=== PATIENT | female | born 1970 | race Caucasian/White ===

== ENCOUNTER 2016-09-04 16:31 | Inpatient (IN) | payer MEDICARE, OTHER ==
[2016-09-04] VITALS (9 sets, daily range): BP systolic 186–206; BP diastolic 102–137; PULSE 79–91; RESP 15–18; TEMP 97.8; O2SAT 98–100
[~2016-09-04] VITALS: Ht 160 cm; Wt 57.0 kg
[~2016-09-04 16:31] MED LIST: AMPY10TA PO; BACL10TA PO; GABA300C5 PO; HYDR-3583 PO; INTE44IN SQ; OXYB5TAB10 PO
--- NOTE | 2016-09-04 17:11 | PD ---
HPI Chief Complaint: Altered Mental Status Time Seen by Provider: 16:50 Travel History International Travel<30 days: No Contact w/Intl Traveler<30days: No Traveled to known affect area: No History of Present Illness HPI This 46-year-old female is sent by Dr. CARR. She had gone to see Dr. Carr for routine visit and seemed a bit confused. The patient says she's been feeling very weak for at least a week. She says she's been nauseated and has no appetite. She says she's had an 18 pound weight loss over the past month or so. She had seen Dr. Carr about a month ago and at that time apparently had some abnormal liver function tests. She was told to stop drinking and says that she did. She did have an ultrasound of the liver on June 28 of this year. At that time was noted that her common bile duct was prominent at 7 mm by 3 men rep rest of the ultrasound was negative. She is not aware of any history of liver disease. She does have a history of multiple sclerosis. She sees Dr. Boo. This is manifested as trouble walking and pain. She says that she noted she was having problems writing a check the other day and seemed like she was confused PFSH Past Medical History Diminished Hearing: No Hypertension: Yes Musculoskeletal: Yes (MUTILPLE SCLEROSIS) Neurologic: Yes ?: Not Social History Alcohol Use: Yes (MONTHLY, 3 BEERS) Tobacco Use: Yes (CIGARETTES, 1/2 PPD, STARTED 07/2008) Substance Use: No Allergies-Medications (Allergen,Severity, Reaction): Coded Allergies: Penicillin (Verified Allergy, Intermediate, HIVES, 09/04/16) Reported Meds & Prescriptions Reported Meds & Active Scripts Active Reported Ditropan (Oxybutynin Chloride) 5 Mg Tab 5 Mg PO DAILY Gabapentin 300 Mg Cap 300 Mg PO BID Hydrocodone-Acetaminophen 10-325 mg Tab 1 Tab PO DAILY PRN Ampyra 12 HR (Dalfampridine ER 12 HR) 10 Mg Tab 10 Mg PO BID Rebif Rebidose Pen Inj (Interferon Beta 1a) 44 Mcg/0.5 Ml Pen 44 Mcg SQ 3XWEEK Review of Systems General / Constitutional: Positive: Weight Loss, No: Fever Eyes: No: Diploplia, Blurred Vision HENT: No: Headaches Cardiovascular: No: Chest Pain or Discomfort, Palpitations Respiratory: No: Cough Gastrointestinal: Positive: Nausea, Vomiting, Abdominal Pain, Loss of Appetite Genitourinary: No: Frequency Musculoskeletal: No: Myalgias, Arthralgias Skin: No Rash Neurologic: Positive: Weakness, Change in Mentation Psychiatric: No: Anxiety Hematologic/Lymphatic: Positive: Easy Bruising Physical Exam Narrative GENERAL: Thin female no acute distress SKIN: Focused skin assessment warm/dry. HEAD: Atraumatic. Normocephalic. EYES: Pupils equal and round. There is scleral icterus. No injection or drainage. ENT: No nasal bleeding or discharge. Mucous membranes pink and moist. NECK: Trachea midline. No JVD. CARDIOVASCULAR: Regular rate and rhythm. No murmur appreciated. RESPIRATORY: No accessory muscle use. Clear to auscultation. Breath sounds equal bilaterally. GASTROINTESTINAL: Abdomen soft, non-tender, nondistended. Hepatic and splenic margins not palpable. MUSCULOSKELETAL: No obvious deformities. No clubbing. No cyanosis. No edema. NEUROLOGICAL: Awake and alert. No obvious cranial nerve deficits. Motor grossly within normal limits. Normal speech. PSYCHIATRIC: Appropriate mood and affect; insight and judgment normal. Data Data Last Documented VS Vital Signs Date Time Temp Pulse Resp B/P Pulse Ox O2 Delivery O2 Flow Rate FiO2 09/04/16 18:23 81 18 188/125 09/04/16 17:20 98 Room Air 09/04/16 16:36 97.8 Orders Complete Blood Count With Diff (09/04/16 17:02) Comprehensive Metabolic Panel (09/04/16 17:02) Prothrombin Time / Inr (Pt) (09/04/16 17:02) Act Partial Throm Time (Ptt) (09/04/16 17:02) Lipase (09/04/16 17:02) Urinalysis - C+S If Indicated (09/04/16 17:02) Magnesium (Mg) (09/04/16 17:02) Ammonia (09/04/16 17:02) Ct Brain W/O Iv Contrast(Rout) (09/04/16 17:02) Drug Screen, Random Urine (09/04/16 17:02) Alcohol (Ethanol) (09/04/16 17:02) Clonidine (Catapres) (09/04/16 17:15) Urine Culture (09/04/16 17:00) Sodium Chlor 0.9% 1000 Ml Inj (Ns 1000 M (09/04/16 18:30) Ct Abd/Pel W/O Iv Contrast (09/04/16 ) Labs Laboratory Tests Test 09/04/16 09/04/16 17:00 17:13 Urine Color YELLOW Urine Turbidity CLEAR Urine pH 5.5 Urine Specific [place] 1.019 Urine Protein 100 mg/dL Urine Glucose (UA) NEG mg/dL Urine Ketones NEG mg/dL Urine Occult Blood LARGE Urine Nitrite NEG Urine Bilirubin NEG Urine Leukocyte Esterase NEG Urine WBC 0-2 /hpf Urine Squamous Epithelial 0-5 /hpf Cells Urine Bacteria MANY /hpf Microscopic Urinalysis Comment CULTURE INDICATED Urine Opiates Screen POS Urine Barbiturates Screen NEG Urine Amphetamines Screen NEG Urine Benzodiazepines Screen NEG Urine Cocaine Screen NEG Urine Cannabinoids Screen NEG White Blood Count 12.8 TH/MM3 Red Blood Count 3.05 MIL/MM3 Hemoglobin 10.3 GM/DL Hematocrit 31.6 % Mean Corpuscular Volume 103.7 FL Mean Corpuscular Hemoglobin 33.9 PG Mean Corpuscular Hemoglobin 32.7 % Concent Red Cell Distribution Width 19.2 % Platelet Count 146 TH/MM3 Mean Platelet Volume 10.2 FL Neutrophils (%) (Auto) 73.7 % Lymphocytes (%) (Auto) 14.7 % Monocytes (%) (Auto) 4.6 % Eosinophils (%) (Auto) 0.1 % Basophils (%) (Auto) 6.9 % Neutrophils # (Auto) 9.4 TH/MM3 Lymphocytes # (Auto) 1.9 TH/MM3 Monocytes # (Auto) 0.6 TH/MM3 Eosinophils # (Auto) 0.0 TH/MM3 Basophils # (Auto) 0.9 TH/MM3 CBC Comment AUTO DIFF Differential Total Cells 100 Counted Neutrophils % (Manual) 93 % Lymphocytes % 3 % Monocytes % 4 % Neutrophils # (Manual) 11.9 TH/MM3 Nucleated Red Blood Cells 3 /100 WBC Differential Comment FINAL DIFF MANUAL Platelet Estimate LOW Platelet Morphology Comment NORMAL Tear Drop Cells 1+ Ovalocytes 1+ Keratocytes 1+ Prothrombin Time 13.6 SEC Prothromb Time International 1.2 RATIO Ratio Activated Partial 24.7 SEC Thromboplast Time Sodium Level 131 MEQ/L Potassium Level 3.5 MEQ/L Chloride Level 89 MEQ/L Carbon Dioxide Level 28.8 MEQ/L Anion Gap 13 MEQ/L Blood Urea Nitrogen 80 MG/DL Creatinine 2.20 MG/DL Estimat Glomerular Filtration 24 ML/MIN Rate Random Glucose 100 MG/DL Calcium Level 8.5 MG/DL Magnesium Level 2.8 MG/DL Total Bilirubin 4.2 MG/DL Aspartate Amino Transf 373 U/L (AST/SGOT) Alanine Aminotransferase 400 U/L (ALT/SGPT) Alkaline Phosphatase 110 U/L Ammonia 11 MCMOL/L Total Protein 6.8 GM/DL Albumin 3.2 GM/DL Lipase 178 U/L Ethyl Alcohol Level LESS THAN 3 MG/DL MDM Medical Decision Making Medical Screen Exam Complete: Yes Emergency Medical Condition: Yes Medical Record Reviewed: Yes Differential Diagnosis Differential includes alcoholic hepatitis, hepatitis, dehydration Narrative Course Her bilirubin is 4.2. Hemoglobin is 10 with a white count of 12,000. BUNs is 80 with a creatinine of 2.2. She has been started on IV fluids. A CT scan was done without contrast because of the elevation in her creatinine. There is no evidence of biliary obstruction. No gallstones are seen. Diagnosis Primary Impression: Elevated liver enzymes Additional Impressions: Acute kidney injury (nontraumatic) Dehydration Admitting Information Admitting Physician Requests: Admit Maksim Martinez MD September 04, 2016 17:11
[2016-09-04] MEDS ORDERED: cloNIDine HCL 0.1 MG TAB PO ONE (17:15)
[2016-09-04 17:24] LABS: AUTOMATED NEUTROPHIL # 9.4 TH/MM3 (1.8-7.7); BASOPHIL # 0.9 TH/MM3 (0-0.2); BASOPHIL % 6.9 % (0.0-2.0); EOSINOPHIL % 0.1 % (0.0-4.0); HEMATOCRIT 31.6 % (35.0-46.0); LYMPH % 14.7 % (9.0-44.0); LYMPHOCYTE # 1.9 TH/MM3 (1.0-4.8); MEAN CELL VOLUME 103.7 FL (80.0-100.0); MEAN CORPUSCULAR HEMOGLOBIN 33.9 PG (27.0-34.0); MEAN CORPUSCULAR HGB CONC 32.7 % (32.0-36.0); MONO % 4.6 % (0.0-8.0); NEUT % 73.7 % (16.0-70.0); PLATELET COUNT 146 TH/MM3 (150-450); RED BLOOD COUNT 3.05 MIL/MM3 (4.00-5.30); RED CELL DISTRIBUTION WIDTH 19.2 % (11.6-17.2); WHITE BLOOD COUNT 12.8 TH/MM3 (4.0-11.0)
[2016-09-04 17:26] LABS: BLOOD, URINE LARGE (NEG); GLUCOSE,URINE NEG (NEG); KETONE, URINE NEG (NEG); NITRITE,URINE NEG (NEG); PH, URINE 5.5 (5.0-8.5)
[2016-09-04 17:29] LABS: HEMO FLAGS AUTO DIFF
[2016-09-04 17:35] LABS: BARBITURATES, URINE NEG (NEG)
[2016-09-04 17:43] LABS: BACTERIA, URINE MANY /hpf; COMMENT (UR) CULTURE INDICATED; CULTURE IF INDICATED CULTURE INDICATED; SQUAMOUS EPITHELIAL CELL URINE 0-5 /hpf (0-5); URINE COLOR YELLOW (YELLW/STRAW); WBC, URINE 0-2 /hpf (0-5)
[2016-09-04 17:44] LABS: AMPHETAMINE, URINE NEG (NEG)
[2016-09-04 17:47] LABS: APTT (PATIENT) 24.7 SEC (24.3-30.1); INTERNATIONAL NORMALIZED RATIO 1.2 RATIO; PROTHROMBIN TIME - PATIENT 13.6 SEC (9.8-11.6)
[2016-09-04 17:48] LABS: COCAINE, URINE NEG (NEG)
[2016-09-04 18:08] LABS: CHLORIDE 89 MEQ/L (98-107); POTASSIUM 3.5 MEQ/L (3.5-5.1); SODIUM (NA) 131 MEQ/L (136-145)
[2016-09-04 18:12] LABS: ANION GAP 13 MEQ/L (5-15); BICARBONATE 28.8 MEQ/L (21.0-32.0); BLOOD UREA NITROGEN 80 MG/DL (7-18); MAGNESIUM 2.8 MG/DL (1.5-2.5)
[2016-09-04 18:14] LABS: ALT (GPT) 400 U/L (10-53)
[2016-09-04 18:15] LABS: AST (GOT) 373 U/L (15-37); GLOMERULAR FILTRATION RATE 24 ML/MIN (>89)
[2016-09-04 18:16] LABS: TOTAL BILIRUBIN ADULT 4.2 MG/DL (0.2-1.0)
[2016-09-04 18:17] LABS: ALKALINE PHOSPHATASE 110 U/L (45-117)
[2016-09-04 18:21] LABS: CORRECTED NUCLEATED RBC 3 /100 WBC (0-0); NEUTROPHIL # MANUAL DIFF 11.9 TH/MM3 (1.8-7.7); OVALOCYTES 1+ (NORMAL); POLYS (SEG NEUTROPHILS) 93 % (16-70); WBC DIFF SAMPLE 100
[2016-09-04 18:22] LABS: KERATOCYTES 1+ (NORMAL); PLATELET ESTIMATE SMEAR LOW (NORMAL); PLATELET MORPHOLOGY NORMAL (NORMAL); SCAN/DIFF FINAL DIFF MANUAL; TEARDROP RBCS 1+ (NORMAL)
[2016-09-04] MEDS ORDERED: SODIUM CHLOR 0.9% 1000 ML INJ 1,000 ML IV ONE (18:30)
--- NOTE | 2016-09-04 19:05 | RADHPO ---
EXAM DATE/TIME: 09/04/2016 18:47 [facility] COMPARISON: No previous studies available for comparison. INDICATIONS : Altered mental status. RADIATION DOSE: 66.19 CTDIvol (mGy) MEDICAL HISTORY : Hypertension. Multiple sclerosis. SURGICAL HISTORY : None. ENCOUNTER: Initial ACUITY: 1 day PAIN SCALE: Non-responsive LOCATION: cranial TECHNIQUE: Multiple contiguous axial images were obtained of the head. Using automated exposure control and adj ustment of the mA and/or kV according to patient size, radiation dose was kept as low as reasonably a chievable to obtain optimal diagnostic quality images. FINDINGS: CEREBRUM: The ventricles are normal for age. No evidence of midline shift, mass lesion, hemorrhage or acute in farction. No extra-axial fluid collections are seen. POSTERIOR FOSSA: The cerebellum and brainstem are intact. The 4th ventricle is midline. The cerebellopontine angle i s unremarkable. EXTRACRANIAL: The visualized portion of the orbits is intact. SKULL: The calvaria is intact. No evidence of skull fracture. CONCLUSION: Unremarkable noncontrast CT. Redd Camacho MD on September 04, 2016 at 19:03 Board Certified Radiologist. This report was verified electronically.
--- NOTE | 2016-09-04 19:19 | RADHPO ---
EXAM DATE/TIME: 09/04/2016 18:50 [facility] COMPARISON: No previous studies available for comparison. INDICATIONS : Jaundice and weight loss. ORAL CONTRAST: No oral contrast ingested. RADIATION DOSE: 5.50 CTDIvol (mGy) MEDICAL HISTORY : Multiple sclerosis. Hypertension. SURGICAL HISTORY : None. ENCOUNTER: Initial ACUITY: 1 day PAIN SCALE: 0/10 LOCATION: abdomen TECHNIQUE: Volumetric scanning of the abdomen and pelvis was performed. Using automated exposure control and ad justment of the mA and/or kV according to patient size, radiation dose was kept as low as reasonably achievable to obtain optimal diagnostic quality images. FINDINGS: LOWER LUNGS: There is a small right pleural effusion. The heart size appears mildly prominent and there is a small to moderate amount of pericardial fluid. LIVER: Homogeneous density without lesion. There is no dilation of the biliary tree. No calcified gallston es. There is wall thickening or fluid surrounding the gallbladder measuring up to approximately 7-8 m m. SPLEEN: Normal size without lesion. PANCREAS: Within normal limits. KIDNEYS: Normal in size and shape. There is no mass, stone, or hydronephrosis. ADRENAL GLANDS: Within normal limits. VASCULAR: There is no aortic aneurysm. BOWEL/MESENTERY: There is a nonspecific bowel gas pattern with multiple loops of nondilated air-containing small bowel with multiple small air-fluid levels. There is no free air. There is a small mild fluid in the cul-d e-sac. ABDOMINAL WALL: Within normal limits. RETROPERITONEUM: There is no lymphadenopathy. BLADDER: No wall thickening or mass. There is a large air-fluid level in the bladder. REPRODUCTIVE: There is a 4.1 x 3 cm low-attenuation cystic structure in left adnexa measuring 6.5 Hounsfield units in density. INGUINAL: There is no lymphadenopathy or hernia. MUSCULOSKELETAL: Within normal limits for patient age. CONCLUSION: 1. The study was performed without intravenous or oral contrast limiting the sensitivity. 2. No evidence of biliary obstruction. 3. The gallbladder is abnormal in appearance with wall thickening or surrounding fluid. There are no calcified gallstones identified. 4. Cystic mass in the left adnexa measuring 4.1 x 3 cm most consistent with an ovarian cyst. 5. Small right pleural effusion. 6. Nonspecific, nonobstructive bowel gas pattern which may represent an ileus or gastroenteritis. 7. Air-fluid level in the bladder likely secondary to recent instrumentation. Redd Camacho MD on September 04, 2016 at 19:12 Board Certified Radiologist. This report was verified electronically.
[2016-09-04] MEDS ORDERED: NALOXONE HCL 0.4 MG/ML AMP IV PRN (19:45)
[2016-09-04] MEDS ORDERED: SODIUM CHLORIDE 0.9% FLUSH 10 ML FLUSH IV FLUSH PRN (19:45)
[2016-09-04] MEDS: SODIUM CHLORIDE 0.9% FLUSH 10 ML FLUSH IV FLUSH SCH (21:00)
[2016-09-04] MEDS: hydrALAZINE HCL 20 MG/ML VIAL IV PUSH PRN ×4 (21:37→23:36)
[2016-09-04] MEDS: SODIUM CHLOR 0.9% 1000 ML INJ 1,000 ML IV SCH (21:37)
[2016-09-04] MEDS ORDERED: BACLOFEN 10 MG TAB PO ONE (23:15)
[2016-09-04] MEDS: MORPHINE SULFATE 4 MG/ML INJ IV PUSH PRN (23:37)
[2016-09-05] VITALS (9 sets, daily range): BP systolic 160–220; BP diastolic 84–127; PULSE 81–95; RESP 16–20; TEMP 96.2–97.7; O2SAT 96–99
[2016-09-05] MEDS: hydrALAZINE HCL 20 MG/ML VIAL IV PUSH PRN (05:20)
[2016-09-05 06:42] LABS: AUTOMATED NEUTROPHIL # 10.1 TH/MM3 (1.8-7.7); LYMPH % 11.4 % (9.0-44.0); LYMPHOCYTE # 1.4 TH/MM3 (1.0-4.8); MEAN CELL VOLUME 103.4 FL (80.0-100.0); MEAN CORPUSCULAR HEMOGLOBIN 33.4 PG (27.0-34.0); MEAN CORPUSCULAR HGB CONC 32.3 % (32.0-36.0); MONO % 6.2 % (0.0-8.0); NEUT % 82.4 % (16.0-70.0); PLATELET COUNT 120 TH/MM3 (150-450); RED BLOOD COUNT 2.91 MIL/MM3 (4.00-5.30); RED CELL DISTRIBUTION WIDTH 19.3 % (11.6-17.2); WHITE BLOOD COUNT 12.3 TH/MM3 (4.0-11.0)
[2016-09-05 06:54] LABS: HEMO FLAGS AUTO DIFF
[2016-09-05 07:07] LABS: ALKALINE PHOSPHATASE 97 U/L (45-117); ALT (GPT) 430 U/L (10-53); ANION GAP 17 MEQ/L (5-15); AST (GOT) 384 U/L (15-37); BICARBONATE 27.4 MEQ/L (21.0-32.0); BLOOD UREA NITROGEN 68 MG/DL (7-18); CHLORIDE 94 MEQ/L (98-107); GLOMERULAR FILTRATION RATE 30 ML/MIN (>89); SODIUM (NA) 138 MEQ/L (136-145); TOTAL BILIRUBIN ADULT 3.8 MG/DL (0.2-1.0)
[2016-09-05 07:23] LABS: SCAN/DIFF AUTO DIFF CONFIRMED
[2016-09-05] MEDS ORDERED: ONDANSETRON HCL 4 MG/2 ML VIAL IV PRN (07:45)
[2016-09-05] MEDS ORDERED: CALCIUM CARBONATE 500 MG CHEWABLE TAB CHEW PRN (07:45)
[2016-09-05] MEDS ORDERED: ACETAMINOPHEN 325 MG TAB PO PRN (07:45)
[2016-09-05] MEDS ORDERED: DOCUSATE SODIUM 100 MG CAP PO PRN (07:45)
[2016-09-05 07:49] LABS: POTASSIUM 2.9 MEQ/L (3.5-5.1)
--- NOTE | 2016-09-05 08:09 | RADHPO ---
EXAM DATE/TIME: 09/05/2016 07:52 [facility] COMPARISON: No previous studies available for comparison. INDICATIONS : Hypertension. Some shortness of breath. Weakness. Weight loss. MEDICAL HISTORY : Hypertension. Multiple sclerosis. UTI. SURGICAL HISTORY : None. ENCOUNTER: Initial ACUITY: 2 days PAIN SCORE: 0/10 LOCATION: chest FINDINGS: A single view of the chest demonstrates the lungs to be symmetrically aerated without evidence of mas s, infiltrate or effusion. The heart size is mild to moderately enlarged. The bony structures are in tact. There is no pulmonary vascular redistribution. Overlying electrocardiogram leads are present. CONCLUSION: Mild to moderate cardiomegaly with no evidence of pulmonary edema. Redd Camacho MD on September 05, 2016 at 8:07 Board Certified Radiologist. This report was verified electronically.
[2016-09-05 08:14] LABS: CREATINE KINASE 1591 U/L (26-192)
--- NOTE | 2016-09-05 08:22 | HHI.HP ---
HPI Service [facility] Hospitalists Primary Care Physician Lolita Singh MD Admission Diagnosis HEPATITIS, DEHYDRATION Diagnoses: Chief Complaint: "Weakness." Travel History International Travel<30 Days: No Contact w/Intl Traveler <30 Da: No Traveled to Known Affected Are: No History of Present Illness Ms. Ayon is 46 yo, with history inclusive of multiple sclerosis, smoking 1/2 ppd (though pt reported having stopped smoking within past 2 weeks) , and alcohol use in which she reported near daily use of beer "but I stopped a couple of weeks ago." Ms. Ayon presented to [facility] ED on 09/04/16 as a result of being sent in by her PCP Dr. Singh for confusion. Per the medical record, pt has experienced weakness, confusion, and approximately 18 pound weight loss ( unintentional). Pt reported during the past "two weeks I have been falling a lot." She denied striking her head. Pt noted she has an appetite but continues to lose weight despite eating. Ms. Ayon denied fever, chills, and vomiting, yet endorsed nausea. She denied recent change in medication regimen. She did endorse having been treated for hypertension by her previous PCP, "but I don't take blood pressure medication now." She denied recent worsening of her MS. She stated she has left leg weakness that is unchanged. No other issues noted or reported by pt. Review of Systems Except as stated in HPI: all other systems reviewed are Neg Past Family Social History Past Medical History Multiple sclerosis Hypertension Overactive bladder Past Surgical History Pt denied previous surgical history Reported Medications Reported Meds & Active Scripts Active Reported Ditropan (Oxybutynin Chloride) 5 Mg Tab 5 Mg PO DAILY Gabapentin 300 Mg Cap 300 Mg PO BID Hydrocodone-Acetaminophen 10-325 mg Tab 1 Tab PO DAILY PRN Ampyra 12 HR (Dalfampridine ER 12 HR) 10 Mg Tab 10 Mg PO BID Rebif Rebidose Pen Inj (Interferon Beta 1a) 44 Mcg/0.5 Ml Pen 44 Mcg SQ 3XWEEK Allergies: Coded Allergies: Penicillin (Verified Allergy, Intermediate, HIVES, 09/04/16) Active Ordered Medications Current Medications Medications (Trade) Dose Ordered Sig/Gonzalez Route Start Time Stop Time Status Last Admin (NS 1000 ml Inj) 1,000 ml @ 50 mls/hr Q20H IV 09/04/16 19:44 09/04/16 21:37 (NS Flush) 2 ml UNSCH PRN IV FLUSH 09/04/16 19:45 (NS Flush) 2 ml BID IV FLUSH 09/04/16 21:00 09/04/16 21:00 (Narcan Inj) 0.4 mg UNSCH PRN IV 09/04/16 19:45 (Apresoline) 25 mg Q12HR PO 09/05/16 09:00 (Morphine Inj) 2 mg Q3H PRN IV PUSH 09/04/16 23:15 09/04/16 23:37 (Apresoline Inj) 20 mg Q4HR PRN IV PUSH 09/05/16 08:00 (Catapres) 0.1 mg Q6H PRN PO 09/05/16 07:45 (Tylenol) 650 mg Q4H PRN PO 09/05/16 07:45 (Zofran Inj) 4 mg Q6H PRN IV 09/05/16 07:45 (Colace) 100 mg BID PRN PO 09/05/16 07:45 (Tums Chew) 1,000 mg TID PRN CHEW 09/05/16 07:45 (KCl) 60 meq ONCE ONCE PO 09/05/16 09:00 09/05/16 09:01 (Neurontin) 300 mg BID PO 09/05/16 09:00 (Ditropan) 5 mg DAILY PO 09/05/16 09:00 Patient Own Medication PT OWN MED: AMP... BID PO 09/05/16 09:00 Hold Family History Father reported to have liver and lung cancer. Social History Alcohol use-daily beer use, stopped two weeks ago. Pt stated she had been drinking more than 6 beers a day for the past year. Nicotine use-pt reported smoking 1/2 ppd for about a year "this time.' Life time usage was not disclosed. Illicit/recreational drug use was denied. Physical Exam Vital Signs Vital Signs Date Time Temp Pulse Resp B/P Pulse Ox O2 Delivery O2 Flow Rate FiO2 09/05/16 06:35 213/127 Manual Cuff/Auscultation 09/05/16 04:00 97.2 90 20 206/120 99 09/05/16 00:44 86 09/05/16 00:30 96.6 85 20 178/110 99 Automatic Cuff 09/05/16 00:13 89 18 187/104 99 Room Air 09/04/16 23:54 18 09/04/16 23:22 85 18 186/104 100 Room Air 09/04/16 23:22 85 18 100 Room Air 09/04/16 22:53 85 18 187/102 100 Room Air 09/04/16 22:05 79 18 204/128 100 Room Air 09/04/16 21:40 81 18 203/128 100 Room Air 09/04/16 21:21 88 18 195/124 100 Room Air 09/04/16 21:21 88 18 100 Room Air 09/04/16 19:22 82 18 100 Room Air 09/04/16 19:22 82 18 194/126 100 Room Air 09/04/16 18:23 81 18 188/125 09/04/16 17:20 89 18 201/132 98 Room Air 09/04/16 16:36 97.8 91 15 206/137 99 Physical Exam GENERAL: This is a well-nourished, well-developed patient, in no apparent distress. SKIN: No rashes, ecchymoses or lesions. Cool and dry. HEAD: Atraumatic. Normocephalic. No temporal or scalp tenderness. EYES: Pupils equal round and reactive. Extraocular motions intact. Scleral icterus noted. No injection or drainage. ENT: Nose without bleeding, purulent drainage or septal hematoma. Throat without erythema, tonsillar hypertrophy or exudate. Uvula midline. Airway patent. NECK: Trachea midline. No JVD or lymphadenopathy. Supple, nontender, no meningeal signs. CARDIOVASCULAR: Regular rate and rhythm without murmurs, gallops, or rubs. RESPIRATORY: Clear to auscultation. Breath sounds equal bilaterally. No wheezes , rales, or rhonchi. GASTROINTESTINAL: Abdomen soft, tenderness upon palpitation, nondistended. No guarding. MUSCULOSKELETAL: Extremities without clubbing, cyanosis, or edema. No joint tenderness, effusion, or edema noted. No calf tenderness. Negative Homans sign bilaterally. NEUROLOGICAL: Awake and alert. Cranial nerves II through XII intact. Motor and sensory grossly within normal limits. Five out of 5 muscle strength in upper extremity muscle groups. Weakness noted in both lower extremities, left worse than right. Normal speech. Laboratory Laboratory Tests Test 09/04/16 09/04/16 09/05/16 17:00 17:13 05:35 Urine Color YELLOW Urine Turbidity CLEAR Urine pH 5.5 Urine Specific [place] 1.019 Urine Protein 100 Urine Glucose (UA) NEG Urine Ketones NEG Urine Occult Blood LARGE Urine Nitrite NEG Urine Bilirubin NEG Urine Leukocyte Esterase NEG Urine WBC 0-2 Urine Squamous Epithelial 0-5 Cells Urine Bacteria MANY Microscopic Urinalysis Comment CULTURE INDICATED Urine Opiates Screen POS Urine Barbiturates Screen NEG Urine Amphetamines Screen NEG Urine Benzodiazepines Screen NEG Urine Cocaine Screen NEG Urine Cannabinoids Screen NEG White Blood Count 12.8 12.3 Red Blood Count 3.05 2.91 Hemoglobin 10.3 9.7 Hematocrit 31.6 30.0 Mean Corpuscular Volume 103.7 103.4 Mean Corpuscular Hemoglobin 33.9 33.4 Mean Corpuscular Hemoglobin 32.7 32.3 Concent Red Cell Distribution Width 19.2 19.3 Platelet Count 146 120 Mean Platelet Volume 10.2 9.5 Neutrophils (%) (Auto) 73.7 82.4 Lymphocytes (%) (Auto) 14.7 11.4 Monocytes (%) (Auto) 4.6 6.2 Eosinophils (%) (Auto) 0.1 0.0 Basophils (%) (Auto) 6.9 0.0 Neutrophils # (Auto) 9.4 10.1 Lymphocytes # (Auto) 1.9 1.4 Monocytes # (Auto) 0.6 0.8 Eosinophils # (Auto) 0.0 0.0 Basophils # (Auto) 0.9 0.0 CBC Comment AUTO DIFF AUTO DIFF Differential Total Cells 100 Counted Neutrophils % (Manual) 93 Lymphocytes % 3 Monocytes % 4 Neutrophils # (Manual) 11.9 Nucleated Red Blood Cells 3 Differential Comment FINAL DIFF AUTO DIFF MANUAL CONFIRMED Platelet Estimate LOW Platelet Morphology Comment NORMAL Tear Drop Cells 1+ Ovalocytes 1+ Keratocytes 1+ Prothrombin Time 13.6 Prothromb Time International 1.2 Ratio Activated Partial 24.7 Thromboplast Time Sodium Level 131 138 Potassium Level 3.5 2.9 Chloride Level 89 94 Carbon Dioxide Level 28.8 27.4 Anion Gap 13 17 Blood Urea Nitrogen 80 68 Creatinine 2.20 1.80 Estimat Glomerular Filtration 24 30 Rate Random Glucose 100 92 Calcium Level 8.5 8.0 Magnesium Level 2.8 Total Bilirubin 4.2 3.8 Aspartate Amino Transf 373 384 (AST/SGOT) Alanine Aminotransferase 400 430 (ALT/SGPT) Alkaline Phosphatase 110 97 Ammonia 11 Total Protein 6.8 6.2 Albumin 3.2 3.0 Lipase 178 Ethyl Alcohol Level LESS THAN 3 Total Creatine Kinase 1591 Date/Time Procedure Status Source Growth 09/04/16 17:00 Urine Culture Received Urine Clean Catch Pending Result Diagram: 09/05/16 0535 09/05/16 0535 Imaging Last 24 hours Impressions Chest X-Ray 09/05/16 0000 Signed Impressions: Service Date/Time: September 07:52 - CONCLUSION: Mild to moderate cardiomegaly with no evidence of pulmonary edema. Redd Camacho MD Head CT 09/04/16 1702 Signed Impressions: Service Date/Time: Sunday, September 04, 2016 18:47 - CONCLUSION: Unremarkable noncontrast CT. Redd Camacho MD Assessment and Plan Problem List: (1) Hypertension ICD Code: I10 Status: Acute (2) Acute kidney injury (nontraumatic) ICD Code: N17.9 Status: Acute (3) Elevated liver enzymes ICD Code: R74.8 Status: Acute (4) Dehydration ICD Code: E86.0 Status: Acute (5) MS (multiple sclerosis) ICD Code: G35 Status: Chronic (6) Hypokalemia ICD Code: E87.6 Status: Acute Assessment and Plan Hypertension-uncontrolled hydralazine scheduled and IV PRN Clonidine PO prn Restart ditropan monitor blood pressure EKG reviewed by Dr. Vernon indicated the presence of Left Ventricular Hypertrophy likely due to uncontrolled hypertension. Hypokalemia replace per protocol monitor labs. NAZIA 2/2 dehydration IVF recheck labs in am. Check Ck avoid nephrotoxic agents. Elevated liver enzymes with tender RUQ and epig areas Check HIDA scan as recent abdominal CT indicated gall bladder abnormality of thickened wall or fluid present. Hep profile GI consulted. Dehydration IVF check labs. Multiple sclerosis Neurology to be consulted Written by Adam Easton, acting as scribe for Dr. Vernon on 09/05/16 at 09:32. This note was transcribed by scribe Adam Easton. I, Dr. Magnus Vernon personally performed the history, physical exam, and medical decision making; and confirmed the accuracy of the information in the transcribed note. Authenticated by Dr. Magnus Vernon on 09/05/16 at 12:32. Code Status Full code Discussed Condition With Case discussed with Pt, RN, and Dr. Vernon. Physician Certification 2 Midnight Certification Type: Admission for Inpatient Services Order for Inpatient Services The services are ordered in accordance with Medicare regulations or non- Medicare payer requirements, as applicable. In the case of services not specified as inpatient-only, they are appropriately provided as inpatient services in accordance with the 2-midnight benchmark. Estimated LOS (days): 3 3 days is the estimated time the patient will need to remain in the hospital, assuming treatment plan goals are met and no additional complications. Post-Hospital Plan: Home Problem Qualifiers (1) Hypertension: Qualified Code: I10 - Essential hypertension Adam Easton Jr. September 05, 2016 08:22 Magnus Vernon MD September 05, 2016 12:37
[2016-09-05] MEDS: GABAPENTIN 300 MG CAP PO SCH ×2 (08:49→20:12)
[2016-09-05] MEDS: cloNIDine HCL 0.1 MG TAB PO PRN ×2 (08:49→16:58)
[2016-09-05] MEDS: SODIUM CHLORIDE 0.9% FLUSH 10 ML FLUSH IV FLUSH SCH ×2 (09:00→20:12)
[2016-09-05] MEDS ORDERED: AMPYRA 10 MG PO SCH ×2 (09:00→21:00)
[2016-09-05] MEDS: OXYBUTYNIN CHLORIDE 5 MG TAB PO SCH (09:00)
[2016-09-05] MEDS ORDERED: hydrALAZINE HCL 25 MG TAB PO SCH (09:00)
[2016-09-05] MEDS ORDERED: POTASSIUM CHLORIDE 10 MEQ CONTROLLED RELEASE TAB PO ONE (09:00)
[2016-09-05 09:02] LABS: MAGNESIUM 2.6 MG/DL (1.5-2.5)
[2016-09-05 09:04] LABS: CKMB 28.2 NG/ML (0.5-3.6)
[2016-09-05 09:09] LABS: BETA HCG QUANT LESS THAN 1 MIU/ML (0-5)
[2016-09-05 09:39] LABS: ACETAMINOPHEN LESS THAN 2.0 MCG/ML (10.0-30.0)
[2016-09-05] MEDS: SODIUM CHLOR 0.9% 1000 ML INJ 1,000 ML IV SCH ×2 (10:00→23:02)
--- NOTE | 2016-09-05 13:00 | MB ---
cc: REBECCA PARDO M.D. DATE OF CONSULTATION 09/05/2016 REASON FOR CONSULTATION She is seen in neurological consultation. She is [id number] with a history of multiple sclerosis. It appears that lately she has been followed by neurologist Dr. Boo. She was previously followed by Dr. Duncan. She came to the hospital because of a recent medical and neurological decline. According to a friend who provides some additional history, he used to be her roommate. Three to four weeks ago, the patient has had a progression of problems. There has been a generalized weakness, weight loss, she is not feeling well, and for this reason, she quit drinking and smoking on August 14 and her symptoms only became more pronounced. She has lost almost 20 pounds. Her ability to walk has diminished. She has a history of multiple sclerosis and she takes Ampyra 10 mg twice a day, Rebif three times a week. She also takes Hydrocodone, Gabapentin 300 twice a day and B12. She has a history of spastic overactive bladder presumably from the multiple sclerosis. NEUROLOGIC EXAM On exam, the patient was asleep, but awakened. She provides A limited history. She expressed herself in a very low pitched manner and when questioned she answer the questions somewhat slowly, but appropriately. She seemed to be oriented in a reasonable manner. She has normal ocular movements. Visual silvestre were full. There is no facial weakness. No aphasia. She raised the arms and actually she had a fairly strong good philosophy and religion instructor bilaterally. [id number] testing was normal. In the lower extremities, she starts raising them and she is moderately weak, opposes mild resistance. She wiggles toes and feet and opposes some moderate resistance distally. Reflexes were diminished, but present at the elbows, trace at the knees and absent at the ankles. Plantar responses flexor bilaterally. Position sense preserved. No overt sensory loss. She has been hypertensive in the hospital. The ancillary data includes white count yesterday 12.8, hemoglobin 10.3, platelets 146. Sodium 131, potassium 3.5, BUN 280, creatinine 2.2, calcium normal. Magnesium high at 2.8, total bilirubin 4.2, AST 373, ALT 400, CPK 1591. Urine toxicology negative except for opiates. ASSESSMENT 1. Generalized weakness 2. High abnormal liver function testing. 3. Elevated CPK and some renal failure. 4. Multiple sclerosis It is difficult to be determined whether or not the multiple sclerosis is a substantial factor here, but probably her general decline is related to her electrolyte and liver dysfunction. From a neurological standpoint, I have discussed with the RN and we will hold off Ampyra as well as Rebif as these medications might be a factor. We will schedule an MRI of the thoracic and lumbar spine at least and later on might do additional MRI studies. The CT brain was negative for an acute process. I will follow the neurological course. Thank you for asking us to assist in her care. MD CANDIDO Alexander/GENARO /12:25 PM /12:38 PM
--- NOTE | 2016-09-05 13:01 | HHI.DCPOC ---
Discharge Care Plan Diagnosis: (1) MS (multiple sclerosis) (2) Elevated liver enzymes Your Health Problems Are: Difficulty with ADL Exercise Tolerance Goals to Promote Your Health * To prevent worsening of your condition and complications * To maintain your health at the optimal level Directions to Meet Your Goals Take your medications as prescribed Follow your dietary instruction Follow activity as directed Keep your appointments as scheduled Take your immunizations and boosters as scheduled If your symptoms worsen call your PCP, if no PCP go to Urgent Care Center or Emergency Room Smoking is Dangerous to Your Health. Avoid second hand smoke Call the 24-hour hour crisis hotline for domestic abuse at Magnus Vernon MD September 05, 2016 13:01
--- NOTE | 2016-09-05 13:02 | HHI.FF ---
Face to Face Verification Diagnosis: (1) MS (multiple sclerosis) (2) Elevated liver enzymes Physical Therapy Order: Evaluate and Treat, Improve ambulation, Strength and gait training I have seen patient Kenisha Ayon on 09/05/16. My clinical findings support the need for the requested home health care services because: Ltd mobility - disease progression I certify that my clinical findings support that this patient is homebound because: Unsafe to leave home unassisted Magnus Vernon MD September 05, 2016 13:02
[2016-09-05] MEDS ORDERED: HYDR25TA35 PO (13:05)
[2016-09-05] MEDS ORDERED: CIPR250T52 PO (13:05)
[2016-09-05] MEDS: hydrALAZINE HCL 50 MG TAB PO SCH ×2 (14:04→22:14)
[2016-09-05] MEDS: CIPROFLOXACIN 250 MG TAB PO SCH ×2 (14:04→20:12)
--- NOTE | 2016-09-05 15:41 | RADHPO ---
EXAM DATE/TIME: 09/05/2016 14:50 [facility] COMPARISON: No previous studies available for comparison. INDICATIONS : Mulitple sclerosis. Generalized weakness. MEDICAL HISTORY : Hypertension. SURGICAL HISTORY : None. ENCOUNTER: Initial ACUITY: 3 day PAIN SCORE: 0/10 LOCATION: Back. TECHNIQUE: Multiplanar multisequence MRI of the lumbar spine was performed without contrast. FINDINGS: There is a slight levoconvex curvature of the lumbar spine. No subluxations. Vertebral bodies have no rmal height and marrow signal. Normal conus terminates at the level of L1. Conus morphology within no rmal limits. T12-L1: Normal. L1-L2: Normal. L2-L3: Normal disc. Mild bilateral facet osteoarthritis. No foraminal or spinal stenosis. L3-L4: The disc is slightly desiccated and has mild loss of height. There is bulging of the disc annulus and mild bilateral facet osteoarthritis. No foraminal or spinal stenosis. L4-L5: The disc is desiccated and has mild loss of height. There is a small, broad/diffuse disc protrusion a nd mild to moderate bilateral facet osteoarthritis. There are concentric annular fissures in both for aminal regions, left larger than right. There is mild bilateral foraminal encroachment. L5-S1: The disc is mildly desiccated. No significant loss of height. A small, focal right paracentral disc p rotrusion is present superimposed on a diffuse annular bulge. Protrusion contacts the transiting righ t S1 nerve root within the lateral recess but does not clearly impinge upon it. Mild bilateral facet osteoarthritis seen. There is mild facet fluid on the left. No significant foraminal stenosis demonst rated on either side. CONCLUSION: 1. Mild degenerative changes at L3/L4, L4/L5 and L5/S1. Please see above. 2. Small, age indeterminate right paracentral disc protrusion at L5/S1. This contacts the transiting right S1 nerve root within the lateral recess but without evidence of impingement. 3. Mild bilateral foraminal encroachment at L4/L5 without definite exiting nerve root impingement. 4. There are left larger than right biforaminal annular fissures at the L4/L5 disc. 5. Apparent mild facet synovitis on the left at L5/S1. Lamine Zuñiga MD on September 05, 2016 at 15:31 Board Certified Radiologist. This report was verified electronically.
--- NOTE | 2016-09-05 15:57 | RADHPO ---
EXAM DATE/TIME: 09/05/2016 14:50 [facility] COMPARISON: No previous studies available for comparison. INDICATIONS : Mulitple sclerosis. Generalized weakness. MEDICAL HISTORY : Hypertension. SURGICAL HISTORY : None. ENCOUNTER: Initial ACUITY: 3 day PAIN SCORE: 0/10 LOCATION: Back. TECHNIQUE: Multiplanar multisequence MRI of the thoracic spine was performed. FINDINGS: 2 mm diameter syrinx is seen of the thoracic cord, extending from approximately T2-T11. The cord appe ars very mildly atrophic, especially in the mid thoracic region. No focal cord signal abnormalities a re demonstrated. Small posterior disc protrusions are noted at each level T3/T4 through T9/T10. Very mild facet and co stovertebral degenerative changes are also demonstrated throughout. No significant foraminal or spina l stenosis.Small right and tiny left pleural effusions are present. CONCLUSION: 1. Long segment but very small, age-indeterminate syrinx of the thoracic spine. The thoracic cord als o appears slightly atrophic. 2. Mild degenerative changes as above. 3. No foraminal or spinal stenosis. 4. Small right and tiny left pleural effusions are incidentally noted. Lamine Zuñiga MD on September 05, 2016 at 15:12 Board Certified Radiologist. This report was verified electronically.
--- NOTE | 2016-09-05 17:21 | EKG ---
Date Performed: 09/05/2016 Time Performed: 08:35:56 PTAGE: 46 years EKG: Sinus rhythm . Possible left atrial abnormality Rightward axis Possible anterior infarct - age undetermined Left v entricular hypertrophy Inferior/lateral ST-T changes are probably due to ventricular hypertrophy Righ t atrial abnormality Abnormal ECG NO PREVIOUS TRACING DOCTOR: Lance Tucker Interpretating Date/Time 09/05/2016 17:21:06
--- NOTE | 2016-09-05 18:53 | MB ---
cc: ENRIQUETA KOCH MD DATE OF CONSULTATION 09/05/16 DATE OF [address] Vernon REASON FOR CONSULTATION Increased liver function tests, nausea and vomiting. HISTORY OF PRESENT ILLNESS Mrs. Ayon is a 46-year-old lady with multiple medical problems who came to the emergency room sent by her primary care doctor for altered mental status and increased weakness. She was found to have anemia and increased liver enzymes. The patient is able to give me some history. She apparently had some nausea and vomiting for the last couple of days. There is decreased appetite and weight loss of 18 pounds for the last couple of weeks. The patient does have a history of alcohol use, mostly beer on a daily basis. There is a history of exposure to hepatitis C many years ago. She is not aware of any diagnosis of hepatitis in the past for her. She denies any diarrhea or constipation, never had an endoscopy or colonoscopy. She had is treated for MS by Dr. Valera. PAST MEDICAL HISTORY 1. Hypertension, 2. Overactive bladder 3. Multiple sclerosis PAST SURGICAL HISTORY None. MEDICATIONS At home, 1. Ditropan 2. Gabapentin 3. Hydrocodone 4. ALLERGIES PENICILLIN FAMILY HISTORY Her father had liver cancer but looks like there is a metastatic cancer to the liver from lungs. SOCIAL HISTORY Drinks daily. She reports smoking half a pack of cigarettes per day. REVIEW OF SYSTEMS She denies any fever or chills. She does have weight loss. ENT: No alteration in baseline hearing or visual acuity PULMONARY: Denies any chest pain, shortness of breath. GASTROINTESTINAL: As above. GENITOURINARY:: Denies dysuria, hematuria. HEMATOLOGIC: Denies any history of anemia or bleeding disorder. SKIN: No alteration in baseline skin lesion but she does have jaundice. NEUROLOGIC: No history of TIA or CVA kind of symptoms. No changes in her baseline neurological status. PHYSICAL EXAMINATION GENERAL: On clinical exam, the patient is sitting comfortably in bed in no acute distress. VITAL SIGNS: Blood pressure 190/120, temperature is 97.2, pulse 80, respirations 16. HEENT: Pupils equal, round, reactive to light and accommodation. She is jaundiced. NECK: No JVD. No lymphadenopathy. CHEST: Clear to auscultation and palpation. CARDIOVASCULAR: S1, S2. No murmur. ABDOMEN: Soft, tender in the right upper quadrant. FOOD OR BAGGAGE HANDLING RAMPMAN: She is awake, alert, oriented times three. She does have weakness of her upper arms and larynx EXTREMITIES: No pedal edema. LABORATORY DATA White count 12.8, hemoglobin 10.3, MCV 103, platelets 146. Total bilirubin 3.8, AST 384, ALT 430, ammonia 11, albumin is three, BUN 80, creatinine is 2.2, improving. IMAGING STUDIES She had abdominal CT which showed abnormal gallbladder with wall thickening. No calcified gallstones, cystic mass in the left adnexa, small right pleural effusion, nonspecific nonobstructive bowel gas pattern, air-fluid level in the bladder. Of note, the study was done without IV contrast. The patient had an ultrasound as an outpatient which showed mild dilatation of the common bile duct. IMPRESSION Elevation of liver enzymes, tenderness in the right upper quadrant, abnormal gallbladder on CT, rule out cholecystitis, Elevation of the liver enzymes, history of alcohol use, possible alcoholic liver disease, Mild dilatation of the common bile duct on the patient's us not reproduced on CT done patient may need further evaluation. Mild anemia, no indication of active bleed. most likely secondary to chronic disease. RECOMMENDATIONS HIDA scan, MRCP. We are going to send hepatitis profile and additional blood work to rule out inherited diseases and autoimmune hepatitis-MICHAEL, anti-smooth muscle antibody, antimitochondrial antibody, ceruloplasmin and celiac panel, ferritin, iron, alpha one antitrypsin. Monitor Liver function tests closely. If any indication of cholecystitis or common bile duct stone, the patient would benefit from surgical consultation and possible ERCP. May need endoscopy and colonoscopy and that can be done as an outpatient for further evaluation of her anemia. I would like to thank Dr. Vernon for referring her to our office for consultation. Further recommendation will depend on the patient's clinical status and the above results. Enriqueta Koch MD BSB/SA /5:52 PM /6:32 PM SUSAN
[2016-09-05 23:13] LABS: FERRITIN 1116 NG/ML (8-252)
[2016-09-05 23:17] LABS: TRANSFERRIN IRON PROFILE 206 MG/DL (200-360)
[2016-09-06] VITALS (22 sets, daily range): BP systolic 112–210; BP diastolic 60–134; PULSE 60–84; RESP 12–34; TEMP 96.1–97.9; O2SAT 95–100
[2016-09-06] MEDS: hydrALAZINE HCL 20 MG/ML VIAL IV PUSH PRN ×3 (00:01→08:05)
[2016-09-06] MEDS: cloNIDine HCL 0.1 MG TAB PO PRN (02:07)
[2016-09-06] MEDS: hydrALAZINE HCL 50 MG TAB PO SCH ×3 (06:18→22:19)
[2016-09-06] MEDS: SODIUM CHLOR 0.9% 1000 ML INJ 1,000 ML IV SCH (06:18)
[2016-09-06 06:27] LABS: AUTOMATED NEUTROPHIL # 8.6 TH/MM3 (1.8-7.7); BASOPHIL % 0.2 % (0.0-2.0); EOSINOPHIL % 0.2 % (0.0-4.0); HEMATOCRIT 27.8 % (35.0-46.0); LYMPHOCYTE # 1.1 TH/MM3 (1.0-4.8); MEAN CELL VOLUME 104.5 FL (80.0-100.0); MEAN CORPUSCULAR HEMOGLOBIN 34.3 PG (27.0-34.0); MEAN CORPUSCULAR HGB CONC 32.8 % (32.0-36.0); MONO % 6.5 % (0.0-8.0); NEUT % 82.1 % (16.0-70.0); PLATELET COUNT 89 TH/MM3 (150-450); RED BLOOD COUNT 2.66 MIL/MM3 (4.00-5.30); RED CELL DISTRIBUTION WIDTH 19.9 % (11.6-17.2); WHITE BLOOD COUNT 10.4 TH/MM3 (4.0-11.0)
[2016-09-06 06:29] LABS: HEMO FLAGS AUTO DIFF
[2016-09-06 06:37] LABS: CHLORIDE 100 MEQ/L (98-107); POTASSIUM 3.6 MEQ/L (3.5-5.1); SODIUM (NA) 136 MEQ/L (136-145)
[2016-09-06 06:41] LABS: ANION GAP 11 MEQ/L (5-15); BICARBONATE 25.5 MEQ/L (21.0-32.0); MAGNESIUM 2.4 MG/DL (1.5-2.5)
[2016-09-06 06:50] LABS: BANDS 1 % (0-6); CORRECTED NUCLEATED RBC 3 /100 WBC (0-0); NEUTROPHIL # MANUAL DIFF 8.5 TH/MM3 (1.8-7.7); POLYS (SEG NEUTROPHILS) 81 % (16-70); WBC DIFF SAMPLE 100
[2016-09-06 06:51] LABS: SCAN/DIFF FINAL DIFF MANUAL
[2016-09-06 07:20] LABS: ALKALINE PHOSPHATASE 90 U/L (45-117); ALT (GPT) 473 U/L (10-53); AST (GOT) 331 U/L (15-37); BLOOD UREA NITROGEN 57 MG/DL (7-18); CREATINE KINASE 991 U/L (26-192); GLOMERULAR FILTRATION RATE 33 ML/MIN (>89); TOTAL BILIRUBIN ADULT 3.1 MG/DL (0.2-1.0)
--- NOTE | 2016-09-06 07:30 | PQ ---
Physician Query Response Document PATIENT: ILYAAugust : 1970 ADMIT DATE: 09/04/2016 7:46 PM DISCH DATE: RESPONDING PROVIDER #: Lakisha QUERY TEXT: Acuity Specificity UNCONTROLLED HYPERTENSION is documented in the Medical Record. Please specify the acuity of this condition with terms such as: Based on your medical judgment, can you further clarify which, if any, of the following this conditio n is intended to indicate: ?EMERGENCY ?URGENCY ?CRISIS ? HYPERTENSION UNSPECIFIED ?Other Specify ? Unable to determine The patient's Clinical Indicators include: Documentation in the medical record indicates that this patient is being treated for Hypertension doc umented as: UNCONTROLLED HYPERTENSION The following criteria/clinical indicators are documented in the medical record: X Systolic BP consistently >180 Treatments: HYDRAZALINE IV Query created by: Diane Newman on 09/05/2016 3:21 PM RESPONSE TEXT: Hypertensive urgency QUERY TEXT: Altered Mental Status - Underlying Cause A mental status change is documented in the Medical Record. Please specify the underlying cause Based on your medical judgment, can you further clarify any underlying neurological cause, condition or process, if any, represented by this symptom including: ?Metabolic Encephalopathy ?Toxic Encephalopathy ?Stroke ?Coma ?Delirium ?Other Specify ?Unknown The patient's Clinical Indicators include: Documentation in the medical records indicates that this patient has been diagnosed as having the sym ptom of ALTERED MENTAL STATUS. Additional findings also documented in the medical record include: confusion. Per the medical record, pt has experienced weakness, confusion, 18 pound weight loss (unintentional). bmi < 19 infection clean cath urine w gm negative rods Query created by: Diane Newman on 09/05/2016 3:29 PM RESPONSE TEXT: Metabolic and hypertensive encephalopathy Electronically signed by: Magnus Vernon MD 09/06/2016 7:26 AM
[2016-09-06 07:43] LABS: CKMB 12.3 NG/ML (0.5-3.6)
[2016-09-06] MEDS: amLODIPine BESYLATE 5 MG TAB PO SCH (08:05)
[2016-09-06] MEDS: SODIUM CHLORIDE 0.9% FLUSH 10 ML FLUSH IV FLUSH SCH ×2 (08:05→20:45)
[2016-09-06] MEDS: CIPROFLOXACIN 250 MG TAB PO SCH ×2 (08:05→21:07)
[2016-09-06] MEDS: OXYBUTYNIN CHLORIDE 5 MG TAB PO SCH (08:05)
[2016-09-06] MEDS: GABAPENTIN 300 MG CAP PO SCH ×2 (08:05→20:45)
[2016-09-06] MEDS: cloNIDine HCL 0.2 MG TAB PO PRN ×2 (09:55→17:00)
[2016-09-06] MEDS ORDERED: niCARdipine INJ 25 MG in SODIUM CHLOR 0.9% 250 ML INJ 250 ML IV PRN (10:15)
--- NOTE | 2016-09-06 10:17 | HHI.PR ---
Subjective Remarks F/u HTN urgency. BP still out of control complaining of intermittent frontal headache and dizziness. Improving weakness. Discussed with RN Objective Vitals Vital Signs Date Time Temp Pulse Resp B/P Pulse Ox O2 Delivery O2 Flow Rate FiO2 09/06/16 08:00 97.9 82 19 210/98 97 09/06/16 04:00 189/121 194/123 Manual Cuff/Auscultation 09/06/16 04:00 96.3 81 18 97 09/06/16 01:56 184/107 09/06/16 00:00 96.1 81 16 193/125 97 182/120 09/05/16 20:00 96.2 82 18 160/84 99 09/05/16 20:00 82 09/05/16 16:00 97.2 90 16 190/120 96 09/05/16 12:00 96.9 81 16 180/120 98 I/O 09/05/16 09/05/16 09/05/16 09/06/16 09/06/16 09/06/16 07:00 15:00 23:00 07:00 15:00 23:00 Intake Total 818 ml 650 ml 754 ml 849 ml Balance 818 ml 650 ml 754 ml 849 ml Intake Oral 120 ml 650 ml 420 ml IV Total 698 ml 754 ml 429 ml # Voids 4 3 2 # Bowel Movements 0 0 0 Result Diagram: 09/06/1617 09/06/16 0617 Imaging Last Impressions Thoracic Spine MRI 09/05/16 0000 Signed Impressions: Service Date/Time: September 14:50 - CONCLUSION: 1. Long segment but very small, age-indeterminate syrinx of the thoracic spine. The thoracic cord also appears slightly atrophic. 2. Mild degenerative changes as above. 3. No foraminal or spinal stenosis. 4. Small right and tiny left pleural effusions are incidentally noted. Lamine Zuñiga MD Lumbar Spine MRI 09/05/16 0000 Signed Impressions: Service Date/Time: September 14:50 - CONCLUSION: 1. Mild degenerative changes at L3/L4, L4/L5 and L5/S1. Please see above. 2. Small, age indeterminate right paracentral disc protrusion at L5/S1. This contacts the transiting right S1 nerve root within the lateral recess but without evidence of impingement. 3. Mild bilateral foraminal encroachment at L4/L5 without definite exiting nerve root impingement. 4. There are left larger than right biforaminal annular fissures at the L4/L5 disc. 5. Apparent mild facet synovitis on the left at L5/S1. Lamine Zuñiga MD Chest X-Ray 09/05/16 0000 Signed Impressions: Service Date/Time: September 07:52 - CONCLUSION: Mild to moderate cardiomegaly with no evidence of pulmonary edema. Redd Camacho MD Head CT 09/04/16 1702 Signed Impressions: Service Date/Time: Sunday, September 04, 2016 18:47 - CONCLUSION: Unremarkable noncontrast CT. Redd Camacho MD Abdomen/Pelvis CT 09/04/16 0000 Signed Impressions: Service Date/Time: Sunday, September 04, 2016 18:50 - CONCLUSION: 1. The study was performed without intravenous or oral contrast limiting the sensitivity. 2. No evidence of biliary obstruction. 3. The gallbladder is abnormal in appearance with wall thickening or surrounding fluid. There are no calcified gallstones identified. 4. Cystic mass in the left adnexa measuring 4.1 x 3 cm most consistent with an ovarian cyst. 5. Small right pleural effusion. 6. Nonspecific, nonobstructive bowel gas pattern which may represent an ileus or gastroenteritis. 7. Air-fluid level in the bladder likely secondary to recent instrumentation. Redd Camacho MD Objective Remarks GENERAL: This is a well-nourished, well-developed patient SKIN: No rashes, ecchymoses or lesions. Cool and dry. HEAD: Atraumatic. Normocephalic. No temporal or scalp tenderness. EYES: Pupils equal round and reactive. Extraocular motions intact. Scleral icterus noted. No injection or drainage. ENT: Nose without bleeding, purulent drainage or septal hematoma. Throat without erythema, tonsillar hypertrophy or exudate. Uvula midline. Airway patent. NECK: Trachea midline. No JVD or lymphadenopathy. Supple, nontender, no meningeal signs. CARDIOVASCULAR: Regular rate and rhythm without murmurs, gallops, or rubs. RESPIRATORY: Clear to auscultation. Breath sounds equal bilaterally. No wheezes , rales, or rhonchi. GASTROINTESTINAL: Abdomen soft, epigastric and right upper quadrant tenderness upon palpitation, nondistended. No guarding. MUSCULOSKELETAL: Extremities without clubbing, cyanosis but with bilateral trace leg edema. No joint tenderness, effusion, or edema noted. No calf tenderness. Negative Homans sign bilaterally. NEUROLOGICAL: Awake and alert. Cranial nerves II through XII intact. Motor and sensory grossly within normal limits. Five out of 5 muscle strength in upper extremity muscle groups. Weakness noted in both lower extremities, left worse than right. Normal speech. Procedures None A/P Problem List: (1) Hypertension ICD Code: I10 Status: Acute (2) Acute kidney injury (nontraumatic) ICD Code: N17.9 Status: Acute (3) Elevated liver enzymes ICD Code: R74.8 Status: Acute (4) Dehydration ICD Code: E86.0 Status: Acute (5) MS (multiple sclerosis) ICD Code: G35 Status: Chronic (6) Hypokalemia ICD Code: E87.6 Status: Resolved Assessment and Plan Hypertensive urgency Still out of control. Add Norvasc and start Cardene drip, continue hydralazine scheduled and IV PRN Clonidine PO prn Restarted ditropan monitor blood pressure EKG reviewed by Dr. Vernon indicated the presence of Left Ventricular Hypertrophy likely due to uncontrolled hypertension. Hypokalemia replace per protocol monitor labs. NAZIA 2/2 dehydration and rhabdomyolysis with history of falls. Improving IVF recheck labs in am. avoid nephrotoxic agents. Elevated liver enzymes with tender RUQ and epig areas Follow-up HIDA scan and MRCP as recent abdominal CT indicated gall bladder abnormality of thickened wall or fluid present. Hep profile and workup for autoimmune hepatitis GI consulted. Dehydration IVF check labs. Multiple sclerosis Neurology recommended to hold off with rebif and ampyra Macrocytic anemia. B-12 and folate not deficient. For endoscopy outpatient per GI Hypertensive and metabolic encephalopathy. Head CT without acute findings. Improving. Weight loss. TSH within normal limits. Workup as above. DVT prophy with SCD. Hold pharmacological prophylaxis secondary to uncontrolled hypertension Discharge Planning She is critically ill. Transfer to ICU for close monitoring. High likelihood of decompensation with ICH, CHF etc. Patient will be started on intravenous antihypertensive Cardizem drip. Critical care time spent 35 mins Problem Qualifiers (1) Hypertension: Qualified Code: I10 - Essential hypertension Magnus Vernon MD September 06, 2016 10:17
--- NOTE | 2016-09-06 10:38 | RADHPO ---
EXAM DATE/TIME: 09/06/2016 08:50 This report includes an Addendum and supersedes previous reports for this exam. [facility] COMPARISON: CT ABDOMEN & PELVIS W/O CONTRAST, September 04, 2016, 18:50. INDICATIONS : Jaundice. MEDICAL HISTORY : Multiple sclerosis. Hypertension. SURGICAL HISTORY : None. ENCOUNTER: Subsequent ACUITY: 2 day PAIN SCORE: 0/10 LOCATION: abdomen TECHNIQUE: Multiplanar, multisequence magnetic resonance imaging of the abdomen was performed. High-resolution 3D dataset was utilized to reconstruct maximum-intensity projection (MIP) images. FINDINGS: The common bile duct is normal in caliber and appearance with a diameter of about 6 mm. The proximal common hepatic duct and the intrahepatic duct confluence region is nonvisualized with appearance worr isome for stricture. The gallbladder is dilated with diffuse wall thickening and mild surrounding ind urated changes. There is right pleural effusion and small volume peritoneal fluid. There is no evidence of focal liver mass. The spleen, pancreas, adrenals and kidneys are grossly unre markable. CONCLUSION: Nonvisualization of the duct confluence and proximal common hepatic duct. Lamine Blackmon MD on September 06, 2016 at 10:07 Board Certified Radiologist. This report was verified electronically. ADDENDUM: COMPARISON: BILIARY SCAN (HIDA), September 06, 2016, 13:50. In light of normal appearance and drainage of the biliary tree on the HIDA scan, MRCP appearance is f elt probably artifactual. Lamine Blackmon MD on September 06, 2016 at 16:26 Board Certified Radiologist. This report was verified electronically.
--- NOTE | 2016-09-06 11:16 | PQ ---
Physician Query Response Document PATIENT: ILYAAugust : 1970 ADMIT DATE: 09/04/2016 7:46 PM DISCH DATE: RESPONDING PROVIDER #: Lakisha QUERY TEXT: Clarification of Clinical Diagnostic Findings Our review of the medical record indicates that in order for us to accurately code this account, we a sk if you agree or disagree with the following diagnosis / procedure: IN YOUR CLINICAL OPINION, ARE YOU TREATING: ?_UTI__ ? OTHER ? UNABLE TO DETERMINE The patient's Clinical Indicators include: TREATMENT AND/OR EVALUATION INCLUDES: CLINICAL INDICATORS: 1 _CIPRO BY MOUTH Q 12 HR___ 2 E COLI URINE CULTURE__ 3 _I /O__ Query created by: Diane Newman on 09/06/2016 11:01 AM RESPONSE TEXT: E coli UTI Electronically signed by: Magnus Vernon MD 09/06/2016 11:12 AM
--- NOTE | 2016-09-06 15:14 | HHI.GIFU ---
GI Follow-up Note Consult Follow-up Subjective: Patient seen in hida scan, nonvisualization on gb at this point, test in progress, mrcp reviewed concern for possible biliary stricture , hepatitis profile negative .She was transferred overnight due to uncontrolled bp Objective: PHYSICAL EXAMINATION: Vitals signs stable No fever Vital Signs Date Time Temp Pulse Resp B/P Pulse Ox O2 Delivery O2 Flow Rate FiO2 09/06/16 14:20 168/94 09/06/16 13:45 159/94 09/06/16 13:15 116/68 09/06/16 13:00 112/60 09/06/16 12:15 124/68 09/06/16 12:00 97.7 74 17 151/86 95 09/06/16 11:06 199/122 09/06/16 10:27 84 210/133 09/06/16 10:00 84 207/134 09/06/16 08:00 84 09/06/16 08:00 97.9 82 19 210/98 97 HEENT: Pupils round and reactive to light; normocephalic; atraumatic; jaundice. Throat is clear. NECK: Neck is supple, no JVD, no lymphadenopathy. CHEST: Chest is clear to auscultation and percussion. CARDIAC: Regular rate and rhythm with no murmur gallop or rubs. ABDOMEN: Soft, nondistended, ruq tenderness; no hepatosplenomegaly; bowel sounds are present in all four quadrants. EXTREMITIES: No clubbing, cyanosis, or edema. SKIN: Normal; no rash; jaundice. DEV OPS ENGINEER: No focal deficits; alert and oriented times three. Available Data (labs, X- Rays, Procedues) : Laboratory Tests Test 09/04/16 09/04/16 09/05/16 09/05/16 17:00 17:13 05:35 12:40 Urine Opiates Screen POS Urine Barbiturates Screen NEG Urine Amphetamines Screen NEG Urine Benzodiazepines Screen NEG Urine Cocaine Screen NEG Urine Cannabinoids Screen NEG Urine Color YELLOW Urine Turbidity CLEAR Urine pH 5.5 Urine Specific [place] 1.019 Urine Protein 100 mg/dL Urine Glucose (UA) NEG mg/dL Urine Ketones NEG mg/dL Urine Occult Blood LARGE Urine Nitrite NEG Urine Bilirubin NEG Urine Leukocyte Esterase NEG Urine WBC 0-2 /hpf Urine Squamous Epithelial 0-5 /hpf Cells Urine Bacteria MANY /hpf Microscopic Urinalysis Comment CULTURE INDICATED Prothrombin Time 13.6 SEC Prothromb Time International 1.2 RATIO Ratio Activated Partial 24.7 SEC Thromboplast Time Sodium Level 131 MEQ/L 138 MEQ/L Potassium Level 3.5 MEQ/L 2.9 MEQ/L Chloride Level 89 MEQ/L 94 MEQ/L Carbon Dioxide Level 28.8 MEQ/L 27.4 MEQ/L Anion Gap 13 MEQ/L 17 MEQ/L Blood Urea Nitrogen 80 MG/DL 68 MG/DL Creatinine 2.20 MG/DL 1.80 MG/DL Estimat Glomerular Filtration 24 ML/MIN 30 ML/MIN Rate Random Glucose 100 MG/DL 92 MG/DL Calcium Level 8.5 MG/DL 8.0 MG/DL Magnesium Level 2.8 MG/DL 2.6 MG/DL Total Bilirubin 4.2 MG/DL 3.8 MG/DL Aspartate Amino Transf 373 U/L 384 U/L (AST/SGOT) Alanine Aminotransferase 400 U/L 430 U/L (ALT/SGPT) Alkaline Phosphatase 110 U/L 97 U/L Ammonia 11 MCMOL/L Total Protein 6.8 GM/DL 6.2 GM/DL Albumin 3.2 GM/DL 3.0 GM/DL Lipase 178 U/L Ethyl Alcohol Level LESS THAN 3 MG/DL White Blood Count 12.8 TH/MM3 12.3 TH/MM3 Red Blood Count 3.05 MIL/MM3 2.91 MIL/MM3 Hemoglobin 10.3 GM/DL 9.7 GM/DL Hematocrit 31.6 % 30.0 % Mean Corpuscular Volume 103.7 FL 103.4 FL Mean Corpuscular Hemoglobin 33.9 PG 33.4 PG Mean Corpuscular Hemoglobin 32.7 % 32.3 % Concent Red Cell Distribution Width 19.2 % 19.3 % Platelet Count 146 TH/MM3 120 TH/MM3 Mean Platelet Volume 10.2 FL 9.5 FL Neutrophils (%) (Auto) 73.7 % 82.4 % Lymphocytes (%) (Auto) 14.7 % 11.4 % Monocytes (%) (Auto) 4.6 % 6.2 % Eosinophils (%) (Auto) 0.1 % 0.0 % Basophils (%) (Auto) 6.9 % 0.0 % Neutrophils # (Auto) 9.4 TH/MM3 10.1 TH/MM3 Lymphocytes # (Auto) 1.9 TH/MM3 1.4 TH/MM3 Monocytes # (Auto) 0.6 TH/MM3 0.8 TH/MM3 Eosinophils # (Auto) 0.0 TH/MM3 0.0 TH/MM3 Basophils # (Auto) 0.9 TH/MM3 0.0 TH/MM3 CBC Comment AUTO DIFF AUTO DIFF Differential Total Cells 100 Counted Neutrophils % (Manual) 93 % Lymphocytes % 3 % Monocytes % 4 % Neutrophils # (Manual) 11.9 TH/MM3 Nucleated Red Blood Cells 3 /100 WBC Differential Comment FINAL DIFF AUTO DIFF MANUAL CONFIRMED Platelet Estimate LOW Platelet Morphology Comment NORMAL Tear Drop Cells 1+ Ovalocytes 1+ Keratocytes 1+ Total Creatine Kinase 1591 U/L Creatine Kinase MB 28.2 NG/ML Creatine Kinase MB % 1.8 % Vitamin B12 Level 1696 PG/ML Folate 16.4 NG/ML Thyroid Stimulating Hormone 2.280 uIU/ML 3rd Gen Human Chorionic Gonadotropin, LESS THAN 1 Quant MIU/ML Acetaminophen Level LESS THAN 2.0 MCG/ML Hepatitis A IgM Antibody NEGATIVE Hepatitis B Surface Antigen NEGATIVE Hepatitis B Core IgM Antibody NEGATIVE Hepatitis C Antibody NEGATIVE Test 09/05/16 09/06/16 19:10 06:17 Iron Level 137 MCG/DL Total Iron Binding Capacity 288 MCG/DL Percent Iron Saturation 47.5 % Ferritin 1116 NG/ML Anti-Nuclear Antibody Screen NEG White Blood Count 10.4 TH/MM3 Red Blood Count 2.66 MIL/MM3 Hemoglobin 9.1 GM/DL Hematocrit 27.8 % Mean Corpuscular Volume 104.5 FL Mean Corpuscular Hemoglobin 34.3 PG Mean Corpuscular Hemoglobin 32.8 % Concent Red Cell Distribution Width 19.9 % Platelet Count 89 TH/MM3 Mean Platelet Volume 8.5 FL Neutrophils (%) (Auto) 82.1 % Lymphocytes (%) (Auto) 11.0 % Monocytes (%) (Auto) 6.5 % Eosinophils (%) (Auto) 0.2 % Basophils (%) (Auto) 0.2 % Neutrophils # (Auto) 8.6 TH/MM3 Lymphocytes # (Auto) 1.1 TH/MM3 Monocytes # (Auto) 0.7 TH/MM3 Eosinophils # (Auto) 0.0 TH/MM3 Basophils # (Auto) 0.0 TH/MM3 CBC Comment AUTO DIFF Differential Total Cells 100 Counted Neutrophils % (Manual) 81 % Band Neutrophils % 1 % Lymphocytes % 15 % Monocytes % 3 % Neutrophils # (Manual) 8.5 TH/MM3 Nucleated Red Blood Cells 3 /100 WBC Differential Comment FINAL DIFF MANUAL Sodium Level 136 MEQ/L Potassium Level 3.6 MEQ/L Chloride Level 100 MEQ/L Carbon Dioxide Level 25.5 MEQ/L Anion Gap 11 MEQ/L Blood Urea Nitrogen 57 MG/DL Creatinine 1.70 MG/DL Estimat Glomerular Filtration 33 ML/MIN Rate Random Glucose 106 MG/DL Calcium Level 7.9 MG/DL Magnesium Level 2.4 MG/DL Total Bilirubin 3.1 MG/DL Aspartate Amino Transf 331 U/L (AST/SGOT) Alanine Aminotransferase 473 U/L (ALT/SGPT) Alkaline Phosphatase 90 U/L Total Creatine Kinase 991 U/L Creatine Kinase MB 12.3 NG/ML Creatine Kinase MB % 1.2 % Total Protein 5.7 GM/DL Albumin 2.7 GM/DL ASSESSMENT/PLAN: abnormal gallbladder on ct , nonvisualization of gb on hida, study still in progress abnormal mrcp-concern for biliary stricture elevated lfts most likely secondary the above, hepatitis profile negative anemia -most likely multifactorial history of etoh abuse, possible contributing to elevation of lfts Recommendations transfer to [facility] for possible ercp fu labs fu official result of hida scan general surgery consult for abnormal gb may need egd/colonoscopy, can be done as and op for anemia It was a pleasure seeing Kenisha Ayon. Thank you for this consult. Entered by: Enriqueta Jeronimo MD September 06, 2016 15:14
--- NOTE | 2016-09-06 16:28 | RADHPO ---
EXAM DATE/TIME: 09/06/2016 13:50 [facility] COMPARISON: CT ABDOMEN & PELVIS W/O CONTRAST, September 04, 2016, 18:50. MRCP W/O CONTRAST, September 06, 2016, 8:50. INDICATIONS : Abdominal pain with nausea and vomiting for three days. DOSE: 4.1 mCi Tc99m Mebrofenin IV MEDICAL HISTORY : Multple sclerosis. Hypertension. Hepatitis C. SURGICAL HISTORY : None. ENCOUNTER: Initial ACUITY: 3 days PAIN SCALE: 3/10 LOCATION: Right upper quadrant TECHNIQUE: Following the intravenous administration of radiotracer, dynamic sequential images were performed wit h continuous acquisition. FINDINGS: HEPATIC KINETICS: There is prompt uptake of radiotracer in the liver. No focal defects are seen. There is normal rate of washout from the hepatic parenchyma. BILIARY CLEARANCE: Activity is first seen in the extrahepatic biliary system at 15 minutes. There is normal excretion i nto the small bowel. GALLBLADDER: The gallbladder is never identified. BILIARY ENTRIC REFLUX: None observed. CONCLUSION: 1. There is no evidence of common bile duct obstruction. There is normal clearance of tracer from the liver. 2. The gallbladder is never identified. In the appropriate clinical setting this can suggest cholecys titis. Delayed imaging may be of benefit to increase specificity. Hernan Grant MD on September 06, 2016 at 16:20 Board Certified Radiologist. This report was verified electronically.
--- NOTE | 2016-09-06 17:11 | RADHPO ---
EXAM DATE/TIME: 09/06/2016 21:24 [facility] COMPARISON: No previous studies available for comparison. INDICATIONS : Obstruction. MEDICAL HISTORY : Multiple sclerosis. Hypertension. UTI. Acute kidney injury. SURGICAL HISTORY : ENCOUNTER: Initial ACUITY: 1 day PAIN SCORE: 5/10 LOCATION: Bilateral flank MEASUREMENTS: RIGHT KIDNEY: 10.5 x 5.4 x 3.9 cm LEFT KIDNEY: 9.9 x 4.8 x 4.6 cm FINDINGS: Gallbladder filled with sludge. Moderate diffuse wall thickening. RIGHT KIDNEY: Mildly increased cortical echogenicity. No evidence of mass, stone or hydronephrosis. LEFT KIDNEY: Mildly increased cortical echogenicity. No evidence of mass, stone or hydronephrosis. BLADDER: Within normal limits given the degree of distension. CONCLUSION: No hydronephrosis Lamine Blackmon MD on September 06, 2016 at 17:07 Board Certified Radiologist. This report was verified electronically.
[2016-09-06] MEDS ORDERED: CHLORHEXIDINE GLUCONATE 2 % 1 PACK (2 CLOTHS)(extra cloths) TOPICAL PRN (20:00)
--- NOTE | 2016-09-06 20:01 | MB ---
cc: JAM TORRES MD DATE OF CONSULTATION 09/06/16 REASON FOR CONSULTATION Cholecystitis with choledocholithiasis. HISTORY OF PRESENT ILLNESS The patient is a 46-year-old female with multiple medical problems who was seen and admitted on 09/04 with altered mental status. The patient also reports about an 18 pound weight loss over the last month and had elevated liver function tests. The patient had an ultrasound of the liver on June 28, 2016 which demonstrated a prominent common bile duct at 7 mm. The patient has been followed by Dr. Boo of neurology for multiple sclerosis. SOCIAL HISTORY Significant for one half-pack per day smoking history. The patient drinks three beers per month. ALLERGIES PENICILLIN CAUSES HIVES. MEDICATIONS Currently include 1. Nicardipine titrated, just recently stopped 2. Clonidine 0.2 mg p.o. q.6 h, 3. Amlodipine 5 mg p.o. daily, 4. Hydralazine 50 mg p.o. q.8 h, 5. Ciprofloxacin q.12 h 6. Gabapentin 300 mg p.o. b.i.d., 7. Ditropan 5 mg p.o. daily, 8. Zofran as needed, 9. Colace b.i.d. for constipation. The patient apparently also has had an exposure to hepatitis C many years ago. PAST MEDICAL HISTORY 1. Hypertension 2. Multiple sclerosis. REVIEW OF SYSTEMS Positive for weight loss, previous history of confusion with negative head CT. No history of CVA and TIA. GI: No history of abdominal pain that she can recall. PHYSICAL EXAMINATION General: A female lying quietly in bed eating dinner. VITAL SIGNS: BP 142/84, pulse 70, respirations 24, temperature 97.5, 97% saturation on room air. HEENT: Sclerae are mildly icteric. CHEST: Clear to auscultation. CARDIAC: Regular rate and rhythm. ABDOMEN: Soft with some mild tenderness in the upper abdomen and the right upper quadrant and the epigastrium. There is no guarding or rebound. There are no masses appreciated. EXTREMITIES: Pulses are present. The patient is able to move all four extremities. Strength was not tested. The patient does report she has some has had some swallowing problems over the last couple of weeks. LABORATORY DATA WBCs of 10.4, hemoglobin/hematocrit 9.1/27.8, platelets are decreased at 89,000. MCV is 104.5. Chemistries demonstrate total bilirubin of 3.1, AST 331, ALT 473, alkaline phosphatase 90. When the patient arrived, bilirubin was 4.2. BUN, creatinine were initially elevated at 80 and 2.2. They are currently 57 and 1.7, still elevated. IMAGING STUDIES Imaging demonstrates nonvisualization of the gallbladder by HIDA scan and MRCP demonstrates nonvisualization of the duct confluence between the proximal common hepatic duct and the cystic duct. In comparing the HIDA scan, the MRCP appearance was felt to be artifactual as HIDA scan demonstrated normal drainage of the biliary tree. CT of the abdomen and pelvis demonstrated thickened gallbladder wall. ASSESSMENT Likely common duct stone versus stricture. PLAN The patient is to be transferred to the main campus for ERCP by the solderer barrel ribs; we will stand by until this has been completed. I have discussed with the patient and her significant other that cholecystectomy would be performed after ERCP. I have briefly gone over procedure with laparoscopic procedure and some of the risks. I have indicated to the patient that her main risk will be her underlying medical problems with her hypertension and multiple sclerosis, but that we would go over other procedure specific risks when the time is closer to the actual surgery. Thank you, Dr. Koch, for asking us to see this individual. MD BIBI Garcia/ /6:47 PM /7:45 PM
[2016-09-06] MEDS: DALFAMPRIDINE 10 MG PO SCH (22:23)
[2016-09-07] VITALS (25 sets, daily range): BP systolic 146–181; BP diastolic 84–103; PULSE 65–82; RESP 14–35; TEMP 96.2–98.4; O2SAT 97–100
[2016-09-07] MEDS: CHLORHEXIDINE GLUCONATE 2 % 1 PACK (2 CLOTHS)(taper/protocol) TOPICAL SCH (04:00)
[2016-09-07] MEDS: hydrALAZINE HCL 50 MG TAB PO SCH ×3 (05:02→21:50)
[2016-09-07 06:01] LABS: AUTOMATED NEUTROPHIL # 5.7 TH/MM3 (1.8-7.7); BASOPHIL % 0.2 % (0.0-2.0); EOSINOPHIL % 0.5 % (0.0-4.0); HEMATOCRIT 27.5 % (35.0-46.0); LYMPH % 13.1 % (9.0-44.0); MEAN CELL VOLUME 106.6 FL (80.0-100.0); MEAN CORPUSCULAR HEMOGLOBIN 35.8 PG (27.0-34.0); MEAN CORPUSCULAR HGB CONC 33.5 % (32.0-36.0); MONO % 7.6 % (0.0-8.0); NEUT % 78.6 % (16.0-70.0); PLATELET COUNT 68 TH/MM3 (150-450); RED BLOOD COUNT 2.58 MIL/MM3 (4.00-5.30); RED CELL DISTRIBUTION WIDTH 21.1 % (11.6-17.2); WHITE BLOOD COUNT 7.3 TH/MM3 (4.0-11.0)
[2016-09-07 06:18] LABS: ALT (GPT) 402 U/L (10-53); ANION GAP 11 MEQ/L (5-15); AST (GOT) 213 U/L (15-37); BICARBONATE 27.1 MEQ/L (21.0-32.0); BLOOD UREA NITROGEN 52 MG/DL (7-18); CHLORIDE 99 MEQ/L (98-107); GLOMERULAR FILTRATION RATE 31 ML/MIN (>89); MAGNESIUM 2.4 MG/DL (1.5-2.5); POTASSIUM 3.5 MEQ/L (3.5-5.1); SODIUM (NA) 137 MEQ/L (136-145)
[2016-09-07 06:20] LABS: ALKALINE PHOSPHATASE 95 U/L (45-117); TOTAL BILIRUBIN ADULT 2.6 MG/DL (0.2-1.0)
[2016-09-07 06:22] LABS: HEMO FLAGS AUTO DIFF
[2016-09-07] MEDS: amLODIPine BESYLATE 5 MG TAB PO SCH (07:11)
[2016-09-07] MEDS: CIPROFLOXACIN 250 MG TAB PO SCH ×2 (07:11→21:50)
[2016-09-07] MEDS: GABAPENTIN 300 MG CAP PO SCH ×2 (07:11→21:50)
[2016-09-07] MEDS: SODIUM CHLORIDE 0.9% FLUSH 10 ML FLUSH IV FLUSH SCH ×2 (07:11→16:31)
[2016-09-07] MEDS: hydrALAZINE HCL 20 MG/ML VIAL IV PUSH PRN (07:12)
[2016-09-07] MEDS: DALFAMPRIDINE 10 MG PO SCH ×2 (07:12→21:51)
[2016-09-07] MEDS: OXYBUTYNIN CHLORIDE 5 MG TAB PO SCH (08:06)
[2016-09-07] MEDS: cloNIDine HCL 0.2 MG TAB PO PRN (08:06)
--- NOTE | 2016-09-07 08:29 | HHI.PR ---
Subjective Remarks This is a pleasant 46 y/o Female with Multiple sclerosis, tobacco dependence Alcohol abuse, sent to ER by PCP due to Altered mental status, unintentional weight loss, recurrent falls, has Hypertension, Overactive bladder, admitted on 09/05/16, ECG showed Left Ventricular Hypertrophy, Acute Kidney Injury, elevated Liver Enzymes, dehydrated, Neurology consulted for MS. as per Neurology specialist recommended to hold Ampyra and Rebif this medicines may be a factor for her Generalized weakness, also probable related to MS. elevated Liver Enzymes as per GI specialist probable secondary to Alcohol abuse, recommended HIDA scan, MRCP, was transferred by General Surgery to this facility for ERCP. 09/07: Seen in the room in the presence of nurse Miss Denise, no nausea, vomit or diarrhea, stable as per General Surgery she will need Cholecystectomy next week. Objective Vital Signs Date Time Temp Pulse Resp B/P Pulse Ox O2 Delivery O2 Flow Rate FiO2 09/07/16 06:00 66 09/07/16 04:00 98.2 82 24 157/94 97 09/07/16 04:00 82 09/07/16 02:00 69 09/07/16 00:00 74 09/07/16 00:00 98.2 74 25 154/85 99 09/06/16 22:00 71 09/06/16 20:00 60 09/06/16 20:00 97.9 60 12 148/92 99 09/06/16 19:00 97.9 70 18 154/94 100 09/06/16 18:00 70 34 142/84 09/06/16 17:46 70 18 156/88 09/06/16 17:30 74 22 137/76 09/06/16 17:00 74 23 146/82 09/06/16 16:17 161/96 09/06/16 16:00 97.5 78 27 179/104 97 09/06/16 14:20 168/94 09/06/16 13:45 159/94 09/06/16 13:15 116/68 09/06/16 13:00 112/60 09/06/16 12:15 124/68 09/06/16 12:00 97.7 74 17 151/86 95 09/06/16 11:06 199/122 09/06/16 10:27 84 210/133 09/06/16 10:00 84 207/134 I/O 09/06/16 09/06/16 09/06/16 09/07/16 09/07/16 09/07/16 07:00 15:00 23:00 07:00 15:00 23:00 Intake Total 849 ml 295 ml 50 ml 100 ml Output Total 50 ml 250 ml 150 ml Balance 849 ml 245 ml -200 ml -50 ml Intake Oral 420 ml 0 ml 50 ml 100 ml IV Total 429 ml 295 ml 0 ml Output Urine Total 50 ml 250 ml 150 ml # Voids 2 2 # Bowel Movements 0 0 0 0 Result Diagram: 09/07/1652509/07/16525 Imaging Last Impressions Renal Ultrasound 09/06/16 Signed Impressions: Service Date/Time: Tuesday, September 06, 2016 21:24 - CONCLUSION: No hydronephrosis Lamine Blackmon MD Hepatobiliary Scan Nuclear Medicine 09/06/16 Signed Impressions: Service Date/Time: Tuesday, September 06, 2016 13:50 - CONCLUSION: 1. There is no evidence of common bile duct obstruction. There is normal clearance of tracer from the liver. 2. The gallbladder is never identified. In the appropriate clinical setting this can suggest cholecystitis. Delayed imaging may be of benefit to increase specificity. Hernan Grant MD Cholangiopancreatography MRI 09/06/16 Signed Impressions: Service Date/Time: Tuesday, September 06, 2016 08:50 - CONCLUSION: Nonvisualization of the duct confluence and proximal common hepatic duct. Lamine Blackmon MD ADDENDUM: COMPARISON: BILIARY SCAN (HIDA), September 06, 2016, 13:50. In light of normal appearance and drainage of the biliary tree on the HIDA scan, MRCP appearance is felt probably artifactual. Lamine Blackmon MD Thoracic Spine MRI 09/05/16 Signed Impressions: Service Date/Time: September 14:50 - CONCLUSION: 1. Long segment but very small, age-indeterminate syrinx of the thoracic spine. The thoracic cord also appears slightly atrophic. 2. Mild degenerative changes as above. 3. No foraminal or spinal stenosis. 4. Small right and tiny left pleural effusions are incidentally noted. Lamine Zuñiga MD Lumbar Spine MRI 09/05/16 Signed Impressions: Service Date/Time: September 14:50 - CONCLUSION: 1. Mild degenerative changes at L3/L4, L4/L5 and L5/S1. Please see above. 2. Small, age indeterminate right paracentral disc protrusion at L5/S1. This contacts the transiting right S1 nerve root within the lateral recess but without evidence of impingement. 3. Mild bilateral foraminal encroachment at L4/L5 without definite exiting nerve root impingement. 4. There are left larger than right biforaminal annular fissures at the L4/L5 disc. 5. Apparent mild facet synovitis on the left at L5/S1. Lamine Zuñiga MD Chest X-Ray 09/05/16 0000 Signed Impressions: Service Date/Time: September 07:52 - CONCLUSION: Mild to moderate cardiomegaly with no evidence of pulmonary edema. Redd Camacho MD Head CT 09/04/16 1702 Signed Impressions: Service Date/Time: Sunday, September 04, 2016 18:47 - CONCLUSION: Unremarkable noncontrast CT. Redd Camacho MD Abdomen/Pelvis CT 09/04/16 0000 Signed Impressions: Service Date/Time: Sunday, September 04, 2016 18:50 - CONCLUSION: 1. The study was performed without intravenous or oral contrast limiting the sensitivity. 2. No evidence of biliary obstruction. 3. The gallbladder is abnormal in appearance with wall thickening or surrounding fluid. There are no calcified gallstones identified. 4. Cystic mass in the left adnexa measuring 4.1 x 3 cm most consistent with an ovarian cyst. 5. Small right pleural effusion. 6. Nonspecific, nonobstructive bowel gas pattern which may represent an ileus or gastroenteritis. 7. Air-fluid level in the bladder likely secondary to recent instrumentation. Redd Camacho MD Procedures No procedures performed. Other Results Laboratory Tests Test 09/04/16 09/04/16 09/05/16 09/05/16 17:00 17:13 05:35 12:40 Urine Opiates Screen POS Urine Barbiturates Screen NEG Urine Amphetamines Screen NEG Urine Benzodiazepines Screen NEG Urine Cocaine Screen NEG Urine Cannabinoids Screen NEG Urine Color YELLOW Urine Turbidity CLEAR Urine pH 5.5 Urine Specific Hurst 1.019 Urine Protein 100 mg/dL Urine Glucose (UA) NEG mg/dL Urine Ketones NEG mg/dL Urine Occult Blood LARGE Urine Nitrite NEG Urine Bilirubin NEG Urine Leukocyte Esterase NEG Urine WBC 0-2 /hpf Urine Squamous Epithelial 0-5 /hpf Cells Urine Bacteria MANY /hpf Microscopic Urinalysis Comment CULTURE INDICATED Prothrombin Time 13.6 SEC Prothromb Time International 1.2 RATIO Ratio Activated Partial 24.7 SEC Thromboplast Time Ammonia 11 MCMOL/L Lipase 178 U/L Ethyl Alcohol Level LESS THAN 3 MG/DL Platelet Estimate LOW Platelet Morphology Comment NORMAL Tear Drop Cells 1+ Ovalocytes 1+ Keratocytes 1+ Vitamin B12 Level 1696 PG/ML Folate 16.4 NG/ML Thyroid Stimulating Hormone 2.280 uIU/ML 3rd Gen Human Chorionic Gonadotropin, LESS THAN 1 Quant MIU/ML Acetaminophen Level LESS THAN 2.0 MCG/ML Hepatitis A IgM Antibody NEGATIVE Hepatitis B Surface Antigen NEGATIVE Hepatitis B Core IgM Antibody NEGATIVE Hepatitis C Antibody NEGATIVE Test 09/05/16 09/06/16 09/06/16 09/07/16 19:10 06:17 19:15 05:26 Iron Level 137 MCG/DL Total Iron Binding Capacity 288 MCG/DL Percent Iron Saturation 47.5 % Ferritin 1116 NG/ML Anti-Nuclear Antibody Screen NEG Differential Total Cells 100 Counted Neutrophils % (Manual) 81 % Band Neutrophils % 1 % Lymphocytes % 15 % Monocytes % 3 % Neutrophils # (Manual) 8.5 TH/MM3 Nucleated Red Blood Cells 3 /100 WBC Differential Comment FINAL DIFF MANUAL Total Creatine Kinase 991 U/L Creatine Kinase MB 12.3 NG/ML Creatine Kinase MB % 1.2 % Nasal Screen MRSA (PCR) MRSA NOT DETECTED White Blood Count 7.3 TH/MM3 Red Blood Count 2.58 MIL/MM3 Hemoglobin 9.2 GM/DL Hematocrit 27.5 % Mean Corpuscular Volume 106.6 FL Mean Corpuscular Hemoglobin 35.8 PG Mean Corpuscular Hemoglobin 33.5 % Concent Red Cell Distribution Width 21.1 % Platelet Count 68 TH/MM3 Mean Platelet Volume 9.9 FL Neutrophils (%) (Auto) 78.6 % Lymphocytes (%) (Auto) 13.1 % Monocytes (%) (Auto) 7.6 % Eosinophils (%) (Auto) 0.5 % Basophils (%) (Auto) 0.2 % Neutrophils # (Auto) 5.7 TH/MM3 Lymphocytes # (Auto) 1.0 TH/MM3 Monocytes # (Auto) 0.5 TH/MM3 Eosinophils # (Auto) 0.0 TH/MM3 Basophils # (Auto) 0.0 TH/MM3 CBC Comment AUTO DIFF Sodium Level 137 MEQ/L Potassium Level 3.5 MEQ/L Chloride Level 99 MEQ/L Carbon Dioxide Level 27.1 MEQ/L Anion Gap 11 MEQ/L Blood Urea Nitrogen 52 MG/DL Creatinine 1.79 MG/DL Estimat Glomerular Filtration 31 ML/MIN Rate Random Glucose 92 MG/DL Calcium Level 8.2 MG/DL Magnesium Level 2.4 MG/DL Total Bilirubin 2.6 MG/DL Aspartate Amino Transf 213 U/L (AST/SGOT) Alanine Aminotransferase 402 U/L (ALT/SGPT) Alkaline Phosphatase 95 U/L Total Protein 5.6 GM/DL Albumin 2.8 GM/DL Objective Remarks GENERAL: This is a well-nourished, well-developed patient SKIN: No rashes, ecchymoses or lesions. Cool and dry. HEAD: Atraumatic. Normocephalic. No temporal or scalp tenderness. EYES: Pupils equal round and reactive. Extraocular motions intact. Scleral icterus noted. No injection or drainage. ENT: Nose without bleeding, purulent drainage or septal hematoma. Throat without erythema, tonsillar hypertrophy or exudate. Uvula midline. Airway patent. NECK: Trachea midline. No JVD or lymphadenopathy. Supple, nontender, no meningeal signs. CARDIOVASCULAR: Regular rate and rhythm without murmurs, gallops, or rubs. RESPIRATORY: Clear to auscultation. Breath sounds equal bilaterally. No wheezes , rales, or rhonchi. GASTROINTESTINAL: Abdomen soft, epigastric and right upper quadrant tenderness upon palpitation, nondistended. No guarding. MUSCULOSKELETAL: Extremities without clubbing, cyanosis but with bilateral trace leg edema. No joint tenderness, effusion, or edema noted. No calf tenderness. Negative Homans sign bilaterally. NEUROLOGICAL: Awake and alert. Cranial nerves II through XII intact. Motor and sensory grossly within normal limits. Five out of 5 muscle strength in upper extremity muscle groups. Weakness noted in both lower extremities, left worse than right. Normal speech. Medications and IVs Current Medications Medications (Trade) Dose Ordered Sig/Gonzalez Route Start Time Stop Time Status Last Admin (NS 1000 ml Inj) 1,000 ml @ 50 mls/hr Q20H IV 09/04/16 19:44 09/06/16 06:18 (NS Flush) 2 ml UNSCH PRN IV FLUSH 09/04/16 19:45 (NS Flush) 2 ml BID IV FLUSH 09/04/16 21:00 09/07/16 07:11 (Narcan Inj) 0.4 mg UNSCH PRN IV 09/04/16 19:45 (Morphine Inj) 2 mg Q3H PRN IV PUSH 09/04/16 23:15 09/04/16 23:37 (Apresoline Inj) 20 mg Q4HR PRN IV PUSH 09/05/16 08:00 09/07/16 07:12 (Tylenol) 650 mg Q4H PRN PO 09/05/16 07:45 (Zofran Inj) 4 mg Q6H PRN IV 09/05/16 07:45 (Colace) 100 mg BID PRN PO 09/05/16 07:45 (Tums Chew) 1,000 mg TID PRN CHEW 09/05/16 07:45 (Neurontin) 300 mg BID PO 09/05/16 09:00 09/07/16 07:11 (Ditropan) 5 mg DAILY PO 09/05/16 09:00 09/07/16 08:06 (Cipro) 250 mg Q12HR PO 09/05/16 13:00 09/12/16 12:59 09/07/16 07:11 (Apresoline) 50 mg Q8HR PO 09/05/16 14:00 09/07/16 05:02 Clonidine 0.2 mg 0.2 mg Q6H PRN PO 09/06/16 08:00 09/07/16 08:06 (Cardene Inj/NS 250 ml Inj) 260 ml @ 0 mls/hr TITRATE PRN IV 09/06/16 10:15 09/06/16 11:06 Miscellaneous Information Patient in critical care unit? Ass... [id number] .XX 09/06/16 20:00 09/06/16 20:00 (Chlorhexidine 2% Cloth) 3 pack DAILY@04 TOPICAL 09/07/16 04:00 09/11/16 04:01 09/07/16 04:00 (Chlorhexidine 2% Cloth) 3 pack UNSCH PRN TOPICAL 09/06/16 20:00 09/11/16 19:58 Patient Own Medication PT OWN MED: AMP... BID PO 09/06/16 22:30 09/07/16 07:12 (Norvasc) 10 mg DAILY@08 PO 09/08/16 08:00 UNV A/P Assessment and Plan (1) Hypertension ICD Code: I10 Status: Acute (2) Acute kidney injury (nontraumatic) ICD Code: N17.9 Status: Acute (3) Elevated liver enzymes ICD Code: R74.8 Status: Acute (4) Dehydration ICD Code: E86.0 Status: Acute (5) MS (multiple sclerosis) ICD Code: G35 Status: Chronic (6) Hypokalemia ICD Code: E87.6 1. Accelerated Hypertension, on Amlodipine, Cardene drip, Hydralazine IV PRN, Clonidine by mouth, re started on Ditropan. better control today removed Cardene and Amlodipine increased to 10 mg daily. 2. Hypokalemia continue replacement 3. Acute Kidney Injury secondary to dehydration and Rhabdomyolysis, continue IV fluids. 4. Elevated Liver enzymes with tender RUQ, CT indicated gallbladder abnormality of thickened wall or fluid present, hepatitis profile and workup for autoimmune hepatitis. after evaluation by GI specialist today reviewed MRCP/CT and HIDA scan and discussed with General customer training specialist recommended for Cholecystectomy. 5. Multiple Sclerosis on hold Rebif and Ampyra. 6. Macrocytic anemia with normal values of B12 and Folate 7. Acute metabolic and Hypertensive Encephalopathy CT brain no acute findings. Improved. DVT prophy with Heparin. Discharge Planning Not yet cleared for discharge. Silas Cummings MD September 07, 2016 08:29
[2016-09-07] MEDS ORDERED: amLODIPine BESYLATE 5 MG TAB PO ONE (08:30)
[2016-09-07 09:19] LABS: BANDS 1 % (0-6); CORRECTED NUCLEATED RBC 4 /100 WBC (0-0); NEUTROPHIL # MANUAL DIFF 6.1 TH/MM3 (1.8-7.7); PLATELET ESTIMATE SMEAR LOW (NORMAL); PLATELET MORPHOLOGY NORMAL (NORMAL); POLYS (SEG NEUTROPHILS) 82 % (16-70); SCAN/DIFF FINAL DIFF MANUAL; WBC DIFF SAMPLE 100
[2016-09-07 09:21] LABS: KERATOCYTES OCC (NORMAL); POLYCHROMASIA 3.4 % (0.0-1.9)
--- NOTE | 2016-09-07 10:50 | HHI.GIFU ---
GI Follow-up Note Consult Follow-up Subjective: Patient laying in bed comfortably, no new complaints except abdominal pain Objective: PHYSICAL EXAMINATION: Vitals signs stable No fever HEENT: Pupils round and reactive to light; normocephalic; atraumatic; no jaundice. Throat is clear. NECK: Neck is supple, no JVD, no lymphadenopathy. CHEST: Chest is clear to auscultation and percussion. CARDIAC: Regular rate and rhythm with no murmur gallop or rubs. ABDOMEN: Soft, nondistended, nontender; no hepatosplenomegaly; bowel sounds are present in all four quadrants. EXTREMITIES: No clubbing, cyanosis, or edema. SKIN: Normal; no rash; no jaundice. CLINICAL RADIOLOGIST: No focal deficits; alert and oriented times three. Available Data (labs, X- Rays, Procedues) : Last Impressions Renal Ultrasound 09/06/16 Signed Impressions: Service Date/Time: Tuesday, September 06, 2016 21:24 - CONCLUSION: No hydronephrosis Lamine Blackmon MD Hepatobiliary Scan Nuclear Medicine 09/06/16 Signed Impressions: Service Date/Time: Tuesday, September 06, 2016 13:50 - CONCLUSION: 1. There is no evidence of common bile duct obstruction. There is normal clearance of tracer from the liver. 2. The gallbladder is never identified. In the appropriate clinical setting this can suggest cholecystitis. Delayed imaging may be of benefit to increase specificity. Hernan Grant MD Cholangiopancreatography MRI 09/06/16 Signed Impressions: Service Date/Time: Tuesday, September 06, 2016 08:50 - CONCLUSION: Nonvisualization of the duct confluence and proximal common hepatic duct. Lamine Blackmon MD ADDENDUM: COMPARISON: BILIARY SCAN (HIDA), September 06, 2016, 13:50. In light of normal appearance and drainage of the biliary tree on the HIDA scan, MRCP appearance is felt probably artifactual. Lamine Blackmon MD Thoracic Spine MRI 09/05/16 Signed Impressions: Service Date/Time: September 14:50 - CONCLUSION: 1. Long segment but very small, age-indeterminate syrinx of the thoracic spine. The thoracic cord also appears slightly atrophic. 2. Mild degenerative changes as above. 3. No foraminal or spinal stenosis. 4. Small right and tiny left pleural effusions are incidentally noted. Lamine Zuñiga MD Lumbar Spine MRI 09/05/16 0000 Signed Impressions: Service Date/Time: September 14:50 - CONCLUSION: 1. Mild degenerative changes at L3/L4, L4/L5 and L5/S1. Please see above. 2. Small, age indeterminate right paracentral disc protrusion at L5/S1. This contacts the transiting right S1 nerve root within the lateral recess but without evidence of impingement. 3. Mild bilateral foraminal encroachment at L4/L5 without definite exiting nerve root impingement. 4. There are left larger than right biforaminal annular fissures at the L4/L5 disc. 5. Apparent mild facet synovitis on the left at L5/S1. Lamine Zuñiga MD Chest X-Ray 09/05/16 Signed Impressions: Service Date/Time: September 07:52 - CONCLUSION: Mild to moderate cardiomegaly with no evidence of pulmonary edema. Redd Camacho MD Head CT 09/04/16 1702 Signed Impressions: Service Date/Time: Sunday, September 04, 2016 18:47 - CONCLUSION: Unremarkable noncontrast CT. Redd Camacho MD Abdomen/Pelvis CT 09/04/16 Signed Impressions: Service Date/Time: Sunday, September 04, 2016 18:50 - CONCLUSION: 1. The study was performed without intravenous or oral contrast limiting the sensitivity. 2. No evidence of biliary obstruction. 3. The gallbladder is abnormal in appearance with wall thickening or surrounding fluid. There are no calcified gallstones identified. 4. Cystic mass in the left adnexa measuring 4.1 x 3 cm most consistent with an ovarian cyst. 5. Small right pleural effusion. 6. Nonspecific, nonobstructive bowel gas pattern which may represent an ileus or gastroenteritis. 7. Air-fluid level in the bladder likely secondary to recent instrumentation. Redd Camacho MD Laboratory Tests Test 09/05/16 09/05/16 09/06/16 09/06/16 12:40 19:10 06:17 19:15 Hepatitis A IgM Antibody NEGATIVE Hepatitis B Surface Antigen NEGATIVE Hepatitis B Core IgM Antibody NEGATIVE Hepatitis C Antibody NEGATIVE Iron Level 137 MCG/DL Total Iron Binding Capacity 288 MCG/DL Percent Iron Saturation 47.5 % Ferritin 1116 NG/ML Anti-Nuclear Antibody Screen NEG White Blood Count 10.4 TH/MM3 Red Blood Count 2.66 MIL/MM3 Hemoglobin 9.1 GM/DL Hematocrit 27.8 % Mean Corpuscular Volume 104.5 FL Mean Corpuscular Hemoglobin 34.3 PG Mean Corpuscular Hemoglobin 32.8 % Concent Red Cell Distribution Width 19.9 % Platelet Count 89 TH/MM3 Mean Platelet Volume 8.5 FL Neutrophils (%) (Auto) 82.1 % Lymphocytes (%) (Auto) 11.0 % Monocytes (%) (Auto) 6.5 % Eosinophils (%) (Auto) 0.2 % Basophils (%) (Auto) 0.2 % Neutrophils # (Auto) 8.6 TH/MM3 Lymphocytes # (Auto) 1.1 TH/MM3 Monocytes # (Auto) 0.7 TH/MM3 Eosinophils # (Auto) 0.0 TH/MM3 Basophils # (Auto) 0.0 TH/MM3 CBC Comment AUTO DIFF Differential Total Cells 100 Counted Neutrophils % (Manual) 81 % Band Neutrophils % 1 % Lymphocytes % 15 % Monocytes % 3 % Neutrophils # (Manual) 8.5 TH/MM3 Nucleated Red Blood Cells 3 /100 WBC Differential Comment FINAL DIFF MANUAL Sodium Level 136 MEQ/L Potassium Level 3.6 MEQ/L Chloride Level 100 MEQ/L Carbon Dioxide Level 25.5 MEQ/L Anion Gap 11 MEQ/L Blood Urea Nitrogen 57 MG/DL Creatinine 1.70 MG/DL Estimat Glomerular Filtration 33 ML/MIN Rate Random Glucose 106 MG/DL Calcium Level 7.9 MG/DL Magnesium Level 2.4 MG/DL Total Bilirubin 3.1 MG/DL Aspartate Amino Transf 331 U/L (AST/SGOT) Alanine Aminotransferase 473 U/L (ALT/SGPT) Alkaline Phosphatase 90 U/L Total Creatine Kinase 991 U/L Creatine Kinase MB 12.3 NG/ML Creatine Kinase MB % 1.2 % Total Protein 5.7 GM/DL Albumin 2.7 GM/DL Nasal Screen MRSA (PCR) MRSA NOT DETECTED Test 09/07/16 05:26 White Blood Count 7.3 TH/MM3 Red Blood Count 2.58 MIL/MM3 Hemoglobin 9.2 GM/DL Hematocrit 27.5 % Mean Corpuscular Volume 106.6 FL Mean Corpuscular Hemoglobin 35.8 PG Mean Corpuscular Hemoglobin 33.5 % Concent Red Cell Distribution Width 21.1 % Platelet Count 68 TH/MM3 Mean Platelet Volume 9.9 FL Neutrophils (%) (Auto) 78.6 % Lymphocytes (%) (Auto) 13.1 % Monocytes (%) (Auto) 7.6 % Eosinophils (%) (Auto) 0.5 % Basophils (%) (Auto) 0.2 % Neutrophils # (Auto) 5.7 TH/MM3 Lymphocytes # (Auto) 1.0 TH/MM3 Monocytes # (Auto) 0.5 TH/MM3 Eosinophils # (Auto) 0.0 TH/MM3 Basophils # (Auto) 0.0 TH/MM3 CBC Comment AUTO DIFF Differential Total Cells 100 Counted Neutrophils % (Manual) 82 % Band Neutrophils % 1 % Lymphocytes % 14 % Monocytes % 3 % Neutrophils # (Manual) 6.1 TH/MM3 Nucleated Red Blood Cells 4 /100 WBC Differential Comment FINAL DIFF MANUAL Platelet Estimate LOW Platelet Morphology Comment NORMAL Polychromasia 3.4 % Basophilic Stippling MOD Keratocytes OCC Sodium Level 137 MEQ/L Potassium Level 3.5 MEQ/L Chloride Level 99 MEQ/L Carbon Dioxide Level 27.1 MEQ/L Anion Gap 11 MEQ/L Blood Urea Nitrogen 52 MG/DL Creatinine 1.79 MG/DL Estimat Glomerular Filtration 31 ML/MIN Rate Random Glucose 92 MG/DL Calcium Level 8.2 MG/DL Magnesium Level 2.4 MG/DL Total Bilirubin 2.6 MG/DL Aspartate Amino Transf 213 U/L (AST/SGOT) Alanine Aminotransferase 402 U/L (ALT/SGPT) Alkaline Phosphatase 95 U/L Total Protein 5.6 GM/DL Albumin 2.8 GM/DL Allergies Coded Allergies Type Severity Reaction Last Updated Verified Penicillin Allergy Intermediate HIVES 09/04/16 Yes Active Scripts Medications Dose Route/Sig Days Date Category Ditropan (Oxybutynin Chloride) 5 Mg Tab 5 Mg PO DAILY 06/04/16 Reported Gabapentin 300 Mg Cap 300 Mg PO BID 06/04/16 Reported Hydrocodone-Acetaminophen 10-325 mg Tab 1 Tab PO DAILY PRN 06/04/16 Reported Ampyra 12 HR (Dalfampridine ER 12 HR) 10 Mg Tab 10 Mg PO BID 06/04/16 Reported Rebif Rebidose Pen Inj (Interferon Beta 1a) 44 Mcg/0.5 Ml Pen 44 Mcg SQ 3XWEEK 06/04/16 Reported ASSESSMENT/PLAN: Seen and examined , doing better today. LFTs improving. MRCP/CT /HIDA reviewed. I dont believe she needs an ERCP. Discussed with Dr. Jurado will plan for cholecystectomy /IOC next week. clear liquid diet It was a pleasure seeing Kenisha Ayon. Thank you for this consult. Entered by: Jennifer Quintanilla MD September 07, 2016 10:50
[2016-09-07] MEDS: SODIUM CHLOR 0.9% 1000 ML INJ 1,000 ML IV SCH (14:50)
[2016-09-07] MEDS ORDERED: POTASSIUM CHLORIDE 20 MEQ CONTROLLED RELEASE TAB PO ONE (15:15)
--- NOTE | 2016-09-07 15:44 | HHI.PR ---
Subjective Subjective Notes No complaints Objective Vitals/I&O Vital Signs Date Time Temp Pulse Resp B/P Pulse Ox O2 Delivery O2 Flow Rate FiO2 09/07/16 11:30 66 19 155/98 98 09/07/16 04:00 98.2 09/05/16 00:13 Room Air Labs Laboratory Tests Test 09/06/16 09/07/16 19:15 05:26 Nasal Screen MRSA (PCR) MRSA NOT DETECTED White Blood Count 7.3 Red Blood Count 2.58 Hemoglobin 9.2 Hematocrit 27.5 Mean Corpuscular Volume 106.6 Mean Corpuscular Hemoglobin 35.8 Mean Corpuscular Hemoglobin 33.5 Concent Red Cell Distribution Width 21.1 Platelet Count 68 Mean Platelet Volume 9.9 Neutrophils (%) (Auto) 78.6 Lymphocytes (%) (Auto) 13.1 Monocytes (%) (Auto) 7.6 Eosinophils (%) (Auto) 0.5 Basophils (%) (Auto) 0.2 Neutrophils # (Auto) 5.7 Lymphocytes # (Auto) 1.0 Monocytes # (Auto) 0.5 Eosinophils # (Auto) 0.0 Basophils # (Auto) 0.0 CBC Comment AUTO DIFF Differential Total Cells 100 Counted Neutrophils % (Manual) 82 Band Neutrophils % 1 Lymphocytes % 14 Monocytes % 3 Neutrophils # (Manual) 6.1 Nucleated Red Blood Cells 4 Differential Comment FINAL DIFF MANUAL Platelet Estimate LOW Platelet Morphology Comment NORMAL Polychromasia 3.4 Basophilic Stippling MOD Keratocytes OCC Sodium Level 137 Potassium Level 3.5 Chloride Level 99 Carbon Dioxide Level 27.1 Anion Gap 11 Blood Urea Nitrogen 52 Creatinine 1.79 Estimat Glomerular Filtration 31 Rate Random Glucose 92 Calcium Level 8.2 Magnesium Level 2.4 Total Bilirubin 2.6 Aspartate Amino Transf 213 (AST/SGOT) Alanine Aminotransferase 402 (ALT/SGPT) Alkaline Phosphatase 95 Total Protein 5.6 Albumin 2.8 Date/Time Procedure Status Source Growth 09/04/16 17:00 Urine Culture - Final Complete Urine Clean Catch Escherichia Coli Abdomen: Non-distended, Non-tender A/P Assessment and Plan Choledocholithiasis, resolving. Dr. Torres recommends proceeding with lap leydi with IOC Discussed with patient and significant other; For surgery in AM. Redd Jurado MD September 07, 2016 15:44
[2016-09-07] MEDS: cloNIDine HCL 0.1 MG TAB PO PRN (19:07)
[2016-09-08] VITALS: BP 150/79; PULSE 71; RESP 17; TEMP 96; O2SAT 100
[2016-09-08] MEDS: SODIUM CHLOR 0.9% 1000 ML INJ 1,000 ML IV SCH ×2 (00:20→11:03)
[2016-09-08 04:00] VITALS: BP 170/88; PULSE 74; RESP 17; TEMP 96.7; O2SAT 100
[2016-09-08] MEDS: CHLORHEXIDINE GLUCONATE 2 % 1 PACK (2 CLOTHS)(taper/protocol) TOPICAL SCH (04:00)
[2016-09-08 04:24] LABS: BICARBONATE 25.1 MEQ/L (21.0-32.0); MAGNESIUM 2.1 MG/DL (1.5-2.5); POTASSIUM 3.6 MEQ/L (3.5-5.1)
[2016-09-08] MEDS: hydrALAZINE HCL 50 MG TAB PO SCH ×3 (06:09→21:32)
[2016-09-08] MEDS: MORPHINE SULFATE 4 MG/ML INJ IV PUSH PRN ×2 (06:10→21:32)
[2016-09-08] MEDS ORDERED: ACETAMINOPHEN 1000 MG/100 ML VIAL IV ONE (07:07)
[2016-09-08] MEDS ORDERED: BUPIVACAINE/EPINEPHRINE 0.25% 50 ML VIAL ONE (07:07)
[2016-09-08] MEDS: OXYBUTYNIN CHLORIDE 5 MG TAB PO SCH (07:43)
[2016-09-08] MEDS: GABAPENTIN 300 MG CAP PO SCH ×2 (07:44→21:32)
[2016-09-08] MEDS: DALFAMPRIDINE 10 MG PO SCH ×2 (07:45→21:00)
[2016-09-08] MEDS: CIPROFLOXACIN 250 MG TAB PO SCH (07:45)
[2016-09-08] MEDS: SODIUM CHLORIDE 0.9% FLUSH 10 ML FLUSH IV FLUSH SCH ×2 (07:46→21:00)
[2016-09-08 08:00] VITALS: BP 182/105; PULSE 83; RESP 17; TEMP 97.9; O2SAT 100
[2016-09-08] MEDS ORDERED: CIPROFLOXACIN 400 MG PREMIX 200 ML ONE (08:26)
[2016-09-08] MEDS ORDERED: IOHEXOL 350 MG/ML 50 ML BTL (for RAD DIAG) OTHER ONE (09:26)
--- NOTE | 2016-09-08 09:47 | RADRPT ---
EXAM DATE/TIME: 09/08/2016 09:23 [facility] COMPARISON: CT ABDOMEN & PELVIS W/O CONTRAST, September 04, 2016, 18:50. BILIARY SCAN (HIDA), September 06, 2016, 13:50. MR CP W/O CONTRAST, September 06, 2016, 8:50. INDICATIONS : Jaundice and Obstruction FLUORO TIME: 1.3 minutes IMAGE COUNT: 2 MEDICAL HISTORY : Hypertension. Multiple sclerosis. UTI. Acute kidney injury. SURGICAL HISTORY : None. ENCOUNTER: Initial ACUITY: 2 days PAIN SCORE: Non-responsive. LOCATION: Abdomen PROCEDURE: CHOLANGIOGRAM, OPERATIVE 1. Intraoperative cholangiogram. In the operating room, the cystic duct stump was injected and radiographs obtained. The examination demonstrates no definite filling defects in the common bile duct. The patient is stat us post cholecystectomy with surgical clips in the right upper quadrant. CONCLUSION: No evidence of common duct stone. Redd Camacho MD on September 08, 2016 at 9:43 Board Certified Radiologist. This report was verified electronically.
--- NOTE | 2016-09-08 10:04 | HHI.PR ---
cc: Redd Jurado MD Immediate Post Op Note Procedure Date: September 08, 2016 Pre Op Diagnosis: Cholecystitis with previous choledocholithiasis Post Op Diagnosis: Same, with fatty changes to liver Surgeon: Redd Jurado Cork Grinder(s): Antione Stephens CFA Procedure: Laparoscopic cholecystectomy with intraoperative cholangiogram with intraoperative use of fluoroscopy Joseph-cut liver biopsy x 2 Findings: Fatty liver Complications: None Specimen(s) removed: Gallbladder to pathology Joseph-cut liver cores to pathology Estimated blood loss: <10 ml Anesthesia: General Drains: None IVF (600 ml) Patient to: PACU Patient Condition: Good Date/Time of Procedure: SEE SURGICAL CARE RECORD Redd Jurado MD September 08, 2016 10:04
[2016-09-08] MEDS ORDERED: DO NOT ADM ANY ANTICOAGULANT DRUGS PRN (10:18)
[2016-09-08] MEDS ORDERED: fentaNYL CITRATE 250 MCG/5 ML AMP ONE (10:21)
[2016-09-08] MEDS ORDERED: MIDAZOLAM HCL 2 MG/2 ML VIAL ONE (10:22)
[2016-09-08 12:00] VITALS: BP 152/94; PULSE 80; RESP 16; TEMP 95; O2SAT 98
[2016-09-08] MEDS ORDERED: ONDANSETRON HCL 4 MG/2 ML VIAL IV PUSH ONE (12:00)
[2016-09-08] MEDS ORDERED: NEOSTIGMINE 3 MG/3 ML SYR IV ONE (12:00)
[2016-09-08] MEDS ORDERED: PROPOFOL 200 MG/20 ML AMP IV ONE (12:00)
--- NOTE | 2016-09-08 15:05 | MP ---
cc: REDD JURADO M.D. DATE OF SURGERY: 09/08/2016. PREOPERATIVE DIAGNOSIS 1. Cholecystitis with choledocholithiasis with previous choledocholithiasis. 2. Fatty liver with possible history of hepatitis C. POSTOPERATIVE DIAGNOSIS 1. Cholecystitis with choledocholithiasis with previous choledocholithiasis. 2. Fatty liver with possible history of hepatitis C. OPERATIVE PROCEDURE PERFORMED: 1. Laparoscopic cholecystectomy with intraoperative cholangiogram with intraoperative use of fluoroscopy. 2. TruCut liver biopsy, right lobe of liver x2. SURGEON: Redd Jurado MD. ANESTHESIA: General endotracheal anesthesia. ESTIMATED BLOOD LOSS: Less than 10 mL. FLUIDS: 600 mL crystalloid. COMPLICATIONS: None. DRAINS: None. SPECIMEN: Gallbladder and TruCut liver biopsy of the liver to pathology. DESCRIPTION OF THE PROCEDURE IN DETAIL: The patient was taken to the operating room and placed on the operating table in the supine position. After an adequate level of general endotracheal anesthesia was achieved, the abdomen was prepped and draped in the usual fashion. Time-out was taken confirming the correct patient, site and procedure be performed. Skin and subcutaneous tissue was infiltrated with local anesthetic and incision made in the umbilicus and carried through the fascia sharply. The peritoneal cavity was directly visualized. A 12 mm balloon trocar was inserted and the balloon inflated. The abdomen was insufflated. The patient was placed in reverse Trendelenburg position. Three 5-mm trocars were then placed with the first in the upper midline and the second and third in the right subcostal region. All entered the abdominal cavity under direct vision uneventfully. The gallbladder was then grasped and retracted upward. Omental adhesions were taken down off the gallbladder with minimal use of electrocautery. It should be noted that one of the 5-mm trocar sites in the midline was moved down and an additional puncture site was made in order to be able to perform dissection in an ergonomic fashion. The liver and gallbladder were positioned further down under the costal margin than normal. The cystic duct / infundibular junction and cystic artery were then circumferentially dissected. The cystic artery was doubly clipped proximally, singly clipped on the gallbladder side and divided. The cystic duct was singly clipped proximally, and due to the patient's previous elevated and persistent elevation in bilirubin, a cholangiogram was obtained. A small ductotomy was made and an Mcgee cholangiocatheter was brought in via separate stab incision. The catheter was placed into the cystic duct and secured with a clip. Full strength contrast was utilized and under real-time fluoroscopy, two runs were made with the biliary system and visualized. There were no filling defects in the cystic duct common duct, common hepatic duct and contrast flowed easily into the duodenum. Backfilling into the left and right hepatic ducts was also noted with no filling defects. At this point, the cholangiocatheter was removed. The cystic duct was doubly clipped distally and the cystic duct divided. The gallbladder was dissected off the liver bed with electrodissection. The gallbladder was placed into an EndoCatch device as it was still intact and removed via the umbilical port while observing via the upper 5 mm trocar site. The specimen was passed off the table. The upper abdomen was re-visualized and the liver bed cystic artery stump and cystic duct stump were all seen to be clean and dry. The liver was noted to have fatty changes with some steatosis and per request of the senior center director, a TruCut biopsy was then obtained. Two cores of liver were removed and both sites were made hemostatic with the electrocautery. At this point, all irrigation was aspirated from the abdominal cavity and insufflation was discontinued. When this had occurred, all of the upper abdominal trocars were removed under direct vision. No bleeding was noted from the trocar sites during desufflation. The laparoscope and umbilical port were then removed. The fascia was closed in the umbilicus with #0 Vicryl suture in a simple interrupted and [id number] fashion. The remaining local anesthetic was injected into all of the trocar sites. The skin was closed at each of the trocar sites with 4-0 Vicryl suture except for the cholangiocatheter site. All sites were dressed with Steri-Strips. The patient was extubated and taken back to the recovery room in stable condition. She tolerated the procedure well. MD BIBI Garcia/AYUSH /10:13 AM /2:59 PM SUSAN
--- NOTE | 2016-09-08 15:45 | HHI.GIFU ---
Subjective Remarks Pt in bed eating. Denies n/v. Some soreness from surgery. (Chio Osuna) Objective Vitals I&O Vital Signs Date Time Temp Pulse Resp B/P Pulse Ox O2 Delivery O2 Flow Rate FiO2 09/08/16 12:00 95.0 80 16 152/94 98 09/08/16 10:45 97.6 85 16 138/83 97 Room Air 09/08/16 10:30 87 16 134/85 96 Room Air 09/08/16 10:15 97.5 89 18 130/83 100 Nasal Cannula 3 09/08/16 08:00 97.9 83 17 182/105 100 09/08/16 04:00 96.7 74 17 170/88 100 09/08/16 00:00 96.0 71 17 150/79 100 09/07/16 20:33 76 09/07/16 20:00 96.2 77 19 181/103 100 170/100 09/07/16 16:30 68 21 159/102 99 09/07/16 16:30 68 09/07/16 16:00 72 09/07/16 16:00 72 14 153/96 99 09/07/16 16:00 98.4 I/O 09/07/16 09/07/16 09/07/16 09/08/16 09/08/16 09/08/16 07:00 15:00 23:00 07:00 15:00 23:00 Intake Total 100 ml 600 ml 594 ml 709 ml 760 ml Output Total 150 ml 600 ml 200 ml 10 ml Balance -50 ml 0 ml 394 ml 709 ml 750 ml Intake Oral 100 ml 600 ml 240 ml 0 ml 60 ml IV Total 354 ml 709 ml 100 ml Other 600 ml Output Urine Total 150 ml 600 ml 200 ml Estimated Blood Loss 10 ml # Voids 3 3 # Bowel Movements 0 0 Laboratory Laboratory Tests Test 09/08/16 03:23 Sodium Level 139 Potassium Level 3.6 Chloride Level 105 Carbon Dioxide Level 25.1 Anion Gap 9 Blood Urea Nitrogen 44 Creatinine 1.72 Estimat Glomerular Filtration 32 Rate Random Glucose 90 Calcium Level 8.1 Magnesium Level 2.1 Date/Time Procedure Status Source Growth 09/04/16 17:00 Urine Culture - Final Complete Urine Clean Catch Escherichia Coli Imaging Last Impressions Cholangiogram 09/08/16 0000 Signed Impressions: Service Date/Time: Thursday, September 08, 2016 09:23 - CONCLUSION: No evidence of common duct stone. Redd Camacho MD Renal Ultrasound 09/06/16 Signed Impressions: Service Date/Time: Tuesday, September 06, 2016 21:24 - CONCLUSION: No hydronephrosis Lamine Blackmon MD Hepatobiliary Scan Nuclear Medicine 09/06/16 Signed Impressions: Service Date/Time: Tuesday, September 06, 2016 13:50 - CONCLUSION: 1. There is no evidence of common bile duct obstruction. There is normal clearance of tracer from the liver. 2. The gallbladder is never identified. In the appropriate clinical setting this can suggest cholecystitis. Delayed imaging may be of benefit to increase specificity. Hernan Grant MD Cholangiopancreatography MRI 09/06/16 Signed Impressions: Service Date/Time: Tuesday, September 06, 2016 08:50 - CONCLUSION: Nonvisualization of the duct confluence and proximal common hepatic duct. Lamine Blackmon MD ADDENDUM: COMPARISON: BILIARY SCAN (HIDA), September 06, 2016, 13:50. In light of normal appearance and drainage of the biliary tree on the HIDA scan, MRCP appearance is felt probably artifactual. Lamine Blackmon MD Thoracic Spine MRI 09/05/16 Signed Impressions: Service Date/Time: September 14:50 - CONCLUSION: 1. Long segment but very small, age-indeterminate syrinx of the thoracic spine. The thoracic cord also appears slightly atrophic. 2. Mild degenerative changes as above. 3. No foraminal or spinal stenosis. 4. Small right and tiny left pleural effusions are incidentally noted. Lamine Zuñiga MD Lumbar Spine MRI 09/05/16 Signed Impressions: Service Date/Time: September 14:50 - CONCLUSION: 1. Mild degenerative changes at L3/L4, L4/L5 and L5/S1. Please see above. 2. Small, age indeterminate right paracentral disc protrusion at L5/S1. This contacts the transiting right S1 nerve root within the lateral recess but without evidence of impingement. 3. Mild bilateral foraminal encroachment at L4/L5 without definite exiting nerve root impingement. 4. There are left larger than right biforaminal annular fissures at the L4/L5 disc. 5. Apparent mild facet synovitis on the left at L5/S1. Lamine Zuñiga MD Chest X-Ray 09/05/16 0000 Signed Impressions: Service Date/Time: September 07:52 - CONCLUSION: Mild to moderate cardiomegaly with no evidence of pulmonary edema. Redd Camacho MD Head CT 09/04/16 1702 Signed Impressions: Service Date/Time: Sunday, September 04, 2016 18:47 - CONCLUSION: Unremarkable noncontrast CT. Redd Camacho MD Abdomen/Pelvis CT 09/04/16 0000 Signed Impressions: Service Date/Time: Sunday, September 04, 2016 18:50 - CONCLUSION: 1. The study was performed without intravenous or oral contrast limiting the sensitivity. 2. No evidence of biliary obstruction. 3. The gallbladder is abnormal in appearance with wall thickening or surrounding fluid. There are no calcified gallstones identified. 4. Cystic mass in the left adnexa measuring 4.1 x 3 cm most consistent with an ovarian cyst. 5. Small right pleural effusion. 6. Nonspecific, nonobstructive bowel gas pattern which may represent an ileus or gastroenteritis. 7. Air-fluid level in the bladder likely secondary to recent instrumentation. Redd Camacho MD Physical Exam HEENT: EOMI; normocephalic; atraumatic; no jaundice. CHEST: Chest is clear to auscultation and percussion. CARDIAC: Regular rate and rhythm with no murmur gallop or rubs. ABDOMEN: Soft, nondistended, mildly tender; no hepatosplenomegaly; bowel sounds are present in all four quadrants. EXTREMITIES: No clubbing, cyanosis, or edema. SKIN: Normal; no rash; no jaundice. 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 (Chio Osuna WELT SEWER) Assessment and Plan Plan ASSESSMENT - elevated LFTs . improving. Tbil 2.6, AST 213, ALT 402, ALP 95. MICHAEL neg, ASMA neg, Hep panel neg. s/p lap leydi, liver bx. 09/08/16 cholangiogram ---> No evidence of common duct stone. HIDA 09-06-16 ---> no evidence CBD obstruction, normal clearance tracer from liver, GB never identified. MRCP 09-06-16---> nonvisualization duct confluence and proximal common hepatic duct. comparison: in lgiht of normal apperance and drainage of biliary tree on HIDA, MRCP appearance if felt probably artifactual. PLAN - RUSTY - await pathology Gallbladder - await liver bx - await rest of liver w/u - continue to monitor This pt seen by myself and DR Torres and this note is written on his behalf ( Chio Osuna) Physician Comments S/P cholecystectomy with IOC and liver biopsy. Pathology pending. MOnitor labs. (Jennifer Torres MD) Chio Osuna September 08, 2016 15:45 Jennifer Torres MD September 08, 2016 16:46
[2016-09-08 16:00] VITALS: BP 152/88; PULSE 80; RESP 17; TEMP 96.1; O2SAT 99
--- NOTE | 2016-09-08 17:21 | HHI.PR ---
Subjective Remarks This is a pleasant 46 y/o Female with Multiple sclerosis, tobacco dependence Alcohol abuse, sent to ER by PCP due to Altered mental status, unintentional weight loss, recurrent falls, has Hypertension, Overactive bladder, admitted on 09/05/16, ECG showed Left Ventricular Hypertrophy, Acute Kidney Injury, elevated Liver Enzymes, dehydrated, Neurology consulted for MS. as per Neurology specialist recommended to hold Ampyra and Rebif this medicines may be a factor for her Generalized weakness, also probable related to MS. elevated Liver Enzymes as per GI specialist probable secondary to Alcohol abuse, recommended HIDA scan, MRCP, was transferred by General Surgery to this facility for ERCP. 09/08: Seen in her bedroom in the presence of her , no nausea, vomit or diarrhea, status post Laparoscopic Cholecystectomy with intraoperative cholangiogram with intraoperative use of fluoroscopy Joseph-cut Liver biopsy x 2 with Post operative diagnosis of Cholecystitis with previous choledocholithiasis with fatty changes by Doctor Redd Jurado Objective Vital Signs Date Time Temp Pulse Resp B/P Pulse Ox O2 Delivery O2 Flow Rate FiO2 09/08/16 16:00 96.1 80 17 152/88 99 09/08/16 12:00 95.0 80 16 152/94 98 09/08/16 10:45 97.6 85 16 138/83 97 Room Air 09/08/16 10:30 87 16 134/85 96 Room Air 09/08/16 10:15 97.5 89 18 130/83 100 Nasal Cannula 3 09/08/16 08:00 97.9 83 17 182/105 100 09/08/16 04:00 96.7 74 17 170/88 100 09/08/16 00:00 96.0 71 17 150/79 100 09/07/16 20:33 76 09/07/16 20:00 96.2 77 19 181/103 100 170/100 I/O 09/07/16 09/07/16 09/07/16 09/08/16 09/08/16 09/08/16 07:00 15:00 23:00 07:00 15:00 23:00 Intake Total 100 ml 600 ml 594 ml 709 ml 760 ml Output Total 150 ml 600 ml 200 ml 10 ml Balance -50 ml 0 ml 394 ml 709 ml 750 ml Intake Oral 100 ml 600 ml 240 ml 0 ml 60 ml IV Total 354 ml 709 ml 100 ml Other 600 ml Output Urine Total 150 ml 600 ml 200 ml Estimated Blood Loss 10 ml # Voids 3 3 # Bowel Movements 0 0 Result Diagram: 09/07/16 0526 09/08/16 0323 Imaging Last Impressions Cholangiogram 09/08/16 0000 Signed Impressions: Service Date/Time: Thursday, September 08, 2016 09:23 - CONCLUSION: No evidence of common duct stone. Redd Camacho MD Renal Ultrasound 09/06/16 Signed Impressions: Service Date/Time: Tuesday, September 06, 2016 21:24 - CONCLUSION: No hydronephrosis Lamine Blackmon MD Hepatobiliary Scan Nuclear Medicine 09/06/16 Signed Impressions: Service Date/Time: Tuesday, September 06, 2016 13:50 - CONCLUSION: 1. There is no evidence of common bile duct obstruction. There is normal clearance of tracer from the liver. 2. The gallbladder is never identified. In the appropriate clinical setting this can suggest cholecystitis. Delayed imaging may be of benefit to increase specificity. Hernan Grant MD Cholangiopancreatography MRI 09/06/16 Signed Impressions: Service Date/Time: Tuesday, September 06, 2016 08:50 - CONCLUSION: Nonvisualization of the duct confluence and proximal common hepatic duct. Lamine Blackmon MD ADDENDUM: COMPARISON: BILIARY SCAN (HIDA), September 06, 2016, 13:50. In light of normal appearance and drainage of the biliary tree on the HIDA scan, MRCP appearance is felt probably artifactual. Lamine Blackmon MD Thoracic Spine MRI 09/05/16 Signed Impressions: Service Date/Time: September 14:50 - CONCLUSION: 1. Long segment but very small, age-indeterminate syrinx of the thoracic spine. The thoracic cord also appears slightly atrophic. 2. Mild degenerative changes as above. 3. No foraminal or spinal stenosis. 4. Small right and tiny left pleural effusions are incidentally noted. Lamine Zuñiga MD Lumbar Spine MRI 09/05/16 Signed Impressions: Service Date/Time: September 14:50 - CONCLUSION: 1. Mild degenerative changes at L3/L4, L4/L5 and L5/S1. Please see above. 2. Small, age indeterminate right paracentral disc protrusion at L5/S1. This contacts the transiting right S1 nerve root within the lateral recess but without evidence of impingement. 3. Mild bilateral foraminal encroachment at L4/L5 without definite exiting nerve root impingement. 4. There are left larger than right biforaminal annular fissures at the L4/L5 disc. 5. Apparent mild facet synovitis on the left at L5/S1. Lamine Zuñiga MD Chest X-Ray 09/05/16 0000 Signed Impressions: Service Date/Time: September 07:52 - CONCLUSION: Mild to moderate cardiomegaly with no evidence of pulmonary edema. Redd Camacho MD Head CT 09/04/16 1702 Signed Impressions: Service Date/Time: Sunday, September 04, 2016 18:47 - CONCLUSION: Unremarkable noncontrast CT. eRdd Camacho MD Abdomen/Pelvis CT 09/04/16 0000 Signed Impressions: Service Date/Time: Sunday, September 04, 2016 18:50 - CONCLUSION: 1. The study was performed without intravenous or oral contrast limiting the sensitivity. 2. No evidence of biliary obstruction. 3. The gallbladder is abnormal in appearance with wall thickening or surrounding fluid. There are no calcified gallstones identified. 4. Cystic mass in the left adnexa measuring 4.1 x 3 cm most consistent with an ovarian cyst. 5. Small right pleural effusion. 6. Nonspecific, nonobstructive bowel gas pattern which may represent an ileus or gastroenteritis. 7. Air-fluid level in the bladder likely secondary to recent instrumentation. Redd Camacho MD Procedures status post Laparoscopic Cholecystectomy with intraoperative cholangiogram with intraoperative use of fluoroscopy Joseph-cut Liver biopsy x 2 with Post operative diagnosis of Cholecystitis with previous choledocholithiasis with fatty changes by Doctor Redd Jurado Other Results Laboratory Tests Test 09/04/16 09/04/16 09/05/16 09/05/16 17:00 17:13 05:35 12:40 Urine Opiates Screen POS Urine Barbiturates Screen NEG Urine Amphetamines Screen NEG Urine Benzodiazepines Screen NEG Urine Cocaine Screen NEG Urine Cannabinoids Screen NEG Urine Color YELLOW Urine Turbidity CLEAR Urine pH 5.5 Urine Specific [place] 1.019 Urine Protein 100 mg/dL Urine Glucose (UA) NEG mg/dL Urine Ketones NEG mg/dL Urine Occult Blood LARGE Urine Nitrite NEG Urine Bilirubin NEG Urine Leukocyte Esterase NEG Urine WBC 0-2 /hpf Urine Squamous Epithelial 0-5 /hpf Cells Urine Bacteria MANY /hpf Microscopic Urinalysis Comment CULTURE INDICATED Prothrombin Time 13.6 SEC Prothromb Time International 1.2 RATIO Ratio Activated Partial 24.7 SEC Thromboplast Time Ammonia 11 MCMOL/L Lipase 178 U/L Ethyl Alcohol Level LESS THAN 3 MG/DL Tear Drop Cells 1+ Ovalocytes 1+ Vitamin B12 Level 1696 PG/ML Folate 16.4 NG/ML Thyroid Stimulating Hormone 2.280 uIU/ML 3rd Gen Human Chorionic Gonadotropin, LESS THAN 1 Quant MIU/ML Acetaminophen Level LESS THAN 2.0 MCG/ML Hepatitis A IgM Antibody NEGATIVE Hepatitis B Surface Antigen NEGATIVE Hepatitis B Core IgM Antibody NEGATIVE Hepatitis C Antibody NEGATIVE Test 09/05/16 09/06/16 09/06/16 09/07/16 19:10 06:17 19:15 05:26 Iron Level 137 MCG/DL Total Iron Binding Capacity 288 MCG/DL Percent Iron Saturation 47.5 % Ferritin 1116 NG/ML Anti-Nuclear Antibody Screen NEG [id number] 118 mg/dL Anti-Smooth Muscle Antibody Negative Total Creatine Kinase 991 U/L Creatine Kinase MB 12.3 NG/ML Creatine Kinase MB % 1.2 % Nasal Screen MRSA (PCR) MRSA NOT DETECTED White Blood Count 7.3 TH/MM3 Red Blood Count 2.58 MIL/MM3 Hemoglobin 9.2 GM/DL Hematocrit 27.5 % Mean Corpuscular Volume 106.6 FL Mean Corpuscular Hemoglobin 35.8 PG Mean Corpuscular Hemoglobin 33.5 % Concent Red Cell Distribution Width 21.1 % Platelet Count 68 TH/MM3 Mean Platelet Volume 9.9 FL Neutrophils (%) (Auto) 78.6 % Lymphocytes (%) (Auto) 13.1 % Monocytes (%) (Auto) 7.6 % Eosinophils (%) (Auto) 0.5 % Basophils (%) (Auto) 0.2 % Neutrophils # (Auto) 5.7 TH/MM3 Lymphocytes # (Auto) 1.0 TH/MM3 Monocytes # (Auto) 0.5 TH/MM3 Eosinophils # (Auto) 0.0 TH/MM3 Basophils # (Auto) 0.0 TH/MM3 CBC Comment AUTO DIFF Differential Total Cells 100 Counted Neutrophils % (Manual) 82 % Band Neutrophils % 1 % Lymphocytes % 14 % Monocytes % 3 % Neutrophils # (Manual) 6.1 TH/MM3 Nucleated Red Blood Cells 4 /100 WBC Differential Comment FINAL DIFF MANUAL Platelet Estimate LOW Platelet Morphology Comment NORMAL Polychromasia 3.4 % Basophilic Stippling MOD Keratocytes OCC Total Bilirubin 2.6 MG/DL Aspartate Amino Transf 213 U/L (AST/SGOT) Alanine Aminotransferase 402 U/L (ALT/SGPT) Alkaline Phosphatase 95 U/L Total Protein 5.6 GM/DL Albumin 2.8 GM/DL Test 09/08/16 03:23 Sodium Level 139 MEQ/L Potassium Level 3.6 MEQ/L Chloride Level 105 MEQ/L Carbon Dioxide Level 25.1 MEQ/L Anion Gap 9 MEQ/L Blood Urea Nitrogen 44 MG/DL Creatinine 1.72 MG/DL Estimat Glomerular Filtration 32 ML/MIN Rate Random Glucose 90 MG/DL Calcium Level 8.1 MG/DL Magnesium Level 2.1 MG/DL Objective Remarks GENERAL: Well-developed patient SKIN: No rashes, ecchymoses or lesions. Cool and dry. HEAD: Atraumatic. Normocephalic. No temporal or scalp tenderness. EYES: Pupils equal round and reactive. ENT: Nose without bleeding. NECK: Trachea midline. No JVD or lymphadenopathy. Supple. CARDIOVASCULAR: Regular rate and rhythm without murmurs, gallops, or rubs. RESPIRATORY: Clear to auscultation. Breath sounds equal bilaterally. No wheezes , rales, or rhonchi. GASTROINTESTINAL: Abdomen soft, mild tenderness, clean surgical wounds. MUSCULOSKELETAL: Extremities without clubbing, cyanosis but with bilateral trace leg edema. NEUROLOGICAL: Awake and alert. No focal deficits. Medications and IVs Current Medications Medications (Trade) Dose Ordered Sig/Gonzalez Route Start Time Stop Time Status Last Admin (NS 1000 ml Inj) 1,000 ml @ 100 mls/hr Q10H IV 09/04/16 19:44 09/08/16 11:03 (NS Flush) 2 ml UNSCH PRN IV FLUSH 09/04/16 19:45 (NS Flush) 2 ml BID IV FLUSH 09/04/16 21:00 09/07/16 16:31 (Narcan Inj) 0.4 mg UNSCH PRN IV 09/04/16 19:45 (Morphine Inj) 2 mg Q3H PRN IV PUSH 09/04/16 23:15 09/08/16 06:10 (Tylenol) 650 mg Q4H PRN PO 09/05/16 07:45 (Zofran Inj) 4 mg Q6H PRN IV 09/05/16 07:45 (Colace) 100 mg BID PRN PO 09/05/16 07:45 (Tums Chew) 1,000 mg TID PRN CHEW 09/05/16 07:45 (Neurontin) 300 mg BID PO 09/05/16 09:00 09/08/16 07:44 (Ditropan) 5 mg DAILY PO 09/05/16 09:00 09/08/16 07:43 (Apresoline) 50 mg Q8HR PO 09/05/16 14:00 09/08/16 14:00 Miscellaneous Information Patient in critical care unit? Ass... [id number] .XX 09/06/16 20:00 09/06/16 20:00 (Chlorhexidine 2% Cloth) 3 pack DAILY@04 TOPICAL 09/07/16 04:00 09/11/16 04:01 09/07/16 04:00 (Chlorhexidine 2% Cloth) 3 pack UNSCH PRN TOPICAL 09/06/16 20:00 09/11/16 19:58 Patient Own Medication PT OWN MED: AMP... BID PO 09/06/16 22:30 09/08/16 07:45 (Norvasc) 10 mg DAILY@08 PO 09/08/16 08:00 09/08/16 07:44 (Catapres) 0.1 mg Q6H PRN PO 09/07/16 15:00 09/07/16 19:07 (Vitamin B12) 1,000 mcg DAILY PO 09/09/16 09:00 Miscellaneous Information ALL NURSING DEPARTME... UNSCH PRN .XX 09/08/16 10:18 09/09/16 10:17 A/P Assessment and Plan (1) Hypertension ICD Code: I10 Status: Acute (2) Acute kidney injury (nontraumatic) ICD Code: N17.9 Status: Acute (3) Elevated liver enzymes ICD Code: R74.8 Status: Acute (4) Dehydration ICD Code: E86.0 Status: Acute (5) MS (multiple sclerosis) ICD Code: G35 Status: Chronic (6) Hypokalemia ICD Code: E87.6 1. Accelerated Hypertension, Improved will continue Clonidine PRN and Amlodipine /Hydralazine by mouth 2. Hypokalemia today 3.5 replacement asked for 40 meq of potassium chloride by mouth. 3. Acute Kidney Injury secondary to dehydration and Rhabdomyolysis, continue IV fluids. switch to 125 ml of half normal sodium, and follow BMP and Mag and PO4 level tomorrow. 4. Elevated Liver enzymes with tender RUQ, CT indicated gallbladder abnormality of thickened wall or fluid present, hepatitis profile and workup for autoimmune hepatitis. after evaluation by GI specialist today reviewed MRCP/CT and HIDA scan. Status post Laparoscopic Cholecystectomy with intraoperative cholangiogram with intraoperative use of fluoroscopy Joseph-cut Liver biopsy x 2 with Post operative diagnosis of Cholecystitis with previous choledocholithiasis with fatty changes by Doctor Redd Jurado 5. Multiple Sclerosis on hold Rebif and Ampyra. 6. Macrocytic anemia with normal values of B12 and Folate 7. Acute metabolic and Hypertensive Encephalopathy CT brain no acute findings. Improved. DVT prophylaxis with SCDs. on hold Heparin due to surgery, encourage ambulation Discharge Planning Expected in one to two days Silas Cummings MD September 08, 2016 17:21
[2016-09-08] MEDS: SODIUM CHLOR 0.45% 1000 ML INJ 1,000 ML IV SCH (18:00)
[2016-09-08] MEDS ORDERED: POTASSIUM CHLORIDE 20 MEQ PWD PACKET PO ONE (18:30)
[2016-09-08 20:00] VITALS: BP 167/96; PULSE 84; RESP 17; TEMP 98.5; O2SAT 97
[2016-09-09] VITALS (7 sets, daily range): BP systolic 142–180; BP diastolic 72–97; PULSE 72–89; RESP 16–18; TEMP 96–97.2; O2SAT 95–99
[2016-09-09] MEDS: cloNIDine HCL 0.1 MG TAB PO PRN ×2 (00:52→17:26)
[2016-09-09] MEDS: SODIUM CHLOR 0.45% 1000 ML INJ 1,000 ML IV SCH ×2 (00:53→09:32)
[2016-09-09] MEDS: CHLORHEXIDINE GLUCONATE 2 % 1 PACK (2 CLOTHS)(taper/protocol) TOPICAL SCH (03:56)
[2016-09-09 05:06] LABS: AUTOMATED NEUTROPHIL # 6.4 TH/MM3 (1.8-7.7); BASOPHIL % 0.3 % (0.0-2.0); EOSINOPHIL # 0.1 TH/MM3 (0-0.4); EOSINOPHIL % 1.5 % (0.0-4.0); HEMATOCRIT 27.9 % (35.0-46.0); LYMPH % 9.7 % (9.0-44.0); LYMPHOCYTE # 0.8 TH/MM3 (1.0-4.8); MEAN CELL VOLUME 107.9 FL (80.0-100.0); MEAN CORPUSCULAR HGB CONC 33.4 % (32.0-36.0); MONO % 7.4 % (0.0-8.0); NEUT % 81.1 % (16.0-70.0); PLATELET COUNT 56 TH/MM3 (150-450); RED BLOOD COUNT 2.58 MIL/MM3 (4.00-5.30); RED CELL DISTRIBUTION WIDTH 22.1 % (11.6-17.2); WHITE BLOOD COUNT 7.9 TH/MM3 (4.0-11.0)
[2016-09-09] MEDS: hydrALAZINE HCL 50 MG TAB PO SCH ×3 (05:25→20:17)
[2016-09-09 05:28] LABS: HEMO FLAGS AUTO DIFF
[2016-09-09 05:32] LABS: BICARBONATE 22.9 MEQ/L (21.0-32.0); MAGNESIUM 1.8 MG/DL (1.5-2.5); POTASSIUM 4.5 MEQ/L (3.5-5.1)
[2016-09-09 05:33] LABS: INDIRECT BILIRUBIN 1.4 MG/DL (0.0-0.8); TOTAL BILIRUBIN ADULT 2.1 MG/DL (0.2-1.0)
[2016-09-09] MEDS: MORPHINE SULFATE 4 MG/ML INJ IV PUSH PRN ×2 (07:02→20:18)
[2016-09-09 08:14] LABS: BANDS 1 % (0-6); CORRECTED NUCLEATED RBC 1 /100 WBC (0-0); METAMYELOCYTES 1 % (0-1); MYELOCYTES 1 % (0-0); NEUTROPHIL # MANUAL DIFF 6.7 TH/MM3 (1.8-7.7); POLYS (SEG NEUTROPHILS) 82 % (16-70); WBC DIFF SAMPLE 100
[2016-09-09 08:15] LABS: ACANTHOCYTES OCC (NORMAL)
[2016-09-09 08:16] LABS: HELMET CELLS OCC (NORMAL); KERATOCYTES OCC (NORMAL); PLATELET ESTIMATE SMEAR LOW (NORMAL); POLYCHROMASIA 2.9 % (0.0-1.9)
[2016-09-09 08:17] LABS: PLATELET MORPHOLOGY NORMAL (NORMAL); SCAN/DIFF FINAL DIFF MANUAL
[2016-09-09] MEDS: SODIUM CHLORIDE 0.9% FLUSH 10 ML FLUSH IV FLUSH SCH ×2 (09:00→20:17)
[2016-09-09] MEDS: DALFAMPRIDINE 10 MG PO SCH ×2 (09:00→21:00)
[2016-09-09] MEDS: OXYBUTYNIN CHLORIDE 5 MG TAB PO SCH (09:32)
[2016-09-09] MEDS: GABAPENTIN 300 MG CAP PO SCH ×2 (09:32→20:16)
[2016-09-09] MEDS: CYANOCOBALAMIN 1,000 MCG TAB PO SCH (09:32)
[2016-09-09] MEDS ORDERED: SODIUM CHLOR 0.9% 1000 ML INJ 1,000 ML IV SCH (13:00)
--- NOTE | 2016-09-09 13:16 | HHI.PR ---
Subjective Subjective Notes Resting in bed C/o sore throat Pain controlled Objective Vitals/I&O Vital Signs Date Time Temp Pulse Resp B/P Pulse Ox O2 Delivery O2 Flow Rate FiO2 09/09/16 12:00 96.0 85 17 175/92 98 09/08/16 10:45 Room Air 09/08/16 10:15 3 Labs Laboratory Tests Test 09/09/16 04:41 White Blood Count 7.9 Red Blood Count 2.58 Hemoglobin 9.3 Hematocrit 27.9 Mean Corpuscular Volume 107.9 Mean Corpuscular Hemoglobin 36.0 Mean Corpuscular Hemoglobin 33.4 Concent Red Cell Distribution Width 22.1 Platelet Count 56 Mean Platelet Volume 9.8 Neutrophils (%) (Auto) 81.1 Lymphocytes (%) (Auto) 9.7 Monocytes (%) (Auto) 7.4 Eosinophils (%) (Auto) 1.5 Basophils (%) (Auto) 0.3 Neutrophils # (Auto) 6.4 Lymphocytes # (Auto) 0.8 Monocytes # (Auto) 0.6 Eosinophils # (Auto) 0.1 Basophils # (Auto) 0.0 CBC Comment AUTO DIFF Differential Total Cells 100 Counted Neutrophils % (Manual) 82 Band Neutrophils % 1 Lymphocytes % 11 Monocytes % 4 Neutrophils # (Manual) 6.7 Metamyelocytes 1 Myelocytes 1 Nucleated Red Blood Cells 1 Differential Comment FINAL DIFF MANUAL Platelet Estimate LOW Platelet Morphology Comment NORMAL Polychromasia 2.9 Basophilic Stippling FAINT Helmet Cells OCC Acanthocytes OCC Keratocytes OCC Sodium Level 136 Potassium Level 4.5 Chloride Level 104 Carbon Dioxide Level 22.9 Anion Gap 9 Blood Urea Nitrogen 41 Creatinine 1.90 Estimat Glomerular Filtration 29 Rate Random Glucose 90 Calcium Level 8.3 Magnesium Level 1.8 Total Bilirubin 2.1 Direct Bilirubin 0.7 Indirect Bilirubin 1.4 Aspartate Amino Transf 125 (AST/SGOT) Alanine Aminotransferase 276 (ALT/SGPT) Alkaline Phosphatase 104 Total Protein 5.8 Albumin 2.7 Date/Time Procedure Status Source Growth 09/04/16 17:00 Urine Culture - Final Complete Urine Clean Catch Escherichia Coli Cardiovascular: Regular Lungs: Clear Abdomen: Other (lap sites c/d/i with steri strips in place; soft; non distended ), Post-op tenderness Extremities: No edema A/P Assessment and Plan 46 year old female POD1 lap leydi and liver biopsy x 2 -Regular diet -Pain controlled -Plt 56 today--- Hematology consult pending -OOB and mobilize -T-bilirubin 2.1 today; liver enzyme trending down -Await pathology Attending Note - Dr. Jurado Minimal abdominal pain Reports both legs swollen but not painful Both UE's not edematous Will give small dose of lasix and stop IVF The exam, history, and the medical decision-making described in the above note were completed with the assistance of the mid-level provider. I reviewed and agree with the findings presented. I attest that I had a [id number] encounter with the patient on the same day, and personally performed and documented my assessment and findings in the medical record. Theresa Wooten September 09, 2016 13:16 Redd Jurado MD September 09, 2016 17:41
--- NOTE | 2016-09-09 14:53 | HHI.GIFU ---
Subjective Remarks Pt seated in bed. Some abdominal surgery site soreness. No n/v, diarrhea, bleeding. (Chio Osuna) Objective Vitals I&O Vital Signs Date Time Temp Pulse Resp B/P Pulse Ox O2 Delivery O2 Flow Rate FiO2 09/09/16 12:00 96.0 85 17 175/92 98 09/09/16 08:00 96.6 89 18 180/93 95 09/09/16 04:00 96.8 72 17 142/86 98 09/09/16 00:00 97.2 81 17 169/97 97 09/08/16 20:00 98.5 84 17 167/96 97 09/08/16 16:00 96.1 80 17 152/88 99 I/O 09/08/16 09/08/16 09/08/16 09/09/16 09/09/16 09/09/16 06:59 14:59 22:59 06:59 14:59 22:59 Intake Total 709 ml 760 ml 1149 ml 1118 ml 826 ml Output Total 10 ml Balance 709 ml 750 ml 1149 ml 1118 ml 826 ml Intake Oral 0 ml 60 ml 480 ml 240 ml IV Total 709 ml 100 ml 669 ml 878 ml 826 ml Other 600 ml Estimated Blood Loss 10 ml # Voids 3 3 4 2 # Bowel Movements 0 Laboratory Laboratory Tests Test 09/09/16 04:41 White Blood Count 7.9 Red Blood Count 2.58 Hemoglobin 9.3 Hematocrit 27.9 Mean Corpuscular Volume 107.9 Mean Corpuscular Hemoglobin 36.0 Mean Corpuscular Hemoglobin 33.4 Concent Red Cell Distribution Width 22.1 Platelet Count 56 Mean Platelet Volume 9.8 Neutrophils (%) (Auto) 81.1 Lymphocytes (%) (Auto) 9.7 Monocytes (%) (Auto) 7.4 Eosinophils (%) (Auto) 1.5 Basophils (%) (Auto) 0.3 Neutrophils # (Auto) 6.4 Lymphocytes # (Auto) 0.8 Monocytes # (Auto) 0.6 Eosinophils # (Auto) 0.1 Basophils # (Auto) 0.0 CBC Comment AUTO DIFF Differential Total Cells 100 Counted Neutrophils % (Manual) 82 Band Neutrophils % 1 Lymphocytes % 11 Monocytes % 4 Neutrophils # (Manual) 6.7 Metamyelocytes 1 Myelocytes 1 Nucleated Red Blood Cells 1 Differential Comment FINAL DIFF MANUAL Platelet Estimate LOW Platelet Morphology Comment NORMAL Polychromasia 2.9 Basophilic Stippling FAINT Helmet Cells OCC Acanthocytes OCC Keratocytes OCC Sodium Level 136 Potassium Level 4.5 Chloride Level 104 Carbon Dioxide Level 22.9 Anion Gap 9 Blood Urea Nitrogen 41 Creatinine 1.90 Estimat Glomerular Filtration 29 Rate Random Glucose 90 Calcium Level 8.3 Magnesium Level 1.8 Total Bilirubin 2.1 Direct Bilirubin 0.7 Indirect Bilirubin 1.4 Aspartate Amino Transf 125 (AST/SGOT) Alanine Aminotransferase 276 (ALT/SGPT) Alkaline Phosphatase 104 Total Protein 5.8 Albumin 2.7 Date/Time Procedure Status Source Growth 09/04/16 17:00 Urine Culture - Final Complete Urine Clean Catch Escherichia Coli Imaging Last Impressions Cholangiogram 09/08/16 0000 Signed Impressions: Service Date/Time: Thursday, September 08, 2016 09:23 - CONCLUSION: No evidence of common duct stone. Redd Camacho MD Renal Ultrasound 09/06/16 Signed Impressions: Service Date/Time: Tuesday, September 06, 2016 21:24 - CONCLUSION: No hydronephrosis Lamine Blackmon MD Hepatobiliary Scan Nuclear Medicine 09/06/16 Signed Impressions: Service Date/Time: Tuesday, September 06, 2016 13:50 - CONCLUSION: 1. There is no evidence of common bile duct obstruction. There is normal clearance of tracer from the liver. 2. The gallbladder is never identified. In the appropriate clinical setting this can suggest cholecystitis. Delayed imaging may be of benefit to increase specificity. Hernan Grant MD Cholangiopancreatography MRI 09/06/16 Signed Impressions: Service Date/Time: Tuesday, September 06, 2016 08:50 - CONCLUSION: Nonvisualization of the duct confluence and proximal common hepatic duct. Lamine Blackmon MD ADDENDUM: COMPARISON: BILIARY SCAN (HIDA), September 06, 2016, 13:50. In light of normal appearance and drainage of the biliary tree on the HIDA scan, MRCP appearance is felt probably artifactual. Lamine Blackmon MD Thoracic Spine MRI 09/05/16 0000 Signed Impressions: Service Date/Time: September 14:50 - CONCLUSION: 1. Long segment but very small, age-indeterminate syrinx of the thoracic spine. The thoracic cord also appears slightly atrophic. 2. Mild degenerative changes as above. 3. No foraminal or spinal stenosis. 4. Small right and tiny left pleural effusions are incidentally noted. Lamine Zuñiga MD Lumbar Spine MRI 09/05/16 0000 Signed Impressions: Service Date/Time: September 14:50 - CONCLUSION: 1. Mild degenerative changes at L3/L4, L4/L5 and L5/S1. Please see above. 2. Small, age indeterminate right paracentral disc protrusion at L5/S1. This contacts the transiting right S1 nerve root within the lateral recess but without evidence of impingement. 3. Mild bilateral foraminal encroachment at L4/L5 without definite exiting nerve root impingement. 4. There are left larger than right biforaminal annular fissures at the L4/L5 disc. 5. Apparent mild facet synovitis on the left at L5/S1. Lamine Zuñiga MD Chest X-Ray 09/05/16 0000 Signed Impressions: Service Date/Time: September 07:52 - CONCLUSION: Mild to moderate cardiomegaly with no evidence of pulmonary edema. Redd Camacho MD Head CT 09/04/16 1702 Signed Impressions: Service Date/Time: Sunday, September 04, 2016 18:47 - CONCLUSION: Unremarkable noncontrast CT. Redd Camacho MD Abdomen/Pelvis CT 09/04/16 0000 Signed Impressions: Service Date/Time: Sunday, September 04, 2016 18:50 - CONCLUSION: 1. The study was performed without intravenous or oral contrast limiting the sensitivity. 2. No evidence of biliary obstruction. 3. The gallbladder is abnormal in appearance with wall thickening or surrounding fluid. There are no calcified gallstones identified. 4. Cystic mass in the left adnexa measuring 4.1 x 3 cm most consistent with an ovarian cyst. 5. Small right pleural effusion. 6. Nonspecific, nonobstructive bowel gas pattern which may represent an ileus or gastroenteritis. 7. Air-fluid level in the bladder likely secondary to recent instrumentation. Redd Camacho MD Physical Exam HEENT: EOMI; normocephalic; atraumatic; no jaundice. CHEST: Chest is clear to auscultation and percussion. CARDIAC: Regular rate and rhythm with no murmur gallop or rubs. ABDOMEN: Soft, nondistended, mildly tender; no hepatosplenomegaly; bowel sounds are present in all four quadrants. EXTREMITIES: No clubbing, cyanosis, or edema. SKIN: Normal; no rash; no jaundice. 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 (Chio Os[place]) Assessment and Plan Plan ASSESSMENT - elevated LFTs . improving. Tbil 2.1, AST 125, ALT 276, ALP 104. MICHAEL neg, ASMA neg, Hep panel neg. s/p lap leydi, liver bx pending. 09/08/16 cholangiogram ---> No evidence of common duct stone. HIDA 09-06-16 ---> no evidence CBD obstruction, normal clearance tracer from liver, GB never identified. MRCP 09-06-16---> nonvisualization duct confluence and proximal common hepatic duct. comparison: in lgiht of normal apperance and drainage of biliary tree on HIDA, MRCP appearance if felt probably artifactual. PLAN - RUSTY - await pathology Gallbladder - await liver bx - await rest of liver w/u - continue to monitor This pt seen by myself and DR Koch and this note is written on her behalf ( Chio Osuna) Chio Osuna September 09, 2016 14:52 Enriqueta Koch MD September 09, 2016 21:29
--- NOTE | 2016-09-09 15:17 | HHI.PR ---
Subjective Remarks Follow up generalized weakness, altered mental status and s/p cholecystectomy. Patient seen and examined in room with friend at bedside. Patient is awake and alert, oriented. Patient denies any acute complaints. Has been tolerating PO intake, denies any nausea or vomiting. Denies any fever, chills, shortness of breath or chest pain. Objective Vitals Vital Signs Date Time Temp Pulse Resp B/P Pulse Ox O2 Delivery O2 Flow Rate FiO2 09/09/16 12:00 96.0 85 17 175/92 98 09/09/16 08:00 96.6 89 18 180/93 95 09/09/16 04:00 96.8 72 17 142/86 98 09/09/16 00:00 97.2 81 17 169/97 97 09/08/16 20:00 98.5 84 17 167/96 97 09/08/16 16:00 96.1 80 17 152/88 99 I/O 09/08/16 09/08/16 09/08/16 09/09/16 09/09/16 09/09/16 07:00 15:00 23:00 07:00 15:00 23:00 Intake Total 709 ml 760 ml 1149 ml 1118 ml 826 ml Output Total 10 ml Balance 709 ml 750 ml 1149 ml 1118 ml 826 ml Intake Oral 0 ml 60 ml 480 ml 240 ml IV Total 709 ml 100 ml 669 ml 878 ml 826 ml Other 600 ml Estimated Blood Loss 10 ml # Voids 3 3 4 2 # Bowel Movements 0 Result Diagram: 09/09/16 0441 09/09/16 0441 Imaging Last Impressions Cholangiogram 09/08/16 0000 Signed Impressions: Service Date/Time: Thursday, September 08, 2016 09:23 - CONCLUSION: No evidence of common duct stone. Redd Camacho MD Renal Ultrasound 09/06/16 0000 Signed Impressions: Service Date/Time: Tuesday, September 06, 2016 21:24 - CONCLUSION: No hydronephrosis Lamine Blackmon MD Hepatobiliary Scan Nuclear Medicine 09/06/16 0000 Signed Impressions: Service Date/Time: Tuesday, September 06, 2016 13:50 - CONCLUSION: 1. There is no evidence of common bile duct obstruction. There is normal clearance of tracer from the liver. 2. The gallbladder is never identified. In the appropriate clinical setting this can suggest cholecystitis. Delayed imaging may be of benefit to increase specificity. Hernan Grant MD Cholangiopancreatography MRI 09/06/16 0000 Signed Impressions: Service Date/Time: Tuesday, September 06, 2016 08:50 - CONCLUSION: Nonvisualization of the duct confluence and proximal common hepatic duct. Lamine Blackmon MD ADDENDUM: COMPARISON: BILIARY SCAN (H[facility]), September 06, 2016, 13:50. In light of normal appearance and drainage of the biliary tree on the HIDA scan, MRCP appearance is felt probably artifactual. Lamine Blackmon MD Thoracic Spine MRI 09/05/16 Signed Impressions: Service Date/Time: September 14:50 - CONCLUSION: 1. Long segment but very small, age-indeterminate syrinx of the thoracic spine. The thoracic cord also appears slightly atrophic. 2. Mild degenerative changes as above. 3. No foraminal or spinal stenosis. 4. Small right and tiny left pleural effusions are incidentally noted. Lamine Zuñiga MD Lumbar Spine MRI 09/05/16 Signed Impressions: Service Date/Time: September 14:50 - CONCLUSION: 1. Mild degenerative changes at L3/L4, L4/L5 and L5/S1. Please see above. 2. Small, age indeterminate right paracentral disc protrusion at L5/S1. This contacts the transiting right S1 nerve root within the lateral recess but without evidence of impingement. 3. Mild bilateral foraminal encroachment at L4/L5 without definite exiting nerve root impingement. 4. There are left larger than right biforaminal annular fissures at the L4/L5 disc. 5. Apparent mild facet synovitis on the left at L5/S1. Lamine Zuñiga MD Chest X-Ray 09/05/16 0000 Signed Impressions: Service Date/Time: September 07:52 - CONCLUSION: Mild to moderate cardiomegaly with no evidence of pulmonary edema. Redd Camacho MD Head CT 09/04/16 1702 Signed Impressions: Service Date/Time: Sunday, September 04, 2016 18:47 - CONCLUSION: Unremarkable noncontrast CT. Redd Camacho MD Abdomen/Pelvis CT 09/04/16 0000 Signed Impressions: Service Date/Time: Sunday, September 04, 2016 18:50 - CONCLUSION: 1. The study was performed without intravenous or oral contrast limiting the sensitivity. 2. No evidence of biliary obstruction. 3. The gallbladder is abnormal in appearance with wall thickening or surrounding fluid. There are no calcified gallstones identified. 4. Cystic mass in the left adnexa measuring 4.1 x 3 cm most consistent with an ovarian cyst. 5. Small right pleural effusion. 6. Nonspecific, nonobstructive bowel gas pattern which may represent an ileus or gastroenteritis. 7. Air-fluid level in the bladder likely secondary to recent instrumentation. Redd Camacho MD Objective Remarks GENERAL: Well-nourished, well-developed patient in NAD. SKIN: Warm and dry. No rash. Bilateral lower extremity 2+ edema. HEENT: Normocephalic. Atraumatic. Pupils equal and round. No scleral icterus. No injection or drainage. No nasal bleeding or discharge. Mucous membranes pink and moist. Supple. Trachea midline. CARDIOVASCULAR: RRR. S1, S2 noted. No murmur appreciated. RESPIRATORY: No accessory muscle use. Clear to auscultation. Breath sounds equal bilaterally. GASTROINTESTINAL: Abdomen soft, non-tender, nondistended. Normoactive bowel sounds x4. MUSCULOSKELETAL: No obvious deformities. Extremities without clubbing, cyanosis , or edema. NEUROLOGICAL: Awake and alert. No obvious cranial nerve deficits. Motor grossly within normal limits. Normal speech. PSYCHIATRIC: Appropriate mood and affect. Procedures None Urinary Catheter: No Vascular Central Line Catheter: No A/P Assessment and Plan Mrs. Ayon is a 46-year-old female with a known history of multiple sclerosis, tobacco dependence, alcohol abuse who presented to the emergency department with altered mental status, 18 pound weight loss in the past few months, recurrent falls and hypertension. Patient is status post cholecystectomy with intraoperative cholangiogram with intraoperative use of fluoroscopy and liver biopsy. Status post cholecystectomy with intraoperative cholangiogram with liver biopsy - Liver biopsy pending - Elevated liver enzymes likely post operative related. Monitor, trending down. - General surgery following, appreciate input. Thrombocytopenia - Hematology consulted, appreciate input. - CBC in am. Hypertension, uncontrolled - Increase hydralazine from 50 to 75 mg PO Q8h - Continue Ditropan 5 mg daily. - Clonidine 0.1 mg PO Q6h PRN. - Monitor closely. Acute kidney injury - Initial creatinine 2.2, today 09/09 creatinine 1.9. - Change IVF to NS at 100 ml/hr. - BMP in am. Macrocytic hyperchromic anemia: Likely due to status post cholecystectomy. Hemoglobin 9.3/hematocrit 27.9. CBC in a.m. Monitor. Hypokalemia: Status post replacement. Today 09/09, 4.5. BMP in a.m. DVT prophylaxis: SCDs. Attestation Patient seen and examined with DANIEL Smith. The exam, history, and the medical decision-making described in the above note were completed with the assistance of the dictating practitioner. I attest that I had a [id number] encounter with the patient on the same day, and personally performed all of the history, exam, or medical decision making. Discussed case with her thoroughly after seeing the patient, reviewed and agreed with the plan. Please see addendum in History, Physical examination. See below for any errata/additional input: No bleeding, no significant abdominal pain Irregular rate and rhythm, no murmurs Abdomen soft, nontender Bilateral edema Agree with starting fluids, may be mildly dehydrated. Consult hematology for thrombocytopenia Heavenly Patino September 09, 2016 15:17 Colton Wills MD September 10, 2016 17:02
[2016-09-09] MEDS ORDERED: FUROSEMIDE 20 MG/2 ML VIAL IV PUSH ONE (18:00)
--- NOTE | 2016-09-09 20:36 | RADRPT ---
EXAM DATE/TIME: 09/09/2016 19:27 [facility] COMPARISON: No previous studies available for comparison. INDICATIONS : Bilateral leg swelling. MEDICAL HISTORY : Multiple sclerosis. Hypertension. UTI. SURGICAL HISTORY : None. ENCOUNTER: Initial ACUITY: 4 - 6 days PAIN SCORE: 10/10 LOCATION: Bilateral leg. TECHNIQUE: Venous ultrasound of the left and right leg was performed from the inguinal ligament to the proximal calf. Real-time, color Doppler and spectral tracing, compression and augmentation techniques were us ed. FINDINGS: RIGHT LEG: There is normal compressibility of the deep venous system from the inguinal region to the proximal ca lf. No echogenic clot is seen in the lumen of the common femoral, femoral, popliteal, and posterior tibial veins. There is a normal response of the venous system to proximal and distal augmentation an d respiration. LEFT LEG: There is normal compressibility of the deep venous system from the inguinal region to the proximal ca lf. No echogenic clot is seen in the lumen of the common femoral, femoral, popliteal, and posterior tibial veins. There is a normal response of the venous system to proximal and distal augmentation an d respiration. Elongated anechoic process in the left popliteal space may be a Pollard's cyst. CONCLUSION: Possible left knee Pollard's cyst. This could be confirmed with MRI if clinically indicated. No evidenc e of lower extremity DVT. Lamine Blackmon MD on September 09, 2016 at 20:33 Board Certified Radiologist. This report was verified electronically.
[2016-09-09 21:24] LABS: RETIC % 17.1 % (0.4-3.0)
[2016-09-09 21:27] LABS: REVIEW FLAG FINAL
[2016-09-09 21:32] LABS: APTT (PATIENT) 26.8 SEC (24.3-30.1); PROTHROMBIN TIME - PATIENT 11.6 SEC (9.8-11.6)
[2016-09-09 23:52] LABS: IGA SERUM 252 mg/dL (81-463); TISSUE TRANSGLUTAMINASE AB IGG ND U/mL (())
[2016-09-10 03:58] VITALS: BP 166/88; PULSE 82; RESP 18; TEMP 98.9; O2SAT 97
[2016-09-10] MEDS: CHLORHEXIDINE GLUCONATE 2 % 1 PACK (2 CLOTHS)(taper/protocol) TOPICAL SCH ×2 (04:00→19:54)
[2016-09-10] MEDS: hydrALAZINE HCL 50 MG TAB PO SCH ×3 (04:17→21:20)
[2016-09-10] MEDS: cloNIDine HCL 0.1 MG TAB PO PRN ×2 (05:08→12:43)
[2016-09-10 06:00] LABS: AUTOMATED NEUTROPHIL # 6.1 TH/MM3 (1.8-7.7); BASOPHIL % 0.3 % (0.0-2.0); EOSINOPHIL # 0.1 TH/MM3 (0-0.4); EOSINOPHIL % 1.5 % (0.0-4.0); HEMATOCRIT 29.2 % (35.0-46.0); LYMPH % 9.6 % (9.0-44.0); LYMPHOCYTE # 0.7 TH/MM3 (1.0-4.8); MEAN CORPUSCULAR HGB CONC 34.2 % (32.0-36.0); MONO % 6.6 % (0.0-8.0); PLATELET COUNT 61 TH/MM3 (150-450); RED BLOOD COUNT 2.78 MIL/MM3 (4.00-5.30); RED CELL DISTRIBUTION WIDTH 20.7 % (11.6-17.2); WHITE BLOOD COUNT 7.5 TH/MM3 (4.0-11.0)
[2016-09-10 06:10] LABS: HEMO FLAGS AUTO DIFF
[2016-09-10 06:17] LABS: BICARBONATE 23.4 MEQ/L (21.0-32.0); POTASSIUM 3.6 MEQ/L (3.5-5.1)
--- NOTE | 2016-09-10 06:46 | MB ---
cc: NATIVIDAD JEONG M.D. DATE OF CONSULTATION 09/09/2016 REASON FOR CONSULTATION Consult requested by hospitalist for evaluation of thrombocytopenia. HISTORY OF PRESENT ILLNESS Kenisha is a 46-year-old female. She has a history of multiple sclerosis. She was taken to the emergency room after she was found to have change in mental status. On admission the patient was complaining of abdominal pain. She was found to have acute cholecystitis. She underwent cholecystectomy and liver biopsy yesterday. Her admission CBC revealed a platelet count of 146. Her platelet count slowly is trending down and today her platelet count was 56. Because of the worsening thrombocytopenia I have been asked to see the patient for further evaluation. REVIEW OF SYSTEMS The patient denies any previous history of thrombocytopenia. She is a heavy alcohol drinker. She claims that she had stopped 2-3 weeks ago. She denies any bleeding episodes. Her admission CBC show macrocytic anemia. The B12 and folate are normal and there is no iron deficiency. The patient states that she is feeling better since she had the surgery. She is complaining of swelling of both lower legs. The rest of the review of systems is negative. PAST MEDICAL HISTORY 1. Hypertension. 2. Multiple sclerosis. 3. Overreactive bladder. PAST SURGICAL HISTORY None other than recent cholecystectomy and liver biopsy. ALLERGIES PENICILLIN. MEDICATIONS Please see EMR. FAMILY HISTORY Father from metastatic lung cancer. SOCIAL HISTORY The patient used to drink alcohol heavily, quit 2 or 3 weeks ago. Also smokes cigarettes 1/2-pack per day. PHYSICAL EXAMINATION GENERAL: This is a well-developed, well-nourished white female in no apparent distress. VITAL SIGNS: Temperature 96.2, heart rate is 85, blood pressure 180/72. HEENT: PERRLA, EOMI, anicteric. No oral lesions are noted. NECK: No lymphadenopathy noted. LUNGS: Clear. No wheezing, rhonchi or rales. HEART: Regular rate and rhythm. ABDOMEN: Soft. Diffuse tenderness noted. EXTREMITIES: Swelling of both lower legs noted. NEUROLOGY: Awake, alert, oriented x 3. SKIN: No significant lesions are noted. ASSESSMENT Thrombocytopenia. This is most likely due to infection such as cholecystitis versus DIC versus HIT. I doubt that we are dealing with TTP or HUS. PLAN I have reviewed her available records and I had an extensive discussion with the patient and her regarding the progressive thrombocytopenia. Her platelet count keeps coming down since admission. She underwent cholecystectomy yesterday. She had a liver biopsy yesterday. Her hepatitis panel is negative. I believe her liver enzymes are elevated due to the alcoholism. She has macrocytic anemia with no deficiency of B12 or folate. The macrocytic anemia is due to the alcoholism. I do not think that she has myelodysplastic syndrome. Her platelet count was almost normal at 146 on admission. She has an acute drop of the platelet count. I will check the heparin antibodies. The patient does not require any platelet transfusion. The patient has consumptive thrombocytopenia and I will get the Doppler ultrasound of both lower legs to evaluate for any DVTs. I do not think the patient has TTP or HUS. I will ask pathologist to review the peripheral smear for any schistocytes. I will get the LDH, haptoglobin and reticulocyte count. I will get the DIC panel with INR, APTT and fibrinogen. Recommend to monitor her CBC. Further recommendations based on the hospital stay. Thank you for asking my opinion. MD MECHE Vizcaino/LACY /6:49 PM /6:38 AM SUSAN
[2016-09-10 08:00] VITALS: BP 180/95; PULSE 86; RESP 17; TEMP 96.5; O2SAT 97
[2016-09-10 08:03] LABS: ACANTHOCYTES OCC (NORMAL); KERATOCYTES 1+ (NORMAL); PLATELET ESTIMATE SMEAR LOW (NORMAL); PLATELET MORPHOLOGY NORMAL (NORMAL); POLYCHROMASIA 3.1 % (0.0-1.9); SPHEROCYTES OCC (NORMAL)
[2016-09-10 08:04] LABS: SCAN/DIFF AUTO DIFF CONFIRMED
[2016-09-10] MEDS: DALFAMPRIDINE 10 MG PO SCH ×2 (09:00→21:00)
[2016-09-10] MEDS: OXYBUTYNIN CHLORIDE 5 MG TAB PO SCH (09:31)
[2016-09-10] MEDS: GABAPENTIN 300 MG CAP PO SCH ×2 (09:32→20:40)
[2016-09-10] MEDS: CYANOCOBALAMIN 1,000 MCG TAB PO SCH (09:32)
[2016-09-10] MEDS: SODIUM CHLORIDE 0.9% FLUSH 10 ML FLUSH IV FLUSH SCH ×2 (09:33→20:39)
[2016-09-10] MEDS ORDERED: FUROSEMIDE 20 MG/2 ML VIAL IV PUSH ONE (11:45)
[2016-09-10 11:51] LABS: MITOCHONDRIAL ABS LESS THAN 20.0 U (())
--- NOTE | 2016-09-10 11:54 | PD.ONC.PN ---
Subjective Subjective Remarks Afebrile overnight. Pt walking around room with visitor present. She denies any bleeding or other acute complaints. Objective Data Date Time Temp Pulse Resp B/P Pulse Ox O2 Delivery O2 Flow Rate FiO2 09/10/16 08:00 96.5 86 17 180/95 97 09/10/16 08:00 96.5 86 17 180/95 97 09/10/16 03:58 98.9 82 18 166/88 97 09/09/16 23:49 96.1 80 16 168/89 97 09/09/16 20:00 96.7 80 16 170/80 96 09/09/16 16:00 96.2 85 17 180/72 99 09/09/16 12:00 96.0 85 17 175/92 98 09/10/16 09/10/16 09/10/16 07:00 15:00 23:00 Intake Total 480 ml Output Total 800 ml Balance -320 ml Result Diagram: 09/10/16 0534 09/10/16 0534 Laboratory Results Laboratory Tests Test 09/09/16 09/10/16 21:00 05:34 Blood Smear Pathologist Review Reticulocyte Count 17.1 % Absolute Reticulocyte Count 490.7 MIL/L Haptoglobin LESS THAN 10 MG/DL Prothrombin Time 11.6 SEC Prothromb Time International 1.0 RATIO Ratio Activated Partial 26.8 SEC Thromboplast Time Fibrinogen 265 mg/dL Lactate Dehydrogenase 1047 U/L White Blood Count 7.5 TH/MM3 Red Blood Count 2.78 MIL/MM3 Hemoglobin 10.0 GM/DL Hematocrit 29.2 % Mean Corpuscular Volume 105.0 FL Mean Corpuscular Hemoglobin 36.0 PG Mean Corpuscular Hemoglobin 34.2 % Concent Red Cell Distribution Width 20.7 % Platelet Count 61 TH/MM3 Mean Platelet Volume 9.9 FL Neutrophils (%) (Auto) 82.0 % Lymphocytes (%) (Auto) 9.6 % Monocytes (%) (Auto) 6.6 % Eosinophils (%) (Auto) 1.5 % Basophils (%) (Auto) 0.3 % Neutrophils # (Auto) 6.1 TH/MM3 Lymphocytes # (Auto) 0.7 TH/MM3 Monocytes # (Auto) 0.5 TH/MM3 Eosinophils # (Auto) 0.1 TH/MM3 Basophils # (Auto) 0.0 TH/MM3 CBC Comment AUTO DIFF Differential Comment AUTO DIFF CONFIRMED Platelet Estimate LOW Platelet Morphology Comment NORMAL Polychromasia 3.1 % Spherocytes OCC Acanthocytes OCC Keratocytes 1+ Sodium Level 134 MEQ/L Potassium Level 3.6 MEQ/L Chloride Level 100 MEQ/L Carbon Dioxide Level 23.4 MEQ/L Anion Gap 11 MEQ/L Blood Urea Nitrogen 40 MG/DL Creatinine 2.01 MG/DL Estimat Glomerular Filtration 27 ML/MIN Rate Random Glucose 93 MG/DL Calcium Level 8.4 MG/DL Total Creatine Kinase 414 U/L Creatine Kinase MB 12.0 NG/ML Creatine Kinase MB % 2.9 % Administered Medications Medications (Trade) Dose Ordered Sig/Gonzalez Route PRN Reason Start Time Stop Time Status Last Admin Dose Admin Sodium Chloride (NS Flush) 2 ml BID IV FLUSH 09/04/16 21:00 09/10/16 09:33 Morphine Sulfate (Morphine Inj) 2 mg Q3H PRN IV PUSH pain >5 09/04/16 23:15 09/09/16 20:18 Gabapentin (Neurontin) 300 mg BID PO 09/05/16 09:00 09/10/16 09:32 Oxybutynin Chloride (Ditropan) 5 mg DAILY PO 09/05/16 09:00 09/10/16 09:31 Miscellaneous Information Patient in critical care unit? Ass... [id number] .XX 09/06/16 20:00 09/06/16 20:00 Chlorhexidine Gluconate (Chlorhexidine 2% Cloth) 3 pack DAILY@04 TOPICAL 09/07/16 04:00 09/11/16 04:01 09/07/16 04:00 Patient Own Medication PT OWN MED: AMP... BID PO 09/06/16 22:30 09/08/16 07:45 Amlodipine Besylate (Norvasc) 10 mg DAILY@08 PO 09/08/16 08:00 09/10/16 09:32 Clonidine (Catapres) 0.1 mg Q6H PRN PO SBP>160, DBP>90 09/07/16 15:00 09/10/16 05:08 Cyanocobalamin (Vitamin B12) 1,000 mcg DAILY PO 09/09/16 09:00 09/10/16 09:32 Hydralazine HCl (Apresoline) 75 mg Q8HR PO 09/09/16 14:00 09/10/16 04:17 Objective Remarks GENERAL: Middle aged female, walking around in room in no distress. SKIN: Warm and dry. HEAD: Normocephalic. EYES: No injection or drainage. NECK: Supple, trachea midline. CARDIOVASCULAR: +S1/S2. RESPIRATORY: Clear posteriorly. Breathing unlabored. GASTROINTESTINAL: Abdomen soft. Tender to RUQ. EXTREMITIES: Generalized edema BLE. NEUROLOGICAL: No obvious focal deficit. Awake, alert, and oriented x3. Assessment/Plan Problem List: (1) Thrombocytopenia Status: Acute Plan: 09/10/16: Platelets slightly improved today to 61K. Evidence of hemolysis in labs. No evidence of DIC, coags OK. Peripheral smear pending, HIT pending. Assessment 46 y/o female with history of multiple sclerosis; hematology consulted to evaluate thrombocytopenia. Attending Statement no new c/o plat are low but stable. Await the w/u result will follow. The exam, history, and the medical decision-making described in the above note were completed with the assistance of the mid-level provider. I reviewed and agree with the findings presented. I attest that I had a [id number] encounter with the patient on the same day, and personally performed and documented my assessment and findings in the medical record. Nisa Harrington September 10, 2016 11:54 Augusto Mensah MD September 10, 2016 22:18
[2016-09-10 12:00] VITALS: BP 166/83; PULSE 94; RESP 16; TEMP 96.6; O2SAT 99
--- NOTE | 2016-09-10 13:28 | HHI.PR ---
Subjective Subjective Notes Sitting up in bed DANIEL Burdick at bedside Patient reports mild nose bleed earlier today and slight vaginal bleeding Objective Vitals/I&O Vital Signs Date Time Temp Pulse Resp B/P Pulse Ox O2 Delivery O2 Flow Rate FiO2 09/10/16 12:00 96.6 94 16 166/83 99 09/08/16 10:45 Room Air 09/08/16 10:15 3 Labs Laboratory Tests Test 09/09/16 09/10/16 21:00 05:34 Blood Smear Pathologist Review Reticulocyte Count 17.1 Absolute Reticulocyte Count 490.7 Haptoglobin LESS THAN 10 Prothrombin Time 11.6 Prothromb Time International 1.0 Ratio Activated Partial 26.8 Thromboplast Time Fibrinogen 265 Lactate Dehydrogenase 1047 White Blood Count 7.5 Red Blood Count 2.78 Hemoglobin 10.0 Hematocrit 29.2 Mean Corpuscular Volume 105.0 Mean Corpuscular Hemoglobin 36.0 Mean Corpuscular Hemoglobin 34.2 Concent Red Cell Distribution Width 20.7 Platelet Count 61 Mean Platelet Volume 9.9 Neutrophils (%) (Auto) 82.0 Lymphocytes (%) (Auto) 9.6 Monocytes (%) (Auto) 6.6 Eosinophils (%) (Auto) 1.5 Basophils (%) (Auto) 0.3 Neutrophils # (Auto) 6.1 Lymphocytes # (Auto) 0.7 Monocytes # (Auto) 0.5 Eosinophils # (Auto) 0.1 Basophils # (Auto) 0.0 CBC Comment AUTO DIFF Differential Comment AUTO DIFF CONFIRMED Platelet Estimate LOW Platelet Morphology Comment NORMAL Polychromasia 3.1 Spherocytes OCC Acanthocytes OCC Keratocytes 1+ Sodium Level 134 Potassium Level 3.6 Chloride Level 100 Carbon Dioxide Level 23.4 Anion Gap 11 Blood Urea Nitrogen 40 Creatinine 2.01 Estimat Glomerular Filtration 27 Rate Random Glucose 93 Calcium Level 8.4 Total Creatine Kinase 414 Creatine Kinase MB 12.0 Creatine Kinase MB % 2.9 Cardiovascular: Regular Lungs: Clear Abdomen: Other (soft; lap sites c/d/i), Post-op tenderness Narrative Exam BLE edema; right > left A/P Assessment and Plan 46 year old female POD2 lap leydi and liver biopsy x 2 -Regular diet -Pain controlled -Plt 61---Hematology following -OOB and mobilize -Lasix 10 mg IV once -Labs in AM -Await pathology -No acute GS issues at this time Attending Note - Dr. Jurado Abdomen benign; steristrips dry and intact Bilateral LE edema The exam, history, and the medical decision-making described in the above note were completed with the assistance of the mid-level provider. I reviewed and agree with the findings presented. I attest that I had a [id number] encounter with the patient on the same day, and personally performed and documented my assessment and findings in the medical record. Theresa Wooten September 10, 2016 13:27 Redd Jurado MD Oct 12, 2016 13:50
--- NOTE | 2016-09-10 14:57 | HHI.PR ---
Subjective Remarks Follow up generalized weakness, altered mental status and s/p cholecystectomy. Patient awake and alert today, oriented. Following all commands. Does complain of nose bleed this am and small amount of vaginal bleeding. Denies any recent fever, chills, cough, shortness of breath or chest pain. Patient has been eating and drinking fine, denies any nausea or vomiting. Objective Vitals Vital Signs Date Time Temp Pulse Resp B/P Pulse Ox O2 Delivery O2 Flow Rate FiO2 09/10/16 12:00 96.6 94 16 166/83 99 09/10/16 08:00 96.5 86 17 180/95 97 09/10/16 08:00 96.5 86 17 180/95 97 09/10/16 03:58 98.9 82 18 166/88 97 09/09/16 23:49 96.1 80 16 168/89 97 09/09/16 20:00 96.7 80 16 170/80 96 09/09/16 16:00 96.2 85 17 180/72 99 I/O 09/09/16 09/09/16 09/09/16 09/10/16 09/10/16 09/10/16 06:59 14:59 22:59 06:59 14:59 22:59 Intake Total 1118 ml 1786 ml 480 ml 480 ml 720 ml Output Total 800 ml 800 ml Balance 1118 ml 1786 ml -320 ml -320 ml 720 ml Intake Oral 240 ml 960 ml 480 ml 480 ml 720 ml IV Total 878 ml 826 ml 0 ml 0 ml Output Urine Total 800 ml 800 ml # Voids 2 7 6 # Bowel Movements 0 0 Result Diagram: 09/10/16 0534 09/10/16 0534 Imaging Last Impressions Lower Extremity Ultrasound 09/09/16 0000 Signed Impressions: Service Date/Time: Friday, September 09, 2016 19:27 - CONCLUSION: Possible left knee Pollard's cyst. This could be confirmed with MRI if clinically indicated. No evidence of lower extremity DVT. Lamine Blackmon MD Cholangiogram 09/08/16 0000 Signed Impressions: Service Date/Time: Thursday, September 08, 2016 09:23 - CONCLUSION: No evidence of common duct stone. Redd Camacho MD Renal Ultrasound 09/06/16 0000 Signed Impressions: Service Date/Time: Tuesday, September 06, 2016 21:24 - CONCLUSION: No hydronephrosis Lamine Blackmon MD Hepatobiliary Scan Nuclear Medicine 09/06/16 Signed Impressions: Service Date/Time: Tuesday, September 06, 2016 13:50 - CONCLUSION: 1. There is no evidence of common bile duct obstruction. There is normal clearance of tracer from the liver. 2. The gallbladder is never identified. In the appropriate clinical setting this can suggest cholecystitis. Delayed imaging may be of benefit to increase specificity. Hernan Grant MD Cholangiopancreatography MRI 09/06/16 Signed Impressions: Service Date/Time: Tuesday, September 06, 2016 08:50 - CONCLUSION: Nonvisualization of the duct confluence and proximal common hepatic duct. Lamine Blackmon MD ADDENDUM: COMPARISON: BILIARY SCAN (HIDA), September 06, 2016, 13:50. In light of normal appearance and drainage of the biliary tree on the HIDA scan, MRCP appearance is felt probably artifactual. Lamine Blackmon MD Thoracic Spine MRI 09/05/16 Signed Impressions: Service Date/Time: September 14:50 - CONCLUSION: 1. Long segment but very small, age-indeterminate syrinx of the thoracic spine. The thoracic cord also appears slightly atrophic. 2. Mild degenerative changes as above. 3. No foraminal or spinal stenosis. 4. Small right and tiny left pleural effusions are incidentally noted. Lamine Zuñiga MD Lumbar Spine MRI 09/05/16 Signed Impressions: Service Date/Time: September 14:50 - CONCLUSION: 1. Mild degenerative changes at L3/L4, L4/L5 and L5/S1. Please see above. 2. Small, age indeterminate right paracentral disc protrusion at L5/S1. This contacts the transiting right S1 nerve root within the lateral recess but without evidence of impingement. 3. Mild bilateral foraminal encroachment at L4/L5 without definite exiting nerve root impingement. 4. There are left larger than right biforaminal annular fissures at the L4/L5 disc. 5. Apparent mild facet synovitis on the left at L5/S1. Lamine Zuñiga MD Chest X-Ray 09/05/16 Signed Impressions: Service Date/Time: September 07:52 - CONCLUSION: Mild to moderate cardiomegaly with no evidence of pulmonary edema. Redd Camacho MD Head CT 09/04/16 1702 Signed Impressions: Service Date/Time: Sunday, September 04, 2016 18:47 - CONCLUSION: Unremarkable noncontrast CT. Redd Camacho MD Abdomen/Pelvis CT 09/04/16 0000 Signed Impressions: Service Date/Time: Sunday, September 04, 2016 18:50 - CONCLUSION: 1. The study was performed without intravenous or oral contrast limiting the sensitivity. 2. No evidence of biliary obstruction. 3. The gallbladder is abnormal in appearance with wall thickening or surrounding fluid. There are no calcified gallstones identified. 4. Cystic mass in the left adnexa measuring 4.1 x 3 cm most consistent with an ovarian cyst. 5. Small right pleural effusion. 6. Nonspecific, nonobstructive bowel gas pattern which may represent an ileus or gastroenteritis. 7. Air-fluid level in the bladder likely secondary to recent instrumentation. Redd Camacho MD Objective Remarks GENERAL: Well-nourished, well-developed patient in NAD. SKIN: Warm and dry. No rash. Bilateral lower extremity 2+ edema. HEENT: Normocephalic. Atraumatic. Pupils equal and round. No scleral icterus. No injection or drainage. No nasal bleeding or discharge. Mucous membranes pink and moist. Supple. Trachea midline. CARDIOVASCULAR: RRR. S1, S2 noted. No murmur appreciated. RESPIRATORY: No accessory muscle use. Clear to auscultation. Breath sounds equal bilaterally. GASTROINTESTINAL: Abdomen soft, non-tender, nondistended. Normoactive bowel sounds x4. MUSCULOSKELETAL: No obvious deformities. Extremities without clubbing, cyanosis , or edema. NEUROLOGICAL: Awake and alert. No obvious cranial nerve deficits. Motor grossly within normal limits. Normal speech. PSYCHIATRIC: Appropriate mood and affect. Procedures None Urinary Catheter: No Vascular Central Line Catheter: No A/P Assessment and Plan Mrs. Ayon is a 46-year-old female with a known history of multiple sclerosis, tobacco dependence, alcohol abuse who presented to the emergency department with altered mental status, 18 pound weight loss in the past few months, recurrent falls and hypertension. Patient is status post cholecystectomy with intraoperative cholangiogram with intraoperative use of fluoroscopy and liver biopsy. Status post cholecystectomy with intraoperative cholangiogram with liver biopsy - Liver biopsy pending, await pathology. - Elevated liver enzymes likely post operative related. Monitor, trending down. - General surgery following, no new recommendations. - Control pain: Morphine IV PRN pain. Thrombocytopenia - Hematology consulted, appreciate noted reviewed: Platelets slightly improved today to 61K. Evidence of hemolysis in labs. No evidence of DIC, coags OK. Peripheral smear pending, HIT pending. - Follow CBC in am. Hypertension, uncontrolled - Continue hydralazine 75 mg PO Q8h - Continue Ditropan 5 mg daily. - Clonidine 0.1 mg PO Q6h PRN. - Monitor closely. Acute kidney injury - Initial creatinine 2.2 --> 1.9 --> 2.01 today 09/10. BMP in am. - CPK trending down. Initially 1591 --> 991 --> 414 today 09/10. Recheck in am. Bilateral lower extremity edema - Bilateral lower extremity edema continued, IVF dc'd by general surgery. Status post Lasix 20 mg PO x 2. Will monitor. - Lower extremity bilateral US reviewed by me, no evidence of lower extremity DVT. - Encourage ambulation. Macrocytic hyperchromic anemia: Likely due to status post cholecystectomy. Hemoglobin 10.0/hematocrit 29.2. CBC in a.m. Monitor. Hypokalemia: Resolved. Status post replacement. BMP in a.m. DVT prophylaxis: SCDs. Heavenly Patino September 10, 2016 14:57
--- NOTE | 2016-09-10 15:45 | HHI.GIFU ---
Subjective Remarks Pt sitting up in bed, eating lunch. She c/o bilat leg swelling. She says she had a nosebleed yesterday while in the shower. No n/v, abd pain. ([place]) Objective Vitals I&O Vital Signs Date Time Temp Pulse Resp B/P Pulse Ox O2 Delivery O2 Flow Rate FiO2 09/10/16 12:00 96.6 94 16 166/83 99 09/10/16 08:00 96.5 86 17 180/95 97 09/10/16 08:00 96.5 86 17 180/95 97 09/10/16 03:58 98.9 82 18 166/88 97 09/09/16 23:49 96.1 80 16 168/89 97 09/09/16 20:00 96.7 80 16 170/80 96 09/09/16 16:00 96.2 85 17 180/72 99 I/O 09/09/16 09/09/16 09/09/16 09/10/16 09/10/16 09/10/16 06:59 14:59 22:59 06:59 14:59 22:59 Intake Total 1118 ml 1786 ml 480 ml 480 ml 720 ml Output Total 800 ml 800 ml Balance 1118 ml 1786 ml -320 ml -320 ml 720 ml Intake Oral 240 ml 960 ml 480 ml 480 ml 720 ml IV Total 878 ml 826 ml 0 ml 0 ml Output Urine Total 800 ml 800 ml # Voids 2 7 6 # Bowel Movements 0 0 Laboratory Laboratory Tests Test 09/09/16 09/10/16 21:00 05:34 Blood Smear Pathologist Review Reticulocyte Count 17.1 Absolute Reticulocyte Count 490.7 Haptoglobin LESS THAN 10 Prothrombin Time 11.6 Prothromb Time International 1.0 Ratio Activated Partial 26.8 Thromboplast Time Fibrinogen 265 Lactate Dehydrogenase 1047 White Blood Count 7.5 Red Blood Count 2.78 Hemoglobin 10.0 Hematocrit 29.2 Mean Corpuscular Volume 105.0 Mean Corpuscular Hemoglobin 36.0 Mean Corpuscular Hemoglobin 34.2 Concent Red Cell Distribution Width 20.7 Platelet Count 61 Mean Platelet Volume 9.9 Neutrophils (%) (Auto) 82.0 Lymphocytes (%) (Auto) 9.6 Monocytes (%) (Auto) 6.6 Eosinophils (%) (Auto) 1.5 Basophils (%) (Auto) 0.3 Neutrophils # (Auto) 6.1 Lymphocytes # (Auto) 0.7 Monocytes # (Auto) 0.5 Eosinophils # (Auto) 0.1 Basophils # (Auto) 0.0 CBC Comment AUTO DIFF Differential Comment AUTO DIFF CONFIRMED Platelet Estimate LOW Platelet Morphology Comment NORMAL Polychromasia 3.1 Spherocytes OCC Acanthocytes OCC Keratocytes 1+ Sodium Level 134 Potassium Level 3.6 Chloride Level 100 Carbon Dioxide Level 23.4 Anion Gap 11 Blood Urea Nitrogen 40 Creatinine 2.01 Estimat Glomerular Filtration 27 Rate Random Glucose 93 Calcium Level 8.4 Total Creatine Kinase 414 Creatine Kinase MB 12.0 Creatine Kinase MB % 2.9 Imaging Last Impressions Lower Extremity Ultrasound 09/09/16 0000 Signed Impressions: Service Date/Time: Friday, September 09, 2016 19:27 - CONCLUSION: Possible left knee Pollard's cyst. This could be confirmed with MRI if clinically indicated. No evidence of lower extremity DVT. Lamine Blackmon MD Cholangiogram 09/08/16 0000 Signed Impressions: Service Date/Time: Thursday, September 08, 2016 09:23 - CONCLUSION: No evidence of common duct stone. Redd Camacho MD Renal Ultrasound 09/06/16 0000 Signed Impressions: Service Date/Time: Tuesday, September 06, 2016 21:24 - CONCLUSION: No hydronephrosis Lamine Blackmon MD Hepatobiliary Scan Nuclear Medicine 09/06/16 0000 Signed Impressions: Service Date/Time: Tuesday, September 06, 2016 13:50 - CONCLUSION: 1. There is no evidence of common bile duct obstruction. There is normal clearance of tracer from the liver. 2. The gallbladder is never identified. In the appropriate clinical setting this can suggest cholecystitis. Delayed imaging may be of benefit to increase specificity. Hernan Grant MD Cholangiopancreatography MRI 09/06/16 0000 Signed Impressions: Service Date/Time: Tuesday, September 06, 2016 08:50 - CONCLUSION: Nonvisualization of the duct confluence and proximal common hepatic duct. Lamine Blackmon MD ADDENDUM: COMPARISON: BILIARY SCAN ([facility]), September 06, 2016, 13:50. In light of normal appearance and drainage of the biliary tree on the HIDA scan, MRCP appearance is felt probably artifactual. Lamine Blackmon MD Thoracic Spine MRI 09/05/16 Signed Impressions: Service Date/Time: September 14:50 - CONCLUSION: 1. Long segment but very small, age-indeterminate syrinx of the thoracic spine. The thoracic cord also appears slightly atrophic. 2. Mild degenerative changes as above. 3. No foraminal or spinal stenosis. 4. Small right and tiny left pleural effusions are incidentally noted. Lamine Zuñiga MD Lumbar Spine MRI 09/05/16 Signed Impressions: Service Date/Time: September 14:50 - CONCLUSION: 1. Mild degenerative changes at L3/L4, L4/L5 and L5/S1. Please see above. 2. Small, age indeterminate right paracentral disc protrusion at L5/S1. This contacts the transiting right S1 nerve root within the lateral recess but without evidence of impingement. 3. Mild bilateral foraminal encroachment at L4/L5 without definite exiting nerve root impingement. 4. There are left larger than right biforaminal annular fissures at the L4/L5 disc. 5. Apparent mild facet synovitis on the left at L5/S1. Lamine Zuñiga MD Chest X-Ray 09/05/16 Signed Impressions: Service Date/Time: September 07:52 - CONCLUSION: Mild to moderate cardiomegaly with no evidence of pulmonary edema. Redd Camacho MD Head CT 09/04/16 1702 Signed Impressions: Service Date/Time: Sunday, September 04, 2016 18:47 - CONCLUSION: Unremarkable noncontrast CT. Redd Camacho MD Abdomen/Pelvis CT 09/04/16 Signed Impressions: Service Date/Time: Sunday, September 04, 2016 18:50 - CONCLUSION: 1. The study was performed without intravenous or oral contrast limiting the sensitivity. 2. No evidence of biliary obstruction. 3. The gallbladder is abnormal in appearance with wall thickening or surrounding fluid. There are no calcified gallstones identified. 4. Cystic mass in the left adnexa measuring 4.1 x 3 cm most consistent with an ovarian cyst. 5. Small right pleural effusion. 6. Nonspecific, nonobstructive bowel gas pattern which may represent an ileus or gastroenteritis. 7. Air-fluid level in the bladder likely secondary to recent instrumentation. Redd Camacho MD Physical Exam HEENT: EOMI; normocephalic; atraumatic; no jaundice. CHEST: Chest is clear to auscultation and percussion. CARDIAC: Regular rate and rhythm with no murmur gallop or rubs. ABDOMEN: Soft, nondistended, mildly tender; no hepatosplenomegaly; bowel sounds are present in all four quadrants. EXTREMITIES: No clubbing, cyanosis, or edema. SKIN: Normal; no rash; no jaundice. [employer]: No focal deficits; alert and oriented times three. ([place]) Assessment and Plan Plan ASSESSMENT - elevated LFTs . improving. Tbil 2.1, AST 125, ALT 276, ALP 104. MICHAEL neg, ASMA neg, AMA, neg. Hep panel neg. s/p lap leydi, liver bx pending. 09/08/16 cholangiogram ---> No evidence of common duct stone. HIDA 09-06-16 ---> no evidence CBD obstruction, normal clearance tracer from liver, GB never identified. MRCP 09-06-16---> nonvisualization duct confluence and proximal common hepatic duct. comparison: in lgiht of normal apperance and drainage of biliary tree on HIDA, MRCP appearance if felt probably artifactual. PLAN - RUSTY - will rck LFTs - await pathology Gallbladder - await liver bx - await rest of liver w/u - continue to monitor This pt seen by myself and DR Koch and this note is written on her behalf ( [place]) Chio [place]una September 10, 2016 15:45 Enriqueta Koch MD September 21, 2016 09:05
[2016-09-10 16:00] VITALS: BP 149/75; PULSE 84; RESP 17; TEMP 96.6; O2SAT 100
[2016-09-10 16:59] LABS: HEPARIN AB OD 0.297 O.D. (0.000-0.300); HEPARIN INDUCED PLATELET AB NEGATIVE (NEGATIVE)
--- NOTE | 2016-09-10 17:21 | HHI.PR ---
Objective Vitals/I&O Vital Signs Date Time Temp Pulse Resp B/P Pulse Ox O2 Delivery O2 Flow Rate FiO2 09/10/16 16:00 96.6 84 17 149/75 100 09/08/16 10:45 Room Air 09/08/16 10:15 3 Labs Laboratory Tests Test 09/09/16 09/10/16 21:00 05:34 Blood Smear Pathologist Review Reticulocyte Count 17.1 Absolute Reticulocyte Count 490.7 Haptoglobin LESS THAN 10 Prothrombin Time 11.6 Prothromb Time International 1.0 Ratio Activated Partial 26.8 Thromboplast Time Fibrinogen 265 Lactate Dehydrogenase 1047 White Blood Count 7.5 Red Blood Count 2.78 Hemoglobin 10.0 Hematocrit 29.2 Mean Corpuscular Volume 105.0 Mean Corpuscular Hemoglobin 36.0 Mean Corpuscular Hemoglobin 34.2 Concent Red Cell Distribution Width 20.7 Platelet Count 61 Mean Platelet Volume 9.9 Neutrophils (%) (Auto) 82.0 Lymphocytes (%) (Auto) 9.6 Monocytes (%) (Auto) 6.6 Eosinophils (%) (Auto) 1.5 Basophils (%) (Auto) 0.3 Neutrophils # (Auto) 6.1 Lymphocytes # (Auto) 0.7 Monocytes # (Auto) 0.5 Eosinophils # (Auto) 0.1 Basophils # (Auto) 0.0 CBC Comment AUTO DIFF Differential Comment AUTO DIFF CONFIRMED Platelet Estimate LOW Platelet Morphology Comment NORMAL Polychromasia 3.1 Spherocytes OCC Acanthocytes OCC Keratocytes 1+ Sodium Level 134 Potassium Level 3.6 Chloride Level 100 Carbon Dioxide Level 23.4 Anion Gap 11 Blood Urea Nitrogen 40 Creatinine 2.01 Estimat Glomerular Filtration 27 Rate Random Glucose 93 Calcium Level 8.4 Total Creatine Kinase 414 Creatine Kinase MB 12.0 Creatine Kinase MB % 2.9 Heparin-Induced Platelet Ab NEGATIVE (Nadege) HIPA Patient Optical Density 0.297 A/P Assessment and Plan 46 year old female POD1 lap leydi and liver biopsy x 2 -Regular diet -Pain controlled -Plt 56 today--- Hematology consult pending -OOB and mobilize -T-bilirubin 2.1 today; liver enzyme trending down -Await pathology Attending Note - Dr. Jurado Abdomen benign Stable from surgery standpoint Continuing to follow. The exam, history, and the medical decision-making described in the above note were completed with the assistance of the mid-level provider. I reviewed and agree with the findings presented. I attest that I had a [id number] encounter with the patient on the same day, and personally performed and documented my assessment and findings in the medical record. Minimal abdominal pain Reports both legs swollen but not painful Both UE's not edematous Will give small dose of lasix and stop IVF The exam, history, and the medical decision-making described in the above note were completed with the assistance of the mid-level provider. I reviewed and agree with the findings presented. I attest that I had a [id number] encounter with the patient on the same day, and personally performed and documented my assessment and findings in the medical record. Redd Jurado MD September 10, 2016 17:21
[2016-09-10 20:00] VITALS: BP 153/83; PULSE 83; RESP 16; TEMP 96.9; O2SAT 95
[2016-09-10] MEDS: MORPHINE SULFATE 4 MG/ML INJ IV PUSH PRN (21:27)
[2016-09-10 23:53] LABS: ENDOMYSIAL AB TITER ND (<1:5); TISSUE TRANSGLUTAMINASE AB LESS THAN 1 U/mL (())
[2016-09-11] VITALS (8 sets, daily range): BP systolic 142–185; BP diastolic 72–97; PULSE 82–97; RESP 16–20; TEMP 96–98.7; O2SAT 96–99
[2016-09-11] MEDS: hydrALAZINE HCL 50 MG TAB PO SCH ×3 (05:44→21:51)
[2016-09-11 07:30] LABS: AUTOMATED NEUTROPHIL # 4.7 TH/MM3 (1.8-7.7); BASOPHIL % 0.4 % (0.0-2.0); EOSINOPHIL # 0.1 TH/MM3 (0-0.4); EOSINOPHIL % 1.6 % (0.0-4.0); LYMPH % 11.7 % (9.0-44.0); LYMPHOCYTE # 0.7 TH/MM3 (1.0-4.8); MEAN CELL VOLUME 104.3 FL (80.0-100.0); MEAN CORPUSCULAR HEMOGLOBIN 35.7 PG (27.0-34.0); MEAN CORPUSCULAR HGB CONC 34.2 % (32.0-36.0); MONO % 9.1 % (0.0-8.0); NEUT % 77.2 % (16.0-70.0); PLATELET COUNT 67 TH/MM3 (150-450); RED BLOOD COUNT 2.59 MIL/MM3 (4.00-5.30); RED CELL DISTRIBUTION WIDTH 19.6 % (11.6-17.2); WHITE BLOOD COUNT 6.1 TH/MM3 (4.0-11.0)
[2016-09-11 07:42] LABS: HEMO FLAGS AUTO DIFF
[2016-09-11 08:05] LABS: INDIRECT BILIRUBIN 1.4 MG/DL (0.0-0.8)
[2016-09-11 08:44] LABS: POTASSIUM 2.7 MEQ/L (3.5-5.1)
[2016-09-11] MEDS: GABAPENTIN 300 MG CAP PO SCH ×2 (08:49→21:51)
[2016-09-11] MEDS: SODIUM CHLORIDE 0.9% FLUSH 10 ML FLUSH IV FLUSH SCH ×2 (08:49→21:51)
[2016-09-11] MEDS: CYANOCOBALAMIN 1,000 MCG TAB PO SCH (08:49)
[2016-09-11] MEDS: OXYBUTYNIN CHLORIDE 5 MG TAB PO SCH (08:49)
[2016-09-11] MEDS: DALFAMPRIDINE 10 MG PO SCH ×2 (09:00→21:00)
[2016-09-11 09:11] LABS: CKMB 8.2 NG/ML (0.5-3.6)
--- NOTE | 2016-09-11 10:01 | PD.ONC.PN ---
Subjective Subjective Remarks Afebrile overnight. Pt tells me she had a slight nosebleed overnight but it stopped on its own. Overall she is feeling better but still has some fatigue. Objective Data Date Time Temp Pulse Resp B/P Pulse Ox O2 Delivery O2 Flow Rate FiO2 09/11/16 08:00 96.0 97 17 158/82 96 09/11/16 08:00 97 09/11/16 03:57 97.9 82 16 142/78 96 09/11/16 00:00 98.1 91 16 156/80 97 09/10/16 20:00 96.9 83 16 153/83 95 09/10/16 16:00 96.6 84 17 149/75 100 09/10/16 12:00 96.6 94 16 166/83 99 09/11/16 09/11/16 09/11/16 07:00 15:00 23:00 Intake Total 480 ml Output Total 1000 ml Balance -520 ml Result Diagram: 09/11/16 0639 09/11/16 0639 Laboratory Results Laboratory Tests Test 09/11/16 06:39 White Blood Count 6.1 TH/MM3 Red Blood Count 2.59 MIL/MM3 Hemoglobin 9.2 GM/DL Hematocrit 27.0 % Mean Corpuscular Volume 104.3 FL Mean Corpuscular Hemoglobin 35.7 PG Mean Corpuscular Hemoglobin 34.2 % Concent Red Cell Distribution Width 19.6 % Platelet Count 67 TH/MM3 Mean Platelet Volume 9.1 FL Neutrophils (%) (Auto) 77.2 % Lymphocytes (%) (Auto) 11.7 % Monocytes (%) (Auto) 9.1 % Eosinophils (%) (Auto) 1.6 % Basophils (%) (Auto) 0.4 % Neutrophils # (Auto) 4.7 TH/MM3 Lymphocytes # (Auto) 0.7 TH/MM3 Monocytes # (Auto) 0.6 TH/MM3 Eosinophils # (Auto) 0.1 TH/MM3 Basophils # (Auto) 0.0 TH/MM3 CBC Comment AUTO DIFF Sodium Level 134 MEQ/L Potassium Level 2.7 MEQ/L Chloride Level 98 MEQ/L Carbon Dioxide Level 25.0 MEQ/L Anion Gap 11 MEQ/L Blood Urea Nitrogen 40 MG/DL Creatinine 1.88 MG/DL Estimat Glomerular Filtration 29 ML/MIN Rate Random Glucose 81 MG/DL Calcium Level 7.9 MG/DL Total Bilirubin 2.0 MG/DL Direct Bilirubin 0.6 MG/DL Indirect Bilirubin 1.4 MG/DL Aspartate Amino Transf 67 U/L (AST/SGOT) Alanine Aminotransferase 166 U/L (ALT/SGPT) Alkaline Phosphatase 111 U/L Total Creatine Kinase 279 U/L Creatine Kinase MB 8.2 NG/ML Creatine Kinase MB % 2.9 % Total Protein 5.7 GM/DL Albumin 2.7 GM/DL Administered Medications Medications (Trade) Dose Ordered Sig/Gonzalez Route PRN Reason Start Time Stop Time Status Last Admin Dose Admin Sodium Chloride (NS Flush) 2 ml BID IV FLUSH 09/04/16 21:00 09/11/16 08:49 Morphine Sulfate (Morphine Inj) 2 mg Q3H PRN IV PUSH pain >5 09/04/16 23:15 09/10/16 21:27 Gabapentin (Neurontin) 300 mg BID PO 09/05/16 09:00 09/11/16 08:49 Oxybutynin Chloride (Ditropan) 5 mg DAILY PO 09/05/16 09:00 09/11/16 08:49 Miscellaneous Information Patient in critical care unit? Ass... [id number] .XX 09/06/16 20:00 09/06/16 20:00 Patient Own Medication PT OWN MED: AMP... BID PO 09/06/16 22:30 09/08/16 07:45 Amlodipine Besylate (Norvasc) 10 mg DAILY@08 PO 09/08/16 08:00 09/11/16 08:49 Clonidine (Catapres) 0.1 mg Q6H PRN PO SBP>160, DBP>90 09/07/16 15:00 09/10/16 12:43 Cyanocobalamin (Vitamin B12) 1,000 mcg DAILY PO 09/09/16 09:00 09/11/16 08:49 Hydralazine HCl (Apresoline) 75 mg Q8HR PO 09/09/16 14:00 09/11/16 05:44 Objective Remarks GENERAL: Middle aged female, walking around in room in no distress. SKIN: Warm and dry. HEAD: Normocephalic. EYES: No injection or drainage. NECK: Supple, trachea midline. CARDIOVASCULAR: +S1/S2. RESPIRATORY: Clear posteriorly. Breathing unlabored. GASTROINTESTINAL: Abdomen soft. Tender to RUQ. EXTREMITIES: 3+ edema BLE. NEUROLOGICAL: No obvious focal deficit. Awake, alert, and oriented x3. Assessment/Plan Problem List: (1) Thrombocytopenia Status: Acute Plan: 09/11/16: Platelets increased to 67K today. 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 HIT negative. Will continue to monitor CBC. 09/10/16: Platelets slightly improved today to 61K. Evidence of hemolysis in labs. Coags OK. Peripheral smear pending, HIT pending. Assessment 46 y/o female with history of multiple sclerosis; hematology consulted to evaluate thrombocytopenia. Attending Statement nose bleed. HIT neg. MHA ( DIC vs TTP) Favor DIC. Give FFP. check direct cooms test. The exam, history, and the medical decision-making described in the above note were completed with the assistance of the mid-level provider. I reviewed and agree with the findings presented. I attest that I had a [id number] encounter with the patient on the same day, and personally performed and documented my assessment and findings in the medical record. Nisa Harrington September 11, 2016 10:01 Augusto Mensah MD September 11, 2016 22:32
[2016-09-11 10:13] LABS: PLATELET ESTIMATE SMEAR LOW (NORMAL); PLATELET MORPHOLOGY NORMAL (NORMAL); SCAN/DIFF AUTO DIFF CONFIRMED
[2016-09-11 10:14] LABS: ACANTHOCYTES OCC (NORMAL)
[2016-09-11] MEDS: POTASSIUM CHLOR 20 MEQ PREMIX 100 ML IV SCH ×2 (10:27→13:14)
[2016-09-11] MEDS ORDERED: POTASSIUM CHLORIDE 25 MEQ EFFERVESCENT TAB PO ONE (11:00)
--- NOTE | 2016-09-11 11:04 | HHI.GIFU ---
Subjective Remarks Pt seated on couch with legs elevated. She says the lower extremity swelling is worse today, up to her buttocks. She is still with some abd soreness. She had a nosebleed this morning. No n/v, rectal bleeding. (Chio Osuna) Objective Vitals I&O Vital Signs Date Time Temp Pulse Resp B/P Pulse Ox O2 Delivery O2 Flow Rate FiO2 09/11/16 08:00 96.0 97 17 158/82 96 09/11/16 08:00 97 09/11/16 03:57 97.9 82 16 142/78 96 09/11/16 00:00 98.1 91 16 156/80 97 09/10/16 20:00 96.9 83 16 153/83 95 09/10/16 16:00 96.6 84 17 149/75 100 09/10/16 12:00 96.6 94 16 166/83 99 I/O 09/10/16 09/10/16 09/10/16 09/11/16 09/11/16 09/11/16 07:00 15:00 23:00 07:00 15:00 23:00 Intake Total 480 ml 720 ml 480 ml 480 ml Output Total 800 ml 800 ml 1000 ml Balance -320 ml 720 ml -320 ml -520 ml Intake Oral 480 ml 720 ml 480 ml 480 ml IV Total 0 ml Output Urine Total 800 ml 800 ml 1000 ml # Voids 6 # Bowel Movements 0 Laboratory Laboratory Tests Test 09/11/16 06:39 White Blood Count 6.1 Red Blood Count 2.59 Hemoglobin 9.2 Hematocrit 27.0 Mean Corpuscular Volume 104.3 Mean Corpuscular Hemoglobin 35.7 Mean Corpuscular Hemoglobin 34.2 Concent Red Cell Distribution Width 19.6 Platelet Count 67 Mean Platelet Volume 9.1 Neutrophils (%) (Auto) 77.2 Lymphocytes (%) (Auto) 11.7 Monocytes (%) (Auto) 9.1 Eosinophils (%) (Auto) 1.6 Basophils (%) (Auto) 0.4 Neutrophils # (Auto) 4.7 Lymphocytes # (Auto) 0.7 Monocytes # (Auto) 0.6 Eosinophils # (Auto) 0.1 Basophils # (Auto) 0.0 CBC Comment AUTO DIFF Differential Comment AUTO DIFF CONFIRMED Platelet Estimate LOW Platelet Morphology Comment NORMAL Acanthocytes OCC Sodium Level 134 Potassium Level 2.7 Chloride Level 98 Carbon Dioxide Level 25.0 Anion Gap 11 Blood Urea Nitrogen 40 Creatinine 1.88 Estimat Glomerular Filtration 29 Rate Random Glucose 81 Calcium Level 7.9 Total Bilirubin 2.0 Direct Bilirubin 0.6 Indirect Bilirubin 1.4 Aspartate Amino Transf 67 (AST/SGOT) Alanine Aminotransferase 166 (ALT/SGPT) Alkaline Phosphatase 111 Total Creatine Kinase 279 Creatine Kinase MB 8.2 Creatine Kinase MB % 2.9 Total Protein 5.7 Albumin 2.7 Imaging Last Impressions Lower Extremity Ultrasound 09/09/16 Signed Impressions: Service Date/Time: Friday, September 09, 2016 19:27 - CONCLUSION: Possible left knee Pollard's cyst. This could be confirmed with MRI if clinically indicated. No evidence of lower extremity DVT. Lamine Blackmon MD Cholangiogram 09/08/16 Signed Impressions: Service Date/Time: Thursday, September 08, 2016 09:23 - CONCLUSION: No evidence of common duct stone. Redd Camacho MD Renal Ultrasound 09/06/16 Signed Impressions: Service Date/Time: Tuesday, September 06, 2016 21:24 - CONCLUSION: No hydronephrosis Lamine Blackmon MD Hepatobiliary Scan Nuclear Medicine 09/06/16 Signed Impressions: Service Date/Time: Tuesday, September 06, 2016 13:50 - CONCLUSION: 1. There is no evidence of common bile duct obstruction. There is normal clearance of tracer from the liver. 2. The gallbladder is never identified. In the appropriate clinical setting this can suggest cholecystitis. Delayed imaging may be of benefit to increase specificity. Hernan Grant MD Cholangiopancreatography MRI 09/06/16 Signed Impressions: Service Date/Time: Tuesday, September 06, 2016 08:50 - CONCLUSION: Nonvisualization of the duct confluence and proximal common hepatic duct. Lamine Blackmon MD ADDENDUM: COMPARISON: BILIARY SCAN (HIDA), September 06, 2016, 13:50. In light of normal appearance and drainage of the biliary tree on the HIDA scan, MRCP appearance is felt probably artifactual. Lamine Blackmon MD Thoracic Spine MRI 09/05/16 Signed Impressions: Service Date/Time: September 14:50 - CONCLUSION: 1. Long segment but very small, age-indeterminate syrinx of the thoracic spine. The thoracic cord also appears slightly atrophic. 2. Mild degenerative changes as above. 3. No foraminal or spinal stenosis. 4. Small right and tiny left pleural effusions are incidentally noted. Lamine Zuñiga MD Lumbar Spine MRI 09/05/16 0000 Signed Impressions: Service Date/Time: September 14:50 - CONCLUSION: 1. Mild degenerative changes at L3/L4, L4/L5 and L5/S1. Please see above. 2. Small, age indeterminate right paracentral disc protrusion at L5/S1. This contacts the transiting right S1 nerve root within the lateral recess but without evidence of impingement. 3. Mild bilateral foraminal encroachment at L4/L5 without definite exiting nerve root impingement. 4. There are left larger than right biforaminal annular fissures at the L4/L5 disc. 5. Apparent mild facet synovitis on the left at L5/S1. Lamine Zuñiga MD Chest X-Ray 09/05/16 0000 Signed Impressions: Service Date/Time: September 07:52 - CONCLUSION: Mild to moderate cardiomegaly with no evidence of pulmonary edema. Redd Camacho MD Head CT 09/04/16 1702 Signed Impressions: Service Date/Time: Sunday, September 04, 2016 18:47 - CONCLUSION: Unremarkable noncontrast CT. Redd Camacho MD Abdomen/Pelvis CT 09/04/16 0000 Signed Impressions: Service Date/Time: Sunday, September 04, 2016 18:50 - CONCLUSION: 1. The study was performed without intravenous or oral contrast limiting the sensitivity. 2. No evidence of biliary obstruction. 3. The gallbladder is abnormal in appearance with wall thickening or surrounding fluid. There are no calcified gallstones identified. 4. Cystic mass in the left adnexa measuring 4.1 x 3 cm most consistent with an ovarian cyst. 5. Small right pleural effusion. 6. Nonspecific, nonobstructive bowel gas pattern which may represent an ileus or gastroenteritis. 7. Air-fluid level in the bladder likely secondary to recent instrumentation. Redd Camacho MD Physical Exam HEENT: EOMI; normocephalic; atraumatic; no jaundice. CHEST: Chest is clear to auscultation and percussion. CARDIAC: Regular rate and rhythm with no murmur gallop or rubs. ABDOMEN: Soft, nondistended, mildly tender; no hepatosplenomegaly; bowel sounds are present in all four quadrants. EXTREMITIES: No clubbing, cyanosis, +1 pitting edema BLE SKIN: Normal; no rash; no jaundice. PHYSICAL THER: No focal deficits; alert and oriented times three. (Chio Osuna) Assessment and Plan Plan ASSESSMENT - elevated LFTs . improving. MIHCAEL neg, ASMA neg, MA neg, AMA neg. Hep panel neg. s/p lap leydi, liver bx--> mild portal hepatitis with early bridging fibrosis, morphologic features suspicious for ETOH or other drug related hepatits, correlation with autoimmune and viral serologic tests recommended. Of note pt was taking Rebif for her MS and stopped last week. 09/08/16 cholangiogram ---> No evidence of common duct stone. HIDA 09-06-16 ---> no evidence CBD obstruction, normal clearance tracer from liver, GB never identified. MRCP 09-06-16---> nonvisualization duct confluence and proximal common hepatic duct. comparison: in lgiht of normal apperance and drainage of biliary tree on HIDA, MRCP appearance if felt probably artifactual. PLAN - RUSTY - ETOH cessation encouraged - continue to monitor This pt seen by myself and DR Koch and this note is written on her behalf ( Chio Osuna) Physician Comments seen, examined agree with above we will order mra abdomen in view of elevated bp supportive care consider starting Actigall if no improvement in lfts (Enriqueta Koch MD) Chio Osuna September 11, 2016 11:04 Enriqueta Koch MD September 11, 2016 17:47
--- NOTE | 2016-09-11 16:15 | HHI.PR ---
Subjective Remarks Follow up generalized weakness, altered mental status and s/p cholecystectomy. Patient awake and alert today, oriented sitting up in chair. Denies any new complaints such as fever, chills, shortness of breath, nausea or vomiting. Tolerating PO intake. Denies any further nosebleeds or vaginal bleeding. Objective Vitals Vital Signs Date Time Temp Pulse Resp B/P Pulse Ox O2 Delivery O2 Flow Rate FiO2 09/11/16 15:00 148/72 09/11/16 12:00 96.8 92 16 170/92 98 09/11/16 08:00 96.0 97 17 158/82 96 09/11/16 08:00 97 09/11/16 03:57 97.9 82 16 142/78 96 09/11/16 00:00 98.1 91 16 156/80 97 09/10/16 20:00 96.9 83 16 153/83 95 I/O 09/10/16 09/10/16 09/10/16 09/11/16 09/11/16 09/11/16 07:00 15:00 23:00 07:00 15:00 23:00 Intake Total 480 ml 720 ml 480 ml 480 ml Output Total 800 ml 800 ml 1000 ml Balance -320 ml 720 ml -320 ml -520 ml Intake Oral 480 ml 720 ml 480 ml 480 ml IV Total 0 ml Output Urine Total 800 ml 800 ml 1000 ml # Voids 6 # Bowel Movements 0 Result Diagram: 09/11/16 0639 09/11/1639 Objective Remarks GENERAL: Well-nourished, well-developed patient in NAD. SKIN: Warm and dry. No rash. Continued bilateral lower extremity 2+ edema. HEENT: Normocephalic. Atraumatic. Pupils equal and round. No scleral icterus. No injection or drainage. No nasal bleeding or discharge. Mucous membranes pink and moist. Supple. Trachea midline. CARDIOVASCULAR: RRR. S1, S2 noted. No murmur appreciated. RESPIRATORY: No accessory muscle use. Clear to auscultation. Breath sounds equal bilaterally. GASTROINTESTINAL: Abdomen soft, non-tender, nondistended. Normoactive bowel sounds x4. MUSCULOSKELETAL: No obvious deformities. Extremities without clubbing, cyanosis , or edema. NEUROLOGICAL: Awake and alert. No obvious cranial nerve deficits. Motor grossly within normal limits. Normal speech. PSYCHIATRIC: Appropriate mood and affect. Procedures None Urinary Catheter: No Vascular Central Line Catheter: No A/P Problem List: (1) Hypertension ICD Code: I10 Status: Acute (2) Acute kidney injury (nontraumatic) ICD Code: N17.9 Status: Acute (3) Elevated liver enzymes ICD Code: R74.8 Status: Acute (4) Dehydration ICD Code: E86.0 Status: Acute (5) MS (multiple sclerosis) ICD Code: G35 Status: Chronic (6) Hypokalemia ICD Code: E87.6 Status: Resolved Assessment and Plan Mrs. Ayon is a 46-year-old female with a known history of multiple sclerosis, tobacco dependence, alcohol abuse who presented to the emergency department with altered mental status, 18 pound weight loss in the past few months, recurrent falls and hypertension. Patient is status post cholecystectomy with intraoperative cholangiogram with intraoperative use of fluoroscopy and liver biopsy. Status post cholecystectomy with intraoperative cholangiogram with liver biopsy - Liver biopsy pending, await pathology. - Elevated liver enzymes likely post operative related. Monitor, trending down. - General surgery following, no new recommendations. - Control pain: Morphine IV PRN pain. Thrombocytopenia - Hematology consulted, appreciate noted reviewed: Platelets slightly improved today to 61K. Evidence of hemolysis in labs. No evidence of DIC, coags OK. Peripheral smear pending, HIT pending. - Follow CBC in am. Hypertension, uncontrolled - Continue hydralazine 75 mg PO Q8h - Continue Ditropan 5 mg daily. - Clonidine 0.1 mg PO Q6h PRN. - Monitor closely. Acute kidney injury - Initial creatinine 2.2 --> 1.9 --> 2.01 --> 1.88. BMP, mag in am. - CPK trending down. Initially 1591 --> 991 --> 414 --> 279. Bilateral lower extremity edema - Bilateral lower extremity edema continued, IVF dc'd by general surgery. Status post Lasix 20 mg PO x 2. Will monitor. - Lower extremity bilateral US reviewed by me, no evidence of lower extremity DVT. - Encourage ambulation. Macrocytic hyperchromic anemia: Likely due to status post cholecystectomy. Hemoglobin 10.0/hematocrit 29.2. CBC in a.m. Monitor. Hematology following, appreciate input. Hypokalemia: 2.7 today. Potassium 20 manny IV x 2 now. KCl eff 50 meq PO x 1 today. BMP in a.m. DVT prophylaxis: SCDs. Problem Qualifiers (1) Hypertension: Qualified Code: I10 - Essential hypertension Heavenly Patino September 11, 2016 16:15
[2016-09-11] MEDS: cloNIDine HCL 0.1 MG TAB PO PRN (17:42)
--- NOTE | 2016-09-11 18:39 | HHI.PR ---
Subjective Subjective Notes Resting in bed; feels like legs are less tight today No more vaginal or nose bleeds Objective Vitals/I&O Vital Signs Date Time Temp Pulse Resp B/P Pulse Ox O2 Delivery O2 Flow Rate FiO2 09/11/16 16:00 98.5 95 20 162/86 99 09/08/16 10:45 Room Air 09/08/16 10:15 3 Labs Laboratory Tests Test 09/11/16 06:39 White Blood Count 6.1 Red Blood Count 2.59 Hemoglobin 9.2 Hematocrit 27.0 Mean Corpuscular Volume 104.3 Mean Corpuscular Hemoglobin 35.7 Mean Corpuscular Hemoglobin 34.2 Concent Red Cell Distribution Width 19.6 Platelet Count 67 Mean Platelet Volume 9.1 Neutrophils (%) (Auto) 77.2 Lymphocytes (%) (Auto) 11.7 Monocytes (%) (Auto) 9.1 Eosinophils (%) (Auto) 1.6 Basophils (%) (Auto) 0.4 Neutrophils # (Auto) 4.7 Lymphocytes # (Auto) 0.7 Monocytes # (Auto) 0.6 Eosinophils # (Auto) 0.1 Basophils # (Auto) 0.0 CBC Comment AUTO DIFF Differential Comment AUTO DIFF CONFIRMED Platelet Estimate LOW Platelet Morphology Comment NORMAL Acanthocytes OCC Sodium Level 134 Potassium Level 2.7 Chloride Level 98 Carbon Dioxide Level 25.0 Anion Gap 11 Blood Urea Nitrogen 40 Creatinine 1.88 Estimat Glomerular Filtration 29 Rate Random Glucose 81 Calcium Level 7.9 Magnesium Level 1.5 Total Bilirubin 2.0 Direct Bilirubin 0.6 Indirect Bilirubin 1.4 Aspartate Amino Transf 67 (AST/SGOT) Alanine Aminotransferase 166 (ALT/SGPT) Alkaline Phosphatase 111 Total Creatine Kinase 279 Creatine Kinase MB 8.2 Creatine Kinase MB % 2.9 Total Protein 5.7 Albumin 2.7 Cardiovascular: Regular Lungs: Clear Abdomen: Other (RUQ tenderness; lap sites c/d/i) Narrative Exam BLE edema; right > left A/P Assessment and Plan 46 year old female POD3 lap leydi and liver biopsy x 2 -Regular diet -Pain controlled -Plt 67---Hematology following -OOB and mobilize -Replace K -Labs in AM -Await pathology -No acute GS issues at this time Attending Note - Dr. Jurado Abdomen benign; no ecchymoses Plts increasing The exam, history, and the medical decision-making described in the above note were completed with the assistance of the mid-level provider. I reviewed and agree with the findings presented. I attest that I had a [id number] encounter with the patient on the same day, and personally performed and documented my assessment and findings in the medical record. Theresa Wooten September 11, 2016 18:39 Redd Jurado MD Oct 12, 2016 13:55
[2016-09-11] MEDS: MORPHINE SULFATE 4 MG/ML INJ IV PUSH PRN (21:52)
[2016-09-11] MEDS ORDERED: SODIUM CHLOR 0.9% 250 ML INJ 250 ML IV ONE (22:30)
[2016-09-12] VITALS (12 sets, daily range): BP systolic 142–180; BP diastolic 72–96; PULSE 81–98; RESP 17–20; TEMP 95.3–98.4; O2SAT 95–100
[2016-09-12] MEDS: cloNIDine HCL 0.1 MG TAB PO PRN ×2 (03:03→09:27)
[2016-09-12 04:41] LABS: BICARBONATE 25.4 MEQ/L (21.0-32.0); MAGNESIUM 1.4 MG/DL (1.5-2.5); POTASSIUM 3.5 MEQ/L (3.5-5.1)
[2016-09-12] MEDS: hydrALAZINE HCL 50 MG TAB PO SCH ×3 (05:50→22:06)
[2016-09-12] MEDS ORDERED: MAGNESIUM SULFATE 1 GM PREMIX 100 ML IV ONE (07:45)
[2016-09-12] MEDS: SODIUM CHLORIDE 0.9% FLUSH 10 ML FLUSH IV FLUSH SCH ×2 (08:01→22:08)
--- NOTE | 2016-09-12 08:26 | PD.ONC.PN ---
Subjective Subjective Remarks Afebrile overnight. She is encouraged today as she thinks the swelling in her legs is improved. Denies SOB. R side abdomen still somewhat tender. Objective Data Date Time Temp Pulse Resp B/P Pulse Ox O2 Delivery O2 Flow Rate FiO2 09/12/16 08:00 97.5 98 17 180/72 97 09/12/16 06:47 98.1 95 18 178/96 98 09/12/16 06:32 98.1 90 18 164/90 97 09/12/16 05:48 98.3 97 18 172/90 96 09/12/16 04:00 98.0 84 20 155/89 97 09/12/16 03:18 97.7 91 18 173/93 98 09/12/16 03:04 98.0 97 18 179/96 98 09/12/16 00:00 98.4 97 20 164/88 95 09/11/16 22:02 18 09/11/16 21:42 96 09/11/16 20:00 98.7 95 20 185/97 96 09/11/16 16:00 98.5 95 20 162/86 99 09/11/16 15:00 148/72 09/11/16 12:00 96.8 92 16 170/92 98 09/12/16 09/12/16 09/12/16 07:00 15:00 23:00 Intake Total 564 ml Output Total 550 ml Balance 14 ml Result Diagram: 09/11/16 0639 09/12/16 0344 Laboratory Results Laboratory Tests Test 09/11/16 09/11/16 09/12/16 21:32 23:47 03:44 Blood Type O NEGATIVE O NEGATIVE Direct Antiglobulin Test NEGATIVE (King) Sodium Level 134 MEQ/L Potassium Level 3.5 MEQ/L Chloride Level 99 MEQ/L Carbon Dioxide Level 25.4 MEQ/L Anion Gap 10 MEQ/L Blood Urea Nitrogen 37 MG/DL Creatinine 1.92 MG/DL Estimat Glomerular Filtration 28 ML/MIN Rate Random Glucose 98 MG/DL Calcium Level 7.8 MG/DL Magnesium Level 1.4 MG/DL Administered Medications Medications (Trade) Dose Ordered Sig/Gonzalez Route PRN Reason Start Time Stop Time Status Last Admin Dose Admin Sodium Chloride (NS Flush) 2 ml BID IV FLUSH 09/04/16 21:00 09/12/16 08:01 Morphine Sulfate (Morphine Inj) 2 mg Q3H PRN IV PUSH pain >5 09/04/16 23:15 09/11/16 21:52 Docusate Sodium (Colace) 100 mg BID PRN PO CONSTIPATION 09/05/16 07:45 09/11/16 21:53 Gabapentin (Neurontin) 300 mg BID PO 09/05/16 09:00 09/11/16 21:51 Oxybutynin Chloride (Ditropan) 5 mg DAILY PO 09/05/16 09:00 09/11/16 08:49 Miscellaneous Information Patient in critical care unit? Ass... [id number] .XX 09/06/16 20:00 09/06/16 20:00 Patient Own Medication PT OWN MED: AMP... BID PO 09/06/16 22:30 09/08/16 07:45 Amlodipine Besylate (Norvasc) 10 mg DAILY@08 PO 09/08/16 08:00 09/12/16 08:01 Clonidine (Catapres) 0.1 mg Q6H PRN PO SBP>160, DBP>90 09/07/16 15:00 09/12/16 03:03 Cyanocobalamin (Vitamin B12) 1,000 mcg DAILY PO 09/09/16 09:00 09/11/16 08:49 Hydralazine HCl 75 mg 75 mg Q8HR PO 09/09/16 14:00 09/12/16 05:50 Sodium Chloride (NS 250 ml Inj) 250 ml @ 15 mls/hr ONCE ONCE IV 09/11/16 22:30 09/12/16 15:09 09/12/16 02:48 Objective Remarks GENERAL: Middle aged female, sitting up in bed in no distress. SKIN: Warm and dry. HEAD: Normocephalic. EYES: No injection or drainage. NECK: Supple, trachea midline. CARDIOVASCULAR: +S1/S2. RESPIRATORY: Clear posteriorly. Breathing unlabored. GASTROINTESTINAL: Abdomen soft. Tender to RUQ. EXTREMITIES: 2+ edema BLE. NEUROLOGICAL: No obvious focal deficit. Awake, alert, and oriented x3. Assessment/Plan Problem List: (1) Thrombocytopenia Status: Acute Plan: 09/12/16: Pt rec'd 2 units FFP. Direct King negative. Thrombocytopenia likely DIC from cholecystitis. Await CBC result today. 09/11/16: Platelets increased to 67K today. 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 HIT negative. Will continue to monitor CBC. 09/10/16: Platelets slightly improved today to 61K. Evidence of hemolysis in labs. Coags OK. Peripheral smear pending, HIT pending. Assessment 46 y/o female with history of multiple sclerosis; hematology consulted to evaluate thrombocytopenia. Attending Statement no new c/o decrease plat from DIC S/P FFP RUSTY is neg. Haptoglobin is low due to liver dz and not from Hemolysis. will follow. Nisa Harrington September 12, 2016 08:26 Augusto Mensah MD September 12, 2016 22:45
[2016-09-12] MEDS: GABAPENTIN 300 MG CAP PO SCH ×2 (09:00→22:06)
[2016-09-12] MEDS: CYANOCOBALAMIN 1,000 MCG TAB PO SCH (09:00)
[2016-09-12] MEDS: OXYBUTYNIN CHLORIDE 5 MG TAB PO SCH (09:27)
--- NOTE | 2016-09-12 12:39 | HHI.GIFU ---
Subjective Remarks Pt sitting up in bed, about to eat lunch. No n/v, bleeding. Abd tenderness improving. (Chio Osuna) Objective Vitals I&O Vital Signs Date Time Temp Pulse Resp B/P Pulse Ox O2 Delivery O2 Flow Rate FiO2 09/12/16 12:00 95.3 81 19 146/89 99 09/12/16 09:05 166/91 09/12/16 08:00 97.5 98 17 180/72 97 09/12/16 06:47 98.1 95 18 178/96 98 09/12/16 06:32 98.1 90 18 164/90 97 09/12/16 05:48 98.3 97 18 172/90 96 09/12/16 04:00 98.0 84 20 155/89 97 09/12/16 03:18 97.7 91 18 173/93 98 09/12/16 03:04 98.0 97 18 179/96 98 09/12/16 00:00 98.4 97 20 164/88 95 09/11/16 22:02 18 09/11/16 21:42 96 09/11/16 20:00 98.7 95 20 185/97 96 09/11/16 16:00 98.5 95 20 162/86 99 09/11/16 15:00 148/72 I/O 09/11/16 09/11/16 09/11/16 09/12/16 09/12/16 09/12/16 07:00 15:00 23:00 07:00 15:00 23:00 Intake Total 480 ml 720 ml 440 ml 564 ml Output Total 1000 ml 600 ml 550 ml Balance -520 ml 720 ml -160 ml 14 ml Intake Oral 480 ml 720 ml 440 ml 240 ml IV Total 0 ml 2 ml FFP 322 ml Output Urine Total 1000 ml 600 ml 550 ml # Voids 5 # Bowel Movements 0 0 0 Laboratory Laboratory Tests Test 09/11/16 09/11/16 09/12/16 21:32 23:47 03:44 Blood Type O NEGATIVE O NEGATIVE Direct Antiglobulin Test NEGATIVE (King) Sodium Level 134 Potassium Level 3.5 Chloride Level 99 Carbon Dioxide Level 25.4 Anion Gap 10 Blood Urea Nitrogen 37 Creatinine 1.92 Estimat Glomerular Filtration 28 Rate Random Glucose 98 Calcium Level 7.8 Magnesium Level 1.4 Imaging Last Impressions Lower Extremity Ultrasound 09/09/16 Signed Impressions: Service Date/Time: Friday, September 09, 2016 19:27 - CONCLUSION: Possible left knee Pollard's cyst. This could be confirmed with MRI if clinically indicated. No evidence of lower extremity DVT. Lamine Blackmon MD Cholangiogram 09/08/16 Signed Impressions: Service Date/Time: Thursday, September 08, 2016 09:23 - CONCLUSION: No evidence of common duct stone. Redd Camacho MD Renal Ultrasound 09/06/16 Signed Impressions: Service Date/Time: Tuesday, September 06, 2016 21:24 - CONCLUSION: No hydronephrosis Lamine Blackmon MD Hepatobiliary Scan Nuclear Medicine 09/06/16 Signed Impressions: Service Date/Time: Tuesday, September 06, 2016 13:50 - CONCLUSION: 1. There is no evidence of common bile duct obstruction. There is normal clearance of tracer from the liver. 2. The gallbladder is never identified. In the appropriate clinical setting this can suggest cholecystitis. Delayed imaging may be of benefit to increase specificity. Hernan Grant MD Cholangiopancreatography MRI 09/06/16 Signed Impressions: Service Date/Time: Tuesday, September 06, 2016 08:50 - CONCLUSION: Nonvisualization of the duct confluence and proximal common hepatic duct. Lamine Blackmon MD ADDENDUM: COMPARISON: BILIARY SCAN (HIDA), September 06, 2016, 13:50. In light of normal appearance and drainage of the biliary tree on the HIDA scan, MRCP appearance is felt probably artifactual. Lamine Blackmon MD Thoracic Spine MRI 09/05/16 Signed Impressions: Service Date/Time: September 14:50 - CONCLUSION: 1. Long segment but very small, age-indeterminate syrinx of the thoracic spine. The thoracic cord also appears slightly atrophic. 2. Mild degenerative changes as above. 3. No foraminal or spinal stenosis. 4. Small right and tiny left pleural effusions are incidentally noted. Lamine Zuñiga MD Lumbar Spine MRI 09/05/16 Signed Impressions: Service Date/Time: September 14:50 - CONCLUSION: 1. Mild degenerative changes at L3/L4, L4/L5 and L5/S1. Please see above. 2. Small, age indeterminate right paracentral disc protrusion at L5/S1. This contacts the transiting right S1 nerve root within the lateral recess but without evidence of impingement. 3. Mild bilateral foraminal encroachment at L4/L5 without definite exiting nerve root impingement. 4. There are left larger than right biforaminal annular fissures at the L4/L5 disc. 5. Apparent mild facet synovitis on the left at L5/S1. Lamine Zuñiga MD Chest X-Ray 09/05/16 0000 Signed Impressions: Service Date/Time: September 07:52 - CONCLUSION: Mild to moderate cardiomegaly with no evidence of pulmonary edema. Redd Camacho MD Head CT 09/04/16 1702 Signed Impressions: Service Date/Time: Sunday, September 04, 2016 18:47 - CONCLUSION: Unremarkable noncontrast CT. Redd Camacho MD Abdomen/Pelvis CT 09/04/16 0000 Signed Impressions: Service Date/Time: Sunday, September 04, 2016 18:50 - CONCLUSION: 1. The study was performed without intravenous or oral contrast limiting the sensitivity. 2. No evidence of biliary obstruction. 3. The gallbladder is abnormal in appearance with wall thickening or surrounding fluid. There are no calcified gallstones identified. 4. Cystic mass in the left adnexa measuring 4.1 x 3 cm most consistent with an ovarian cyst. 5. Small right pleural effusion. 6. Nonspecific, nonobstructive bowel gas pattern which may represent an ileus or gastroenteritis. 7. Air-fluid level in the bladder likely secondary to recent instrumentation. Redd Camacho MD Physical Exam HEENT: EOMI; normocephalic; atraumatic; no jaundice. CHEST: Chest is clear to auscultation and percussion. CARDIAC: Regular rate and rhythm with no murmur gallop or rubs. ABDOMEN: Soft, nondistended,nontender, no hepatosplenomegaly; bowel sounds are present in all four quadrants. EXTREMITIES: No clubbing, cyanosis, +1 pitting edema BLE SKIN: Normal; no rash; no jaundice. ELECTRIC MOTOR TESTER: No focal deficits; alert and oriented times three. (Chio Osuna) Assessment and Plan Plan ASSESSMENT - elevated LFTs . improving. MICHAEL neg, ASMA neg, MA neg, AMA neg. Hep panel neg. s/p lap leydi, liver bx--> mild portal hepatitis with early bridging fibrosis, morphologic features suspicious for ETOH or other drug related hepatits, correlation with autoimmune and viral serologic tests recommended. Of note pt was taking Rebif for her MS and stopped last week. 09/08/16 cholangiogram ---> No evidence of common duct stone. HIDA 09-06-16 ---> no evidence CBD obstruction, normal clearance tracer from liver, GB never identified. MRCP 09-06-16---> nonvisualization duct confluence and proximal common hepatic duct. comparison: in lgiht of normal apperance and drainage of biliary tree on HIDA, MRCP appearance if felt probably artifactual. PLAN - RUSTY - ETOH cessation encouraged - will rck LFTs This pt seen by myself and DR Koch and this note is written on her behalf ( Chio Osuna) Physician Comments us vascular negative for vascular etiology, she could not have mra/cta due to low gfr we will monitor (Enriqueta Koch MD) Chio Osuna September 12, 2016 12:38 Enriqueta Koch MD September 12, 2016 18:49
[2016-09-12 12:47] LABS: AUTOMATED NEUTROPHIL # 3.7 TH/MM3 (1.8-7.7); BASOPHIL % 0.5 % (0.0-2.0); EOSINOPHIL # 0.1 TH/MM3 (0-0.4); EOSINOPHIL % 1.1 % (0.0-4.0); LYMPH % 14.8 % (9.0-44.0); LYMPHOCYTE # 0.8 TH/MM3 (1.0-4.8); MEAN CELL VOLUME 103.6 FL (80.0-100.0); MEAN CORPUSCULAR HEMOGLOBIN 34.7 PG (27.0-34.0); MEAN CORPUSCULAR HGB CONC 33.5 % (32.0-36.0); MONO % 11.2 % (0.0-8.0); NEUT % 72.4 % (16.0-70.0); PLATELET COUNT 80 TH/MM3 (150-450); RED BLOOD COUNT 2.51 MIL/MM3 (4.00-5.30); WHITE BLOOD COUNT 5.2 TH/MM3 (4.0-11.0)
[2016-09-12 12:49] LABS: HEMO FLAGS AUTO DIFF
[2016-09-12 13:36] LABS: BANDS 2 % (0-6); METAMYELOCYTES 1 % (0-1); MYELOCYTES 2 % (0-0); POLYS (SEG NEUTROPHILS) 71 % (16-70); WBC DIFF SAMPLE 100
[2016-09-12 13:38] LABS: PLATELET ESTIMATE SMEAR LOW (NORMAL); PLATELET MORPHOLOGY NORMAL (NORMAL)
[2016-09-12 13:39] LABS: SCAN/DIFF FINAL DIFF MANUAL
[2016-09-12 13:40] LABS: KERATOCYTES OCC (NORMAL); OVALOCYTES 1+ (NORMAL); TEARDROP RBCS 1+ (NORMAL)
--- NOTE | 2016-09-12 14:10 | HHI.PR ---
Subjective Remarks Follow up generalized weakness, altered mental status and s/p cholecystectomy. Patient sitting up in chair, axox3. States her swelling seems to be getting better. Denies any further nosebleeds or vaginal bleeding. Patient status post 2 units of FFP. Tolerating PO intake. Denies any new acute complaints. Objective Vitals Vital Signs Date Time Temp Pulse Resp B/P Pulse Ox O2 Delivery O2 Flow Rate FiO2 09/12/16 12:00 95.3 81 19 146/89 99 09/12/16 09:05 166/91 09/12/16 08:00 97.5 98 17 180/72 97 09/12/16 06:47 98.1 95 18 178/96 98 09/12/16 06:32 98.1 90 18 164/90 97 09/12/16 05:48 98.3 97 18 172/90 96 09/12/16 04:00 98.0 84 20 155/89 97 09/12/16 03:18 97.7 91 18 173/93 98 09/12/16 03:04 98.0 97 18 179/96 98 09/12/16 00:00 98.4 97 20 164/88 95 09/11/16 22:02 18 09/11/16 21:42 96 09/11/16 20:00 98.7 95 20 185/97 96 09/11/16 16:00 98.5 95 20 162/86 99 09/11/16 15:00 148/72 I/O 09/11/16 09/11/16 09/11/16 09/12/16 09/12/16 09/12/16 06:59 14:59 22:59 06:59 14:59 22:59 Intake Total 480 ml 720 ml 440 ml 564 ml Output Total 1000 ml 600 ml 550 ml Balance -520 ml 720 ml -160 ml 14 ml Intake Oral 480 ml 720 ml 440 ml 240 ml IV Total 0 ml 2 ml FFP 322 ml Output Urine Total 1000 ml 600 ml 550 ml # Voids 5 # Bowel Movements 0 0 0 Result Diagram: 09/12/16 1220 09/12/16 0344 Imaging Last Impressions Lower Extremity Ultrasound 09/09/16 0000 Signed Impressions: Service Date/Time: Friday, September 09, 2016 19:27 - CONCLUSION: Possible left knee Pollard's cyst. This could be confirmed with MRI if clinically indicated. No evidence of lower extremity DVT. Lamine Blackmon MD Cholangiogram 09/08/16 Signed Impressions: Service Date/Time: Thursday, September 08, 2016 09:23 - CONCLUSION: No evidence of common duct stone. Redd Camacho MD Renal Ultrasound 09/06/16 Signed Impressions: Service Date/Time: Tuesday, September 06, 2016 21:24 - CONCLUSION: No hydronephrosis Lamine Blackmon MD Hepatobiliary Scan Nuclear Medicine 09/06/16 Signed Impressions: Service Date/Time: Tuesday, September 06, 2016 13:50 - CONCLUSION: 1. There is no evidence of common bile duct obstruction. There is normal clearance of tracer from the liver. 2. The gallbladder is never identified. In the appropriate clinical setting this can suggest cholecystitis. Delayed imaging may be of benefit to increase specificity. Hernan Grant MD Cholangiopancreatography MRI 09/06/16 Signed Impressions: Service Date/Time: Tuesday, September 06, 2016 08:50 - CONCLUSION: Nonvisualization of the duct confluence and proximal common hepatic duct. Lamine Blackmon MD ADDENDUM: COMPARISON: BILIARY SCAN (HIDA), September 06, 2016, 13:50. In light of normal appearance and drainage of the biliary tree on the HIDA scan, MRCP appearance is felt probably artifactual. Lamine Blackmon MD Thoracic Spine MRI 09/05/16 Signed Impressions: Service Date/Time: September 14:50 - CONCLUSION: 1. Long segment but very small, age-indeterminate syrinx of the thoracic spine. The thoracic cord also appears slightly atrophic. 2. Mild degenerative changes as above. 3. No foraminal or spinal stenosis. 4. Small right and tiny left pleural effusions are incidentally noted. Lamine Zuñiga MD Lumbar Spine MRI 09/05/16 Signed Impressions: Service Date/Time: September 14:50 - CONCLUSION: 1. Mild degenerative changes at L3/L4, L4/L5 and L5/S1. Please see above. 2. Small, age indeterminate right paracentral disc protrusion at L5/S1. This contacts the transiting right S1 nerve root within the lateral recess but without evidence of impingement. 3. Mild bilateral foraminal encroachment at L4/L5 without definite exiting nerve root impingement. 4. There are left larger than right biforaminal annular fissures at the L4/L5 disc. 5. Apparent mild facet synovitis on the left at L5/S1. Lamine Zuñiga MD Chest X-Ray 09/05/16 0000 Signed Impressions: Service Date/Time: September 07:52 - CONCLUSION: Mild to moderate cardiomegaly with no evidence of pulmonary edema. Redd Camacho MD Head CT 09/04/16 1702 Signed Impressions: Service Date/Time: Sunday, September 04, 2016 18:47 - CONCLUSION: Unremarkable noncontrast CT. Redd Camacho MD Abdomen/Pelvis CT 09/04/16 0000 Signed Impressions: Service Date/Time: Sunday, September 04, 2016 18:50 - CONCLUSION: 1. The study was performed without intravenous or oral contrast limiting the sensitivity. 2. No evidence of biliary obstruction. 3. The gallbladder is abnormal in appearance with wall thickening or surrounding fluid. There are no calcified gallstones identified. 4. Cystic mass in the left adnexa measuring 4.1 x 3 cm most consistent with an ovarian cyst. 5. Small right pleural effusion. 6. Nonspecific, nonobstructive bowel gas pattern which may represent an ileus or gastroenteritis. 7. Air-fluid level in the bladder likely secondary to recent instrumentation. Redd Camacho MD Objective Remarks GENERAL: Well-nourished, well-developed patient in [facility]. SKIN: Warm and dry. No rash. Continued bilateral lower extremity 2+ edema. HEENT: Normocephalic. Atraumatic. Pupils equal and round. No scleral icterus. No injection or drainage. No nasal bleeding or discharge. Mucous membranes pink and moist. Supple. Trachea midline. CARDIOVASCULAR: RRR. S1, S2 noted. No murmur appreciated. RESPIRATORY: No accessory muscle use. Clear to auscultation. Breath sounds equal bilaterally. GASTROINTESTINAL: Abdomen soft, non-tender, nondistended. Normoactive bowel sounds x4. MUSCULOSKELETAL: No obvious deformities. Extremities without clubbing, cyanosis , or edema. NEUROLOGICAL: Awake and alert. No obvious cranial nerve deficits. Motor grossly within normal limits. Normal speech. PSYCHIATRIC: Appropriate mood and affect. Procedures None Urinary Catheter: No Vascular Central Line Catheter: No A/P Problem List: (1) Hypertension ICD Code: I10 Status: Acute (2) Acute kidney injury (nontraumatic) ICD Code: N17.9 Status: Acute (3) Elevated liver enzymes ICD Code: R74.8 Status: Acute (4) Dehydration ICD Code: E86.0 Status: Acute (5) MS (multiple sclerosis) ICD Code: G35 Status: Chronic (6) Hypokalemia ICD Code: E87.6 Status: Resolved Assessment and Plan Mrs. Ayon is a 46-year-old female with a known history of multiple sclerosis, tobacco dependence, alcohol abuse who presented to the emergency department with altered mental status, 18 pound weight loss in the past few months, recurrent falls and hypertension. Patient is status post cholecystectomy with intraoperative cholangiogram with intraoperative use of fluoroscopy and liver biopsy. Status post cholecystectomy with intraoperative cholangiogram with liver biopsy - Liver biopsy pending, await pathology. - Elevated liver enzymes likely post operative related. Monitor, trending down. - General surgery following, no new recommendations. - Control pain: Morphine IV PRN pain. Thrombocytopenia - Hematology consulted, appreciate noted reviewed: Pt rec'd 2 units FFP. Direct King negative. Thrombocytopenia likely DIC from cholecystitis. Await CBC result today. - Follow CBC in am. Hypertension, uncontrolled - Increase hydralazine 100 mg PO Q8h - Continue Ditropan 5 mg daily. - Clonidine 0.1 mg PO Q6h PRN. - Aortic US ordered and pending. Will follow. - Monitor closely. Acute kidney injury - Initial creatinine 2.2 --> 1.9 --> 2.01 --> 1.88 --> 1.92. BMP, mag in am. - CPK trending down. Initially 1591 --> 991 --> 414 --> 279. - Consult to Nephrology, patient continues to have bilateral lower extremity edema with US negative for DVT. Lasix previously given for diuresis with minimal response. Renal US ordered and pending. Appreciate input. Bilateral lower extremity edema - Bilateral lower extremity edema continued; Status post Lasix 20 mg PO x 2. Will monitor. - Lower extremity bilateral US reviewed by me, no evidence of lower extremity DVT. - Encourage ambulation. Macrocytic hyperchromic anemia: Likely due to status post cholecystectomy. Hemoglobin 8.7/hematocrit 26.0. CBC in a.m. Monitor. Hematology following, appreciate input. Hypokalemia: 2.7 -- > 3.5. Status post replacement. BMP in a.m. Hypomagnesium: 1.4. Give Magnesium 1 g IV x 1 today. DVT prophylaxis: SCDs. Written by Heavenly Patino, acting as scribe for Dr. Wills on 09/12/16 at 14: 10. This note was transcribed by scribe Heavenly Patino. I, Dr. Colton Wills personally performed the history, physical exam, and medical decision making; and confirmed the accuracy of the information in the transcribed note. Authenticated by Dr. Colton Wills on 09/12/16 at 14:10. Problem Qualifiers (1) Hypertension: Qualified Code: I10 - Essential hypertension Heavenly Patino September 12, 2016 14:10 Colton Wills MD September 17, 2016 10:18
--- NOTE | 2016-09-12 17:45 | RADRPT ---
EXAM DATE/TIME: 09/12/2016 10:44 [facility] COMPARISON: No previous studies available for comparison. INDICATIONS : Hypertension. MEDICAL HISTORY : Multiple sclerosis. Hypertension. UTI. SURGICAL HISTORY : Cholecystectomy. ENCOUNTER: Initial ACUITY: 3 days PAIN SCORE: 8/10 LOCATION: Bilateral upper quadrant PEAK FLOW VELOCITIES (cm/sec): AORTA: PROXIMAL: 108 cm/s MID: 161 cm/s DISTAL: 148 cm/s RIGHT RENAL ARTERY: PROXIMAL: 81.7 cm/s MID: 75.7 cm/s DISTAL: 76.5 cm/s RENAL ARTERY RATIO: 0.50 ARCUATE ARTERY RESISTIVE INDEX: Upper: 0.58 Mid: 0.48 Lower: 0.39 LEFT RENAL ARTERY: PROXIMAL: 99.2 cm/s MID: 87.8 cm/s DISTAL: 53.1 cm/s RENAL ARTERY RATIO: 0.62 ARCUATE ARTERY RESISTIVE INDEX: Upper: 0.65 Mid: 0.97 Lower: 1.01 SMA and celiac both appear to be widely patent. FINDINGS: Renal artery and vein mapping as listed above. SMA and celiac both appeared be patent. CONCLUSION: Negative exam. Patient does not appear to have a vascular etiology for current clinical symptoms .. Torin Pearce MD on September 12, 2016 at 17:38 Board Certified Radiologist. This report was verified electronically.
--- NOTE | 2016-09-12 19:39 | PD.CONS ---
[facility] Service Nephrology Consult Requested By Dr. Vernon Reason for Consult NAZIA, peripheral edema Primary Care Physician Lolita Singh MD History of Present Illness The patient is a 46 yo [place] female who was sent to [facility] ED on 09/05/16 by her PCP for AMS. Says that prior to her admission, she had not been feeling well reporting multiple falls, weight loss, and fatigue. Her situation is complicated by MS which she was dx in 2007 and says she has been on the same medication since then (follows with Dr. Boo)---Ampyra & Rebif. Since her admission, she was diagnosed with biliary structure and is s/p cholecystectomy . As her liver enzymes have been elevated, she also had liver biopsy. Her platelets have been dropping and she has had some vaginal bleeding and nose bleeds. Hematology on board and believes that she has a DIC from her recent cholecystitis. She is unaware of any hx of renal decline. Admitting SCr at 2.20 and is 1.90 at time of consult. Labs prior to that in 2012 showed normal renal functions. PMHx otherwise of HTN, but not on medications for some time as it was controlled. Admits that she was a heavy EtOH user, but quit in August. Also quit smoking in August. Denies any NSAID use, not diabetic, no hx of obstructive uropathy. (Rosalee Morgan) Review of Systems Cardiovascular: COMPLAINS OF: Lower Extremity Edema (Rosalee Morgan) Past Family Social History Allergies: Coded Allergies: Penicillin (Verified Allergy, Intermediate, HIVES, 10/17/16) Past Medical History MS HTN Previous tobacco use Previous EtOH abuse Past Surgical History Denies Reported Medications Reported Meds & Active Scripts Active Reported Ditropan (Oxybutynin Chloride) 5 Mg Tab 5 Mg PO DAILY Gabapentin 300 Mg Cap 300 Mg PO BID Hydrocodone-Acetaminophen 10-325 mg Tab 1 Tab PO DAILY PRN Ampyra 12 HR (Dalfampridine ER 12 HR) 10 Mg Tab 10 Mg PO BID Rebif Rebidose Pen Inj (Interferon Beta 1a) 44 Mcg/0.5 Ml Pen 44 Mcg SQ 3XWEEK Active Ordered Medications Current Medications Medications (Trade) Dose Ordered Sig/Gonzalez Route Start Time Stop Time Status Last Admin (NS Flush) 2 ml UNSCH PRN IV FLUSH 09/04/16 19:45 (NS Flush) 2 ml BID IV FLUSH 09/04/16 21:00 09/12/16 08:01 (Narcan Inj) 0.4 mg UNSCH PRN IV 09/04/16 19:45 (Morphine Inj) 2 mg Q3H PRN IV PUSH 09/04/16 23:15 09/11/16 21:52 (Tylenol) 650 mg Q4H PRN PO 09/05/16 07:45 (Zofran Inj) 4 mg Q6H PRN IV 09/05/16 07:45 (Colace) 100 mg BID PRN PO 09/05/16 07:45 09/11/16 21:53 (Tums Chew) 1,000 mg TID PRN CHEW 09/05/16 07:45 (Neurontin) 300 mg BID PO 09/05/16 09:00 09/12/16 09:00 (Ditropan) 5 mg DAILY PO 09/05/16 09:00 09/12/16 09:27 Miscellaneous Information Patient in critical care unit? Ass... [id number] .XX 09/06/16 20:00 09/06/16 20:00 Patient Own Medication PT OWN MED: AMP... BID PO 09/06/16 22:30 09/08/16 07:45 (Norvasc) 10 mg DAILY@08 PO 09/08/16 08:00 09/12/16 08:01 (Catapres) 0.1 mg Q6H PRN PO 09/07/16 15:00 09/12/16 09:27 (Vitamin B12) 1,000 mcg DAILY PO 09/09/16 09:00 09/12/16 09:00 (Apresoline) 100 mg Q8HR PO 09/12/16 14:00 09/12/16 14:22 Family History Lung CA Liver CA No known family hx of renal disease Social History Has significant other Previous tobacco use of 1/2 ppd but quit in August Previous beer drinker---6 cans a day for at least a year Denies illicits (Rosalee Morgan) Physical Exam Vital Signs Vital Signs Date Time Temp Pulse Resp B/P Pulse Ox O2 Delivery O2 Flow Rate FiO2 09/12/16 16:00 95.4 83 18 154/84 96 09/12/16 12:00 95.3 81 19 146/89 99 09/12/16 09:05 166/91 09/12/16 08:00 97.5 98 17 180/72 97 09/12/16 06:47 98.1 95 18 178/96 98 09/12/16 06:32 98.1 90 18 164/90 97 09/12/16 05:48 98.3 97 18 172/90 96 09/12/16 04:00 98.0 84 20 155/89 97 09/12/16 03:18 97.7 91 18 173/93 98 09/12/16 03:04 98.0 97 18 179/96 98 09/12/16 00:00 98.4 97 20 164/88 95 09/11/16 22:02 18 09/11/16 21:42 96 09/11/16 20:00 98.7 95 20 185/97 96 Physical Exam GENERAL: NAD. SKIN: Warm and dry. HEAD: Atraumatic. Normocephalic. EYES: Pupils equal and round. No scleral icterus. No injection or drainage. ENT: No nasal bleeding or discharge. Mucous membranes pink and moist. NECK: Trachea midline. No JVD. CARDIOVASCULAR: Regular rate and rhythm. RESPIRATORY: No accessory muscle use. Clear to auscultation. Breath sounds equal bilaterally. GASTROINTESTINAL: Abdomen soft, non-tender, nondistended. Hepatic and splenic margins not palpable. Edema present abdominal wall MUSCULOSKELETAL: Extremities without clubbing, cyanosis. 2+ pitting edema BLE up to knees. 1+ in thighs and hips. Also present abdominal wall NEUROLOGICAL: Awake and alert. Normal speech. PSYCHIATRIC: Appropriate mood and affect; insight and judgment normal. Laboratory Laboratory Tests Test 09/11/16 09/11/16 09/12/16 09/12/16 21:32 23:47 03:44 12:20 Blood Type O NEGATIVE O NEGATIVE Direct Antiglobulin Test NEGATIVE (King) Sodium Level 134 Potassium Level 3.5 Chloride Level 99 Carbon Dioxide Level 25.4 Anion Gap 10 Blood Urea Nitrogen 37 Creatinine 1.92 Estimat Glomerular Filtration 28 Rate Random Glucose 98 Calcium Level 7.8 Magnesium Level 1.4 White Blood Count 5.2 Red Blood Count 2.51 Hemoglobin 8.7 Hematocrit 26.0 Mean Corpuscular Volume 103.6 Mean Corpuscular Hemoglobin 34.7 Mean Corpuscular Hemoglobin 33.5 Concent Red Cell Distribution Width 19.0 Platelet Count 80 Mean Platelet Volume 8.3 Neutrophils (%) (Auto) 72.4 Lymphocytes (%) (Auto) 14.8 Monocytes (%) (Auto) 11.2 Eosinophils (%) (Auto) 1.1 Basophils (%) (Auto) 0.5 Neutrophils # (Auto) 3.7 Lymphocytes # (Auto) 0.8 Monocytes # (Auto) 0.6 Eosinophils # (Auto) 0.1 Basophils # (Auto) 0.0 CBC Comment AUTO DIFF Differential Total Cells 100 Counted Neutrophils % (Manual) 71 Band Neutrophils % 2 Lymphocytes % 16 Monocytes % 8 Neutrophils # (Manual) 4.0 Metamyelocytes 1 Myelocytes 2 Differential Comment FINAL DIFF MANUAL Platelet Estimate LOW Platelet Morphology Comment NORMAL Tear Drop Cells 1+ Ovalocytes 1+ Keratocytes OCC (Rosalee Morgan) Result Diagram: 09/12/16 1220 09/12/16 0344 Imaging Last Impressions Renal Ultrasound 09/12/16 0000 Signed Impressions: Service Date/Time: September 10:44 - CONCLUSION: Negative exam. Patient does not appear to have a vascular etiology for current clinical symptoms.. Torin Pearce MD Lower Extremity Ultrasound 09/09/16 0000 Signed Impressions: Service Date/Time: Friday, September 09, 2016 19:27 - CONCLUSION: Possible left knee Pollard's cyst. This could be confirmed with MRI if clinically indicated. No evidence of lower extremity DVT. Lamine Blackmon MD Cholangiogram 09/08/16 0000 Signed Impressions: Service Date/Time: Thursday, September 08, 2016 09:23 - CONCLUSION: No evidence of common duct stone. Redd Camacho MD Hepatobiliary Scan Nuclear Medicine 09/06/16 0000 Signed Impressions: Service Date/Time: Tuesday, September 06, 2016 13:50 - CONCLUSION: 1. There is no evidence of common bile duct obstruction. There is normal clearance of tracer from the liver. 2. The gallbladder is never identified. In the appropriate clinical setting this can suggest cholecystitis. Delayed imaging may be of benefit to increase specificity. Herann Grant MD Cholangiopancreatography MRI 09/06/16 0000 Signed Impressions: Service Date/Time: Tuesday, September 06, 2016 08:50 - CONCLUSION: Nonvisualization of the duct confluence and proximal common hepatic duct. Lamine Blackmon MD ADDENDUM: COMPARISON: BILIARY SCAN (HIDA), September 06, 2016, 13:50. In light of normal appearance and drainage of the biliary tree on the HIDA scan, MRCP appearance is felt probably artifactual. Lamine Blackmon MD Thoracic Spine MRI 09/05/16 0000 Signed Impressions: Service Date/Time: September 14:50 - CONCLUSION: 1. Long segment but very small, age-indeterminate syrinx of the thoracic spine. The thoracic cord also appears slightly atrophic. 2. Mild degenerative changes as above. 3. No foraminal or spinal stenosis. 4. Small right and tiny left pleural effusions are incidentally noted. Lamine Zuñiga MD Lumbar Spine MRI 09/05/16 0000 Signed Impressions: Service Date/Time: September 14:50 - CONCLUSION: 1. Mild degenerative changes at L3/L4, L4/L5 and L5/S1. Please see above. 2. Small, age indeterminate right paracentral disc protrusion at L5/S1. This contacts the transiting right S1 nerve root within the lateral recess but without evidence of impingement. 3. Mild bilateral foraminal encroachment at L4/L5 without definite exiting nerve root impingement. 4. There are left larger than right biforaminal annular fissures at the L4/L5 disc. 5. Apparent mild facet synovitis on the left at L5/S1. Lamine Zuñiga MD Chest X-Ray 09/05/16 0000 Signed Impressions: Service Date/Time: September 07:52 - CONCLUSION: Mild to moderate cardiomegaly with no evidence of pulmonary edema. Redd Camacho MD Head CT 09/04/16 1702 Signed Impressions: Service Date/Time: Sunday, September 04, 2016 18:47 - CONCLUSION: Unremarkable noncontrast CT. Redd Camacho MD Abdomen/Pelvis CT 09/04/16 0000 Signed Impressions: Service Date/Time: Sunday, September 04, 2016 18:50 - CONCLUSION: 1. The study was performed without intravenous or oral contrast limiting the sensitivity. 2. No evidence of biliary obstruction. 3. The gallbladder is abnormal in appearance with wall thickening or surrounding fluid. There are no calcified gallstones identified. 4. Cystic mass in the left adnexa measuring 4.1 x 3 cm most consistent with an ovarian cyst. 5. Small right pleural effusion. 6. Nonspecific, nonobstructive bowel gas pattern which may represent an ileus or gastroenteritis. 7. Air-fluid level in the bladder likely secondary to recent instrumentation. Redd Camacho MD (Rosalee Morgan) Assessment and Plan Problem List: (1) Acute renal insufficiency Plan: The patient's renal functions have been declined since her admission and renal US shows increased echogenicity which can be seen with CKD. Etiology of renal decline not entirely clear at the present. Rebif can be associated with a multitude of renal side effects including acute renal insufficiency, minimal change disease, massive proteinuria, and acute tubular necrosis. All of the above are within the differential, but we are going to screen for other etiologies of renal decline---check MICHAEL, complements, UPCR, 24h urine for protein, SPEP, CESAR, K/L ratio, urine eosinophils. Will also check 2D echo to r/o cardiomyopathy which can also be associated with Rebif. Agree with stopping IVF given her edema. Will start on Bumex 1mg IV QD and monitor her renal functions. Medications should be adjusted for her renal decline. Avoid nephrotoxic medications including iodinated contrast dyes and NSAIDs. Avoid gadolinium when eGFR <30. (2) Edema Plan: See above Noted she is on multiple medications that can cause edema---amlodipine, hydralazine, gabapentin. Dosages may need to be adjusted (3) Hypertension Plan: Improved as of this afternoon. Monitor and adjust as needed. Consider adding BB as hydralazine can sometimes cause reflex tachycardia. Check renin & aldosterone levels. Renal doppler reviewed and showed no signs of SERGEY (4) MS (multiple sclerosis) Plan: Medications on hold at the present. Defer to neurology (5) Thrombocytopenia Plan: Mgmt as per hematology. Peripheral smear reviewed and shows potential DIC or TTP (6) Elevated liver enzymes Plan: Reviewed liver biopsy report which shows suspicion for alcoholic or drug related hepatitis (Rosalee Morgan) Assessment and Plan The exam, history, and the medical decision-making described in the above note were completed with the assistance of the PAChristopher. I reviewed and agree with the findings presented. I attest that I had a [id number] encounter with the patient on the same day, and personally performed and documented my assessment and findings in the medical record. (Bossman Nunes MD) Rosalee Morgan September 12, 2016 19:39 Bossman Nunes MD Nov 05, 2016 13:26
[2016-09-12] MEDS ORDERED: POTASSIUM CHLORIDE 10 MEQ CONTROLLED RELEASE TAB PO ONE (19:45)
[2016-09-12] MEDS: DALFAMPRIDINE 10 MG PO SCH (21:00)
[2016-09-12] MEDS: BUMETANIDE INJ 1 MG/4 ML VIAL IV PUSH SCH (22:07)
[2016-09-13] VITALS (7 sets, daily range): BP systolic 133–188; BP diastolic 65–91; PULSE 76–98; RESP 16–18; TEMP 96.2–98.4; O2SAT 97–100
[2016-09-13 05:33] LABS: AUTOMATED NEUTROPHIL # 4.6 TH/MM3 (1.8-7.7); BASOPHIL % 0.5 % (0.0-2.0); EOSINOPHIL # 0.1 TH/MM3 (0-0.4); EOSINOPHIL % 0.8 % (0.0-4.0); HEMATOCRIT 25.8 % (35.0-46.0); HEMO FLAGS DIFF FINAL; LYMPH % 11.8 % (9.0-44.0); LYMPHOCYTE # 0.7 TH/MM3 (1.0-4.8); MEAN CELL VOLUME 103.1 FL (80.0-100.0); MEAN CORPUSCULAR HEMOGLOBIN 34.3 PG (27.0-34.0); MEAN CORPUSCULAR HGB CONC 33.2 % (32.0-36.0); NEUT % 75.9 % (16.0-70.0); PLATELET COUNT 101 TH/MM3 (150-450); RED CELL DISTRIBUTION WIDTH 18.2 % (11.6-17.2); WHITE BLOOD COUNT 6.1 TH/MM3 (4.0-11.0)
[2016-09-13] MEDS: hydrALAZINE HCL 50 MG TAB PO SCH ×3 (05:44→21:42)
[2016-09-13 05:49] LABS: BICARBONATE 29.5 MEQ/L (21.0-32.0); INDIRECT BILIRUBIN 1.1 MG/DL (0.0-0.8); MAGNESIUM 1.6 MG/DL (1.5-2.5); TOTAL BILIRUBIN ADULT 1.7 MG/DL (0.2-1.0)
[2016-09-13 05:51] LABS: POTASSIUM 2.9 MEQ/L (3.5-5.1)
[2016-09-13] MEDS ORDERED: POTASSIUM CHLORIDE 20 MEQ CONTROLLED RELEASE TAB PO ONE (07:00)
[2016-09-13] MEDS: DALFAMPRIDINE 10 MG PO SCH ×2 (08:29→21:00)
[2016-09-13] MEDS: OXYBUTYNIN CHLORIDE 5 MG TAB PO SCH (08:30)
[2016-09-13] MEDS: CYANOCOBALAMIN 1,000 MCG TAB PO SCH (08:30)
[2016-09-13] MEDS: SODIUM CHLORIDE 0.9% FLUSH 10 ML FLUSH IV FLUSH SCH ×2 (08:30→19:48)
[2016-09-13] MEDS: GABAPENTIN 300 MG CAP PO SCH ×2 (08:30→19:48)
[2016-09-13] MEDS: POTASSIUM CHLOR 20 MEQ PREMIX 100 ML IV SCH ×2 (08:31→09:23)
[2016-09-13] MEDS: BUMETANIDE INJ 1 MG/4 ML VIAL IV PUSH SCH (08:32)
--- NOTE | 2016-09-13 08:47 | HHI.PR ---
Subjective Remarks This is a pleasant 46 y/o Female with Multiple sclerosis, tobacco dependence Alcohol abuse, sent to ER by PCP due to Altered mental status, unintentional weight loss, recurrent falls, has Hypertension, Overactive bladder, admitted on 09/05/16, ECG showed Left Ventricular Hypertrophy, Acute Kidney Injury, elevated Liver Enzymes, dehydrated, Neurology consulted for MS. as per Neurology specialist recommended to hold Ampyra and Rebif this medicines may be a factor for her Generalized weakness, also probable related to MS. elevated Liver Enzymes as per GI specialist probable secondary to Alcohol abuse, recommended HIDA scan, MRCP, was transferred by General Surgery to this facility for ERCP. 09/13: Consulted by Nephrology specialist and Renal Ultrasound with increased Echogenicity for CKD but no clear why the patient had this decline in renal function, questioned about medicine Rebif, but will study MICHAEL, Urine protein to Creatinine ratio, Echocardiogram, IV fluids stopped due to edema, started on Bumex IV and monitor renal function. probable edema secondary to medicines, Amlodipine, Hydralazine, Gabapentin, seen by GI specialist with diagnosis of elevated LFTs MICHAEL negative ASMA neg, MA neg, AMA neg. Hep panel neg. s/p lap leydi, liver bx--> mild portal hepatitis with early bridging fibrosis, morphologic features suspicious for ETOH, and again Rebif as possible cause for Hepatitis stopped, has Thrombocytopenia followed by artillery specialist. status post 2 units of FFP, Direct King negative, likely DIC from Cholecystitis, Direct antiglobulin test negative. Haptoglobin is low due to liver disease and Hemolysis. Seen in her bedroom and discussed with nurse Miss Garcia, no nausea, vomit or diarrhea, Objective Vital Signs Date Time Temp Pulse Resp B/P Pulse Ox O2 Delivery O2 Flow Rate FiO2 09/13/16 08:00 96.7 94 16 164/76 99 09/13/16 05:42 188/88 09/13/16 04:00 98.4 97 17 174/82 100 09/13/16 00:00 98.3 98 17 168/91 97 09/12/16 20:00 96.7 93 17 142/87 100 09/12/16 20:00 94 09/12/16 16:00 95.4 83 18 154/84 96 09/12/16 12:00 95.3 81 19 146/89 99 09/12/16 09:05 166/91 I/O 09/12/16 09/12/16 09/12/16 09/13/16 09/13/16 09/13/16 07:00 15:00 23:00 07:00 15:00 23:00 Intake Total 564 ml 625 ml 480 ml 480 ml Output Total 550 ml 900 ml 600 ml 700 ml Balance 14 ml -275 ml -120 ml -220 ml Intake Oral 240 ml 475 ml 480 ml 480 ml IV Total 2 ml 150 ml FFP 322 ml Output Urine Total 550 ml 900 ml 600 ml 700 ml # Bowel Movements 0 0 Result Diagram: 09/13/16 0441 09/13/16 0441 Imaging Last Impressions Renal Ultrasound 09/12/16 0000 Signed Impressions: Service Date/Time: September 10:44 - CONCLUSION: Negative exam. Patient does not appear to have a vascular etiology for current clinical symptoms.. Torin Pearce MD Lower Extremity Ultrasound 09/09/16 0000 Signed Impressions: Service Date/Time: Friday, September 09, 2016 19:27 - CONCLUSION: Possible left knee Pollard's cyst. This could be confirmed with MRI if clinically indicated. No evidence of lower extremity DVT. Lamine Blackmon MD Cholangiogram 09/08/16 0000 Signed Impressions: Service Date/Time: Thursday, September 08, 2016 09:23 - CONCLUSION: No evidence of common duct stone. Redd Camacho MD Hepatobiliary Scan Nuclear Medicine 09/06/16 0000 Signed Impressions: Service Date/Time: Tuesday, September 06, 2016 13:50 - CONCLUSION: 1. There is no evidence of common bile duct obstruction. There is normal clearance of tracer from the liver. 2. The gallbladder is never identified. In the appropriate clinical setting this can suggest cholecystitis. Delayed imaging may be of benefit to increase specificity. Hernan Grant MD Cholangiopancreatography MRI 09/06/16 0000 Signed Impressions: Service Date/Time: Tuesday, September 06, 2016 08:50 - CONCLUSION: Nonvisualization of the duct confluence and proximal common hepatic duct. Lamine Blackmon MD ADDENDUM: COMPARISON: BILIARY SCAN (HIDA), September 06, 2016, 13:50. In light of normal appearance and drainage of the biliary tree on the HIDA scan, MRCP appearance is felt probably artifactual. Lamine Blackmon MD Thoracic Spine MRI 09/05/16 Signed Impressions: Service Date/Time: September 14:50 - CONCLUSION: 1. Long segment but very small, age-indeterminate syrinx of the thoracic spine. The thoracic cord also appears slightly atrophic. 2. Mild degenerative changes as above. 3. No foraminal or spinal stenosis. 4. Small right and tiny left pleural effusions are incidentally noted. Lamine Zuñiga MD Lumbar Spine MRI 09/05/16 Signed Impressions: Service Date/Time: September 14:50 - CONCLUSION: 1. Mild degenerative changes at L3/L4, L4/L5 and L5/S1. Please see above. 2. Small, age indeterminate right paracentral disc protrusion at L5/S1. This contacts the transiting right S1 nerve root within the lateral recess but without evidence of impingement. 3. Mild bilateral foraminal encroachment at L4/L5 without definite exiting nerve root impingement. 4. There are left larger than right biforaminal annular fissures at the L4/L5 disc. 5. Apparent mild facet synovitis on the left at L5/S1. Lamine Zuñiga MD Chest X-Ray 09/05/16 Signed Impressions: Service Date/Time: September 07:52 - CONCLUSION: Mild to moderate cardiomegaly with no evidence of pulmonary edema. Redd Camacho MD Head CT 09/04/16 1702 Signed Impressions: Service Date/Time: Sunday, September 04, 2016 18:47 - CONCLUSION: Unremarkable noncontrast CT. Redd Camacho MD Abdomen/Pelvis CT 09/04/16 Signed Impressions: Service Date/Time: Sunday, September 04, 2016 18:50 - CONCLUSION: 1. The study was performed without intravenous or oral contrast limiting the sensitivity. 2. No evidence of biliary obstruction. 3. The gallbladder is abnormal in appearance with wall thickening or surrounding fluid. There are no calcified gallstones identified. 4. Cystic mass in the left adnexa measuring 4.1 x 3 cm most consistent with an ovarian cyst. 5. Small right pleural effusion. 6. Nonspecific, nonobstructive bowel gas pattern which may represent an ileus or gastroenteritis. 7. Air-fluid level in the bladder likely secondary to recent instrumentation. Redd Camacho MD Procedures status post Laparoscopic Cholecystectomy with intraoperative cholangiogram with intraoperative use of fluoroscopy Joseph-cut Liver biopsy x 2 with Post operative diagnosis of Cholecystitis with previous choledocholithiasis with fatty changes by Doctor Redd Jurado Other Results Laboratory Tests Test 09/05/16 09/09/16 09/09/16 09/10/16 19:10 04:41 21:00 05:34 [id number] 118 mg/dL Ceruloplasmin 41 mg/dL Immunoglobulin A 252 mg/dL Mitochondria M2 Antibody LESS THAN 20.0 U Anti-Smooth Muscle Antibody Negative Endomysial Antibody Titer Endomysial IgA Antibody Tissue Transglutaminase IgG Ab U/mL Tissue Transglutaminase IgA Ab LESS THAN 1 U/mL Celiac Disease Interpretation Nucleated Red Blood Cells 1 /100 WBC Basophilic Stippling FAINT Helmet Cells OCC Blood Smear Pathologist Review Reticulocyte Count 17.1 % Absolute Reticulocyte Count 490.7 MIL/L Haptoglobin LESS THAN 10 MG/DL Prothrombin Time 11.6 SEC Prothromb Time International 1.0 RATIO Ratio Activated Partial 26.8 SEC Thromboplast Time Fibrinogen 265 mg/dL Lactate Dehydrogenase 1047 U/L Polychromasia 3.1 % Spherocytes OCC Heparin-Induced Platelet Ab NEGATIVE (Nadege) HIPA Patient Optical Density 0.297 O.D. Test 09/11/16 09/11/16 09/11/16 09/11/16 00:33 06:39 21:32 23:47 Blood Bank Comment Acanthocytes OCC Total Creatine Kinase 279 U/L Creatine Kinase MB 8.2 NG/ML Creatine Kinase MB % 2.9 % Direct Antiglobulin Test NEGATIVE (King) Blood Type O NEGATIVE Test 09/12/16 09/13/16 12:20 04:41 Differential Total Cells 100 Counted Neutrophils % (Manual) 71 % Band Neutrophils % 2 % Lymphocytes % 16 % Monocytes % 8 % Neutrophils # (Manual) 4.0 TH/MM3 Metamyelocytes 1 % Myelocytes 2 % Platelet Estimate LOW Platelet Morphology Comment NORMAL Tear Drop Cells 1+ Ovalocytes 1+ Keratocytes OCC White Blood Count 6.1 TH/MM3 Red Blood Count 2.50 MIL/MM3 Hemoglobin 8.6 GM/DL Hematocrit 25.8 % Mean Corpuscular Volume 103.1 FL Mean Corpuscular Hemoglobin 34.3 PG Mean Corpuscular Hemoglobin 33.2 % Concent Red Cell Distribution Width 18.2 % Platelet Count 101 TH/MM3 Mean Platelet Volume 9.3 FL Neutrophils (%) (Auto) 75.9 % Lymphocytes (%) (Auto) 11.8 % Monocytes (%) (Auto) 11.0 % Eosinophils (%) (Auto) 0.8 % Basophils (%) (Auto) 0.5 % Neutrophils # (Auto) 4.6 TH/MM3 Lymphocytes # (Auto) 0.7 TH/MM3 Monocytes # (Auto) 0.7 TH/MM3 Eosinophils # (Auto) 0.1 TH/MM3 Basophils # (Auto) 0.0 TH/MM3 CBC Comment DIFF FINAL Differential Comment Sodium Level 135 MEQ/L Potassium Level 2.9 MEQ/L Chloride Level 97 MEQ/L Carbon Dioxide Level 29.5 MEQ/L Anion Gap 9 MEQ/L Blood Urea Nitrogen 37 MG/DL Creatinine 1.95 MG/DL Estimat Glomerular Filtration 28 ML/MIN Rate Random Glucose 92 MG/DL Calcium Level 8.0 MG/DL Magnesium Level 1.6 MG/DL Total Bilirubin 1.7 MG/DL Direct Bilirubin 0.6 MG/DL Indirect Bilirubin 1.1 MG/DL Aspartate Amino Transf 48 U/L (AST/SGOT) Alanine Aminotransferase 108 U/L (ALT/SGPT) Alkaline Phosphatase 108 U/L Total Protein 6.0 GM/DL Albumin 2.9 GM/DL Complement C3 111 MG/DL Complement C4 20 MG/DL Objective Remarks GENERAL: No acute distress. SKIN: ecchymosis on both arms. HEAD: Atraumatic. Normocephalic. No temporal or scalp tenderness. EYES: Pupils equal round and reactive. ENT: Nose without bleeding. NECK: Trachea midline. No JVD or lymphadenopathy. Supple. CARDIOVASCULAR: Regular rate and rhythm without murmurs, gallops, or rubs. RESPIRATORY: Clear to auscultation. Breath sounds equal bilaterally. No wheezes , rales, or rhonchi. GASTROINTESTINAL: Abdomen soft, mild tenderness, clean surgical wounds. MUSCULOSKELETAL: Extremities without clubbing, Edema 4+ NEUROLOGICAL: Awake and alert. No focal deficits. Medications and IVs Current Medications Medications (Trade) Dose Ordered Sig/Gonzalez Route Start Time Stop Time Status Last Admin (NS Flush) 2 ml UNSCH PRN IV FLUSH 09/04/16 19:45 (NS Flush) 2 ml BID IV FLUSH 09/04/16 21:00 09/13/16 08:30 (Narcan Inj) 0.4 mg UNSCH PRN IV 09/04/16 19:45 (Morphine Inj) 2 mg Q3H PRN IV PUSH 09/04/16 23:15 09/11/16 21:52 (Tylenol) 650 mg Q4H PRN PO 09/05/16 07:45 (Zofran Inj) 4 mg Q6H PRN IV 09/05/16 07:45 (Colace) 100 mg BID PRN PO 09/05/16 07:45 09/11/16 21:53 (Tums Chew) 1,000 mg TID PRN CHEW 09/05/16 07:45 (Neurontin) 300 mg BID PO 09/05/16 09:00 09/13/16 08:30 (Ditropan) 5 mg DAILY PO 09/05/16 09:00 09/13/16 08:30 Miscellaneous Information Patient in critical care unit? Ass... [id number] 09/06/16 20:00 09/06/16 20:00 Patient Own Medication PT OWN MED: AMP... BID PO 09/06/16 22:30 09/08/16 07:45 (Norvasc) 10 mg DAILY@08 PO 09/08/16 08:00 09/13/16 08:00 (Catapres) 0.1 mg Q6H PRN PO 09/07/16 15:00 09/12/16 09:27 (Vitamin B12) 1,000 mcg DAILY PO 09/09/16 09:00 09/13/16 08:30 (Apresoline) 100 mg Q8HR PO 09/12/16 14:00 09/13/16 05:44 Bumetanide 1 mg 1 mg DAILY IV PUSH 09/12/16 19:45 09/13/16 08:32 (KCl 20 Meq Premix Inj) 100 ml @ 50 mls/hr Q2H IV 09/13/16 07:00 09/13/16 10:59 09/13/16 08:31 A/P Assessment and Plan 1. Accelerated Hypertension, Uncontrolled Nephrology specialist following, recommended to discontinue Hydralazine and Amlodipine and use more Beta Blockers. continue Ditropan 5 mg daily, Clonidine 0.1 mg every eight hours and follow closely blood pressure. Renal US Negative. No vascular reasons for this pathology. 2. Hypokalemia today 2.9 replacing Potassium chloride 40 meq IV as per Nephrology specialist and following. 3. Acute Kidney Injury Nephrology following, Renal Ultrasound with increased Echogenicity for CKD but no clear why the patient had this decline in renal function, questioned about medicine Rebif , but will study MICHAEL, Urine protein to Creatinine ratio, Echocardiogram, IV fluids stopped due to edema, started on Bumex IV and monitor renal function. probable edema secondary to medicines, Amlodipine, Hydralazine, Gabapentin, 4. Elevated Liver enzymes with tender RUQ, CT indicated gallbladder abnormality of thickened wall or fluid present, hepatitis profile and workup for autoimmune hepatitis. after evaluation by GI specialist today reviewed MRCP/CT and HIDA scan. Status post Laparoscopic Cholecystectomy with intraoperative cholangiogram with intraoperative use of fluoroscopy Joseph-cut Liver biopsy x 2 with Post operative diagnosis of Cholecystitis with previous choledocholithiasis with fatty changes seen by GI specialist with diagnosis of elevated LFTs MICHAEL negative ASMA neg, MA neg, AMA neg. Hep panel neg. 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 5. Multiple Sclerosis on hold Rebif and Ampyra. 6. Macrocytic anemia with normal values of B12 and Folate 7. Acute metabolic and Hypertensive Encephalopathy CT brain no acute findings. Improved. 8. Thrombocytopenia followed by artillery specialist. status post 2 units of FFP, Direct King negative, likely DIC from Cholecystitis, Direct antiglobulin test negative. Haptoglobin is low due to liver disease and Hemolysis. DVT prophylaxis with SCDs. on hold Heparin due to surgery, encourage ambulation Discharge Planning Not yet cleared for discharge. Silas Cummings MD September 13, 2016 08:47 - Consult to Nephrology, patient continues to have bilateral lower extremity edema with US negative for DVT. Lasix previously given for diuresis with minimal response. Renal US ordered and pending. Appreciate input. Bilateral lower extremity edema - Bilateral lower extremity edema continued; Status post Lasix 20 mg PO x 2. Will monitor. - Lower extremity bilateral US reviewed by me, no evidence of lower extremity DVT. - Encourage ambulation. Macrocytic hyperchromic anemia: Likely due to status post cholecystectomy. Hemoglobin 8.7/hematocrit 26.0. CBC in a.m. Monitor. Hematology following, appreciate input. Hypokalemia: 2.7 -- > 3.5. Status post replacement. BMP in a.m. Hypomagnesium: 1.4. Give Magnesium 1 g IV x 1 today. DVT prophylaxis: SCDs. 5. Multiple Sclerosis on hold Rebif and Ampyra. 6. Macrocytic anemia with normal values of B12 and Folate 7. Acute metabolic and Hypertensive Encephalopathy CT brain no acute findings. Improved. DVT prophylaxis with SCDs. on hold Heparin due to surgery, encourage ambulation Silas Cummings MD September 13, 2016 08:47
--- NOTE | 2016-09-13 11:19 | HHI.GIFU ---
Subjective Remarks Resting in bed, no distress. No n/v. No abdominal pain. 24 hour urine in progress. (Jenny Perez) Objective Vitals I&O Vital Signs Date Time Temp Pulse Resp B/P Pulse Ox O2 Delivery O2 Flow Rate FiO2 09/13/16 08:00 96.7 94 16 164/76 99 09/13/16 05:42 188/88 09/13/16 04:00 98.4 97 17 174/82 100 09/13/16 00:00 98.3 98 17 168/91 97 09/12/16 20:00 96.7 93 17 142/87 100 09/12/16 20:00 94 09/12/16 16:00 95.4 83 18 154/84 96 09/12/16 12:00 95.3 81 19 146/89 99 I/O 09/12/16 09/12/16 09/12/16 09/13/16 09/13/16 09/13/16 07:00 15:00 23:00 07:00 15:00 23:00 Intake Total 564 ml 625 ml 480 ml 480 ml Output Total 550 ml 900 ml 600 ml 700 ml Balance 14 ml -275 ml -120 ml -220 ml Intake Oral 240 ml 475 ml 480 ml 480 ml IV Total 2 ml 150 ml FFP 322 ml Output Urine Total 550 ml 900 ml 600 ml 700 ml # Bowel Movements 0 0 Laboratory Laboratory Tests Test 09/12/16 09/13/16 12:20 04:41 White Blood Count 5.2 6.1 Red Blood Count 2.51 2.50 Hemoglobin 8.7 8.6 Hematocrit 26.0 25.8 Mean Corpuscular Volume 103.6 103.1 Mean Corpuscular Hemoglobin 34.7 34.3 Mean Corpuscular Hemoglobin 33.5 33.2 Concent Red Cell Distribution Width 19.0 18.2 Platelet Count 80 101 Mean Platelet Volume 8.3 9.3 Neutrophils (%) (Auto) 72.4 75.9 Lymphocytes (%) (Auto) 14.8 11.8 Monocytes (%) (Auto) 11.2 11.0 Eosinophils (%) (Auto) 1.1 0.8 Basophils (%) (Auto) 0.5 0.5 Neutrophils # (Auto) 3.7 4.6 Lymphocytes # (Auto) 0.8 0.7 Monocytes # (Auto) 0.6 0.7 Eosinophils # (Auto) 0.1 0.1 Basophils # (Auto) 0.0 0.0 CBC Comment AUTO DIFF DIFF FINAL Differential Total Cells 100 Counted Neutrophils % (Manual) 71 Band Neutrophils % 2 Lymphocytes % 16 Monocytes % 8 Neutrophils # (Manual) 4.0 Metamyelocytes 1 Myelocytes 2 Differential Comment FINAL DIFF MANUAL Platelet Estimate LOW Platelet Morphology Comment NORMAL Tear Drop Cells 1+ Ovalocytes 1+ Keratocytes OCC Sodium Level 135 Potassium Level 2.9 Chloride Level 97 Carbon Dioxide Level 29.5 Anion Gap 9 Blood Urea Nitrogen 37 Creatinine 1.95 Estimat Glomerular Filtration 28 Rate Random Glucose 92 Calcium Level 8.0 Magnesium Level 1.6 Total Bilirubin 1.7 Direct Bilirubin 0.6 Indirect Bilirubin 1.1 Aspartate Amino Transf 48 (AST/SGOT) Alanine Aminotransferase 108 (ALT/SGPT) Alkaline Phosphatase 108 Total Protein 6.0 Albumin 2.9 25-Hydroxy Vitamin D Total 25.0 Complement C3 111 Complement C4 20 Imaging Last Impressions Renal Ultrasound 09/12/16 0000 Signed Impressions: Service Date/Time: September 10:44 - CONCLUSION: Negative exam. Patient does not appear to have a vascular etiology for current clinical symptoms.. Torin Pearce MD Lower Extremity Ultrasound 09/09/16 0000 Signed Impressions: Service Date/Time: Friday, September 09, 2016 19:27 - CONCLUSION: Possible left knee Pollard's cyst. This could be confirmed with MRI if clinically indicated. No evidence of lower extremity DVT. Lamine Blackmon MD Cholangiogram 09/08/16 0000 Signed Impressions: Service Date/Time: Thursday, September 08, 2016 09:23 - CONCLUSION: No evidence of common duct stone. Redd Camacho MD Hepatobiliary Scan Nuclear Medicine 09/06/16 0000 Signed Impressions: Service Date/Time: Tuesday, September 06, 2016 13:50 - CONCLUSION: 1. There is no evidence of common bile duct obstruction. There is normal clearance of tracer from the liver. 2. The gallbladder is never identified. In the appropriate clinical setting this can suggest cholecystitis. Delayed imaging may be of benefit to increase specificity. Hernan Grant MD Cholangiopancreatography MRI 09/06/16 0000 Signed Impressions: Service Date/Time: Tuesday, September 06, 2016 08:50 - CONCLUSION: Nonvisualization of the duct confluence and proximal common hepatic duct. Lamine Blackmon MD ADDENDUM: COMPARISON: BILIARY SCAN (HIDA), September 06, 2016, 13:50. In light of normal appearance and drainage of the biliary tree on the HIDA scan, MRCP appearance is felt probably artifactual. Lamine Blackmon MD Thoracic Spine MRI 09/05/16 0000 Signed Impressions: Service Date/Time: September 14:50 - CONCLUSION: 1. Long segment but very small, age-indeterminate syrinx of the thoracic spine. The thoracic cord also appears slightly atrophic. 2. Mild degenerative changes as above. 3. No foraminal or spinal stenosis. 4. Small right and tiny left pleural effusions are incidentally noted. Lamine Zuñiga MD Lumbar Spine MRI 09/05/16 0000 Signed Impressions: Service Date/Time: September 14:50 - CONCLUSION: 1. Mild degenerative changes at L3/L4, L4/L5 and L5/S1. Please see above. 2. Small, age indeterminate right paracentral disc protrusion at L5/S1. This contacts the transiting right S1 nerve root within the lateral recess but without evidence of impingement. 3. Mild bilateral foraminal encroachment at L4/L5 without definite exiting nerve root impingement. 4. There are left larger than right biforaminal annular fissures at the L4/L5 disc. 5. Apparent mild facet synovitis on the left at L5/S1. Lamine Zuñiga MD Chest X-Ray 09/05/16 0000 Signed Impressions: Service Date/Time: September 07:52 - CONCLUSION: Mild to moderate cardiomegaly with no evidence of pulmonary edema. Redd Camacho MD Head CT 09/04/16 1702 Signed Impressions: Service Date/Time: Sunday, September 04, 2016 18:47 - CONCLUSION: Unremarkable noncontrast CT. Redd Camacho MD Abdomen/Pelvis CT 09/04/16 0000 Signed Impressions: Service Date/Time: Sunday, September 04, 2016 18:50 - CONCLUSION: 1. The study was performed without intravenous or oral contrast limiting the sensitivity. 2. No evidence of biliary obstruction. 3. The gallbladder is abnormal in appearance with wall thickening or surrounding fluid. There are no calcified gallstones identified. 4. Cystic mass in the left adnexa measuring 4.1 x 3 cm most consistent with an ovarian cyst. 5. Small right pleural effusion. 6. Nonspecific, nonobstructive bowel gas pattern which may represent an ileus or gastroenteritis. 7. Air-fluid level in the bladder likely secondary to recent instrumentation. Redd Camacho MD Physical Exam HEENT: Normocephalic; atraumatic CHEST: CTA CARDIAC: RRR ABDOMEN: Soft, nondistended,nontender, no hepatosplenomegaly; bowel sounds are present in all four quadrants. EXTREMITIES: No clubbing, cyanosis, +1 pitting edema BLE SKIN: Normal; no rash; no jaundice. ALUM MIXER: No focal deficits; alert and oriented times three. (Jenny Perez) Assessment and Plan Plan ASSESSMENT: - Elevated LFTs, unclear etiology. HIDA ()----> 1. There is no evidence of common bile duct obstruction. There is normal clearance of tracer from the liver. 2. The gallbladder is never identified. In the appropriate clinical setting this can suggest cholecystitis. Delayed imaging may be of benefit to increase specificity. MRCP (09/06/16)-----> Nonvisualization of the duct confluence and proximal common hepatic duct. ADDENDUM: In light of normal appearance and drainage of the biliary tree on the HIDA scan, MRCP appearance is felt probably artifactual. Cholangiogram (09/08/16)---> No evidence of common duct stone. MICHAEL negative, ASMA negative, AMA negative, Hepatitis profile negative. improving. MICHAEL neg, ASMA neg, MA neg, AMA neg. Hep panel neg. Alpha 1 antitrypsin 118, Ceruloplasmin 41. Ferritin 1116, Iron saturation 47.5%. 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 Of note pt was taking Rebif for her MS and stopped last week. US vascular negative for vascular etiology, she cannot have MRA/CTA due to low GFR. LFTs trending down. T. BILI 1.7, Direct 0.6, Indirect 1.1, AST 48, ALT 108, Alk Phosph 108. PLAN - RUSTY - Monitor labs - Avoid hepatotoxic meds - Supportive care - Further recommendations to follow based on results of above - Pt seen and examined by Dr. Koch and myself and this note is written on her behalf (Jenny Perez) Jenny Perez September 13, 2016 11:19 Enriqueta Koch MD September 13, 2016 17:59
--- NOTE | 2016-09-13 11:27 | PD.ONC.PN ---
Subjective Subjective Remarks Afebrile overnight. Patient denies pain or bleeding. She states she feels comfortable but is concerned about the swelling in her legs. Objective Data Date Time Temp Pulse Resp B/P Pulse Ox O2 Delivery O2 Flow Rate FiO2 09/13/16 08:00 96.7 94 16 164/76 99 09/13/16 05:42 188/88 09/13/16 04:00 98.4 97 17 174/82 100 09/13/16 00:00 98.3 98 17 168/91 97 09/12/16 20:00 96.7 93 17 142/87 100 09/12/16 20:00 94 09/12/16 16:00 95.4 83 18 154/84 96 09/12/16 12:00 95.3 81 19 146/89 99 09/13/16 09/13/16 09/13/16 07:00 15:00 23:00 Intake Total 480 ml Output Total 700 ml Balance -220 ml Result Diagram: 09/13/16 0441 09/13/16 044 Laboratory Results Laboratory Tests Test 09/12/16 09/13/16 12:20 04:41 White Blood Count 5.2 TH/MM3 6.1 TH/MM3 Red Blood Count 2.51 MIL/MM3 2.50 MIL/MM3 Hemoglobin 8.7 GM/DL 8.6 GM/DL Hematocrit 26.0 % 25.8 % Mean Corpuscular Volume 103.6 FL 103.1 FL Mean Corpuscular Hemoglobin 34.7 PG 34.3 PG Mean Corpuscular Hemoglobin 33.5 % 33.2 % Concent Red Cell Distribution Width 19.0 % 18.2 % Platelet Count 80 TH/MM3 101 TH/MM3 Mean Platelet Volume 8.3 FL 9.3 FL Neutrophils (%) (Auto) 72.4 % 75.9 % Lymphocytes (%) (Auto) 14.8 % 11.8 % Monocytes (%) (Auto) 11.2 % 11.0 % Eosinophils (%) (Auto) 1.1 % 0.8 % Basophils (%) (Auto) 0.5 % 0.5 % Neutrophils # (Auto) 3.7 TH/MM3 4.6 TH/MM3 Lymphocytes # (Auto) 0.8 TH/MM3 0.7 TH/MM3 Monocytes # (Auto) 0.6 TH/MM3 0.7 TH/MM3 Eosinophils # (Auto) 0.1 TH/MM3 0.1 TH/MM3 Basophils # (Auto) 0.0 TH/MM3 0.0 TH/MM3 CBC Comment AUTO DIFF DIFF FINAL Differential Total Cells 100 Counted Neutrophils % (Manual) 71 % Band Neutrophils % 2 % Lymphocytes % 16 % Monocytes % 8 % Neutrophils # (Manual) 4.0 TH/MM3 Metamyelocytes 1 % Myelocytes 2 % Differential Comment FINAL DIFF MANUAL Platelet Estimate LOW Platelet Morphology Comment NORMAL Tear Drop Cells 1+ Ovalocytes 1+ Keratocytes OCC Sodium Level 135 MEQ/L Potassium Level 2.9 MEQ/L Chloride Level 97 MEQ/L Carbon Dioxide Level 29.5 MEQ/L Anion Gap 9 MEQ/L Blood Urea Nitrogen 37 MG/DL Creatinine 1.95 MG/DL Estimat Glomerular Filtration 28 ML/MIN Rate Random Glucose 92 MG/DL Calcium Level 8.0 MG/DL Magnesium Level 1.6 MG/DL Total Bilirubin 1.7 MG/DL Direct Bilirubin 0.6 MG/DL Indirect Bilirubin 1.1 MG/DL Aspartate Amino Transf 48 U/L (AST/SGOT) Alanine Aminotransferase 108 U/L (ALT/SGPT) Alkaline Phosphatase 108 U/L Total Protein 6.0 GM/DL Albumin 2.9 GM/DL 25-Hydroxy Vitamin D Total 25.0 ng/ML Complement C3 111 MG/DL Complement C4 20 MG/DL Administered Medications Medications (Trade) Dose Ordered Sig/Gonzalez Route PRN Reason Start Time Stop Time Status Last Admin Dose Admin Sodium Chloride (NS Flush) 2 ml BID IV FLUSH 09/04/16 21:00 09/13/16 08:30 Morphine Sulfate (Morphine Inj) 2 mg Q3H PRN IV PUSH pain >5 09/04/16 23:15 09/11/16 21:52 Docusate Sodium (Colace) 100 mg BID PRN PO CONSTIPATION 09/05/16 07:45 09/11/16 21:53 Gabapentin (Neurontin) 300 mg BID PO 09/05/16 09:00 09/13/16 08:30 Oxybutynin Chloride (Ditropan) 5 mg DAILY PO 09/05/16 09:00 09/13/16 08:30 Miscellaneous Information Patient in critical care unit? Ass... Q361D .XX 09/06/16 20:00 09/06/16 20:00 Patient Own Medication PT OWN MED: AMP... BID PO 09/06/16 22:30 09/08/16 07:45 Cyanocobalamin (Vitamin B12) 1,000 mcg DAILY PO 09/09/16 09:00 09/13/16 08:30 Hydralazine HCl (Apresoline) 100 mg Q8HR PO 09/12/16 14:00 09/13/16 05:44 Bumetanide (Bumex Inj) 1 mg DAILY IV PUSH 09/12/16 19:45 09/13/16 08:32 Objective Remarks GENERAL: Middle aged female, sitting up in bed in nad. SKIN: Warm and dry. HEAD: Normocephalic. EYES: No injection or drainage. NECK: Supple, trachea midline. CARDIOVASCULAR: Regular rate and rhythm RESPIRATORY: Breath sounds equal bilaterally. No accessory muscle use. GASTROINTESTINAL: Abdomen soft, non-tender, nondistended. EXTREMITIES: No cyanosis. bilateral lower extremities with 2-3+ pitting edema. NEUROLOGICAL: No obvious focal deficit. Awake, alert, and oriented x3. Assessment/Plan Problem List: (1) Thrombocytopenia Status: Resolved Plan: 09/13/16: platelet count improved to >100K. patient clear for discharge from hematology perspective 09/12/16: Pt rec'd 2 units FFP. Direct King negative. Thrombocytopenia likely DIC from cholecystitis. Await CBC result today. 09/11/16: Platelets increased to 67K today. 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 HIT negative. Will continue to monitor CBC. 09/10/16: Platelets slightly improved today to 61K. Evidence of hemolysis in labs. Coags OK. Peripheral smear pending, HIT pending. Assessment 46 y/o female with history of multiple sclerosis; hematology consulted to evaluate thrombocytopenia. Attending Statement no new c/o except worried about leg swelling. Plat >100 k P to d/c will follow as needed. The exam, history, and the medical decision-making described in the above note were completed with the assistance of the mid-level provider. I reviewed and agree with the findings presented. I attest that I had a [id number] encounter with the patient on the same day, and personally performed and documented my assessment and findings in the medical record. Yuridia Cardozo September 13, 2016 11:27 Augusto Mensah MD September 13, 2016 23:48
[2016-09-13 12:09] LABS: ALBUMIN SPE 3.55 GM/DL (3.50-5.00)
[2016-09-13 12:10] LABS: ALPHA 1 GLOBULIN 0.19 GM/DL (0.11-0.29); ALPHA 2 GLOBULIN 0.6 GM/DL (0.22-1.00); BETA GLOBULINS (SPE) 0.64 GM/DL (0.53-1.03)
[2016-09-13] MEDS: METOPROLOL TARTRATE 25 MG TAB PO SCH ×2 (12:16→19:48)
--- NOTE | 2016-09-13 12:34 | EC ---
Study Study Date:09/13/2016 STUDY CONCLUSIONS SUMMARY - Left ventricle: The cavity size was normal. Wall thickness was increased in a pattern of severe LVH. Systolic function was normal. The estimated ejection fraction was in the range of 60% to 65%. Wall motion was normal; there were no regional wall motion abnormalities. - Mitral valve: Mild regurgitation. - Atrial septum: A patent foramen ovale cannot be excluded. - Tricuspid valve: Mild regurgitation. - Pulmonary arteries: Systolic pressure was mildly increased. PA peak pressure: 51mm Hg (S). - Pericardium, extracardiac: A small to moderate pericardial effusion was identified circumferential to the heart. There was no evidence of hemodynamic compromise. Ascites was noted. If LV function is below 40, please consider prescribing an ACEI or ARB or document rationale for non-use. PROCEDURE DATA STUDY STATUS: Elective. Procedure: Transthoracic echocardiography. Image quality was good. Scanning was performed from the parasternal, apical, and subcostal acoustic windows. Study completion: The patient tolerated the procedure well. Transthoracic echocardiography. M-mode, complete 2D, complete spectral Doppler, and color Doppler. Patient status: Inpatient. CARDIAC ANATOMY LEFT VENTRICLE: The cavity size was normal. Wall thickness was increased in a pattern of severe LVH. Systolic function was normal. The estimated ejection fraction was in the range of 60% to 65%. Wall motion was normal; there were no regional wall motion abnormalities. AORTIC VALVE: Trileaflet; mildly thickened leaflets. Doppler: Transvalvular velocity was within the normal range. There was no stenosis. No regurgitation. AORTA: Aortic root: The aortic root was normal in size. MITRAL VALVE: Structurally normal valve. Doppler: Transvalvular velocity was within the normal range. There was no evidence for stenosis. Mild regurgitation. Peak gradient: 7mm Hg (D). LEFT ATRIUM: The atrium was normal in size. ATRIAL SEPTUM: A patent foramen ovale cannot be excluded. RIGHT VENTRICLE: The cavity size was normal. Wall thickness was normal. PULMONIC VALVE: Doppler: Transvalvular velocity was within the normal range. There was no evidence for stenosis. No regurgitation. TRICUSPID VALVE: Structurally normal valve. Doppler: Transvalvular velocity was within the normal range. Mild regurgitation. PULMONARY ARTERY: The main pulmonary artery was normal-sized. Systolic pressure was mildly increased. RIGHT ATRIUM: The atrium was normal in size. PERICARDIUM: A small to moderate pericardial effusion was identified circumferential to the heart. There was no evidence of hemodynamic compromise. SYSTEMIC VEINS: Inferior vena cava: The vessel was normal in size. Abdomen: Ascites was noted. BASIC MEASUREMENTS ADULT NORMAL Left ventricle LV internal dimension, ED, chordal level, 43.2 mm 43-52 PLAX LV internal dimension, ES, chordal level, 32.2 mm 23-38 PLAX Fractional shortening, chordal level, PLAX *25 % >29 LV posterior wall thickness, ED 17 mm IVS/LVPW ratio, ED 0.77 <1.3 Ventricular septum Septal thickness, ED 13.1 mm Aorta Root diameter, ED 26 mm Left atrium Anterior-posterior dimension 31 mm Right ventricle RV internal dimension, ED, PLAX 23.1 mm 19-38 DOPPLER MEASUREMENTS ADULT NORMAL Main pulmonary artery Pressure, S *51 mm Hg =30 Mitral valve Peak E-wave velocity 128 cm/s Peak A-wave velocity 71.6 cm/s Peak gradient, D 7 mm Hg Peak E/A ratio 1.8 Tricuspid valve Regurgitant peak velocity 321 cm/s Peak RV-RA gradient, S 41 mm Hg Maximal regurgitant velocity 321 cm/s Systemic veins Estimated CVP 10 mm Hg Right ventricle RV pressure, S *51 mm Hg <30 LEGEND: Mean values are shown as u=mean value. Asterisk (*) gould values outside specified normal range. Prepared and signed by Manny Hennessy [id number]
--- NOTE | 2016-09-13 13:40 | HHI.NPPN ---
Subjective History of Present Illness The patient is a 46 yo [place] female who was sent to [facility] ED on 09/05/16 by her PCP for AMS. Says that prior to her admission, she had not been feeling well reporting multiple falls, weight loss, and fatigue. Her situation is complicated by MS which she was dx in 2007 and says she has been on the same medication since then (follows with Dr. Boo)---Ampyra & Rebif. Since her admission, she was diagnosed with biliary structure and is s/p cholecystectomy . As her liver enzymes have been elevated, she also had liver biopsy. Her platelets have been dropping and she has had some vaginal bleeding and nose bleeds. Hematology on board and believes that she has a DIC from her recent cholecystitis. She is unaware of any hx of renal decline. Admitting SCr at 2.20 and is 1.90 at time of consult. Labs prior to that in 2012 showed normal renal functions. PMHx otherwise of HTN, but not on medications for some time as it was controlled. Admits that she was a heavy EtOH user, but quit in August. Also quit smoking in August. Denies any NSAID use, not diabetic, no hx of obstructive uropathy. Interval History Pt with no new complaints today. Says edema not improving. Still no SOB. ( Rsoalee Morgan) Review of Systems Cardiovascular Cardiac: Edema (Rosalee Morgan) Objective Data Data 09/12/16 09/13/16 19:00 07:00 Intake Total 625 ml 960 ml Output Total 900 ml 1300 ml Balance -275 ml -340 ml Intake Oral 475 ml 960 ml IV Total 150 ml Output Urine Total 900 ml 1300 ml # Bowel Movements 0 Vital Signs Date Time Temp Pulse Resp B/P Pulse Ox O2 Delivery O2 Flow Rate FiO2 09/13/16 08:00 96.7 94 16 164/76 99 09/13/16 05:42 188/88 09/13/16 04:00 98.4 97 17 174/82 100 09/13/16 00:00 98.3 98 17 168/91 97 09/12/16 20:00 96.7 93 17 142/87 100 09/12/16 20:00 94 09/12/16 16:00 95.4 83 18 154/84 96 (Rosalee Morgan) -: [id number]/13/[id number]/16440 Medication Review Current Medications Medications (Trade) Dose Ordered Sig/Gonzalez Route Start Time Stop Time Status Last Admin (NS Flush) 2 ml UNSCH PRN IV FLUSH 09/04/16 19:45 (NS Flush) 2 ml BID IV FLUSH 09/04/16 21:00 09/13/16 08:30 (Narcan Inj) 0.4 mg UNSCH PRN IV 09/04/16 19:45 (Morphine Inj) 2 mg Q3H PRN IV PUSH 09/04/16 23:15 09/11/16 21:52 (Tylenol) 650 mg Q4H PRN PO 09/05/16 07:45 (Zofran Inj) 4 mg Q6H PRN IV 09/05/16 07:45 (Colace) 100 mg BID PRN PO 09/05/16 07:45 09/11/16 21:53 (Tums Chew) 1,000 mg TID PRN CHEW 09/05/16 07:45 (Neurontin) 300 mg BID PO 09/05/16 09:00 09/13/16 08:30 (Ditropan) 5 mg DAILY PO 09/05/16 09:00 09/13/16 08:30 Miscellaneous Information Patient in critical care unit? Ass... Q361D .XX 09/06/16 20:00 09/06/16 20:00 Patient Own Medication PT OWN MED: AMP... BID PO 09/06/16 22:30 09/08/16 07:45 (Vitamin B12) 1,000 mcg DAILY PO 09/09/16 09:00 09/13/16 08:30 (Apresoline) 100 mg Q8HR PO 09/12/16 14:00 09/13/16 05:44 (Bumex Inj) 1 mg DAILY IV PUSH 09/12/16 19:45 09/13/16 08:32 (Lopressor) 12.5 mg Q12HR PO 09/13/16 10:00 09/13/16 12:16 (Catapres) 0.1 mg Q8HR PO 09/13/16 14:00 (Rosalee Morgan) Physical Exam General Appearance: No Acute Distress, Comfortable (Rosalee Morgan) Pulmonary Resp Exam: Clear Bilaterally, Breath Sounds Equal (Rosalee Morgan) Cardiology CV Exam: Regular, Normal Sinus Rhythm (Rosalee Morgan) Gastrointestinal/Abdomen GI Exam: Soft, Non-Tender (Rosalee Morgan) Integumentary Skin Exam: Clear, Warm (Rosalee Morgan) Extremeties Extremities Exam: Moderate Edema (2-3+ pitting BLE up to thighs), Pitting Edema (Rosalee Morgan) Neurologic Neuro Exam: Alert, Awake, Oriented (Rosalee Morgan) Psychiatric Psych Exam: Appropriate Responses (Rosalee Morgan) Assessment/Plan Problem List: (1) Acute renal insufficiency Plan: Renal functions stable. Significant other had outpatient lab dated Jun 2016 that showed a SCr of 0.66 Screening tests still pending. Rebif can be associated with a multitude of renal side effects including acute renal insufficiency, minimal change disease, massive proteinuria, and acute tubular necrosis. Echo reviewed. IV Bumex 1mg now in addition to daily 1mg IVP KCl has been ordered today. Repeat K+ at 1800---replete as needed. Medications should be adjusted for her renal decline. Avoid nephrotoxic medications including iodinated contrast dyes and NSAIDs. Avoid gadolinium when eGFR <30. (2) Edema Plan: See above Noted she is on multiple medications that can cause edema---amlodipine, hydralazine, gabapentin. Dosages may need to be adjusted (3) Hypertension Plan: Medications are being adjusted by primary. Amlodipine discontinued and now on Clonidine 0.1mg q8h as well as Metoprolol 12.5mg q12h with Hydralazine 100mg q8h. Renin/nate levels are pending. Renal doppler reviewed and showed no signs of SERGEY (4) MS (multiple sclerosis) Plan: Medications on hold at the present. Defer to neurology (5) Thrombocytopenia Plan: Mgmt as per hematology who has signed off Dx with DIC--plts improving (6) Elevated liver enzymes Plan: Reviewed liver biopsy report which shows suspicion for alcoholic or drug related hepatitis (Rosalee Morgan) Plan Workup in progress. The exam, history, and the medical decision-making described in the above note were completed with the assistance of the MARIA L. I reviewed and agree with the findings presented. (Bossman Nunes MD) Rosalee Morgan September 13, 2016 13:40 Bossman Nunes MD September 13, 2016 16:53
[2016-09-13] MEDS ORDERED: BUMETANIDE INJ 1 MG/4 ML VIAL IV PUSH ONE (14:30)
[2016-09-13] MEDS: cloNIDine HCL 0.1 MG TAB PO SCH ×2 (14:34→21:42)
[2016-09-14] VITALS: BP 132/66; PULSE 70; RESP 17; TEMP 98.3; O2SAT 96
[2016-09-14 04:00] VITALS: BP 136/75; PULSE 72; RESP 17; TEMP 97.9; O2SAT 96
[2016-09-14] MEDS: hydrALAZINE HCL 50 MG TAB PO SCH ×3 (05:32→22:28)
[2016-09-14] MEDS: cloNIDine HCL 0.1 MG TAB PO SCH ×3 (05:32→22:29)
[2016-09-14 07:08] LABS: MEAN CELL VOLUME 102.2 FL (80.0-100.0); MEAN CORPUSCULAR HEMOGLOBIN 34.7 PG (27.0-34.0); PLATELET COUNT 115 TH/MM3 (150-450); RED BLOOD COUNT 2.44 MIL/MM3 (4.00-5.30); RED CELL DISTRIBUTION WIDTH 18.5 % (11.6-17.2); REVIEW FLAG FINAL
[2016-09-14 07:29] LABS: BICARBONATE 31.9 MEQ/L (21.0-32.0); MAGNESIUM 1.5 MG/DL (1.5-2.5)
[2016-09-14 07:40] LABS: POTASSIUM 2.5 MEQ/L (3.5-5.1)
[2016-09-14 08:00] VITALS: BP 107/60; PULSE 76; RESP 17; TEMP 98.5; O2SAT 97
[2016-09-14] MEDS: METOPROLOL TARTRATE 25 MG TAB PO SCH ×2 (08:29→21:19)
[2016-09-14] MEDS: CYANOCOBALAMIN 1,000 MCG TAB PO SCH (08:29)
[2016-09-14] MEDS: OXYBUTYNIN CHLORIDE 5 MG TAB PO SCH (08:29)
[2016-09-14] MEDS: CHOLECALCIFEROL (VIT D3) 1000 UNIT TAB PO SCH (08:29)
[2016-09-14] MEDS: GABAPENTIN 300 MG CAP PO SCH ×2 (08:29→21:19)
[2016-09-14] MEDS: SODIUM CHLORIDE 0.9% FLUSH 10 ML FLUSH IV FLUSH SCH ×2 (08:30→21:00)
[2016-09-14] MEDS: BUMETANIDE INJ 1 MG/4 ML VIAL IV PUSH SCH (08:30)
[2016-09-14] MEDS: DALFAMPRIDINE 10 MG PO SCH ×2 (09:00→21:00)
--- NOTE | 2016-09-14 09:13 | PD.ONC.PN ---
Subjective Subjective Remarks Afebrile overnight. Patient still reporting swelling in legs. Otherwise without complaint. Objective Data Date Time Temp Pulse Resp B/P Pulse Ox O2 Delivery O2 Flow Rate FiO2 09/14/16 08:00 98.5 76 17 107/60 97 09/14/16 04:00 97.9 72 17 136/75 96 09/14/16 00:00 98.3 70 17 132/66 96 09/13/16 20:00 97.4 76 17 133/65 98 09/13/16 16:00 96.2 78 18 140/82 99 09/13/16 14:00 148/86 09/14/16 09/14/16 09/14/16 07:00 15:00 23:00 Intake Total 240 ml Output Total 400 ml Balance -160 ml Result Diagram: 09/14/16 0430 09/14/16 0436 Laboratory Results Laboratory Tests Test 09/13/16 09/14/16 09/14/16 17:45 04:30 04:36 Potassium Level 3.2 MEQ/L 2.5 MEQ/L White Blood Count 4.0 TH/MM3 Red Blood Count 2.44 MIL/MM3 Hemoglobin 8.5 GM/DL Hematocrit 25.0 % Mean Corpuscular Volume 102.2 FL Mean Corpuscular Hemoglobin 34.7 PG Mean Corpuscular Hemoglobin 34.0 % Concent Red Cell Distribution Width 18.5 % Platelet Count 115 TH/MM3 Mean Platelet Volume 9.5 FL Sodium Level 137 MEQ/L Chloride Level 96 MEQ/L Carbon Dioxide Level 31.9 MEQ/L Anion Gap 9 MEQ/L Blood Urea Nitrogen 33 MG/DL Creatinine 1.99 MG/DL Estimat Glomerular Filtration 27 ML/MIN Rate Random Glucose 81 MG/DL Calcium Level 7.6 MG/DL Magnesium Level 1.5 MG/DL Administered Medications Medications (Trade) Dose Ordered Sig/Gonzalez Route PRN Reason Start Time Stop Time Status Last Admin Dose Admin Sodium Chloride (NS Flush) 2 ml BID IV FLUSH 09/04/16 21:00 09/14/16 08:30 Morphine Sulfate (Morphine Inj) 2 mg Q3H PRN IV PUSH pain >5 09/04/16 23:15 09/11/16 21:52 Docusate Sodium (Colace) 100 mg BID PRN PO CONSTIPATION 09/05/16 07:45 09/11/16 21:53 Gabapentin (Neurontin) 300 mg BID PO 09/05/16 09:00 09/14/16 08:29 Oxybutynin Chloride (Ditropan) 5 mg DAILY PO 09/05/16 09:00 09/14/16 08:29 Miscellaneous Information Patient in critical care unit? Ass... Q361D .XX 09/06/16 20:00 09/06/16 20:00 Patient Own Medication PT OWN MED: AMP... BID PO 09/06/16 22:30 09/08/16 07:45 Cyanocobalamin (Vitamin B12) 1,000 mcg DAILY PO 09/09/16 09:00 09/14/16 08:29 Hydralazine HCl (Apresoline) 100 mg Q8HR PO 09/12/16 14:00 09/14/16 05:32 Bumetanide (Bumex Inj) 1 mg DAILY IV PUSH 09/12/16 19:45 09/14/16 08:30 Metoprolol Tartrate (Lopressor) 12.5 mg Q12HR PO 09/13/16 10:00 09/14/16 08:29 Clonidine (Catapres) 0.1 mg Q8HR PO 09/13/16 14:00 09/14/16 05:32 Cholecalciferol (Vitamin D3) 2,000 units DAILY PO 09/14/16 09:00 09/14/16 08:29 Objective Remarks GENERAL: Middle aged female, sitting up on side of bed SKIN: Warm and dry. HEAD: Normocephalic. EYES: No injection or drainage. NECK: Supple, trachea midline. CARDIOVASCULAR: Regular rate and rhythm RESPIRATORY: Breath sounds equal bilaterally. No accessory muscle use. GASTROINTESTINAL: Abdomen soft, non-tender, nondistended. EXTREMITIES: No cyanosis. BLE with 2+ edema NEUROLOGICAL: awake and alert, normal speech. moving all extremities. Assessment/Plan Assessment 46 y/o female with history of multiple sclerosis; hematology consulted to evaluate thrombocytopenia. Plan 1. platelet count improved to 115K today. patient clear for discharge from hematology perspective Attending Statement The exam, history, and the medical decision-making described in the above note were completed with the assistance of the mid-level provider. I reviewed and agree with the findings presented. I attest that I had a [id number] encounter with the patient on the same day, and personally performed and documented my assessment and findings in the medical record. patient recovering well and no complaints. the platelet count continues to climb and no intervention required and it appears to related to acute events surrounding admission. Yuridia Cardozo September 14, 2016 09:13 Paul Vick MD September 14, 2016 16:29
[2016-09-14 10:44] LABS: URINE TOTAL PROTEIN TIMED 14.8 MG/DL
[2016-09-14 10:45] LABS: URINE TOTAL PROTEIN TIMED 14.8 MG/DL
[2016-09-14 12:00] VITALS: BP 117/66; PULSE 75; RESP 17; TEMP 96.9; O2SAT 98
--- NOTE | 2016-09-14 12:01 | HHI.GIFU ---
Subjective Remarks Resting in bed. No distress. Tolerating diet. No n/v, no abdominal pain. ( Jenny Perez) Objective Vitals I&O Vital Signs Date Time Temp Pulse Resp B/P Pulse Ox O2 Delivery O2 Flow Rate FiO2 09/14/16 08:00 98.5 76 17 107/60 97 09/14/16 04:00 97.9 72 17 136/75 96 09/14/16 00:00 98.3 70 17 132/66 96 09/13/16 20:00 97.4 76 17 133/65 98 09/13/16 16:00 96.2 78 18 140/82 99 09/13/16 14:00 148/86 I/O 09/13/16 09/13/16 09/13/16 09/14/16 09/14/16 09/14/16 07:00 15:00 23:00 07:00 15:00 23:00 Intake Total 480 ml 700 ml 240 ml 240 ml Output Total 700 ml 1000 ml 800 ml 400 ml Balance -220 ml -300 ml -560 ml -160 ml Intake Oral 480 ml 600 ml 240 ml 240 ml IV Total 100 ml Output Urine Total 700 ml 1000 ml 800 ml 400 ml # Bowel Movements 1 Laboratory Laboratory Tests Test 09/13/16 09/14/16 09/14/16 09/14/16 17:45 03:00 04:30 04:36 Potassium Level 3.2 2.5 Urine Total Volume 24 Hours 3060 Urine Total Protein 24 Hour 453 White Blood Count 4.0 Red Blood Count 2.44 Hemoglobin 8.5 Hematocrit 25.0 Mean Corpuscular Volume 102.2 Mean Corpuscular Hemoglobin 34.7 Mean Corpuscular Hemoglobin 34.0 Concent Red Cell Distribution Width 18.5 Platelet Count 115 Mean Platelet Volume 9.5 Sodium Level 137 Chloride Level 96 Carbon Dioxide Level 31.9 Anion Gap 9 Blood Urea Nitrogen 33 Creatinine 1.99 Estimat Glomerular Filtration 27 Rate Random Glucose 81 Calcium Level 7.6 Magnesium Level 1.5 Imaging Last Impressions Renal Ultrasound 09/12/16 0000 Signed Impressions: Service Date/Time: September 10:44 - CONCLUSION: Negative exam. Patient does not appear to have a vascular etiology for current clinical symptoms.. Torin Pearce MD Lower Extremity Ultrasound 5/8/17 0000 Signed Impressions: Service Date/Time: Friday, September 09, 2016 19:27 - CONCLUSION: Possible left knee Pollard's cyst. This could be confirmed with MRI if clinically indicated. No evidence of lower extremity DVT. Lamine Blackmon MD Cholangiogram 09/08/16 Signed Impressions: Service Date/Time: Thursday, September 08, 2016 09:23 - CONCLUSION: No evidence of common duct stone. Redd Camacho MD Hepatobiliary Scan Nuclear Medicine 09/06/16 Signed Impressions: Service Date/Time: Tuesday, September 06, 2016 13:50 - CONCLUSION: 1. There is no evidence of common bile duct obstruction. There is normal clearance of tracer from the liver. 2. The gallbladder is never identified. In the appropriate clinical setting this can suggest cholecystitis. Delayed imaging may be of benefit to increase specificity. Hernan Grant MD Cholangiopancreatography MRI 09/06/16 Signed Impressions: Service Date/Time: Tuesday, September 06, 2016 08:50 - CONCLUSION: Nonvisualization of the duct confluence and proximal common hepatic duct. Lamine Blackmon MD ADDENDUM: COMPARISON: BILIARY SCAN (HIDA), September 06, 2016, 13:50. In light of normal appearance and drainage of the biliary tree on the HIDA scan, MRCP appearance is felt probably artifactual. Lamine Blackmon MD Thoracic Spine MRI 09/05/16 Signed Impressions: Service Date/Time: September 14:50 - CONCLUSION: 1. Long segment but very small, age-indeterminate syrinx of the thoracic spine. The thoracic cord also appears slightly atrophic. 2. Mild degenerative changes as above. 3. No foraminal or spinal stenosis. 4. Small right and tiny left pleural effusions are incidentally noted. Lamine Zuñiga MD Lumbar Spine MRI 09/05/16 Signed Impressions: Service Date/Time: September 14:50 - CONCLUSION: 1. Mild degenerative changes at L3/L4, L4/L5 and L5/S1. Please see above. 2. Small, age indeterminate right paracentral disc protrusion at L5/S1. This contacts the transiting right S1 nerve root within the lateral recess but without evidence of impingement. 3. Mild bilateral foraminal encroachment at L4/L5 without definite exiting nerve root impingement. 4. There are left larger than right biforaminal annular fissures at the L4/L5 disc. 5. Apparent mild facet synovitis on the left at L5/S1. Lamine Zuñiga MD Chest X-Ray 09/05/16 0000 Signed Impressions: Service Date/Time: September 07:52 - CONCLUSION: Mild to moderate cardiomegaly with no evidence of pulmonary edema. Redd Camacho MD Head CT 09/04/16 1702 Signed Impressions: Service Date/Time: Sunday, September 04, 2016 18:47 - CONCLUSION: Unremarkable noncontrast CT. Redd Camacho MD Abdomen/Pelvis CT 09/04/16 0000 Signed Impressions: Service Date/Time: Sunday, September 04, 2016 18:50 - CONCLUSION: 1. The study was performed without intravenous or oral contrast limiting the sensitivity. 2. No evidence of biliary obstruction. 3. The gallbladder is abnormal in appearance with wall thickening or surrounding fluid. There are no calcified gallstones identified. 4. Cystic mass in the left adnexa measuring 4.1 x 3 cm most consistent with an ovarian cyst. 5. Small right pleural effusion. 6. Nonspecific, nonobstructive bowel gas pattern which may represent an ileus or gastroenteritis. 7. Air-fluid level in the bladder likely secondary to recent instrumentation. Redd Camacho MD Physical Exam HEENT: Normocephalic; atraumatic CHEST: CTA CARDIAC: RRR ABDOMEN: Soft, nondistended,nontender, no hepatosplenomegaly; bowel sounds are present in all four quadrants. EXTREMITIES: No clubbing, cyanosis, +1 pitting edema BLE SKIN: Normal; no rash; no jaundice. HEEL COVER SOFTENER: No focal deficits; alert and oriented times three. (Jenny Perez [facility]) Assessment and Plan Plan ASSESSMENT: - Elevated LFTs, unclear etiology. HIDA ()----> 1. There is no evidence of common bile duct obstruction. There is normal clearance of tracer from the liver. 2. The gallbladder is never identified. In the appropriate clinical setting this can suggest cholecystitis. Delayed imaging may be of benefit to increase specificity. MRCP (09/06/16)-----> Nonvisualization of the duct confluence and proximal common hepatic duct. ADDENDUM: In light of normal appearance and drainage of the biliary tree on the HIDA scan, MRCP appearance is felt probably artifactual. Cholangiogram (09/08/16)---> No evidence of common duct stone. MICHAEL negative, ASMA negative, AMA negative, Hepatitis profile negative. MICHAEL neg, ASMA neg, AMA neg. Hep panel neg. Alpha 1 antitrypsin 118, Ceruloplasmin 41. Ferritin 1116, Iron saturation 47.5%. 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 US vascular negative for vascular etiology, she cannot have MRA/CTA due to low GFR. LFTs trending down. Of note, pt was taking Rebif for her MS and stopped last week. ? Medication related. She states she is not going back on Rebif. PLAN - RUSTY - Monitor labs - Avoid hepatotoxic meds - FU ZHEN 2 weeks - GI will sign off, please reconsult as needed - Pt seen and examined by Dr. Koch and myself and this note is written on her behalf (Jenny Perez) Physician Comments seen, examined agree with above if dc fu office may need egd/colonoscopy as evaluation for anemia vit d supplementations (Enriqueta Koch MD) Jenny Perez September 14, 2016 12:01 Enriqueta Koch MD September 14, 2016 14:27
[2016-09-14] MEDS ORDERED: POTASSIUM CHLORIDE 20 MEQ CONTROLLED RELEASE TAB PO ONE ×2 (12:30→13:30)
--- NOTE | 2016-09-14 13:19 | HHI.PR ---
Subjective Remarks This is a pleasant 46 y/o Female with Multiple sclerosis, tobacco dependence Alcohol abuse, sent to ER by PCP due to Altered mental status, unintentional weight loss, recurrent falls, has Hypertension, Overactive bladder, admitted on 09/05/16, ECG showed Left Ventricular Hypertrophy, Acute Kidney Injury, elevated Liver Enzymes, dehydrated, Neurology consulted for MS. as per Neurology specialist recommended to hold Ampyra and Rebif this medicines may be a factor for her Generalized weakness, also probable related to MS. elevated Liver Enzymes as per GI specialist probable secondary to Alcohol abuse, recommended HIDA scan, MRCP, was transferred by General Surgery to this facility for ERCP. 09/13: Consulted by Nephrology specialist and Renal Ultrasound with increased Echogenicity for CKD but no clear why the patient had this decline in renal function, questioned about medicine Rebif, but will study MICHAEL, Urine protein to Creatinine ratio, Echocardiogram, IV fluids stopped due to edema, started on Bumex IV and monitor renal function. probable edema secondary to medicines, Amlodipine, Hydralazine, Gabapentin, seen by GI specialist with diagnosis of elevated LFTs MICHAEL negative ASMA neg, MA neg, AMA neg. Hep panel neg. s/p lap leydi, liver bx--> mild portal hepatitis with early bridging fibrosis, morphologic features suspicious for ETOH, and again Rebif as possible cause for Hepatitis stopped, has Thrombocytopenia followed by acute care clinical nurse specialist. status post 2 units of FFP, Direct King negative, likely DIC from Cholecystitis, Direct antiglobulin test negative. Haptoglobin is low due to liver disease and Hemolysis. 09/14: Seen in her bedroom no complaint, no nausea, vomit or diarrhea, already GI specialist Signed off and acute care clinical nurse specialist but awaiting final by Nephrology specialist for discharge. Objective Vital Signs Date Time Temp Pulse Resp B/P Pulse Ox O2 Delivery O2 Flow Rate FiO2 09/14/16 12:00 96.9 75 17 117/66 98 09/14/16 08:00 98.5 76 17 107/60 97 09/14/16 04:00 97.9 72 17 136/75 96 09/14/16 00:00 98.3 70 17 132/66 96 09/13/16 20:00 97.4 76 17 133/65 98 09/13/16 16:00 96.2 78 18 140/82 99 09/13/16 14:00 148/86 I/O 09/13/16 09/13/16 09/13/16 09/14/16 09/14/16 09/14/16 07:00 15:00 23:00 07:00 15:00 23:00 Intake Total 480 ml 700 ml 240 ml 240 ml Output Total 700 ml 1000 ml 800 ml 400 ml Balance -220 ml -300 ml -560 ml -160 ml Intake Oral 480 ml 600 ml 240 ml 240 ml IV Total 100 ml Output Urine Total 700 ml 1000 ml 800 ml 400 ml # Bowel Movements 1 Result Diagram: 09/14/16 0430 09/14/16 0436 Imaging Last Impressions Renal Ultrasound 09/12/16 0000 Signed Impressions: Service Date/Time: September 10:44 - CONCLUSION: Negative exam. Patient does not appear to have a vascular etiology for current clinical symptoms.. Torin Pearce MD Lower Extremity Ultrasound 09/09/16 0000 Signed Impressions: Service Date/Time: Friday, September 09, 2016 19:27 - CONCLUSION: Possible left knee Pollard's cyst. This could be confirmed with MRI if clinically indicated. No evidence of lower extremity DVT. Lamine Blackmon MD Cholangiogram 09/08/16 0000 Signed Impressions: Service Date/Time: Thursday, September 08, 2016 09:23 - CONCLUSION: No evidence of common duct stone. Redd Camacho MD Hepatobiliary Scan Nuclear Medicine 09/06/16 0000 Signed Impressions: Service Date/Time: Tuesday, September 06, 2016 13:50 - CONCLUSION: 1. There is no evidence of common bile duct obstruction. There is normal clearance of tracer from the liver. 2. The gallbladder is never identified. In the appropriate clinical setting this can suggest cholecystitis. Delayed imaging may be of benefit to increase specificity. Hernan Grant MD Cholangiopancreatography MRI 09/06/16 0000 Signed Impressions: Service Date/Time: Tuesday, September 06, 2016 08:50 - CONCLUSION: Nonvisualization of the duct confluence and proximal common hepatic duct. Lamine Blackmon MD ADDENDUM: COMPARISON: BILIARY SCAN (HIDA), September 06, 2016, 13:50. In light of normal appearance and drainage of the biliary tree on the HIDA scan, MRCP appearance is felt probably artifactual. Lamine Blackmon MD Thoracic Spine MRI 09/05/16 Signed Impressions: Service Date/Time: September 14:50 - CONCLUSION: 1. Long segment but very small, age-indeterminate syrinx of the thoracic spine. The thoracic cord also appears slightly atrophic. 2. Mild degenerative changes as above. 3. No foraminal or spinal stenosis. 4. Small right and tiny left pleural effusions are incidentally noted. Lamine Zuñiga MD Lumbar Spine MRI 09/05/16 Signed Impressions: Service Date/Time: September 14:50 - CONCLUSION: 1. Mild degenerative changes at L3/L4, L4/L5 and L5/S1. Please see above. 2. Small, age indeterminate right paracentral disc protrusion at L5/S1. This contacts the transiting right S1 nerve root within the lateral recess but without evidence of impingement. 3. Mild bilateral foraminal encroachment at L4/L5 without definite exiting nerve root impingement. 4. There are left larger than right biforaminal annular fissures at the L4/L5 disc. 5. Apparent mild facet synovitis on the left at L5/S1. Lamine Zuñiga MD Chest X-Ray 09/05/16 Signed Impressions: Service Date/Time: September 07:52 - CONCLUSION: Mild to moderate cardiomegaly with no evidence of pulmonary edema. Redd Camacho MD Head CT 09/04/16 1702 Signed Impressions: Service Date/Time: Sunday, September 04, 2016 18:47 - CONCLUSION: Unremarkable noncontrast CT. Redd Camacho MD Abdomen/Pelvis CT 09/04/16 Signed Impressions: Service Date/Time: Sunday, September 04, 2016 18:50 - CONCLUSION: 1. The study was performed without intravenous or oral contrast limiting the sensitivity. 2. No evidence of biliary obstruction. 3. The gallbladder is abnormal in appearance with wall thickening or surrounding fluid. There are no calcified gallstones identified. 4. Cystic mass in the left adnexa measuring 4.1 x 3 cm most consistent with an ovarian cyst. 5. Small right pleural effusion. 6. Nonspecific, nonobstructive bowel gas pattern which may represent an ileus or gastroenteritis. 7. Air-fluid level in the bladder likely secondary to recent instrumentation. Redd Camacho MD Procedures status post Laparoscopic Cholecystectomy with intraoperative cholangiogram with intraoperative use of fluoroscopy Joseph-cut Liver biopsy x 2 with Post operative diagnosis of Cholecystitis with previous choledocholithiasis with fatty changes by Doctor Redd Jurado Other Results Laboratory Tests Test 09/05/16 09/10/16 09/11/16 09/11/16 19:10 05:34 00:33 06:39 Ytisi-5-Gjmzorzxjvj 118 mg/dL Ceruloplasmin 41 mg/dL Immunoglobulin A 252 mg/dL Mitochondria M2 Antibody LESS THAN 20.0 U Anti-Smooth Muscle Antibody Negative Endomysial Antibody Titer Endomysial IgA Antibody Tissue Transglutaminase IgG Ab U/mL Tissue Transglutaminase IgA Ab LESS THAN 1 U/mL Celiac Disease Interpretation Polychromasia 3.1 % Spherocytes OCC Heparin-Induced Platelet Ab NEGATIVE (Nadege) HIPA Patient Optical Density 0.297 O.D. Blood Bank Comment Acanthocytes OCC Total Creatine Kinase 279 U/L Creatine Kinase MB 8.2 NG/ML Creatine Kinase MB % 2.9 % Test 09/11/16 09/11/16 09/12/16 09/13/16 21:32 23:47 12:20 04:41 Direct Antiglobulin Test NEGATIVE (King) Blood Type O NEGATIVE Differential Total Cells 100 Counted Neutrophils % (Manual) 71 % Band Neutrophils % 2 % Lymphocytes % 16 % Monocytes % 8 % Neutrophils # (Manual) 4.0 TH/MM3 Metamyelocytes 1 % Myelocytes 2 % Platelet Estimate LOW Platelet Morphology Comment NORMAL Tear Drop Cells 1+ Ovalocytes 1+ Keratocytes OCC Neutrophils (%) (Auto) 75.9 % Lymphocytes (%) (Auto) 11.8 % Monocytes (%) (Auto) 11.0 % Eosinophils (%) (Auto) 0.8 % Basophils (%) (Auto) 0.5 % Neutrophils # (Auto) 4.6 TH/MM3 Lymphocytes # (Auto) 0.7 TH/MM3 Monocytes # (Auto) 0.7 TH/MM3 Eosinophils # (Auto) 0.1 TH/MM3 Basophils # (Auto) 0.0 TH/MM3 CBC Comment DIFF FINAL Differential Comment Total Bilirubin 1.7 MG/DL Direct Bilirubin 0.6 MG/DL Indirect Bilirubin 1.1 MG/DL Aspartate Amino Transf 48 U/L (AST/SGOT) Alanine Aminotransferase 108 U/L (ALT/SGPT) Alkaline Phosphatase 108 U/L Total Protein 6.0 GM/DL Albumin 3.55 GM/DL Albumin/Globulin Ratio 1.44 Hoodu-4-Ibinahhtk 0.19 GM/DL Iitdm-5-Fcjepksej 0.60 GM/DL Beta Globulins 0.64 GM/DL Gamma Globulins 1.03 GM/DL 25-Hydroxy Vitamin D Total 25.0 ng/ML Anti-Nuclear Antibody Screen NEG Complement C3 111 MG/DL Complement C4 20 MG/DL Test 09/14/16 09/14/16 09/14/16 03:00 04:30 04:36 Urine Total Volume 24 Hours 3060 ML Urine Total Protein 24 Hour 453 MG/24HR White Blood Count 4.0 TH/MM3 Red Blood Count 2.44 MIL/MM3 Hemoglobin 8.5 GM/DL Hematocrit 25.0 % Mean Corpuscular Volume 102.2 FL Mean Corpuscular Hemoglobin 34.7 PG Mean Corpuscular Hemoglobin 34.0 % Concent Red Cell Distribution Width 18.5 % Platelet Count 115 TH/MM3 Mean Platelet Volume 9.5 FL Sodium Level 137 MEQ/L Potassium Level 2.5 MEQ/L Chloride Level 96 MEQ/L Carbon Dioxide Level 31.9 MEQ/L Anion Gap 9 MEQ/L Blood Urea Nitrogen 33 MG/DL Creatinine 1.99 MG/DL Estimat Glomerular Filtration 27 ML/MIN Rate Random Glucose 81 MG/DL Calcium Level 7.6 MG/DL Magnesium Level 1.5 MG/DL Objective Remarks GENERAL: No acute distress. SKIN: ecchymosis on both arms. HEAD: Atraumatic. Normocephalic. No temporal or scalp tenderness. EYES: Pupils equal round and reactive. ENT: Nose without bleeding. NECK: Trachea midline. No JVD or lymphadenopathy. Supple. CARDIOVASCULAR: Regular rate and rhythm without murmurs, gallops, or rubs. RESPIRATORY: Clear to auscultation. Breath sounds equal bilaterally. No wheezes , rales, or rhonchi. GASTROINTESTINAL: Abdomen soft, mild tenderness, clean surgical wounds. MUSCULOSKELETAL: Extremities without clubbing, Edema 4+ NEUROLOGICAL: Awake and alert. No focal deficits. Medications and IVs Current Medications Medications (Trade) Dose Ordered Sig/Gonzalez Route Start Time Stop Time Status Last Admin (NS Flush) 2 ml UNSCH PRN IV FLUSH 09/04/16 19:45 (NS Flush) 2 ml BID IV FLUSH 09/04/16 21:00 09/14/16 08:30 (Narcan Inj) 0.4 mg UNSCH PRN IV 09/04/16 19:45 (Morphine Inj) 2 mg Q3H PRN IV PUSH 09/04/16 23:15 09/11/16 21:52 (Tylenol) 650 mg Q4H PRN PO 09/05/16 07:45 (Zofran Inj) 4 mg Q6H PRN IV 09/05/16 07:45 (Colace) 100 mg BID PRN PO 09/05/16 07:45 09/11/16 21:53 (Tums Chew) 1,000 mg TID PRN CHEW 09/05/16 07:45 (Neurontin) 300 mg BID PO 09/05/16 09:00 09/14/16 08:29 (Ditropan) 5 mg DAILY PO 09/05/16 09:00 09/14/16 08:29 Miscellaneous Information Patient in critical care unit? Ass... [id number] 09/06/16 20:00 09/06/16 20:00 Patient Own Medication PT OWN MED: AMP... BID PO 09/06/16 22:30 09/08/16 07:45 (Vitamin B12) 1,000 mcg DAILY PO 09/09/16 09:00 09/14/16 08:29 (Apresoline) 100 mg Q8HR PO 09/12/16 14:00 09/14/16 05:32 (Bumex Inj) 1 mg DAILY IV PUSH 09/12/16 19:45 09/14/16 08:30 (Lopressor) 12.5 mg Q12HR PO 09/13/16 10:00 09/14/16 08:29 (Catapres) 0.1 mg Q8HR PO 09/13/16 14:00 09/14/16 05:32 (Vitamin D3) 2,000 units DAILY PO 09/14/16 09:00 09/14/16 08:29 A/P Assessment and Plan 1. Accelerated Hypertension, Controlled Nephrology specialist following, recommended to discontinue Hydralazine and Amlodipine and use more Beta Blockers. continue Ditropan 5 mg daily, Clonidine 0.1 mg every eight hours and follow closely blood pressure. Renal US Negative. No vascular reasons for this pathology. 2. Hypokalemia today 2.5 received 80 meq by mouth and following at 1600 hours today. 3. Acute Kidney Injury Nephrology following, Renal Ultrasound with increased Echogenicity for CKD but no clear why the patient had this decline in renal function, questioned about medicine Rebif , but will study MICHAEL, Urine protein to Creatinine ratio, Echocardiogram, IV fluids stopped due to edema, started on Bumex IV and monitor renal function. probable edema secondary to medicines, Amlodipine, Hydralazine, Gabapentin, Creatinine continue elevated 1.99 not yet cleared for discharge. 4. Elevated Liver enzymes with tender RUQ, CT indicated gallbladder abnormality of thickened wall or fluid present, hepatitis profile and workup for autoimmune hepatitis. after evaluation by GI specialist today reviewed MRCP/CT and HIDA scan. Status post Laparoscopic Cholecystectomy with intraoperative cholangiogram with intraoperative use of fluoroscopy Joseph-cut Liver biopsy x 2 with Post operative diagnosis of Cholecystitis with previous choledocholithiasis with fatty changes seen by GI specialist with diagnosis of elevated LFTs MICHAEL negative ASMA neg, MA neg, AMA neg. Hep panel neg. 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 cleared for discharge by GI specialist 5. Multiple Sclerosis on hold Rebif and Ampyra. 6. Macrocytic anemia with normal values of B12 and Folate 7. Acute metabolic and Hypertensive Encephalopathy CT brain no acute findings. Improved. 8. Thrombocytopenia followed by acute care clinical nurse specialist. status post 2 units of FFP, Direct King negative, likely DIC from Cholecystitis, Direct antiglobulin test negative. Haptoglobin is low due to liver disease and Hemolysis. Improving Thrombocytopenia cleared by acute care clinical nurse specialist. DVT prophylaxis with SCDs. on hold Heparin due to surgery, encourage ambulation Discharge Planning following electrolytes and renal function for discharge Silas Cummings MD September 14, 2016 13:19
[2016-09-14 16:00] VITALS: BP 113/68; PULSE 82; RESP 17; TEMP 96.9; O2SAT 98
--- NOTE | 2016-09-14 17:36 | HHI.NPPN ---
Subjective History of Present Illness The patient is a 46 yo [place] female who was sent to [facility] ED on 09/05/16 by her PCP for AMS. Says that prior to her admission, she had not been feeling well reporting multiple falls, weight loss, and fatigue. Her situation is complicated by MS which she was dx in 2007 and says she has been on the same medication since then (follows with Dr. Boo)---Ampyra & Rebif. Since her admission, she was diagnosed with biliary structure and is s/p cholecystectomy . As her liver enzymes have been elevated, she also had liver biopsy. Her platelets have been dropping and she has had some vaginal bleeding and nose bleeds. Hematology on board and believes that she has a DIC from her recent cholecystitis. She is unaware of any hx of renal decline. Admitting SCr at 2.20 and is 1.90 at time of consult. Labs prior to that in 2012 showed normal renal functions. PMHx otherwise of HTN, but not on medications for some time as it was controlled. Admits that she was a heavy EtOH user, but quit in August. Also quit smoking in August. Denies any NSAID use, not diabetic, no hx of obstructive uropathy. Interval History Patient had no verbal complaints still has significant lower extremity edema on questioning. Review of Systems Cardiovascular Cardiac: Edema Objective Data Data 09/13/16 09/14/16 18:59 06:59 Intake Total 700 ml 480 ml Output Total 1000 ml 1200 ml Balance -300 ml -720 ml Intake Oral 600 ml 480 ml IV Total 100 ml Output Urine Total 1000 ml 1200 ml # Bowel Movements 1 Vital Signs Date Time Temp Pulse Resp B/P Pulse Ox O2 Delivery O2 Flow Rate FiO2 09/14/16 12:00 96.9 75 17 117/66 98 09/14/16 08:00 98.5 76 17 107/60 97 09/14/16 04:00 97.9 72 17 136/75 96 09/14/16 00:00 98.3 70 17 132/66 96 09/13/16 20:00 97.4 76 17 133/65 98 -: 09/14/16 0430 09/14/16 0436 Medication Review Current Medications Clonidine 0.1 mg 0.1 mg ONCE ONCE PO Last administered on 09/04/16t 17:21; Start 09/04/16 at 17:15; Stop 09/04/16 at 17:16; Status DC Sodium Chloride 1,000 ml @ 400 mls/hr Q2H30M ONCE IV Last administered on 18:27; Start 09/04/16 at 18:30; Stop 09/04/16 at 20:59; Status DC Sodium Chloride (NS 1000 ml Inj) 1,000 ml @ 100 mls/hr Q10H IV Last administered on 09/08/16 11:03; Start 09/04/16 at 19:44; Stop 09/08/16 at 17:27; Status DC Sodium Chloride (NS Flush) 2 ml UNSCH PRN IV FLUSH FLUSH AFTER USING IV ACCESS ; Start 09/04/16 at 19:45 Sodium Chloride (NS Flush) 2 ml BID IV FLUSH Last administered on 09/14/16 08: 30; Start 09/04/16 at 21:00 Naloxone HCl (Narcan Inj) 0.4 mg UNSCH PRN IV SEE LABEL COMMENTS; Start at 19:45 Hydralazine HCl (Apresoline Inj) 10 mg Q30M PRN IV PUSH bp>180/90 Last administered on 09/05/16 05:20; Start 09/04/16 at 21:30; Stop 09/05/16 at 07:41; Status DC Hydralazine HCl (Apresoline) 25 mg Q12HR PO Last administered on 09/05/16 08:49 ; Start 09/05/16 at 09:00; Stop 09/05/16 at 13:02; Status DC Morphine Sulfate (Morphine Inj) 2 mg Q3H PRN IV PUSH pain >5 Last administered on 09/11/16 21:52; Start 09/04/16 at 23:15 Baclofen (Lioresal) 10 mg ONCE ONCE PO Last administered on 09/04/16 23:41; Start 09/04/16 at 23:15; Stop 09/04/16 at 23:17; Status DC Hydralazine HCl (Apresoline Inj) 20 mg Q4HR PRN IV PUSH bp>180/90 Last administered on 09/07/16 07:12; Start 09/05/16 at 08:00; Stop 09/07/16 at 15:01; Status DC Clonidine (Catapres) 0.1 mg Q6H PRN PO SBP> OR = 180, DBP> OR = 100 Last administered on 09/06/16 02:07; Start 09/05/16 at 07:45; Stop 09/06/16 at 07:48; Status DC Acetaminophen (Tylenol) 650 mg Q4H PRN PO Temp > 100.4; Start 09/05/16 at 07:45 Ondansetron HCl (Zofran Inj) 4 mg Q6H PRN IV NAUSEA; Start 09/05/16 at 07:45 Docusate Sodium (Colace) 100 mg BID PRN PO CONSTIPATION Last administered on 21:53; Start 09/05/16 at 07:45 Calcium Carbonate (Tums Chew) 1,000 mg TID PRN CHEW DYSPEPSIA; Start 09/05/16 at 07:45 Potassium Chloride (KCl) 60 meq ONCE ONCE PO Last administered on 09/05/16 08: 49; Start 09/05/16 at 09:00; Stop 09/05/16 at 09:01; Status DC Gabapentin (Neurontin) 300 mg BID PO Last administered on 09/14/16 08:29; Start 09/05/16 at 09:00 Oxybutynin Chloride (Ditropan) 5 mg DAILY PO Last administered on 09/14/16 08: 29; Start 09/05/16 at 09:00 Patient Own Medication PT OWN MED: AMP... BID PO ; Start 09/05/16 at 09:00; Stop 09/05/16 at 19:45; Status DC Ciprofloxacin (Cipro) 250 mg Q12HR PO Last administered on 09/08/16 07:45; Start 09/05/16 at 13:00; Stop 09/08/16 at 10:08; Status DC Hydralazine HCl (Apresoline) 50 mg Q8HR PO Last administered on 09/09/16 05:25 ; Start 09/05/16 at 14:00; Stop 09/09/16 at 13:03; Status DC Patient Own Medication PT OWN MED: AMP... BID PO ; Start 09/05/16 at 21:00; Stop 09/06/16 at 21:44; Status DC Clonidine (Catapres) 0.2 mg Q6H PRN PO SBP> OR = 180, DBP> OR =100 Last administered on 09/07/16 08:06; Start 09/06/16 at 08:00; Stop 09/07/16 at 15:00; Status DC Amlodipine Besylate 5 mg 5 mg DAILY@08 PO Last administered on 09/07/16 07:11; Start 09/06/16 at 08:00; Stop 09/07/16 at 08:19; Status DC Nicardipine HCl/ Sodium Chloride (Cardene Inj/NS 250 ml Inj) 260 ml @ 0 mls/hr TITRATE PRN IV BP > 200/100 Last administered on 09/06/16 11:06; Start 09/06/16 at 10:15; Stop 09/07/16 at 14:59; Status DC Miscellaneous Information Patient in critical care unit? Ass... [id number] .[id number] Last administered on 09/06/16 20:00; Start 09/06/16 at 20:00 Chlorhexidine Gluconate (Chlorhexidine 2% Cloth) 3 pack DAILY@04 TOPICAL Last administered on 09/07/16 04:00; Start 09/07/16 at 04:00; Stop 09/11/16 at 04:01; Status DC Chlorhexidine Gluconate (Chlorhexidine 2% Cloth) 3 pack UNSCH PRN TOPICAL HYGIENIC CARE; Start 09/06/16 at 20:00; Stop 09/11/16 at 19:58; Status DC Patient Own Medication PT OWN MED: AMP... BID PO Last administered on 09/08/16 07:45; Start 09/06/16 at 22:30 Amlodipine Besylate (Norvasc) 10 mg DAILY@08 PO Last administered on 09/13/16 08:00; Start 09/08/16 at 08:00; Stop 09/13/16 at 09:26; Status DC Amlodipine Besylate (Norvasc) 5 mg ONCE ONCE PO Last administered on 09/07/16 09:15; Start 09/07/16 at 08:30; Stop 09/07/16 at 08:32; Status DC Clonidine (Catapres) 0.1 mg Q6H PRN PO SBP>160, DBP>90 Last administered on 09:27; Start 09/07/16 at 15:00; Stop 09/13/16 at 09:29; Status DC Potassium Chloride (KCl) 40 meq ONCE ONCE PO Last administered on 09/07/16 15: 15; Start 09/07/16 at 15:15; Stop 09/07/16 at 15:16; Status DC Acetaminophen (Ofirmev Inj) 1,000 mg STK-MED ONCE IV ; Start 09/08/16 at 07:07; Stop 09/08/16 at 07:08; Status DC Bupivacaine HCl/ Epinephrine Bitart 50 ml 50 ml STK-MED ONCE .ROUTE Last administered on 09/08/16 08:52; Start 09/08/16 at 07:07; Stop 09/08/16 at 07:08; Status DC Ciprofloxacin/ Dextrose (Cipro 400 Mg Premix) 200 ml @ As Directed STK-MED ONCE .ROUTE ; Start 09/08/16 at 08:26; Stop 09/08/16 at 08:27; Status DC Iohexol (Omnipaque 350 Inj) 50 ml STK-MED ONCE OTHER Last administered on 09:26; Start 09/08/16 at 09:26; Stop 09/08/16 at 09:42; Status DC Cyanocobalamin (Vitamin B12) 1,000 mcg DAILY PO Last administered on 09/14/16 08:29; Start 09/09/16 at 09:00 Fentanyl Citrate (fentaNYL INJ) 250 mcg STK-MED ONCE .ROUTE ; Start 09/08/16 at 10:21; Stop 09/08/16 at 10:22; Status DC Midazolam HCl (Versed Inj) 2 mg STK-MED ONCE .ROUTE ; Start 09/08/16 at 10:22; Stop 09/08/16 at 10:23; Status DC Miscellaneous Information ALL NURSING DEPARTME... UNSCH PRN .XX SEE LABEL COMMENTS; Start 09/08/16 at 10:18; Stop 09/09/16 at 10:17; Status DC Sodium Chloride (1/2 NS 1000 ml Inj) 1,000 ml @ 125 mls/hr Q8H IV Last administered on 09/09/16 09:32; Start 09/08/16 at 18:00; Stop 09/09/16 at 13:03; Status DC Potassium Chloride (KCl Powder) 40 meq ONCE ONCE PO Last administered on 18:04; Start 09/08/16 at 18:30; Stop 09/08/16 at 18:31; Status DC Hydralazine HCl 75 mg 75 mg Q8HR PO Last administered on 09/12/16 05:50; Start 09/09/16 at 14:00; Stop 09/12/16 at 08:46; Status DC Sodium Chloride (NS 1000 ml Inj) 1,000 ml @ 100 mls/hr Q10H IV Last administered on 09/09/16 14:31; Start 09/09/16 at 13:00; Stop 09/09/16 at 17:43; Status DC Furosemide (Lasix Inj) 20 mg ONCE ONCE IV PUSH Last administered on 09/09/16 18:36; Start 09/09/16 at 18:00; Stop 09/09/16 at 18:01; Status DC Furosemide 10 mg 10 mg ONCE ONCE IV PUSH Last administered on 09/10/16 12:43; Start 09/10/16 at 11:45; Stop 09/10/16 at 11:46; Status DC Potassium Chloride (KCl 20 Meq Premix Inj) 100 ml @ 50 mls/hr Q2H IV Last administered on 09/11/16 13:14; Start 09/11/16 at 10:00; Stop 09/11/16 at 13:59 ; Status DC Potassium Bicarb/ Potassium Chloride 50 meq 50 meq ONCE ONCE PO Last administered on 09/11/16 11:17; Start 09/11/16 at 11:00; Stop 09/11/16 at 11:01 ; Status DC Sodium Chloride 250 ml @ 15 mls/hr ONCE ONCE IV Last administered on 02:48; Start 09/11/16 at 22:30; Stop 09/12/16 at 15:09; Status DC Magnesium Sulfate/ Dextrose (Magnesium Sulfate 1 Gm Premix) 100 ml @ 100 mls/ hr ONCE ONCE IV Last administered on 09/12/16 08:45; Start 09/12/16 at 07:45 ; Stop 09/12/16 at 08:44; Status DC Hydralazine HCl (Apresoline) 100 mg Q8HR PO Last administered on 09/14/16 13: 57; Start 09/12/16 at 14:00 Potassium Chloride (KCl) 20 meq ONCE ONCE PO Last administered on 09/12/16 22 :06; Start 09/12/16 at 19:45; Stop 09/12/16 at 19:46; Status DC Bumetanide (Bumex Inj) 1 mg DAILY IV PUSH Last administered on 09/14/16 08:30 ; Start 09/12/16 at 19:45 Potassium Chloride 40 meq 40 meq ONCE ONCE PO Last administered on 09/13/16 08:30; Start 09/13/16 at 07:00; Stop 09/13/16 at 07:01; Status DC Potassium Chloride (KCl 20 Meq Premix Inj) 100 ml @ 50 mls/hr Q2H IV Last administered on 09/13/16 09:23; Start 09/13/16 at 07:00; Stop 09/13/16 at 10:59 ; Status DC Metoprolol Tartrate (Lopressor) 12.5 mg Q12HR PO Last administered on 08:29; Start 09/13/16 at 10:00 Clonidine (Catapres) 0.1 mg Q8HR PO Last administered on 09/14/16 13:57; Start 09/13/16 at 14:00 Cholecalciferol (Vitamin D3) 2,000 units DAILY PO Last administered on 08:29; Start 09/14/16 at 09:00 Bumetanide (Bumex Inj) 1 mg ONCE ONCE IV PUSH Last administered on 09/13/16 14:51; Start 09/13/16 at 14:30; Stop 09/13/16 at 14:31; Status DC Potassium Chloride (KCl) 40 meq ONCE ONCE PO Last administered on 09/14/16 12 :56; Start 09/14/16 at 12:30; Stop 09/14/16 at 12:31; Status DC Potassium Chloride (KCl) 40 meq ONCE ONCE PO Last administered on 09/14/16 13 :57; Start 09/14/16 at 13:30; Stop 09/14/16 at 13:31; Status DC Physical Exam General Appearance: No Acute Distress, Comfortable Pulmonary Resp Exam: Clear Bilaterally, Breath Sounds Equal Cardiology CV Exam: Regular, Normal Sinus Rhythm Gastrointestinal/Abdomen GI Exam: Soft, Non-Tender Integumentary Skin Exam: Clear, Warm Extremeties Extremities Exam: Moderate Edema (2-3+ pitting BLE up to thighs), Pitting Edema Neurologic Neuro Exam: Alert, Awake, Oriented Psychiatric Psych Exam: Appropriate Responses Assessment/Plan Discussed Condition With: Patient Problem List: (1) CKD (chronic kidney disease) stage 4, GFR 15-29 ml/min Plan: Patient appears to have chronic kidney disease suggested by renal ultrasound showing increased echogenicity. Cannot exclude a component of acute kidney disease however. Proteinuria is minimal and not nephrotic. Serum, was within normal range. MICHAEL is negative. Vitamin D for vitamin D deficiency. Although the patient may have chronic kidney disease secondary to hypertensive nephrosclerosis I may consider a renal biopsy next week for definitive diagnosis given uncertainty and patient's relatively young age. This was discussed with her. (2) Edema Plan: As mentioned above patient only has proteinuria of 453 mg well below nephrotic range. Edema may be multifactorial related to CKD, hydralazine, hypoalbuminemia and third spacing. Will avoid another dose of the loop diuretic today in view of significant hypokalemia. We will however add a potassium sparing diuretic. Amiloride. (3) Severe concentric left ventricular hypertrophy Plan: Probably related to uncontrolled hypertension. Also mention of mild to moderate pericardial effusion on echocardiogram. As well as ascites. We'll defer to primary care physician regarding whether or not cardiology opinion would be beneficial. (4) Hypertension Plan: In view of mild proteinuria and CKD the patient may benefit from the addition of an [place] inhibitor or angiotensin receptor edna to slow progression of CKD. 1 stability of renal function is noted patient will be counseled regarding potential benefit of one of the above-mentioned agents. She will have to be counseled regarding potential risks of these agents to a fetus should she become . Await results of renin and aldosterone level. Will also check 24-hour urine for metanephrines and catecholamines. Renal doppler reviewed and showed no signs of SERGEY (5) Elevated liver enzymes Plan: Reviewed liver biopsy report which shows suspicion for alcoholic or drug related hepatitis (6) MS (multiple sclerosis) Plan: Medications on hold at the present. Defer to neurology Bossman Nunes MD September 14, 2016 17:35
[2016-09-14] MEDS: MAGNESIUM CHLORIDE 64 MG TAB PO SCH (18:57)
[2016-09-14] MEDS: aMILoride HCL 5 MG TAB PO SCH (18:57)
[2016-09-14 20:00] VITALS: BP 138/71; PULSE 77; RESP 18; TEMP 96.6; O2SAT 100
[2016-09-15] VITALS (7 sets, daily range): BP systolic 108–144; BP diastolic 69–82; PULSE 67–82; RESP 16–18; TEMP 96.3–97.7; O2SAT 96–100
[2016-09-15 03:49] LABS: KAPPA/LAMBDA FREE 1.35 (0.26-1.65)
[2016-09-15 05:39] LABS: AUTOMATED NEUTROPHIL # 2.3 TH/MM3 (1.8-7.7); BASOPHIL % 0.7 % (0.0-2.0); EOSINOPHIL # 0.1 TH/MM3 (0-0.4); EOSINOPHIL % 2.3 % (0.0-4.0); HEMATOCRIT 25.3 % (35.0-46.0); HEMO FLAGS DIFF FINAL; LYMPH % 21.2 % (9.0-44.0); LYMPHOCYTE # 0.8 TH/MM3 (1.0-4.8); MEAN CELL VOLUME 101.4 FL (80.0-100.0); MEAN CORPUSCULAR HEMOGLOBIN 35.4 PG (27.0-34.0); MEAN CORPUSCULAR HGB CONC 34.9 % (32.0-36.0); MONO % 13.6 % (0.0-8.0); NEUT % 62.2 % (16.0-70.0); PLATELET COUNT 124 TH/MM3 (150-450); RED CELL DISTRIBUTION WIDTH 17.4 % (11.6-17.2); WHITE BLOOD COUNT 3.7 TH/MM3 (4.0-11.0)
[2016-09-15 05:48] LABS: BICARBONATE 31.6 MEQ/L (21.0-32.0); MAGNESIUM 1.3 MG/DL (1.5-2.5); POTASSIUM 3.2 MEQ/L (3.5-5.1)
[2016-09-15] MEDS: cloNIDine HCL 0.1 MG TAB PO SCH ×3 (06:32→22:00)
[2016-09-15] MEDS: hydrALAZINE HCL 50 MG TAB PO SCH ×3 (06:32→22:00)
[2016-09-15] MEDS: CYANOCOBALAMIN 1,000 MCG TAB PO SCH (08:31)
[2016-09-15] MEDS: GABAPENTIN 300 MG CAP PO SCH ×2 (08:31→20:22)
[2016-09-15] MEDS: MAGNESIUM CHLORIDE 64 MG TAB PO SCH (08:31)
[2016-09-15] MEDS: OXYBUTYNIN CHLORIDE 5 MG TAB PO SCH (08:31)
[2016-09-15] MEDS: SODIUM CHLORIDE 0.9% FLUSH 10 ML FLUSH IV FLUSH SCH ×2 (08:32→20:24)
[2016-09-15] MEDS: CHOLECALCIFEROL (VIT D3) 1000 UNIT TAB PO SCH (08:32)
[2016-09-15] MEDS: METOPROLOL TARTRATE 25 MG TAB PO SCH ×2 (08:32→20:22)
[2016-09-15] MEDS: aMILoride HCL 5 MG TAB PO SCH (08:32)
[2016-09-15] MEDS: BUMETANIDE INJ 1 MG/4 ML VIAL IV PUSH SCH (08:32)
[2016-09-15] MEDS: DALFAMPRIDINE 10 MG PO SCH ×2 (08:32→20:24)
--- NOTE | 2016-09-15 08:50 | HHI.PR ---
Subjective Remarks This is a pleasant 46 y/o Female with Multiple sclerosis, tobacco dependence Alcohol abuse, sent to ER by PCP due to Altered mental status, unintentional weight loss, recurrent falls, has Hypertension, Overactive bladder, admitted on 09/05/16, ECG showed Left Ventricular Hypertrophy, Acute Kidney Injury, elevated Liver Enzymes, dehydrated, Neurology consulted for MS. as per Neurology specialist recommended to hold Ampyra and Rebif this medicines may be a factor for her Generalized weakness, also probable related to MS. elevated Liver Enzymes as per GI specialist probable secondary to Alcohol abuse, recommended HIDA scan, MRCP, was transferred by General Surgery to this facility for ERCP. 09/13: Consulted by Nephrology specialist and Renal Ultrasound with increased Echogenicity for CKD but no clear why the patient had this decline in renal function, questioned about medicine Rebif, but will study MICHAEL, Urine protein to Creatinine ratio, Echocardiogram, IV fluids stopped due to edema, started on Bumex IV and monitor renal function. probable edema secondary to medicines, Amlodipine, Hydralazine, Gabapentin, seen by GI specialist with diagnosis of elevated LFTs MICHAEL negative ASMA neg, MA neg, AMA neg. Hep panel neg. 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 status post 2 units of FFP, Direct King negative, likely DIC from Cholecystitis, Direct antiglobulin test negative. Haptoglobin is low due to liver disease and Hemolysis. 09/14: Seen in her bedroom no complaint, no nausea, vomit or diarrhea, already GI specialist Signed off and contract negotiation specialist but awaiting final by Nephrology specialist for discharge. 09/15: Stable in her bedroom, no nausea, vomit or diarrhea, started on Nepro, awaiting for final recommendations by Nephrology specialist, probable will have a Kidney biopsy next week. replaced electrolytes, Potassium 3.2 and Magnesium 1.5 Continue edema 3+ on bilateral legs. Objective Vital Signs Date Time Temp Pulse Resp B/P Pulse Ox O2 Delivery O2 Flow Rate FiO2 09/15/16 08:00 96.8 72 17 138/75 98 09/15/16 04:00 97.7 82 16 144/81 99 09/15/16 00:00 97.3 80 16 121/71 96 09/14/16 20:00 96.6 77 18 138/71 100 09/14/16 16:00 96.9 82 17 113/68 98 09/14/16 12:00 96.9 75 17 117/66 98 I/O 09/14/16 09/14/16 09/14/16 09/15/16 09/15/16 09/15/16 07:00 15:00 23:00 07:00 15:00 23:00 Intake Total 240 ml 240 ml 480 ml 360 ml Output Total 400 ml 825 ml 850 ml 600 ml Balance -160 ml -585 ml -370 ml -240 ml Intake Oral 240 ml 240 ml 480 ml 360 ml IV Total 0 ml Output Urine Total 400 ml 825 ml 850 ml 600 ml # Bowel Movements 0 0 0 Result Diagram: 09/15/16 0507 09/15/16 0507 Imaging Last Impressions Renal Ultrasound 09/12/16 0000 Signed Impressions: Service Date/Time: September 10:44 - CONCLUSION: Negative exam. Patient does not appear to have a vascular etiology for current clinical symptoms.. Torin Pearce MD Lower Extremity Ultrasound 09/09/16 0000 Signed Impressions: Service Date/Time: Friday, September 09, 2016 19:27 - CONCLUSION: Possible left knee Pollard's cyst. This could be confirmed with MRI if clinically indicated. No evidence of lower extremity DVT. Lamine Blackmon MD Cholangiogram 09/08/16 0000 Signed Impressions: Service Date/Time: Thursday, September 08, 2016 09:23 - CONCLUSION: No evidence of common duct stone. Redd Camacho MD Hepatobiliary Scan Nuclear Medicine 09/06/16 0000 Signed Impressions: Service Date/Time: Tuesday, September 06, 2016 13:50 - CONCLUSION: 1. There is no evidence of common bile duct obstruction. There is normal clearance of tracer from the liver. 2. The gallbladder is never identified. In the appropriate clinical setting this can suggest cholecystitis. Delayed imaging may be of benefit to increase specificity. Hernan Grant MD Cholangiopancreatography MRI 09/06/16 0000 Signed Impressions: Service Date/Time: Tuesday, September 06, 2016 08:50 - CONCLUSION: Nonvisualization of the duct confluence and proximal common hepatic duct. Lamine Blackmon MD ADDENDUM: COMPARISON: BILIARY SCAN (HIDA), September 06, 2016, 13:50. In light of normal appearance and drainage of the biliary tree on the HIDA scan, MRCP appearance is felt probably artifactual. Lamine Blackmon MD Thoracic Spine MRI 09/05/16 Signed Impressions: Service Date/Time: September 14:50 - CONCLUSION: 1. Long segment but very small, age-indeterminate syrinx of the thoracic spine. The thoracic cord also appears slightly atrophic. 2. Mild degenerative changes as above. 3. No foraminal or spinal stenosis. 4. Small right and tiny left pleural effusions are incidentally noted. Lamine Zuñiga MD Lumbar Spine MRI 09/05/16 Signed Impressions: Service Date/Time: September 14:50 - CONCLUSION: 1. Mild degenerative changes at L3/L4, L4/L5 and L5/S1. Please see above. 2. Small, age indeterminate right paracentral disc protrusion at L5/S1. This contacts the transiting right S1 nerve root within the lateral recess but without evidence of impingement. 3. Mild bilateral foraminal encroachment at L4/L5 without definite exiting nerve root impingement. 4. There are left larger than right biforaminal annular fissures at the L4/L5 disc. 5. Apparent mild facet synovitis on the left at L5/S1. Lamine Zuñiga MD Chest X-Ray 09/05/16 Signed Impressions: Service Date/Time: September 07:52 - CONCLUSION: Mild to moderate cardiomegaly with no evidence of pulmonary edema. Redd Camacho MD Head CT 09/04/16 170 Signed Impressions: Service Date/Time: Sunday, September 04, 2016 18:47 - CONCLUSION: Unremarkable noncontrast CT. Redd Camacho MD Abdomen/Pelvis CT 09/04/16 Signed Impressions: Service Date/Time: Sunday, September 04, 2016 18:50 - CONCLUSION: 1. The study was performed without intravenous or oral contrast limiting the sensitivity. 2. No evidence of biliary obstruction. 3. The gallbladder is abnormal in appearance with wall thickening or surrounding fluid. There are no calcified gallstones identified. 4. Cystic mass in the left adnexa measuring 4.1 x 3 cm most consistent with an ovarian cyst. 5. Small right pleural effusion. 6. Nonspecific, nonobstructive bowel gas pattern which may represent an ileus or gastroenteritis. 7. Air-fluid level in the bladder likely secondary to recent instrumentation. Redd Camacho MD Procedures status post Laparoscopic Cholecystectomy with intraoperative cholangiogram with intraoperative use of fluoroscopy Joseph-cut Liver biopsy x 2 with Post operative diagnosis of Cholecystitis with previous choledocholithiasis with fatty changes by Doctor Redd Jurado Other Results Laboratory Tests Test 09/11/16 09/11/16 09/11/16 09/11/16 00:33 06:39 21:32 23:47 Blood Bank Comment Acanthocytes OCC Total Creatine Kinase 279 U/L Creatine Kinase MB 8.2 NG/ML Creatine Kinase MB % 2.9 % Direct Antiglobulin Test NEGATIVE (King) Blood Type O NEGATIVE Test 09/12/16 09/13/16 09/14/16 09/15/16 12:20 04:41 03:00 05:07 Differential Total Cells 100 Counted Neutrophils % (Manual) 71 % Band Neutrophils % 2 % Lymphocytes % 16 % Monocytes % 8 % Neutrophils # (Manual) 4.0 TH/MM3 Metamyelocytes 1 % Myelocytes 2 % Platelet Estimate LOW Platelet Morphology Comment NORMAL Tear Drop Cells 1+ Ovalocytes 1+ Keratocytes OCC Total Bilirubin 1.7 MG/DL Direct Bilirubin 0.6 MG/DL Indirect Bilirubin 1.1 MG/DL Aspartate Amino Transf 48 U/L (AST/SGOT) Alanine Aminotransferase 108 U/L (ALT/SGPT) Alkaline Phosphatase 108 U/L Total Protein 6.0 GM/DL Albumin 3.55 GM/DL Albumin/Globulin Ratio 1.44 Cdlqz-4-Pplnaxqec 0.19 GM/DL Sjekk-2-Odyytwmse 0.60 GM/DL Beta Globulins 0.64 GM/DL Gamma Globulins 1.03 GM/DL 25-Hydroxy Vitamin D Total 25.0 ng/ML Anti-Nuclear Antibody Screen NEG Complement C3 111 MG/DL Complement C4 20 MG/DL Free [place] Light Chains 30.31 mg/L Free Lambda Light Chains 22.45 mg/L Free [place]/Lambda Light Chain 1.35 Ratio Urine Total Volume 24 Hours 3060 ML Urine Total Protein 24 Hour 453 MG/24HR White Blood Count 3.7 TH/MM3 Red Blood Count 2.50 MIL/MM3 Hemoglobin 8.8 GM/DL Hematocrit 25.3 % Mean Corpuscular Volume 101.4 FL Mean Corpuscular Hemoglobin 35.4 PG Mean Corpuscular Hemoglobin 34.9 % Concent Red Cell Distribution Width 17.4 % Platelet Count 124 TH/MM3 Mean Platelet Volume 9.4 FL Neutrophils (%) (Auto) 62.2 % Lymphocytes (%) (Auto) 21.2 % Monocytes (%) (Auto) 13.6 % Eosinophils (%) (Auto) 2.3 % Basophils (%) (Auto) 0.7 % Neutrophils # (Auto) 2.3 TH/MM3 Lymphocytes # (Auto) 0.8 TH/MM3 Monocytes # (Auto) 0.5 TH/MM3 Eosinophils # (Auto) 0.1 TH/MM3 Basophils # (Auto) 0.0 TH/MM3 CBC Comment DIFF FINAL Differential Comment Sodium Level 136 MEQ/L Potassium Level 3.2 MEQ/L Chloride Level 98 MEQ/L Carbon Dioxide Level 31.6 MEQ/L Anion Gap 6 MEQ/L Blood Urea Nitrogen 34 MG/DL Creatinine 1.87 MG/DL Estimat Glomerular Filtration 29 ML/MIN Rate Random Glucose 85 MG/DL Calcium Level 8.0 MG/DL Magnesium Level 1.3 MG/DL Lactate Dehydrogenase 532 U/L Objective Remarks GENERAL: No acute distress. SKIN: ecchymosis on both arms. HEAD: Atraumatic. Normocephalic. No temporal or scalp tenderness. EYES: Pupils equal round and reactive. ENT: Nose without bleeding. NECK: Trachea midline. No JVD or lymphadenopathy. Supple. CARDIOVASCULAR: Regular rate and rhythm without murmurs, gallops, or rubs. RESPIRATORY: Clear to auscultation. Breath sounds equal bilaterally. No wheezes , rales, or rhonchi. GASTROINTESTINAL: Abdomen soft, mild tenderness, clean surgical wounds. MUSCULOSKELETAL: Extremities without clubbing, Edema 3+ NEUROLOGICAL: Awake and alert. No focal deficits. Medications and IVs Current Medications Medications (Trade) Dose Ordered Sig/Gonzalez Route Start Time Stop Time Status Last Admin (NS Flush) 2 ml UNSCH PRN IV FLUSH 09/04/16 19:45 (NS Flush) 2 ml BID IV FLUSH 09/04/16 21:00 09/15/16 08:32 (Narcan Inj) 0.4 mg UNSCH PRN IV 09/04/16 19:45 (Morphine Inj) 2 mg Q3H PRN IV PUSH 09/04/16 23:15 09/11/16 21:52 (Tylenol) 650 mg Q4H PRN PO 09/05/16 07:45 (Zofran Inj) 4 mg Q6H PRN IV 09/05/16 07:45 (Colace) 100 mg BID PRN PO 09/05/16 07:45 09/11/16 21:53 (Tums Chew) 1,000 mg TID PRN CHEW 09/05/16 07:45 (Neurontin) 300 mg BID PO 09/05/16 09:00 09/15/16 08:31 (Ditropan) 5 mg DAILY PO 09/05/16 09:00 09/15/16 08:31 Miscellaneous Information Patient in critical care unit? Ass... [id number] 09/06/16 20:00 09/06/16 20:00 Patient Own Medication PT OWN MED: AMP... BID PO 09/06/16 22:30 09/08/16 07:45 (Vitamin B12) 1,000 mcg DAILY PO 09/09/16 09:00 09/15/16 08:31 (Apresoline) 100 mg Q8HR PO 09/12/16 14:00 09/15/16 06:32 (Bumex Inj) 1 mg DAILY IV PUSH 09/12/16 19:45 09/15/16 08:32 (Lopressor) 12.5 mg Q12HR PO 09/13/16 10:00 09/15/16 08:32 (Catapres) 0.1 mg Q8HR PO 09/13/16 14:00 09/15/16 06:32 (Vitamin D3) 2,000 units DAILY PO 09/14/16 09:00 09/15/16 08:32 (Midamor) 10 mg DAILY PO 09/14/16 17:45 09/15/16 08:32 (Slow-Mag Dr) 128 mg DAILY PO 09/14/16 17:45 09/15/16 08:31 A/P Assessment and Plan 1. Accelerated Hypertension, Controlled Nephrology specialist following, recommended to discontinue Hydralazine and Amlodipine and use more Beta Blockers. continue Ditropan 5 mg daily, Clonidine 0.1 mg every eight hours and follow closely blood pressure. Renal US Negative. 2. Electrolyte derangement replaced and following 3. Acute Kidney Injury Nephrology following, Renal Ultrasound with increased Echogenicity for CKD but no clear why the patient had this decline in renal function, questioned about medicine Rebif , but will study MICHAEL, Urine protein to Creatinine ratio, Echocardiogram, IV fluids stopped due to edema, started on Bumex IV and monitor renal function. probable edema secondary to medicines, Amlodipine, Hydralazine, Gabapentin, Creatinine continue elevated 1.87 but improving slowly, may need kidney biopsy. 4. Elevated Liver enzymes with tender RUQ, CT indicated gallbladder abnormality of thickened wall or fluid present, hepatitis profile and workup for autoimmune hepatitis. after evaluation by GI specialist today reviewed MRCP/CT and HIDA scan. Status post Laparoscopic Cholecystectomy with intraoperative cholangiogram with intraoperative use of fluoroscopy Joseph-cut Liver biopsy x 2 with Post operative diagnosis of Cholecystitis with previous choledocholithiasis with fatty changes seen by GI specialist with diagnosis of elevated LFTs MICHAEL negative ASMA neg, MA neg, AMA neg. Hep panel neg. 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 cleared for discharge by GI specialist 5. Multiple Sclerosis on hold Rebif and Ampyra. 6. Macrocytic anemia with normal values of B12 and Folate 7. Acute metabolic and Hypertensive Encephalopathy CT brain no acute findings. Improved. 8. Thrombocytopenia followed by contract negotiation specialist. status post 2 units of FFP, Direct King negative, likely DIC from Cholecystitis, Direct antiglobulin test negative. Haptoglobin is low due to liver disease and Hemolysis. Improving Thrombocytopenia cleared by contract negotiation specialist. DVT prophylaxis with SCDs. Encourage ambulation Discharge Planning following electrolytes and renal function for discharge Silas Cummings MD September 15, 2016 08:50
[2016-09-15] MEDS ORDERED: POTASSIUM CHLORIDE 10 MEQ CAP PO ONE (09:00)
[2016-09-15] MEDS ORDERED: POTASSIUM CHLORIDE 20 MEQ CONTROLLED RELEASE TAB PO ONE (11:00)
[2016-09-15] MEDS: MAGNESIUM SULFATE 1 GM PREMIX 100 ML IV SCH ×2 (11:14→12:17)
[2016-09-16 04:00] VITALS: BP 137/78; PULSE 72; RESP 18; TEMP 97.2; O2SAT 98
[2016-09-16] MEDS: hydrALAZINE HCL 50 MG TAB PO SCH ×3 (06:40→22:37)
[2016-09-16] MEDS: cloNIDine HCL 0.1 MG TAB PO SCH ×3 (06:40→22:37)
[2016-09-16 08:00] VITALS: BP 156/88; PULSE 72; RESP 20; TEMP 97.6; O2SAT 100
[2016-09-16] MEDS: CYANOCOBALAMIN 1,000 MCG TAB PO SCH (08:24)
[2016-09-16] MEDS: aMILoride HCL 5 MG TAB PO SCH (08:24)
[2016-09-16] MEDS: METOPROLOL TARTRATE 25 MG TAB PO SCH ×2 (08:25→21:49)
[2016-09-16] MEDS: CHOLECALCIFEROL (VIT D3) 1000 UNIT TAB PO SCH (08:25)
[2016-09-16] MEDS: MAGNESIUM CHLORIDE 64 MG TAB PO SCH (08:27)
[2016-09-16] MEDS: OXYBUTYNIN CHLORIDE 5 MG TAB PO SCH (08:27)
[2016-09-16] MEDS: GABAPENTIN 300 MG CAP PO SCH ×2 (08:27→21:49)
[2016-09-16] MEDS: BUMETANIDE INJ 1 MG/4 ML VIAL IV PUSH SCH (08:28)
[2016-09-16] MEDS: DALFAMPRIDINE 10 MG PO SCH ×2 (08:30→21:00)
[2016-09-16] MEDS: SODIUM CHLORIDE 0.9% FLUSH 10 ML FLUSH IV FLUSH SCH ×2 (08:30→21:49)
--- NOTE | 2016-09-16 09:08 | HHI.PR ---
Subjective Remarks This is a pleasant 46 y/o Female with Multiple sclerosis, tobacco dependence Alcohol abuse, sent to ER by PCP due to Altered mental status, unintentional weight loss, recurrent falls, has Hypertension, Overactive bladder, admitted on 09/05/16, ECG showed Left Ventricular Hypertrophy, Acute Kidney Injury, elevated Liver Enzymes, dehydrated, Neurology consulted for MS. as per Neurology specialist recommended to hold Ampyra and Rebif this medicines may be a factor for her Generalized weakness, also probable related to MS. elevated Liver Enzymes as per GI specialist probable secondary to Alcohol abuse, recommended HIDA scan, MRCP, was transferred by General Surgery to this facility for ERCP. 09/13: Consulted by Nephrology specialist and Renal Ultrasound with increased Echogenicity for CKD but no clear why the patient had this decline in renal function, questioned about medicine Rebif, but will study MICHAEL, Urine protein to Creatinine ratio, Echocardiogram, IV fluids stopped due to edema, started on Bumex IV and monitor renal function. probable edema secondary to medicines, Amlodipine, Hydralazine, Gabapentin, seen by GI specialist with diagnosis of elevated LFTs MICHAEL negative ASMA neg, MA neg, AMA neg. Hep panel neg. s/p lap leydi, liver bx--> mild portal hepatitis with early bridging fibrosis, morphologic features suspicious for ETOH, and again Rebif as possible cause for Hepatitis stopped, has Thrombocytopenia followed by family resource management specialist. status post 2 units of FFP, Direct King negative, likely DIC from Cholecystitis, Direct antiglobulin test negative. Haptoglobin is low due to liver disease and Hemolysis. 09/14: Seen in her bedroom no complaint, no nausea, vomit or diarrhea, already GI specialist Signed off and family resource management specialist but awaiting final by Nephrology specialist for discharge. 09/15: Stable in her bedroom, no nausea, vomit or diarrhea, started on Nepro, awaiting for final recommendations by Nephrology specialist, probable will have a Kidney biopsy next week. replaced electrolytes, Potassium 3.2 and Magnesium 1.5 Continue edema 3+ on bilateral legs. 09/16: Seen in her bedroom she continue with bilateral swollen legs 3+, not improving, also her Renal function worsened again Nephrology specialist thinking in the need for Renal Biopsy, will follow recommendations, no nausea, vomit or diarrhea. Objective Vital Signs Date Time Temp Pulse Resp B/P Pulse Ox O2 Delivery O2 Flow Rate FiO2 09/16/16 08:00 97.6 72 20 156/88 100 09/16/16 04:00 97.2 72 18 137/78 98 09/15/16 23:42 96.5 67 18 108/69 99 09/15/16 20:00 97.1 71 18 126/72 100 09/15/16 16:00 96.3 77 17 135/82 97 09/15/16 12:00 97.7 75 18 136/78 98 I/O 09/15/16 09/15/16 09/15/16 09/16/16 09/16/16 09/16/16 07:00 15:00 23:00 07:00 15:00 23:00 Intake Total 360 ml 680 ml 240 ml 240 ml 1200 ml Output Total 600 ml 700 ml 1000 ml 700 ml Balance -240 ml -20 ml -760 ml -460 ml 1200 ml Intake Oral 360 ml 480 ml 240 ml 240 ml 1200 ml IV Total 200 ml 0 ml Output Urine Total 600 ml 700 ml 1000 ml 700 ml # Bowel Movements 0 0 0 0 Result Diagram: 09/15/16 0507 09/15/16 1405 Imaging Last Impressions Renal Ultrasound 09/12/16 0000 Signed Impressions: Service Date/Time: September 10:44 - CONCLUSION: Negative exam. Patient does not appear to have a vascular etiology for current clinical symptoms.. Torin Pearce MD Lower Extremity Ultrasound 09/09/16 0000 Signed Impressions: Service Date/Time: Friday, September 09, 2016 19:27 - CONCLUSION: Possible left knee Pollard's cyst. This could be confirmed with MRI if clinically indicated. No evidence of lower extremity DVT. Lamine Blackmon MD Cholangiogram 09/08/16 0000 Signed Impressions: Service Date/Time: Thursday, September 08, 2016 09:23 - CONCLUSION: No evidence of common duct stone. Redd Camacho MD Hepatobiliary Scan Nuclear Medicine 09/06/16 0000 Signed Impressions: Service Date/Time: Tuesday, September 06, 2016 13:50 - CONCLUSION: 1. There is no evidence of common bile duct obstruction. There is normal clearance of tracer from the liver. 2. The gallbladder is never identified. In the appropriate clinical setting this can suggest cholecystitis. Delayed imaging may be of benefit to increase specificity. Hernan Grant MD Cholangiopancreatography MRI 09/06/16 0000 Signed Impressions: Service Date/Time: Tuesday, September 06, 2016 08:50 - CONCLUSION: Nonvisualization of the duct confluence and proximal common hepatic duct. Lamine Blackmon MD ADDENDUM: COMPARISON: BILIARY SCAN (HIDA), September 06, 2016, 13:50. In light of normal appearance and drainage of the biliary tree on the HIDA scan, MRCP appearance is felt probably artifactual. Lamine Blackmon MD Thoracic Spine MRI 09/05/16 0000 Signed Impressions: Service Date/Time: September 14:50 - CONCLUSION: 1. Long segment but very small, age-indeterminate syrinx of the thoracic spine. The thoracic cord also appears slightly atrophic. 2. Mild degenerative changes as above. 3. No foraminal or spinal stenosis. 4. Small right and tiny left pleural effusions are incidentally noted. Lamine Zuñiga MD Lumbar Spine MRI 09/05/16 0000 Signed Impressions: Service Date/Time: September 14:50 - CONCLUSION: 1. Mild degenerative changes at L3/L4, L4/L5 and L5/S1. Please see above. 2. Small, age indeterminate right paracentral disc protrusion at L5/S1. This contacts the transiting right S1 nerve root within the lateral recess but without evidence of impingement. 3. Mild bilateral foraminal encroachment at L4/L5 without definite exiting nerve root impingement. 4. There are left larger than right biforaminal annular fissures at the L4/L5 disc. 5. Apparent mild facet synovitis on the left at L5/S1. Lamine Zuñiga MD Chest X-Ray 09/05/16 0000 Signed Impressions: Service Date/Time: September 07:52 - CONCLUSION: Mild to moderate cardiomegaly with no evidence of pulmonary edema. Redd Camacho MD Head CT 09/04/16 1702 Signed Impressions: Service Date/Time: Sunday, September 04, 2016 18:47 - CONCLUSION: Unremarkable noncontrast CT. Redd Camacho MD Abdomen/Pelvis CT 09/04/16 0000 Signed Impressions: Service Date/Time: Sunday, September 04, 2016 18:50 - CONCLUSION: 1. The study was performed without intravenous or oral contrast limiting the sensitivity. 2. No evidence of biliary obstruction. 3. The gallbladder is abnormal in appearance with wall thickening or surrounding fluid. There are no calcified gallstones identified. 4. Cystic mass in the left adnexa measuring 4.1 x 3 cm most consistent with an ovarian cyst. 5. Small right pleural effusion. 6. Nonspecific, nonobstructive bowel gas pattern which may represent an ileus or gastroenteritis. 7. Air-fluid level in the bladder likely secondary to recent instrumentation. Redd Camacho MD Procedures status post Laparoscopic Cholecystectomy with intraoperative cholangiogram with intraoperative use of fluoroscopy Joseph-cut Liver biopsy x 2 with Post operative diagnosis of Cholecystitis with previous choledocholithiasis with fatty changes by Doctor Redd Jurado Other Results Laboratory Tests Test 09/11/16 09/11/16 09/12/16 09/13/16 00:33 23:47 12:20 04:41 Blood Bank Comment Blood Type O NEGATIVE Differential Total Cells 100 Counted Neutrophils % (Manual) 71 % Band Neutrophils % 2 % Lymphocytes % 16 % Monocytes % 8 % Neutrophils # (Manual) 4.0 TH/MM3 Metamyelocytes 1 % Myelocytes 2 % Platelet Estimate LOW Platelet Morphology Comment NORMAL Tear Drop Cells 1+ Ovalocytes 1+ Keratocytes OCC Total Bilirubin 1.7 MG/DL Direct Bilirubin 0.6 MG/DL Indirect Bilirubin 1.1 MG/DL Aspartate Amino Transf 48 U/L (AST/SGOT) Alanine Aminotransferase 108 U/L (ALT/SGPT) Alkaline Phosphatase 108 U/L Total Protein 6.0 GM/DL Albumin 3.55 GM/DL Albumin/Globulin Ratio 1.44 Lojci-8-Loagjgqfk 0.19 GM/DL Ngotp-1-Ynliclamg 0.60 GM/DL Beta Globulins 0.64 GM/DL Gamma Globulins 1.03 GM/DL 25-Hydroxy Vitamin D Total 25.0 ng/ML Anti-Nuclear Antibody Screen NEG Complement C3 111 MG/DL Complement C4 20 MG/DL Free [place] Light Chains 30.31 mg/L Free Lambda Light Chains 22.45 mg/L Free [place]/Lambda Light Chain 1.35 Ratio Test 09/14/16 09/15/16 09/15/16 09/16/16 03:00 05:07 14:05 04:30 Urine Total Volume 24 Hours 3060 ML Urine Total Protein 24 Hour 453 MG/24HR White Blood Count 3.7 TH/MM3 Red Blood Count 2.50 MIL/MM3 Hemoglobin 8.8 GM/DL Hematocrit 25.3 % Mean Corpuscular Volume 101.4 FL Mean Corpuscular Hemoglobin 35.4 PG Mean Corpuscular Hemoglobin 34.9 % Concent Red Cell Distribution Width 17.4 % Platelet Count 124 TH/MM3 Mean Platelet Volume 9.4 FL Neutrophils (%) (Auto) 62.2 % Lymphocytes (%) (Auto) 21.2 % Monocytes (%) (Auto) 13.6 % Eosinophils (%) (Auto) 2.3 % Basophils (%) (Auto) 0.7 % Neutrophils # (Auto) 2.3 TH/MM3 Lymphocytes # (Auto) 0.8 TH/MM3 Monocytes # (Auto) 0.5 TH/MM3 Eosinophils # (Auto) 0.1 TH/MM3 Basophils # (Auto) 0.0 TH/MM3 CBC Comment DIFF FINAL Differential Comment Sodium Level 136 MEQ/L Chloride Level 98 MEQ/L Carbon Dioxide Level 31.6 MEQ/L Anion Gap 6 MEQ/L Blood Urea Nitrogen 34 MG/DL Creatinine 1.87 MG/DL Estimat Glomerular Filtration 29 ML/MIN Rate Random Glucose 85 MG/DL Calcium Level 8.0 MG/DL Magnesium Level 1.3 MG/DL Lactate Dehydrogenase 532 U/L Potassium Level 3.8 MEQ/L Urine Eosinophils NONE SEEN /HPF Urine Random Creatinine 52.8 MG/DL Urine Random Potassium 40 MEQ/L Objective Remarks GENERAL: No acute distress. SKIN: ecchymosis on both arms. HEAD: Atraumatic. Normocephalic. No temporal or scalp tenderness. EYES: Pupils equal round and reactive. ENT: Nose without bleeding. NECK: Trachea midline. No JVD or lymphadenopathy. Supple. CARDIOVASCULAR: Regular rate and rhythm without murmurs, gallops, or rubs. RESPIRATORY: Clear to auscultation. Breath sounds equal bilaterally. No wheezes , rales, or rhonchi. GASTROINTESTINAL: Abdomen soft, mild tenderness, clean surgical wounds. MUSCULOSKELETAL: Extremities without clubbing, Edema 3+ NEUROLOGICAL: Awake and alert. No focal deficits. Medications and IVs Current Medications Medications (Trade) Dose Ordered Sig/Gonzalez Route Start Time Stop Time Status Last Admin (NS Flush) 2 ml UNSCH PRN IV FLUSH 09/04/16 19:45 09/15/16 11:16 (NS Flush) 2 ml BID IV FLUSH 09/04/16 21:00 09/16/16 08:30 (Narcan Inj) 0.4 mg UNSCH PRN IV 09/04/16 19:45 (Morphine Inj) 2 mg Q3H PRN IV PUSH 09/04/16 23:15 09/11/16 21:52 (Tylenol) 650 mg Q4H PRN PO 09/05/16 07:45 (Zofran Inj) 4 mg Q6H PRN IV 09/05/16 07:45 (Colace) 100 mg BID PRN PO 09/05/16 07:45 09/11/16 21:53 (Tums Chew) 1,000 mg TID PRN CHEW 09/05/16 07:45 (Neurontin) 300 mg BID PO 09/05/16 09:00 09/16/16 08:27 (Ditropan) 5 mg DAILY PO 09/05/16 09:00 09/16/16 08:27 Miscellaneous Information Patient in critical care unit? Ass... Q361D .XX 09/06/16 20:00 09/06/16 20:00 Patient Own Medication PT OWN MED: AMP... BID PO 09/06/16 22:30 09/08/16 07:45 (Vitamin B12) 1,000 mcg DAILY PO 09/09/16 09:00 09/16/16 08:24 (Apresoline) 100 mg Q8HR PO 09/12/16 14:00 09/16/16 06:40 (Bumex Inj) 1 mg DAILY IV PUSH 09/12/16 19:45 09/16/16 08:28 (Lopressor) 12.5 mg Q12HR PO 09/13/16 10:00 09/16/16 08:25 (Catapres) 0.1 mg Q8HR PO 09/13/16 14:00 09/16/16 06:40 (Vitamin D3) 2,000 units DAILY PO 09/14/16 09:00 09/16/16 08:25 (Midamor) 10 mg DAILY PO 09/14/16 17:45 09/16/16 08:24 (Slow-Mag Dr) 128 mg DAILY PO 09/14/16 17:45 09/16/16 08:27 A/P Assessment and Plan 1. Accelerated Hypertension, Controlled Nephrology specialist following, recommended to discontinue Hydralazine and Amlodipine and use more Beta Blockers. continue Ditropan 5 mg daily, Clonidine 0.1 mg every eight hours and follow closely blood pressure. Renal US Negative. 2. Electrolyte derangement replaced 3. Acute Kidney Injury Nephrology following, Renal Ultrasound with increased Echogenicity for CKD but no clear why the patient had this decline in renal function, questioned about medicine Rebif , but will study MICHAEL, Urine protein to Creatinine ratio, Echocardiogram, IV fluids stopped due to edema, started on Bumex IV and monitor renal function. probable edema secondary to medicines, Amlodipine, Hydralazine, Gabapentin, Creatinine continue elevated 1.87 but improving slowly, may need kidney biopsy. worsening renal function today. 4. Elevated Liver enzymes with tender RUQ, CT indicated gallbladder abnormality of thickened wall or fluid present, hepatitis profile and workup for autoimmune hepatitis. after evaluation by GI specialist today reviewed MRCP/CT and HIDA scan. Status post Laparoscopic Cholecystectomy with intraoperative cholangiogram with intraoperative use of fluoroscopy Joseph-cut Liver biopsy x 2 with Post operative diagnosis of Cholecystitis with previous choledocholithiasis with fatty changes seen by GI specialist with diagnosis of elevated LFTs MICHAEL negative ASMA neg, MA neg, AMA neg. Hep panel neg. 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 cleared for discharge by GI specialist 5. Multiple Sclerosis on hold Rebif and Ampyra. 6. Macrocytic anemia with normal values of B12 and Folate 7. Acute metabolic and Hypertensive Encephalopathy CT brain no acute findings. Improved. 8. Thrombocytopenia followed by family resource management specialist. status post 2 units of FFP, Direct King negative, likely DIC from Cholecystitis, Direct antiglobulin test negative. Haptoglobin is low due to liver disease and Hemolysis. Improving Thrombocytopenia cleared by family resource management specialist. DVT prophylaxis with SCDs. Encourage ambulation Discharge Planning Awaiting final recommendations by Nephrology specialist for discharge. Silas Cummings MD September 16, 2016 09:08
[2016-09-16 09:11] LABS: BICARBONATE 31.5 MEQ/L (21.0-32.0); MAGNESIUM 2.1 MG/DL (1.5-2.5); POTASSIUM 4.4 MEQ/L (3.5-5.1)
--- NOTE | 2016-09-16 10:50 | PD.ONC.PN ---
Subjective Subjective Remarks Afebrile overnight. Patient wanting to know when she will see the kidney doctor. She is concerned about the swelling in her legs. Objective Data Date Time Temp Pulse Resp B/P Pulse Ox O2 Delivery O2 Flow Rate FiO2 09/16/16 08:00 97.6 72 20 156/88 100 09/16/16 04:00 97.2 72 18 137/78 98 09/15/16 23:42 96.5 67 18 108/69 99 09/15/16 20:00 97.1 71 18 126/72 100 09/15/16 16:00 96.3 77 17 135/82 97 09/15/16 12:00 97.7 75 18 136/78 98 09/16/16 09/16/16 09/16/16 07:00 15:00 23:00 Intake Total 240 ml 1200 ml Output Total 700 ml Balance -460 ml 1200 ml Result Diagram: 09/15/16 0507 09/16/16 0830 Laboratory Results Laboratory Tests Test 09/15/16 09/16/16 09/16/16 14:05 04:30 08:30 Potassium Level 3.8 MEQ/L 4.4 MEQ/L Urine Eosinophils NONE SEEN /HPF Urine Random Creatinine 52.8 MG/DL Urine Random Potassium 40 MEQ/L Sodium Level 134 MEQ/L Chloride Level 96 MEQ/L Carbon Dioxide Level 31.5 MEQ/L Anion Gap 7 MEQ/L Blood Urea Nitrogen 32 MG/DL Creatinine 2.04 MG/DL Estimat Glomerular Filtration 26 ML/MIN Rate Random Glucose 90 MG/DL Calcium Level 8.0 MG/DL Magnesium Level 2.1 MG/DL Administered Medications Medications (Trade) Dose Ordered Sig/Gonzalez Route PRN Reason Start Time Stop Time Status Last Admin Dose Admin Sodium Chloride (NS Flush) 2 ml UNSCH PRN IV FLUSH FLUSH AFTER USING IV ACCESS 09/04/16 19:45 09/15/16 11:16 Sodium Chloride (NS Flush) 2 ml BID IV FLUSH 09/04/16 21:00 09/16/16 08:30 Morphine Sulfate (Morphine Inj) 2 mg Q3H PRN IV PUSH pain >5 09/04/16 23:15 09/11/16 21:52 Docusate Sodium (Colace) 100 mg BID PRN PO CONSTIPATION 09/05/16 07:45 09/11/16 21:53 Gabapentin (Neurontin) 300 mg BID PO 09/05/16 09:00 09/16/16 08:27 Oxybutynin Chloride (Ditropan) 5 mg DAILY PO 09/05/16 09:00 09/16/16 08:27 Miscellaneous Information Patient in critical care unit? Ass... Q361D .XX 09/06/16 20:00 09/06/16 20:00 Patient Own Medication PT OWN MED: AMP... BID PO 09/06/16 22:30 09/08/16 07:45 Cyanocobalamin (Vitamin B12) 1,000 mcg DAILY PO 09/09/16 09:00 09/16/16 08:24 Hydralazine HCl (Apresoline) 100 mg Q8HR PO 09/12/16 14:00 09/16/16 06:40 Bumetanide (Bumex Inj) 1 mg DAILY IV PUSH 09/12/16 19:45 09/16/16 08:28 Metoprolol Tartrate (Lopressor) 12.5 mg Q12HR PO 09/13/16 10:00 09/16/16 08:25 Clonidine (Catapres) 0.1 mg Q8HR PO 09/13/16 14:00 09/16/16 06:40 Cholecalciferol (Vitamin D3) 2,000 units DAILY PO 09/14/16 09:00 09/16/16 08:25 Amiloride HCl (Midamor) 10 mg DAILY PO 09/14/16 17:45 09/16/16 08:24 Magnesium Chloride (Slow-Mag Dr) 128 mg DAILY PO 09/14/16 17:45 09/16/16 08:27 Objective Remarks GENERAL: Middle aged female, sitting up in bed, eating breakfast. SKIN: Warm and dry. HEAD: Normocephalic. EYES: No injection or drainage. NECK: Supple, trachea midline. CARDIOVASCULAR: Regular rate and rhythm RESPIRATORY: Breath sounds equal bilaterally. No accessory muscle use. GASTROINTESTINAL: Abdomen soft, non-tender, nondistended. EXTREMITIES: No cyanosis. legs with 2-3+ pitting edema NEUROLOGICAL: aox3. normal speech. no obvious focal deficit. Assessment/Plan Problem List: (1) Thrombocytopenia Status: Resolved Plan: 09/16/16: platelets continuing to improve--124K today. clear for discharge 09/12/16: Pt rec'd 2 units FFP. Direct King negative. Thrombocytopenia likely DIC from cholecystitis. Await CBC result today. 09/11/16: Platelets increased to 67K today. 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 HIT negative. Will continue to monitor CBC. 09/10/16: Platelets slightly improved today to 61K. Evidence of hemolysis in labs. Coags OK. Peripheral smear pending, HIT pending. Assessment 46 y/o female with history of multiple sclerosis; hematology consulted to evaluate thrombocytopenia. Plan 1. platelet count improved to 124K today. 2. patient clear for discharge from hematology perspective Attending Statement c/o severe swelling legs. Plat are coming up. Kidney bx tomorrow. D/W pt and . The exam, history, and the medical decision-making described in the above note were completed with the assistance of the mid-level provider. I reviewed and agree with the findings presented. I attest that I had a [id number] encounter with the patient on the same day, and personally performed and documented my assessment and findings in the medical record. Yuridia Cardozo September 16, 2016 10:50 Augusto Mensah MD September 16, 2016 23:24
--- NOTE | 2016-09-16 11:19 | HHI.NPPN ---
Subjective History of Present Illness The patient is a 46 yo [place] female who was sent to [facility] ED on 09/05/16 by her PCP for AMS. Says that prior to her admission, she had not been feeling well reporting multiple falls, weight loss, and fatigue. Her situation is complicated by MS which she was dx in 2007 and says she has been on the same medication since then (follows with Dr. Boo)---Ampyra & Rebif. Since her admission, she was diagnosed with biliary structure and is s/p cholecystectomy . As her liver enzymes have been elevated, she also had liver biopsy. Her platelets have been dropping and she has had some vaginal bleeding and nose bleeds. Hematology on board and believes that she has a DIC from her recent cholecystitis. She is unaware of any hx of renal decline. Admitting SCr at 2.20 and is 1.90 at time of consult. Labs prior to that in 2012 showed normal renal functions. PMHx otherwise of HTN, but not on medications for some time as it was controlled. Admits that she was a heavy EtOH user, but quit in August. Also quit smoking in August. Denies any NSAID use, not diabetic, no hx of obstructive uropathy. Interval History Pt resting in bed. Voices no new complaints---just continued concern about edema Review of Systems Cardiovascular Cardiac: Edema Objective Data Data 09/15/16 09/16/16 19:00 07:00 Intake Total 680 ml 480 ml Output Total 700 ml 1700 ml Balance -20 ml -1220 ml Intake Oral 480 ml 480 ml IV Total 200 ml 0 ml Output Urine Total 700 ml 1700 ml # Bowel Movements 0 0 Vital Signs Date Time Temp Pulse Resp B/P Pulse Ox O2 Delivery O2 Flow Rate FiO2 09/16/16 08:00 97.6 72 20 156/88 100 09/16/16 04:00 97.2 72 18 137/78 98 09/15/16 23:42 96.5 67 18 108/69 99 09/15/16 20:00 97.1 71 18 126/72 100 09/15/16 16:00 96.3 77 17 135/82 97 09/15/16 12:00 97.7 75 18 136/78 98 -: 09/15/16 0507 09/16/16 0830 Imaging Last Impressions Renal Ultrasound 5/11/17 0000 Signed Impressions: Service Date/Time: September 10:44 - CONCLUSION: Negative exam. Patient does not appear to have a vascular etiology for current clinical symptoms.. Torin Pearce MD Lower Extremity Ultrasound 09/09/16 Signed Impressions: Service Date/Time: Friday, September 09, 2016 19:27 - CONCLUSION: Possible left knee Pollard's cyst. This could be confirmed with MRI if clinically indicated. No evidence of lower extremity DVT. Lamine Blackmon MD Cholangiogram 09/08/16 Signed Impressions: Service Date/Time: Thursday, September 08, 2016 09:23 - CONCLUSION: No evidence of common duct stone. Redd Camacho MD Hepatobiliary Scan Nuclear Medicine 09/06/16 Signed Impressions: Service Date/Time: Tuesday, September 06, 2016 13:50 - CONCLUSION: 1. There is no evidence of common bile duct obstruction. There is normal clearance of tracer from the liver. 2. The gallbladder is never identified. In the appropriate clinical setting this can suggest cholecystitis. Delayed imaging may be of benefit to increase specificity. Hernan Grant MD Cholangiopancreatography MRI 09/06/16 Signed Impressions: Service Date/Time: Tuesday, September 06, 2016 08:50 - CONCLUSION: Nonvisualization of the duct confluence and proximal common hepatic duct. Lamine Blackmon MD ADDENDUM: COMPARISON: BILIARY SCAN (HIDA), September 06, 2016, 13:50. In light of normal appearance and drainage of the biliary tree on the HIDA scan, MRCP appearance is felt probably artifactual. Lamine Blackmon MD Thoracic Spine MRI 09/05/16 Signed Impressions: Service Date/Time: September 14:50 - CONCLUSION: 1. Long segment but very small, age-indeterminate syrinx of the thoracic spine. The thoracic cord also appears slightly atrophic. 2. Mild degenerative changes as above. 3. No foraminal or spinal stenosis. 4. Small right and tiny left pleural effusions are incidentally noted. Lamine Zuñiga MD Lumbar Spine MRI 09/05/16 Signed Impressions: Service Date/Time: September 14:50 - CONCLUSION: 1. Mild degenerative changes at L3/L4, L4/L5 and L5/S1. Please see above. 2. Small, age indeterminate right paracentral disc protrusion at L5/S1. This contacts the transiting right S1 nerve root within the lateral recess but without evidence of impingement. 3. Mild bilateral foraminal encroachment at L4/L5 without definite exiting nerve root impingement. 4. There are left larger than right biforaminal annular fissures at the L4/L5 disc. 5. Apparent mild facet synovitis on the left at L5/S1. Lamine Zuñiga MD Chest X-Ray 09/05/16 0000 Signed Impressions: Service Date/Time: September 07:52 - CONCLUSION: Mild to moderate cardiomegaly with no evidence of pulmonary edema. Redd Camacho MD Head CT 09/04/16 1702 Signed Impressions: Service Date/Time: Sunday, September 04, 2016 18:47 - CONCLUSION: Unremarkable noncontrast CT. Redd Camacho MD Abdomen/Pelvis CT 09/04/16 0000 Signed Impressions: Service Date/Time: Sunday, September 04, 2016 18:50 - CONCLUSION: 1. The study was performed without intravenous or oral contrast limiting the sensitivity. 2. No evidence of biliary obstruction. 3. The gallbladder is abnormal in appearance with wall thickening or surrounding fluid. There are no calcified gallstones identified. 4. Cystic mass in the left adnexa measuring 4.1 x 3 cm most consistent with an ovarian cyst. 5. Small right pleural effusion. 6. Nonspecific, nonobstructive bowel gas pattern which may represent an ileus or gastroenteritis. 7. Air-fluid level in the bladder likely secondary to recent instrumentation. Redd Camacho MD Medication Review Current Medications Medications (Trade) Dose Ordered Sig/Gonzalez Route Start Time Stop Time Status Last Admin (NS Flush) 2 ml UNSCH PRN IV FLUSH 09/04/16 19:45 09/15/16 11:16 (NS Flush) 2 ml BID IV FLUSH 09/04/16 21:00 09/16/16 08:30 (Narcan Inj) 0.4 mg UNSCH PRN IV 09/04/16 19:45 (Morphine Inj) 2 mg Q3H PRN IV PUSH 09/04/16 23:15 09/11/16 21:52 (Tylenol) 650 mg Q4H PRN PO 09/05/16 07:45 (Zofran Inj) 4 mg Q6H PRN IV 09/05/16 07:45 (Colace) 100 mg BID PRN PO 09/05/16 07:45 09/11/16 21:53 (Tums Chew) 1,000 mg TID PRN CHEW 09/05/16 07:45 (Neurontin) 300 mg BID PO 09/05/16 09:00 09/16/16 08:27 (Ditropan) 5 mg DAILY PO 09/05/16 09:00 09/16/16 08:27 Miscellaneous Information Patient in critical care unit? Ass... Q361D .XX 09/06/16 20:00 09/06/16 20:00 Patient Own Medication PT OWN MED: AMP... BID PO 09/06/16 22:30 09/08/16 07:45 (Vitamin B12) 1,000 mcg DAILY PO 09/09/16 09:00 09/16/16 08:24 (Apresoline) 100 mg Q8HR PO 09/12/16 14:00 09/16/16 06:40 (Bumex Inj) 1 mg DAILY IV PUSH 09/12/16 19:45 09/16/16 08:28 (Lopressor) 12.5 mg Q12HR PO 09/13/16 10:00 09/16/16 08:25 (Catapres) 0.1 mg Q8HR PO 09/13/16 14:00 09/16/16 06:40 (Vitamin D3) 2,000 units DAILY PO 09/14/16 09:00 09/16/16 08:25 (Midamor) 10 mg DAILY PO 09/14/16 17:45 09/16/16 08:24 (Slow-Mag Dr) 128 mg DAILY PO 09/14/16 17:45 09/16/16 08:27 Physical Exam General Appearance: No Acute Distress, Comfortable Pulmonary Resp Exam: Clear Bilaterally, Breath Sounds Equal Cardiology CV Exam: Regular, Normal Sinus Rhythm Gastrointestinal/Abdomen GI Exam: Soft, Non-Tender Integumentary Skin Exam: Clear, Warm Extremeties Extremities Exam: Moderate Edema (2-3+ pitting BLE up to thighs), Pitting Edema Neurologic Neuro Exam: Alert, Awake, Oriented Psychiatric Psych Exam: Appropriate Responses Assessment/Plan Discussed Condition With: Patient Problem List: (1) CKD (chronic kidney disease) stage 4, GFR 15-29 ml/min Plan: Patient appears to have chronic kidney disease suggested by renal ultrasound showing increased echogenicity. Cannot exclude a component of acute kidney disease however. Proteinuria is minimal and not nephrotic. SPEP was within normal range. MICHAEL is negative. SCr rosalio slightly today. Potentially had CKD related to hypertensive nephrosclerosis, but we cannot be entirely sure there is nothing else causing her current azotemia and whether this is the cause of her edema as well. Discussed with her again about kidney biopsy and she is willing to proceed. Advised of the risks versus benefits of kidney biopsy including bleeding, AV fistula formation, hematoma, infection, hemorrhage, and . NPO after midnight. Avoid ASA Medications should be adjusted for the patient's renal insufficiency. Avoid nephrotoxic medications including NSAIDs and iodinated contrast dyes. Avoid gadolinium when eGFR <30. (2) Edema Plan: As mentioned above patient only has proteinuria of 453 mg well below nephrotic range. Edema may be multifactorial related to CKD, hydralazine, hypoalbuminemia and third spacing. Continue on IV Bumex 1mg and Amiloride. (3) Severe concentric left ventricular hypertrophy Plan: Probably related to uncontrolled hypertension. Also mention of mild to moderate pericardial effusion on echocardiogram. As well as ascites. We'll defer to primary care physician regarding whether or not cardiology opinion would be beneficial. (4) Hypertension Plan: In view of mild proteinuria and CKD the patient may benefit from the addition of an [place] inhibitor or angiotensin receptor edna to slow progression of CKD. BP improved at the present. Monitor. Await results of renin and aldosterone level. Will also check 24-hour urine for metanephrines and catecholamines. Renal doppler reviewed and showed no signs of SERGEY (5) Elevated liver enzymes Plan: Reviewed liver biopsy report which shows suspicion for alcoholic or drug related hepatitis (6) MS (multiple sclerosis) Plan: Medications on hold at the present. Defer to neurology Rosalee Morgan September 16, 2016 11:19
[2016-09-16 12:00] VITALS: BP 112/61; PULSE 73; RESP 19; TEMP 97.2; O2SAT 100
[2016-09-16 14:14] LABS: APTT (PATIENT) 26.1 SEC (24.3-30.1); PROTHROMBIN TIME - PATIENT 10.8 SEC (9.8-11.6)
[2016-09-16 16:00] VITALS: BP 119/65; PULSE 78; RESP 18; TEMP 96.9; O2SAT 98
[2016-09-16 20:00] VITALS: BP 140/81; PULSE 77; RESP 19; TEMP 96.5; O2SAT 100
[2016-09-16 22:30] VITALS: BP 130/66; PULSE 75; RESP 18; O2SAT 97
[2016-09-17] VITALS (9 sets, daily range): BP systolic 122–186; BP diastolic 74–105; PULSE 68–90; RESP 17–19; TEMP 96.4–98.2; O2SAT 91–100
[2016-09-17] MEDS: hydrALAZINE HCL 50 MG TAB PO SCH ×3 (05:28→21:20)
[2016-09-17] MEDS: cloNIDine HCL 0.1 MG TAB PO SCH ×3 (05:28→21:18)
[2016-09-17 05:36] LABS: MEAN CELL VOLUME 101.5 FL (80.0-100.0); MEAN CORPUSCULAR HEMOGLOBIN 34.9 PG (27.0-34.0); MEAN CORPUSCULAR HGB CONC 34.4 % (32.0-36.0); PLATELET COUNT 131 TH/MM3 (150-450); RED BLOOD COUNT 2.46 MIL/MM3 (4.00-5.30); RED CELL DISTRIBUTION WIDTH 17.6 % (11.6-17.2); REVIEW FLAG FINAL; WHITE BLOOD COUNT 4.2 TH/MM3 (4.0-11.0)
[2016-09-17 06:04] LABS: BICARBONATE 30.3 MEQ/L (21.0-32.0); POTASSIUM 3.9 MEQ/L (3.5-5.1)
[2016-09-17] MEDS ORDERED: LIDOCAINE 1%/EPINEPHrine 1:100,000 SOLN 20 ML VIAL ONE (08:05)
[2016-09-17] MEDS ORDERED: fentaNYL CITRATE 250 MCG/5 ML AMP ONE (08:42)
[2016-09-17] MEDS ORDERED: MIDAZOLAM HCL 5 MG/5 ML VIAL ONE (08:42)
[2016-09-17] MEDS: DALFAMPRIDINE 10 MG PO SCH ×2 (09:00→21:00)
[2016-09-17 10:16] LABS: AUTOMATED NEUTROPHIL # 2.7 TH/MM3 (1.8-7.7); BASOPHIL % 0.7 % (0.0-2.0); EOSINOPHIL # 0.1 TH/MM3 (0-0.4); EOSINOPHIL % 2.6 % (0.0-4.0); HEMATOCRIT 29.6 % (35.0-46.0); HEMO FLAGS DIFF FINAL; LYMPH % 16.6 % (9.0-44.0); LYMPHOCYTE # 0.6 TH/MM3 (1.0-4.8); MEAN CELL VOLUME 102.2 FL (80.0-100.0); MEAN CORPUSCULAR HEMOGLOBIN 34.2 PG (27.0-34.0); MEAN CORPUSCULAR HGB CONC 33.4 % (32.0-36.0); MONO % 7.7 % (0.0-8.0); NEUT % 72.4 % (16.0-70.0); PLATELET COUNT 154 TH/MM3 (150-450); RED CELL DISTRIBUTION WIDTH 17.8 % (11.6-17.2); WHITE BLOOD COUNT 3.8 TH/MM3 (4.0-11.0)
[2016-09-17 11:39] LABS: AUTOMATED NEUTROPHIL # 3.9 TH/MM3 (1.8-7.7); BASOPHIL % 0.8 % (0.0-2.0); EOSINOPHIL # 0.1 TH/MM3 (0-0.4); EOSINOPHIL % 1.4 % (0.0-4.0); HEMATOCRIT 30.5 % (35.0-46.0); HEMO FLAGS DIFF FINAL; LYMPH % 17.4 % (9.0-44.0); LYMPHOCYTE # 0.9 TH/MM3 (1.0-4.8); MEAN CELL VOLUME 102.1 FL (80.0-100.0); MEAN CORPUSCULAR HEMOGLOBIN 32.9 PG (27.0-34.0); MEAN CORPUSCULAR HGB CONC 32.2 % (32.0-36.0); MONO % 7.8 % (0.0-8.0); NEUT % 72.6 % (16.0-70.0); PLATELET COUNT 148 TH/MM3 (150-450); RED BLOOD COUNT 2.99 MIL/MM3 (4.00-5.30); RED CELL DISTRIBUTION WIDTH 17.5 % (11.6-17.2); WHITE BLOOD COUNT 5.4 TH/MM3 (4.0-11.0)
--- NOTE | 2016-09-17 11:41 | HHI.PR ---
Subjective Remarks This is a pleasant 46 y/o Female with Multiple sclerosis, tobacco dependence Alcohol abuse, sent to ER by PCP due to Altered mental status, unintentional weight loss, recurrent falls, has Hypertension, Overactive bladder, admitted on 09/05/16, ECG showed Left Ventricular Hypertrophy, Acute Kidney Injury, elevated Liver Enzymes, dehydrated, Neurology consulted for MS. as per Neurology specialist recommended to hold Ampyra and Rebif this medicines may be a factor for her Generalized weakness, also probable related to MS. elevated Liver Enzymes as per GI specialist probable secondary to Alcohol abuse, recommended HIDA scan, MRCP, was transferred by General Surgery to this facility for ERCP. 09/13: Consulted by Nephrology specialist and Renal Ultrasound with increased Echogenicity for CKD but no clear why the patient had this decline in renal function, questioned about medicine Rebif, but will study MICHAEL, Urine protein to Creatinine ratio, Echocardiogram, IV fluids stopped due to edema, started on Bumex IV and monitor renal function. probable edema secondary to medicines, Amlodipine, Hydralazine, Gabapentin, seen by GI specialist with diagnosis of elevated LFTs MICHAEL negative ASMA neg, MA neg, AMA neg. Hep panel neg. 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 status post 2 units of FFP, Direct King negative, likely DIC from Cholecystitis, Direct antiglobulin test negative. Haptoglobin is low due to liver disease and Hemolysis. 09/14: already GI specialist Signed off and Hematology but awaiting final by Nephrology specialist for discharge. 09/15: will have a Kidney biopsy next week. replaced electrolytes, Potassium 3.2 and Magnesium 1.5 Continue edema 3+ on bilateral legs. 09/16: worsened Renal function 09/17: Status post Kidney Biopsy, continue swollen legs 3+, no nausea, vomit or diarrhea, seen in her bedroom in the presence of Nurse Mr. Lamine verdugo. Objective Vital Signs Date Time Temp Pulse Resp B/P Pulse Ox O2 Delivery O2 Flow Rate FiO2 09/17/16 10:29 71 18 132/74 96 09/17/16 09:59 73 19 134/86 91 09/17/16 09:44 97.4 90 18 126/74 94 09/17/16 08:00 96.4 75 18 186/105 98 09/17/16 04:00 97.8 69 18 133/82 98 09/17/16 00:00 98.2 73 19 126/74 96 09/16/16 22:30 75 18 130/66 97 09/16/16 20:00 96.5 77 19 140/81 100 09/16/16 16:00 96.9 78 18 119/65 98 09/16/16 12:00 97.2 73 19 112/61 100 I/O 09/16/16 09/16/16 09/16/16 09/17/16 09/17/16 09/17/16 07:00 15:00 23:00 07:00 15:00 23:00 Intake Total 240 ml 3160 ml 240 ml 120 ml Output Total 700 ml 1600 ml 200 ml 800 ml Balance -460 ml 1560 ml 40 ml -680 ml Intake Oral 240 ml 3160 ml 240 ml 120 ml IV Total 0 ml Output Urine Total 700 ml 1600 ml 200 ml 800 ml # Voids 1 # Bowel Movements 0 2 0 0 Result Diagram: 09/17/16 1126 09/17/16 0452 Imaging Last Impressions Renal Ultrasound 09/12/16 0000 Signed Impressions: Service Date/Time: September 10:44 - CONCLUSION: Negative exam. Patient does not appear to have a vascular etiology for current clinical symptoms.. Torin Pearce MD Lower Extremity Ultrasound 09/09/16 0000 Signed Impressions: Service Date/Time: Friday, September 09, 2016 19:27 - CONCLUSION: Possible left knee Pollard's cyst. This could be confirmed with MRI if clinically indicated. No evidence of lower extremity DVT. Lamine Blackmon MD Cholangiogram 09/08/16 0000 Signed Impressions: Service Date/Time: Thursday, September 08, 2016 09:23 - CONCLUSION: No evidence of common duct stone. Redd Camacho MD Hepatobiliary Scan Nuclear Medicine 09/06/16 0000 Signed Impressions: Service Date/Time: Tuesday, September 06, 2016 13:50 - CONCLUSION: 1. There is no evidence of common bile duct obstruction. There is normal clearance of tracer from the liver. 2. The gallbladder is never identified. In the appropriate clinical setting this can suggest cholecystitis. Delayed imaging may be of benefit to increase specificity. Hernan Grant MD Cholangiopancreatography MRI 09/06/16 Signed Impressions: Service Date/Time: Tuesday, September 06, 2016 08:50 - CONCLUSION: Nonvisualization of the duct confluence and proximal common hepatic duct. Lamine Blackmon MD ADDENDUM: COMPARISON: BILIARY SCAN (HIDA), September 06, 2016, 13:50. In light of normal appearance and drainage of the biliary tree on the HIDA scan, MRCP appearance is felt probably artifactual. Lamine Blackmon MD Thoracic Spine MRI 09/05/16 Signed Impressions: Service Date/Time: September 14:50 - CONCLUSION: 1. Long segment but very small, age-indeterminate syrinx of the thoracic spine. The thoracic cord also appears slightly atrophic. 2. Mild degenerative changes as above. 3. No foraminal or spinal stenosis. 4. Small right and tiny left pleural effusions are incidentally noted. Lamine Zuñiga MD Lumbar Spine MRI 09/05/16 Signed Impressions: Service Date/Time: September 14:50 - CONCLUSION: 1. Mild degenerative changes at L3/L4, L4/L5 and L5/S1. Please see above. 2. Small, age indeterminate right paracentral disc protrusion at L5/S1. This contacts the transiting right S1 nerve root within the lateral recess but without evidence of impingement. 3. Mild bilateral foraminal encroachment at L4/L5 without definite exiting nerve root impingement. 4. There are left larger than right biforaminal annular fissures at the L4/L5 disc. 5. Apparent mild facet synovitis on the left at L5/S1. Lamine Zuñiga MD Chest X-Ray 09/05/16 Signed Impressions: Service Date/Time: September 07:52 - CONCLUSION: Mild to moderate cardiomegaly with no evidence of pulmonary edema. Redd Camacho MD Head CT 09/04/16 4737 Signed Impressions: Service Date/Time: Sunday, September 04, 2016 18:47 - CONCLUSION: Unremarkable noncontrast CT. Redd Camacho MD Abdomen/Pelvis CT 09/04/16 Signed Impressions: Service Date/Time: Sunday, September 04, 2016 18:50 - CONCLUSION: 1. The study was performed without intravenous or oral contrast limiting the sensitivity. 2. No evidence of biliary obstruction. 3. The gallbladder is abnormal in appearance with wall thickening or surrounding fluid. There are no calcified gallstones identified. 4. Cystic mass in the left adnexa measuring 4.1 x 3 cm most consistent with an ovarian cyst. 5. Small right pleural effusion. 6. Nonspecific, nonobstructive bowel gas pattern which may represent an ileus or gastroenteritis. 7. Air-fluid level in the bladder likely secondary to recent instrumentation. Redd Camacho MD Procedures status post Laparoscopic Cholecystectomy with intraoperative cholangiogram with intraoperative use of fluoroscopy Joseph-cut Liver biopsy x 2 with Post operative diagnosis of Cholecystitis with previous choledocholithiasis with fatty changes by Doctor Redd Jurado Other Results Laboratory Tests Test 09/11/16 09/13/16 09/14/16 09/15/16 00:33 04:41 03:00 05:07 Blood Bank Comment Total Bilirubin 1.7 MG/DL Direct Bilirubin 0.6 MG/DL Indirect Bilirubin 1.1 MG/DL Aspartate Amino Transf 48 U/L (AST/SGOT) Alanine Aminotransferase 108 U/L (ALT/SGPT) Alkaline Phosphatase 108 U/L Total Protein 6.1 GM/DL Anti-Nuclear Antibody Screen NEG Complement C3 111 MG/DL Complement C4 20 MG/DL Free [place] Light Chains 30.31 mg/L Free Lambda Light Chains 22.45 mg/L Free [place]/Lambda Light Chain 1.35 Ratio Albumin/Globulin Ratio 1.44 [id number] 0.19 GM/DL Taehl-[id number] 0.60 GM/DL Beta Globulins 0.64 GM/DL Gamma Globulins 1.03 GM/DL Electrophoresis Pathologist Comment 25-Hydroxy Vitamin D Total 25.0 ng/ML Urine Total Volume 24 Hours 3060 ML Urine Total Protein 24 Hour 453 MG/24HR Urine Immunofixation Lactate Dehydrogenase 532 U/L Test 09/16/16 09/16/16 09/16/16 09/17/16 04:30 08:30 13:50 04:52 Urine Eosinophils NONE SEEN /HPF Urine Random Creatinine 52.8 MG/DL Urine Random Potassium 40 MEQ/L Magnesium Level 2.1 MG/DL Prothrombin Time 10.8 SEC Prothromb Time International 1.0 RATIO Ratio Activated Partial 26.1 SEC Thromboplast Time Sodium Level 137 MEQ/L Potassium Level 3.9 MEQ/L Chloride Level 98 MEQ/L Carbon Dioxide Level 30.3 MEQ/L Anion Gap 9 MEQ/L Blood Urea Nitrogen 34 MG/DL Creatinine 2.08 MG/DL Estimat Glomerular Filtration 26 ML/MIN Rate Random Glucose 94 MG/DL Calcium Level 7.8 MG/DL Phosphorus Level 3.3 MG/DL Albumin 2.3 GM/DL Test 09/17/16 11:26 White Blood Count 5.4 TH/MM3 Red Blood Count 2.99 MIL/MM3 Hemoglobin 9.8 GM/DL Hematocrit 30.5 % Mean Corpuscular Volume 102.1 FL Mean Corpuscular Hemoglobin 32.9 PG Mean Corpuscular Hemoglobin 32.2 % Concent Red Cell Distribution Width 17.5 % Platelet Count 148 TH/MM3 Mean Platelet Volume 9.1 FL Neutrophils (%) (Auto) 72.6 % Lymphocytes (%) (Auto) 17.4 % Monocytes (%) (Auto) 7.8 % Eosinophils (%) (Auto) 1.4 % Basophils (%) (Auto) 0.8 % Neutrophils # (Auto) 3.9 TH/MM3 Lymphocytes # (Auto) 0.9 TH/MM3 Monocytes # (Auto) 0.4 TH/MM3 Eosinophils # (Auto) 0.1 TH/MM3 Basophils # (Auto) 0.0 TH/MM3 CBC Comment DIFF FINAL Differential Comment Objective Remarks GENERAL: No acute distress. SKIN: ecchymosis on both arms. HEAD: Atraumatic. Normocephalic. No temporal or scalp tenderness. EYES: Pupils equal round and reactive. ENT: Nose without bleeding. NECK: Trachea midline. No JVD or lymphadenopathy. Supple. CARDIOVASCULAR: Regular rate and rhythm without murmurs, gallops, or rubs. RESPIRATORY: Clear to auscultation. Breath sounds equal bilaterally. No wheezes , rales, or rhonchi. GASTROINTESTINAL: Abdomen soft, mild tenderness, clean surgical wounds. MUSCULOSKELETAL: Extremities without clubbing, Edema 3+ NEUROLOGICAL: Awake and alert. No focal deficits. Medications and IVs Current Medications Medications (Trade) Dose Ordered Sig/Gonzalez Route Start Time Stop Time Status Last Admin (NS Flush) 2 ml UNSCH PRN IV FLUSH 09/04/16 19:45 09/15/16 11:16 (NS Flush) 2 ml BID IV FLUSH 09/04/16 21:00 09/16/16 21:49 (Narcan Inj) 0.4 mg UNSCH PRN IV 09/04/16 19:45 (Morphine Inj) 2 mg Q3H PRN IV PUSH 09/04/16 23:15 09/11/16 21:52 (Tylenol) 650 mg Q4H PRN PO 09/05/16 07:45 (Zofran Inj) 4 mg Q6H PRN IV 09/05/16 07:45 (Colace) 100 mg BID PRN PO 09/05/16 07:45 09/11/16 21:53 (Tums Chew) 1,000 mg TID PRN CHEW 09/05/16 07:45 (Neurontin) 300 mg BID PO 09/05/16 09:00 09/16/16 21:49 (Ditropan) 5 mg DAILY PO 09/05/16 09:00 09/16/16 08:27 Miscellaneous Information Patient in critical care unit? Ass... Q361D .XX 09/06/16 20:00 09/06/16 20:00 Patient Own Medication PT OWN MED: AMP... BID PO 09/06/16 22:30 09/08/16 07:45 (Vitamin B12) 1,000 mcg DAILY PO 09/09/16 09:00 09/16/16 08:24 (Apresoline) 100 mg Q8HR PO 09/12/16 14:00 09/17/16 05:28 (Bumex Inj) 1 mg DAILY IV PUSH 09/12/16 19:45 09/16/16 08:28 (Lopressor) 12.5 mg Q12HR PO 09/13/16 10:00 09/16/16 21:49 (Catapres) 0.1 mg Q8HR PO 09/13/16 14:00 09/17/16 05:28 (Vitamin D3) 2,000 units DAILY PO 09/14/16 09:00 09/16/16 08:25 (Midamor) 10 mg DAILY PO 09/14/16 17:45 09/16/16 08:24 (Slow-Mag Dr) 128 mg DAILY PO 09/14/16 17:45 09/16/16 08:27 A/P Assessment and Plan 1. Accelerated Hypertension, continue Beta Blockers, Ditropan 5 mg daily, Clonidine 0.1 mg every eight hours and follow closely blood pressure. Renal US High Echogenicity for probable CKD. 2. Electrolyte derangement replaced 3. Acute Kidney Injury Nephrology following, Renal Ultrasound with increased Echogenicity for CKD but no clear why the patient had this decline in renal function, questioned about medicine Rebif , but will study MICHAEL, Urine protein to Creatinine ratio, IV fluids stopped due to edema, started on Bumex IV and monitor renal function. probable edema secondary to medicines, Amlodipine, Hydralazine, Gabapentin, Stable Creatinine level, Status post Kidney Biopsy 4. Elevated Liver enzymes with tender RUQ, CT indicated gallbladder abnormality of thickened wall or fluid present, hepatitis profile and workup for autoimmune hepatitis. after evaluation by GI specialist today reviewed MRCP/CT and HIDA scan. Status post Laparoscopic Cholecystectomy with intraoperative cholangiogram with intraoperative use of fluoroscopy Joseph-cut Liver biopsy x 2 with Post operative diagnosis of Cholecystitis with previous choledocholithiasis with fatty changes seen by GI specialist with diagnosis of elevated LFTs MICHAEL negative ASMA neg, MA neg, AMA neg. Hep panel neg. 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 cleared for discharge by GI specialist 5. Multiple Sclerosis on hold Rebif and Ampyra. 6. Macrocytic anemia with normal values of B12 and Folate 7. Acute metabolic and Hypertensive Encephalopathy CT brain no acute findings. Improved. 8. Thrombocytopenia followed by claims support specialist. status post 2 units of FFP, Direct King negative, likely DIC from Cholecystitis, Direct antiglobulin test negative. Haptoglobin is low due to liver disease and Hemolysis. Improving Thrombocytopenia cleared by claims support specialist. DVT prophylaxis with SCDs. Encourage ambulation Discharge Planning Awaiting final recommendations by Nephrology specialist for discharge. Silas Cummings MD September 17, 2016 11:41 DVT prophylaxis with SCDs. Encourage ambulation Discharge Planning Awaiting final recommendations by Nephrology specialist for discharge. Silas Cummings MD September 17, 2016 11:41
[2016-09-17] MEDS: aMILoride HCL 5 MG TAB PO SCH (11:51)
[2016-09-17] MEDS: GABAPENTIN 300 MG CAP PO SCH ×2 (11:51→21:18)
[2016-09-17] MEDS: CHOLECALCIFEROL (VIT D3) 1000 UNIT TAB PO SCH (11:51)
[2016-09-17] MEDS: CYANOCOBALAMIN 1,000 MCG TAB PO SCH (11:51)
[2016-09-17] MEDS: BUMETANIDE INJ 1 MG/4 ML VIAL IV PUSH SCH (11:51)
[2016-09-17] MEDS: METOPROLOL TARTRATE 25 MG TAB PO SCH ×2 (11:52→21:18)
[2016-09-17] MEDS: OXYBUTYNIN CHLORIDE 5 MG TAB PO SCH (11:52)
[2016-09-17] MEDS: SODIUM CHLORIDE 0.9% FLUSH 10 ML FLUSH IV FLUSH SCH ×2 (11:53→21:21)
[2016-09-17] MEDS: MAGNESIUM CHLORIDE 64 MG TAB PO SCH (11:53)
--- NOTE | 2016-09-17 14:08 | PD.ONC.PN ---
Subjective Subjective Remarks Afebrile overnight. Pt resting in bed in no distress. She had renal bx this morning. No complaints. Objective Data Date Time Temp Pulse Resp B/P Pulse Ox O2 Delivery O2 Flow Rate FiO2 09/17/16 12:00 96.9 71 17 146/79 99 09/17/16 10:29 71 18 132/74 96 09/17/16 09:59 73 19 134/86 91 09/17/16 09:44 97.4 90 18 126/74 94 09/17/16 08:00 96.4 75 18 186/105 98 09/17/16 04:00 97.8 69 18 133/82 98 09/17/16 00:00 98.2 73 19 126/74 96 09/16/16 22:30 75 18 130/66 97 09/16/16 20:00 96.5 77 19 140/81 100 09/16/16 16:00 96.9 78 18 119/65 98 09/17/16 09/17/16 09/17/16 07:00 15:00 23:00 Intake Total 120 ml Output Total 800 ml Balance -680 ml Result Diagram: 09/17/16 1126 09/17/16 0452 Laboratory Results Laboratory Tests Test 09/17/16 09/17/16 09/17/16 04:52 10:03 11:26 White Blood Count 4.2 TH/MM3 3.8 TH/MM3 5.4 TH/MM3 Red Blood Count 2.46 MIL/MM3 2.90 MIL/MM3 2.99 MIL/MM3 Hemoglobin 8.6 GM/DL 9.9 GM/DL 9.8 GM/DL Hematocrit 25.0 % 29.6 % 30.5 % Mean Corpuscular Volume 101.5 FL 102.2 FL 102.1 FL Mean Corpuscular Hemoglobin 34.9 PG 34.2 PG 32.9 PG Mean Corpuscular Hemoglobin 34.4 % 33.4 % 32.2 % Concent Red Cell Distribution Width 17.6 % 17.8 % 17.5 % Platelet Count 131 TH/MM3 154 TH/MM3 148 TH/MM3 Mean Platelet Volume 9.8 FL 9.3 FL 9.1 FL Sodium Level 137 MEQ/L Potassium Level 3.9 MEQ/L Chloride Level 98 MEQ/L Carbon Dioxide Level 30.3 MEQ/L Anion Gap 9 MEQ/L Blood Urea Nitrogen 34 MG/DL Creatinine 2.08 MG/DL Estimat Glomerular Filtration 26 ML/MIN Rate Random Glucose 94 MG/DL Calcium Level 7.8 MG/DL Phosphorus Level 3.3 MG/DL Albumin 2.3 GM/DL Neutrophils (%) (Auto) 72.4 % 72.6 % Lymphocytes (%) (Auto) 16.6 % 17.4 % Monocytes (%) (Auto) 7.7 % 7.8 % Eosinophils (%) (Auto) 2.6 % 1.4 % Basophils (%) (Auto) 0.7 % 0.8 % Neutrophils # (Auto) 2.7 TH/MM3 3.9 TH/MM3 Lymphocytes # (Auto) 0.6 TH/MM3 0.9 TH/MM3 Monocytes # (Auto) 0.3 TH/MM3 0.4 TH/MM3 Eosinophils # (Auto) 0.1 TH/MM3 0.1 TH/MM3 Basophils # (Auto) 0.0 TH/MM3 0.0 TH/MM3 CBC Comment DIFF FINAL DIFF FINAL Differential Comment Administered Medications Medications (Trade) Dose Ordered Sig/Gonzalez Route PRN Reason Start Time Stop Time Status Last Admin Dose Admin Sodium Chloride (NS Flush) 2 ml UNSCH PRN IV FLUSH FLUSH AFTER USING IV ACCESS 09/04/16 19:45 09/15/16 11:16 Sodium Chloride (NS Flush) 2 ml BID IV FLUSH 09/04/16 21:00 09/17/16 11:53 Morphine Sulfate (Morphine Inj) 2 mg Q3H PRN IV PUSH pain >5 09/04/16 23:15 09/11/16 21:52 Docusate Sodium (Colace) 100 mg BID PRN PO CONSTIPATION 09/05/16 07:45 09/11/16 21:53 Gabapentin (Neurontin) 300 mg BID PO 09/05/16 09:00 09/17/16 11:51 Oxybutynin Chloride (Ditropan) 5 mg DAILY PO 09/05/16 09:00 09/17/16 11:52 Miscellaneous Information Patient in critical care unit? Ass... [id number] .[id number] 09/06/16 20:00 09/06/16 20:00 Patient Own Medication PT OWN MED: AMP... BID PO 09/06/16 22:30 09/08/16 07:45 Cyanocobalamin (Vitamin B12) 1,000 mcg DAILY PO 09/09/16 09:00 09/17/16 11:51 Hydralazine HCl (Apresoline) 100 mg Q8HR PO 09/12/16 14:00 09/17/16 05:28 Bumetanide (Bumex Inj) 1 mg DAILY IV PUSH 09/12/16 19:45 09/17/16 11:51 Metoprolol Tartrate (Lopressor) 12.5 mg Q12HR PO 09/13/16 10:00 09/17/16 11:52 Clonidine (Catapres) 0.1 mg Q8HR PO 09/13/16 14:00 09/17/16 05:28 Cholecalciferol (Vitamin D3) 2,000 units DAILY PO 09/14/16 09:00 09/17/16 11:51 Amiloride HCl (Midamor) 10 mg DAILY PO 09/14/16 17:45 09/17/16 11:51 Magnesium Chloride (Slow-Mag Dr) 128 mg DAILY PO 09/14/16 17:45 09/17/16 11:53 Objective Remarks GENERAL: Middle aged female, sitting up in bed in no distress. SKIN: Warm and dry. HEAD: Normocephalic. EYES: No injection or drainage. NECK: Supple, trachea midline. CARDIOVASCULAR: Regular rate and rhythm RESPIRATORY: Breath sounds equal bilaterally. No accessory muscle use. GASTROINTESTINAL: Abdomen soft, non-tender, nondistended. EXTREMITIES: No cyanosis. legs with 2-3+ pitting edema NEUROLOGICAL: Normal speech. Moving all extremities. A&Ox3. Assessment/Plan Problem List: (1) Thrombocytopenia Status: Resolved Plan: 09/17: Pt had renal bx today. Platelets almost normal today at 148k. OK for d/c from oncology standpoint. 09/16/16: platelets continuing to improve. clear for discharge 09/12/16: Pt rec'd 2 units FFP. Direct King negative. Thrombocytopenia likely DIC from cholecystitis. Await CBC result today. 09/11/16: Platelets increased to 67K today. 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 HIT negative. Will continue to monitor CBC. 09/10/16: Platelets slightly improved today to 61K. Evidence of hemolysis in labs. Coags OK. Peripheral smear pending, HIT pending. Assessment 46 y/o female with history of multiple sclerosis; hematology consulted to evaluate thrombocytopenia. Plan 1. platelet count improved to 148K today. 2. patient clear for discharge from hematology perspective Attending Statement no c/o S/P renal bx today. plat are NL. will follow The exam, history, and the medical decision-making described in the above note were completed with the assistance of the mid-level provider. I reviewed and agree with the findings presented. I attest that I had a [id number] encounter with the patient on the same day, and personally performed and documented my assessment and findings in the medical record. Nisa Harrington September 17, 2016 14:08 Augusto Mensah MD September 17, 2016 23:24
--- NOTE | 2016-09-17 15:24 | RADRPT ---
EXAM DATE/TIME: 09/17/2016 08:46 [facility] COMPARISON: No previous studies available for comparison. INDICATIONS : Right renal function biopsy SEDATION TIME: 30 minutes BIOPSY SITE: Right kidney MEDICATION(S): 1.) 2 mg midazolam (Versed) IV 2.) 100 mcg fentanyl (Sublimaze) IV DEVICE(S): 1.) 17 gauge introducer 2.) 18 gauge Temno core biopsy needle MEDICAL HISTORY : Hypertension. Multiple sclerosis. SURGICAL HISTORY : None. ENCOUNTER: Initial ACUITY: 1 day PAIN SCORE: 0/10 LOCATION: Right flank A total of three core specimen(s) were obtained and sent to the laboratory for pathologic evaluation. PROCEDURE: 1. CT guided renal biopsy. 2. Conscious sedation with continuous EKG and oximetry monitoring. 3. EKG and oximetry remained stable throughout the procedure. Prior to the procedure informed consent was obtained. Any appropriate prior imaging studies were rev iewed. Using automated exposure control and adjustment of the mA and/or kV according to patient size, radiat ion dose was kept as low as reasonably achievable to obtain optimal diagnostic quality images. The site was prepped in a sterile fashion. Full sterile technique was used, including cap, mask, maria alejandra rile gloves and gown and a large sterile sheet. Hand hygiene and 2% chlorhexidine and/or betadine/al cohol prep was utilized per protocol for cutaneous antisepsis. The skin and subcutaneous tissues wer e infiltrated with local anesthetic solution. With CT guidance the previously identified target was localized. Biopsy was performed using the presc ribed needle as above. Adequate hemostasis was obtained with compression at the puncture site. Follow-up CT scan reveals no hemorrhage. The patient tolerated the procedure well and there were no complications. The patient was returned to the Radiology Outpatient Unit in stable condition. CONCLUSION: Uncomplicated CT guided biopsy. Jhonathan Tijerina MD on September 17, 2016 at 15:22 Board Certified Radiologist. This report was verified electronically.
--- NOTE | 2016-09-17 16:53 | HHI.NPPN ---
Subjective History of Present Illness The patient is a 46 yo [place] female who was sent to [facility] ED on 09/05/16 by her PCP for AMS. Says that prior to her admission, she had not been feeling well reporting multiple falls, weight loss, and fatigue. Her situation is complicated by MS which she was dx in 2007 and says she has been on the same medication since then (follows with Dr. Boo)---Ampyra & Rebif. Since her admission, she was diagnosed with biliary structure and is s/p cholecystectomy . As her liver enzymes have been elevated, she also had liver biopsy. Her platelets have been dropping and she has had some vaginal bleeding and nose bleeds. Hematology on board and believes that she has a DIC from her recent cholecystitis. She is unaware of any hx of renal decline. Admitting SCr at 2.20 and is 1.90 at time of consult. Labs prior to that in 2012 showed normal renal functions. PMHx otherwise of HTN, but not on medications for some time as it was controlled. Admits that she was a heavy EtOH user, but quit in August. Also quit smoking in August. Denies any NSAID use, not diabetic, no hx of obstructive uropathy. Interval History Patient seen postbiopsy. No verbal complaints. Review of Systems Cardiovascular Cardiac: Edema Objective Data Data 09/16/16 09/17/16 19:00 07:00 Intake Total 3160 ml 360 ml Output Total 1600 ml 1000 ml Balance 1560 ml -640 ml Intake Oral 3160 ml 360 ml IV Total 0 ml Output Urine Total 1600 ml 1000 ml # Voids 1 # Bowel Movements 2 0 Vital Signs Date Time Temp Pulse Resp B/P Pulse Ox O2 Delivery O2 Flow Rate FiO2 09/17/16 16:00 98.0 68 17 143/75 100 09/17/16 12:00 96.9 71 17 146/79 99 09/17/16 10:29 71 18 132/74 96 09/17/16 09:59 73 19 134/86 91 09/17/16 09:44 97.4 90 18 126/74 94 09/17/16 08:00 96.4 75 18 186/105 98 09/17/16 04:00 97.8 69 18 133/82 98 09/17/16 00:00 98.2 73 19 126/74 96 09/16/16 22:30 75 18 130/66 97 09/16/16 20:00 96.5 77 19 140/81 100 -: 09/17/16 1126 09/17/16 0452 Physical Exam General Appearance: No Acute Distress, Comfortable Pulmonary Resp Exam: Clear Bilaterally, Breath Sounds Equal Cardiology CV Exam: Regular, Normal Sinus Rhythm Gastrointestinal/Abdomen GI Exam: Soft, Non-Tender Integumentary Skin Exam: Clear, Warm Extremeties Extremities Exam: Moderate Edema (2-3+ pitting BLE up to thighs), Pitting Edema Neurologic Neuro Exam: Alert, Awake, Oriented Psychiatric Psych Exam: Appropriate Responses Assessment/Plan Discussed Condition With: Patient Problem List: (1) CKD (chronic kidney disease) stage 4, GFR 15-29 ml/min Plan: Patient appears to have chronic kidney disease suggested by renal ultrasound showing increased echogenicity. Cannot exclude a component of acute kidney disease however. Proteinuria is minimal and not nephrotic. SPEP was within normal range. MICHAEL is negative. Renal function is relatively stable at this point in time but etiology of patient's renal dysfunction uncertain. Await results of kidney biopsy. Hopefully preliminary report will be available in about 48 hours. Medications should be adjusted for the patient's renal insufficiency. Avoid nephrotoxic medications including NSAIDs and iodinated contrast dyes. Avoid gadolinium when eGFR <30. (2) Edema Plan: As mentioned above patient only has proteinuria of 453 mg well below nephrotic range. Edema may be multifactorial related to CKD, hydralazine, hypoalbuminemia and third spacing. Continue on IV Bumex 1mg and Amiloride. (3) Severe concentric left ventricular hypertrophy Plan: Probably related to uncontrolled hypertension. Also mention of mild to moderate pericardial effusion on echocardiogram. As well as ascites. We'll defer to primary care physician regarding whether or not cardiology opinion would be beneficial. (4) Hypertension Plan: In view of mild proteinuria and CKD the patient may benefit from the addition of an [place] inhibitor or angiotensin receptor edna to slow progression of CKD. BP improved at the present. Monitor. Await results of renin and aldosterone level. Will also check 24-hour urine for metanephrines and catecholamines. Renal doppler reviewed and showed no signs of SERGEY (5) Elevated liver enzymes Plan: Reviewed liver biopsy report which shows suspicion for alcoholic or drug related hepatitis (6) MS (multiple sclerosis) Plan: Medications on hold at the present. Defer to neurology Bossman Nunes MD September 17, 2016 16:53
[2016-09-18] VITALS: BP 125/70; PULSE 73; RESP 20; TEMP 97.8; O2SAT 99
[2016-09-18 04:00] VITALS: BP 124/69; PULSE 70; RESP 18; TEMP 98.5; O2SAT 99
[2016-09-18 06:06] LABS: BICARBONATE 29.4 MEQ/L (21.0-32.0); POTASSIUM 3.8 MEQ/L (3.5-5.1)
[2016-09-18] MEDS: hydrALAZINE HCL 50 MG TAB PO SCH ×3 (06:06→22:07)
[2016-09-18] MEDS: cloNIDine HCL 0.1 MG TAB PO SCH ×3 (06:06→22:07)
[2016-09-18 08:00] VITALS: BP 128/79; PULSE 71; RESP 16; TEMP 97.3; O2SAT 99
[2016-09-18] MEDS: METOPROLOL TARTRATE 25 MG TAB PO SCH ×2 (08:12→22:07)
[2016-09-18] MEDS: GABAPENTIN 300 MG CAP PO SCH ×2 (08:12→21:00)
[2016-09-18] MEDS: OXYBUTYNIN CHLORIDE 5 MG TAB PO SCH (08:13)
[2016-09-18] MEDS: CYANOCOBALAMIN 1,000 MCG TAB PO SCH (08:13)
[2016-09-18] MEDS: CHOLECALCIFEROL (VIT D3) 1000 UNIT TAB PO SCH (08:13)
[2016-09-18] MEDS: MAGNESIUM CHLORIDE 64 MG TAB PO SCH (08:14)
[2016-09-18] MEDS: aMILoride HCL 5 MG TAB PO SCH (08:14)
[2016-09-18] MEDS: DALFAMPRIDINE 10 MG PO SCH ×2 (08:20→21:00)
[2016-09-18] MEDS: BUMETANIDE INJ 1 MG/4 ML VIAL IV PUSH SCH (08:20)
[2016-09-18] MEDS: SODIUM CHLORIDE 0.9% FLUSH 10 ML FLUSH IV FLUSH SCH ×2 (08:20→21:00)
--- NOTE | 2016-09-18 09:28 | HHI.PR ---
Subjective Remarks This is a pleasant 46 y/o Female with Multiple sclerosis, tobacco dependence Alcohol abuse, sent to ER by PCP due to Altered mental status, unintentional weight loss, recurrent falls, has Hypertension, Overactive bladder, admitted on 09/05/16, ECG showed Left Ventricular Hypertrophy, Acute Kidney Injury, elevated Liver Enzymes, dehydrated, Neurology consulted for MS. as per Neurology specialist recommended to hold Ampyra and Rebif this medicines may be a factor for her Generalized weakness, also probable related to MS. elevated Liver Enzymes as per GI specialist probable secondary to Alcohol abuse, recommended HIDA scan, MRCP, was transferred by General Surgery to this facility for ERCP. 09/13: Consulted by Nephrology specialist and Renal Ultrasound with increased Echogenicity for CKD but no clear why the patient had this decline in renal function, questioned about medicine Rebif, but will study MICHAEL, Urine protein to Creatinine ratio, Echocardiogram, IV fluids stopped due to edema, started on Bumex IV and monitor renal function. probable edema secondary to medicines, Amlodipine, Hydralazine, Gabapentin, seen by GI specialist with diagnosis of elevated LFTs MICHAEL negative ASMA neg, MA neg, AMA neg. Hep panel neg. s/p lap leydi, liver bx--> mild portal hepatitis with early bridging fibrosis, morphologic features suspicious for ETOH, and again Rebif as possible cause for Hepatitis stopped, has Thrombocytopenia followed by data analytics specialist. status post 2 units of FFP, Direct King negative, likely DIC from Cholecystitis, Direct antiglobulin test negative. Haptoglobin is low due to liver disease and Hemolysis. 09/14: already GI specialist Signed off and Hematology but awaiting final by Nephrology specialist for discharge. 09/15: will have a Kidney biopsy next week. replaced electrolytes, Potassium 3.2 and Magnesium 1.5 Continue edema 3+ on bilateral legs. 09/16: worsened Renal function 09/17: Status post Kidney Biopsy, continue swollen legs 3+. 09/18: Stable seen in her room, no complaint, walking, continue with swollen legs , no nausea, vomit or diarrhea, status post Kidney Biopsy performed yesterday. wants to go home. Objective Vital Signs Date Time Temp Pulse Resp B/P Pulse Ox O2 Delivery O2 Flow Rate FiO2 09/18/16 08:00 97.3 71 16 128/79 99 09/18/16 04:00 98.5 70 18 124/69 99 124/69 09/18/16 00:00 97.8 73 20 125/70 99 09/17/16 20:00 97.6 74 18 122/75 98 09/17/16 20:00 70 09/17/16 16:00 98.0 68 17 143/75 100 09/17/16 12:00 96.9 71 17 146/79 99 09/17/16 10:29 71 18 132/74 96 09/17/16 09:59 73 19 134/86 91 09/17/16 09:44 97.4 90 18 126/74 94 I/O 09/17/16 09/17/16 09/17/16 09/18/16 09/18/16 09/18/16 07:00 15:00 23:00 07:00 15:00 23:00 Intake Total 120 ml 360 ml 240 ml 240 ml Output Total 800 ml 1200 ml 500 ml 600 ml Balance -680 ml -840 ml -260 ml -360 ml Intake Oral 120 ml 360 ml 240 ml 240 ml Output Urine Total 800 ml 1200 ml 500 ml 600 ml # Bowel Movements 0 0 0 0 Result Diagram: 09/17/16 1126 09/18/16 0454 Imaging Last Impressions Renal Biopsy CT 09/17/16 0747 Signed Impressions: Service Date/Time: Saturday, September 17, 2016 08:46 - CONCLUSION: Uncomplicated CT guided biopsy. Jhonathan Tijerina MD Renal Ultrasound 09/12/16 0000 Signed Impressions: Service Date/Time: September 10:44 - CONCLUSION: Negative exam. Patient does not appear to have a vascular etiology for current clinical symptoms.. Torin Pearce MD Lower Extremity Ultrasound 09/09/16 0000 Signed Impressions: Service Date/Time: Friday, September 09, 2016 19:27 - CONCLUSION: Possible left knee Pollard's cyst. This could be confirmed with MRI if clinically indicated. No evidence of lower extremity DVT. Lamine Blackmon MD Cholangiogram 09/08/16 0000 Signed Impressions: Service Date/Time: Thursday, September 08, 2016 09:23 - CONCLUSION: No evidence of common duct stone. Redd Camacho MD Hepatobiliary Scan Nuclear Medicine 09/06/16 0000 Signed Impressions: Service Date/Time: Tuesday, September 06, 2016 13:50 - CONCLUSION: 1. There is no evidence of common bile duct obstruction. There is normal clearance of tracer from the liver. 2. The gallbladder is never identified. In the appropriate clinical setting this can suggest cholecystitis. Delayed imaging may be of benefit to increase specificity. Hernan Grant MD Cholangiopancreatography MRI 09/06/16 0000 Signed Impressions: Service Date/Time: Tuesday, September 06, 2016 08:50 - CONCLUSION: Nonvisualization of the duct confluence and proximal common hepatic duct. Lamine Blackmon MD ADDENDUM: COMPARISON: BILIARY SCAN (HIDA), September 06, 2016, 13:50. In light of normal appearance and drainage of the biliary tree on the HIDA scan, MRCP appearance is felt probably artifactual. Lamine Blackmon MD Thoracic Spine MRI 09/05/16 0000 Signed Impressions: Service Date/Time: September 14:50 - CONCLUSION: 1. Long segment but very small, age-indeterminate syrinx of the thoracic spine. The thoracic cord also appears slightly atrophic. 2. Mild degenerative changes as above. 3. No foraminal or spinal stenosis. 4. Small right and tiny left pleural effusions are incidentally noted. Lamine Zuñiga MD Lumbar Spine MRI 09/05/16 0000 Signed Impressions: Service Date/Time: September 14:50 - CONCLUSION: 1. Mild degenerative changes at L3/L4, L4/L5 and L5/S1. Please see above. 2. Small, age indeterminate right paracentral disc protrusion at L5/S1. This contacts the transiting right S1 nerve root within the lateral recess but without evidence of impingement. 3. Mild bilateral foraminal encroachment at L4/L5 without definite exiting nerve root impingement. 4. There are left larger than right biforaminal annular fissures at the L4/L5 disc. 5. Apparent mild facet synovitis on the left at L5/S1. Lamine Zuñiga MD Chest X-Ray 09/05/16 0000 Signed Impressions: Service Date/Time: September 07:52 - CONCLUSION: Mild to moderate cardiomegaly with no evidence of pulmonary edema. Redd Camacho MD Head CT 09/04/16 [id number] Signed Impressions: Service Date/Time: Sunday, September 04, 2016 18:47 - CONCLUSION: Unremarkable noncontrast CT. Redd Camacho MD Abdomen/Pelvis CT 09/04/16 0000 Signed Impressions: Service Date/Time: Sunday, September 04, 2016 18:50 - CONCLUSION: 1. The study was performed without intravenous or oral contrast limiting the sensitivity. 2. No evidence of biliary obstruction. 3. The gallbladder is abnormal in appearance with wall thickening or surrounding fluid. There are no calcified gallstones identified. 4. Cystic mass in the left adnexa measuring 4.1 x 3 cm most consistent with an ovarian cyst. 5. Small right pleural effusion. 6. Nonspecific, nonobstructive bowel gas pattern which may represent an ileus or gastroenteritis. 7. Air-fluid level in the bladder likely secondary to recent instrumentation. Redd Camacho MD Procedures status post Laparoscopic Cholecystectomy with intraoperative cholangiogram with intraoperative use of fluoroscopy Joseph-cut Liver biopsy x 2 with Post operative diagnosis of Cholecystitis with previous choledocholithiasis with fatty changes by Doctor Redd Jurado Kidney Biopsy 09/17/16 Other Results Laboratory Tests Test 09/13/16 09/14/16 09/15/16 09/16/16 04:41 03:00 05:07 04:30 Total Protein 6.0 GM/DL Albumin/Globulin Ratio 1.44 Ofqav-1-Tqfqaaaal 0.19 GM/DL Mmtnt-7-Wkybyfeec 0.60 GM/DL Beta Globulins 0.64 GM/DL Gamma Globulins 1.03 GM/DL Electrophoresis Pathologist Comment 25-Hydroxy Vitamin D Total 25.0 ng/ML Renin 49 ng/mL/h Aldosterone 19.0 ng/dL Free [place] Light Chains 30.31 mg/L Free Lambda Light Chains 22.45 mg/L Free [place]/Lambda Light Chain 1.35 Ratio Urine Total Volume 24 Hours 3060 ML Urine Total Protein 24 Hour 453 MG/24HR Urine Immunofixation Lactate Dehydrogenase 532 U/L Urine Eosinophils NONE SEEN /HPF Urine Random Creatinine 52.8 MG/DL Urine Random Potassium 40 MEQ/L Test 09/16/16 09/16/16 09/17/16 09/17/16 08:30 13:50 04:52 11:26 Magnesium Level 2.1 MG/DL Prothrombin Time 10.8 SEC Prothromb Time International 1.0 RATIO Ratio Activated Partial 26.1 SEC Thromboplast Time Phosphorus Level 3.3 MG/DL Albumin 2.3 GM/DL White Blood Count 5.4 TH/MM3 Red Blood Count 2.99 MIL/MM3 Hemoglobin 9.8 GM/DL Hematocrit 30.5 % Mean Corpuscular Volume 102.1 FL Mean Corpuscular Hemoglobin 32.9 PG Mean Corpuscular Hemoglobin 32.2 % Concent Red Cell Distribution Width 17.5 % Platelet Count 148 TH/MM3 Mean Platelet Volume 9.1 FL Neutrophils (%) (Auto) 72.6 % Lymphocytes (%) (Auto) 17.4 % Monocytes (%) (Auto) 7.8 % Eosinophils (%) (Auto) 1.4 % Basophils (%) (Auto) 0.8 % Neutrophils # (Auto) 3.9 TH/MM3 Lymphocytes # (Auto) 0.9 TH/MM3 Monocytes # (Auto) 0.4 TH/MM3 Eosinophils # (Auto) 0.1 TH/MM3 Basophils # (Auto) 0.0 TH/MM3 CBC Comment DIFF FINAL Differential Comment Test 09/18/16 04:54 Sodium Level 137 MEQ/L Potassium Level 3.8 MEQ/L Chloride Level 99 MEQ/L Carbon Dioxide Level 29.4 MEQ/L Anion Gap 9 MEQ/L Blood Urea Nitrogen 38 MG/DL Creatinine 2.08 MG/DL Estimat Glomerular Filtration 26 ML/MIN Rate Random Glucose 90 MG/DL Calcium Level 8.1 MG/DL Objective Remarks GENERAL: No acute distress. SKIN: ecchymosis on both arms. HEAD: Atraumatic. Normocephalic. No temporal or scalp tenderness. EYES: Pupils equal round and reactive. ENT: Nose without bleeding. NECK: Trachea midline. No JVD or lymphadenopathy. Supple. CARDIOVASCULAR: Regular rate and rhythm without murmurs, gallops, or rubs. RESPIRATORY: Clear to auscultation. Breath sounds equal bilaterally. No wheezes , rales, or rhonchi. GASTROINTESTINAL: Abdomen soft, mild tenderness, clean surgical wounds. MUSCULOSKELETAL: Extremities without clubbing, Edema 3+ NEUROLOGICAL: Awake and alert. No focal deficits. Medications and IVs Current Medications Medications (Trade) Dose Ordered Sig/Gonzalez Route Start Time Stop Time Status Last Admin (NS Flush) 2 ml UNSCH PRN IV FLUSH 09/04/16 19:45 09/15/16 11:16 (NS Flush) 2 ml BID IV FLUSH 09/04/16 21:00 09/18/16 08:20 (Narcan Inj) 0.4 mg UNSCH PRN IV 09/04/16 19:45 (Morphine Inj) 2 mg Q3H PRN IV PUSH 09/04/16 23:15 09/11/16 21:52 (Tylenol) 650 mg Q4H PRN PO 09/05/16 07:45 (Zofran Inj) 4 mg Q6H PRN IV 09/05/16 07:45 (Colace) 100 mg BID PRN PO 09/05/16 07:45 09/11/16 21:53 (Tums Chew) 1,000 mg TID PRN CHEW 09/05/16 07:45 (Neurontin) 300 mg BID PO 09/05/16 09:00 09/18/16 08:12 (Ditropan) 5 mg DAILY PO 09/05/16 09:00 09/18/16 08:13 Miscellaneous Information Patient in critical care unit? Ass... Q361D .XX 09/06/16 20:00 09/06/16 20:00 Patient Own Medication PT OWN MED: AMP... BID PO 09/06/16 22:30 09/08/16 07:45 (Vitamin B12) 1,000 mcg DAILY PO 09/09/16 09:00 09/18/16 08:13 (Apresoline) 100 mg Q8HR PO 09/12/16 14:00 09/18/16 06:06 (Bumex Inj) 1 mg DAILY IV PUSH 09/12/16 19:45 09/18/16 08:20 (Lopressor) 12.5 mg Q12HR PO 09/13/16 10:00 09/18/16 08:12 (Catapres) 0.1 mg Q8HR PO 09/13/16 14:00 09/18/16 06:06 (Vitamin D3) 2,000 units DAILY PO 09/14/16 09:00 09/18/16 08:13 (Midamor) 10 mg DAILY PO 09/14/16 17:45 09/18/16 08:14 (Slow-Mag Dr) 128 mg DAILY PO 09/14/16 17:45 09/18/16 08:14 A/P Assessment and Plan 1. Accelerated Hypertension, continue Beta Blockers, Ditropan 5 mg daily, Clonidine 0.1 mg every eight hours and follow closely blood pressure. Renal US High Echogenicity for probable CKD. 2. Electrolyte derangement replaced 3. Acute Kidney Injury Nephrology following, Renal Ultrasound with increased Echogenicity for CKD but no clear why the patient had this decline in renal function, questioned about medicine Rebif , but will study MICHAEL, Urine protein to Creatinine ratio, IV fluids stopped due to edema, started on Bumex IV and monitor renal function. probable edema secondary to medicines, Amlodipine, Hydralazine, Gabapentin, Stable Creatinine level, Status post Kidney Biopsy 4. Elevated Liver enzymes with tender RUQ, CT indicated gallbladder abnormality of thickened wall or fluid present, hepatitis profile and workup for autoimmune hepatitis. after evaluation by GI specialist today reviewed MRCP/CT and HIDA scan. Status post Laparoscopic Cholecystectomy with intraoperative cholangiogram with intraoperative use of fluoroscopy Joseph-cut Liver biopsy x 2 with Post operative diagnosis of Cholecystitis with previous choledocholithiasis with fatty changes seen by GI specialist with diagnosis of elevated LFTs MICHAEL negative ASMA neg, MA neg, AMA neg. Hep panel neg. 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 cleared for discharge by GI specialist 5. Multiple Sclerosis on hold Rebif and Ampyra. 6. Macrocytic anemia with normal values of B12 and Folate 7. Acute metabolic and Hypertensive Encephalopathy CT brain no acute findings. Improved. 8. Thrombocytopenia followed by data analytics specialist. status post 2 units of FFP, Direct King negative, likely DIC from Cholecystitis, Direct antiglobulin test negative. Haptoglobin is low due to liver disease and Hemolysis. Improving Thrombocytopenia cleared by data analytics specialist. DVT prophylaxis with SCDs. Encourage ambulation Awaiting Kidney Biopsy Discharge Planning Awaiting final recommendations by Nephrology specialist for discharge. Silas Cummings MD September 18, 2016 09:28
[2016-09-18 12:00] VITALS: BP 126/73; PULSE 73; RESP 18; TEMP 97.8; O2SAT 100
--- NOTE | 2016-09-18 12:37 | PD.ONC.PN ---
Subjective Subjective Remarks Afebrile overnight. Pt sitting up in room in no distress. No bleeding. Objective Data Date Time Temp Pulse Resp B/P Pulse Ox O2 Delivery O2 Flow Rate FiO2 09/18/16 12:00 97.8 73 18 126/73 100 09/18/16 08:00 97.3 71 16 128/79 99 09/18/16 04:00 98.5 70 18 124/69 99 124/69 09/18/16 00:00 97.8 73 20 125/70 99 09/17/16 20:00 97.6 74 18 122/75 98 09/17/16 20:00 70 09/17/16 16:00 98.0 68 17 143/75 100 09/18/16 09/18/16 09/18/16 07:00 15:00 23:00 Intake Total 240 ml Output Total 600 ml Balance -360 ml Result Diagram: 09/17/16 1126 09/18/16 0454 Laboratory Results Laboratory Tests Test 09/18/16 04:54 Sodium Level 137 MEQ/L Potassium Level 3.8 MEQ/L Chloride Level 99 MEQ/L Carbon Dioxide Level 29.4 MEQ/L Anion Gap 9 MEQ/L Blood Urea Nitrogen 38 MG/DL Creatinine 2.08 MG/DL Estimat Glomerular Filtration 26 ML/MIN Rate Random Glucose 90 MG/DL Calcium Level 8.1 MG/DL Administered Medications Medications (Trade) Dose Ordered Sig/Gonzalez Route PRN Reason Start Time Stop Time Status Last Admin Dose Admin Sodium Chloride (NS Flush) 2 ml UNSCH PRN IV FLUSH FLUSH AFTER USING IV ACCESS 09/04/16 19:45 09/15/16 11:16 Sodium Chloride (NS Flush) 2 ml BID IV FLUSH 09/04/16 21:00 09/18/16 08:20 Morphine Sulfate (Morphine Inj) 2 mg Q3H PRN IV PUSH pain >5 09/04/16 23:15 09/11/16 21:52 Docusate Sodium (Colace) 100 mg BID PRN PO CONSTIPATION 09/05/16 07:45 09/11/16 21:53 Gabapentin (Neurontin) 300 mg BID PO 09/05/16 09:00 09/18/16 08:12 Oxybutynin Chloride (Ditropan) 5 mg DAILY PO 09/05/16 09:00 09/18/16 08:13 Miscellaneous Information Patient in critical care unit? Ass... Q361D .XX 09/06/16 20:00 09/06/16 20:00 Patient Own Medication PT OWN MED: AMP... BID PO 09/06/16 22:30 09/08/16 07:45 Cyanocobalamin (Vitamin B12) 1,000 mcg DAILY PO 09/09/16 09:00 09/18/16 08:13 Hydralazine HCl (Apresoline) 100 mg Q8HR PO 09/12/16 14:00 09/18/16 06:06 Bumetanide (Bumex Inj) 1 mg DAILY IV PUSH 09/12/16 19:45 09/18/16 08:20 Metoprolol Tartrate (Lopressor) 12.5 mg Q12HR PO 09/13/16 10:00 09/18/16 08:12 Clonidine (Catapres) 0.1 mg Q8HR PO 09/13/16 14:00 09/18/16 06:06 Cholecalciferol (Vitamin D3) 2,000 units DAILY PO 09/14/16 09:00 09/18/16 08:13 Amiloride HCl (Midamor) 10 mg DAILY PO 09/14/16 17:45 09/18/16 08:14 Magnesium Chloride (Slow-Mag Dr) 128 mg DAILY PO 09/14/16 17:45 09/18/16 08:14 Objective Remarks GENERAL: Middle aged female, sitting up in chair at bedside in no distress. SKIN: Warm and dry. HEAD: Normocephalic. EYES: No injection or drainage. NECK: Supple, trachea midline. CARDIOVASCULAR: Regular rate and rhythm RESPIRATORY: Breath sounds equal bilaterally. No accessory muscle use. GASTROINTESTINAL: Abdomen soft, non-tender, nondistended. EXTREMITIES: No cyanosis. legs with 2-3+ pitting edema NEUROLOGICAL: Normal speech. Moving all extremities. A&Ox3. Assessment/Plan Problem List: (1) Thrombocytopenia Status: Resolved Plan: 09/18: Pt improving. Renal bx pending. Clear for discharge. 09/17: Pt had renal bx today. Platelets almost normal today at 148k. OK for d/c from oncology standpoint. 09/16/16: platelets continuing to improve. clear for discharge 09/12/16: Pt rec'd 2 units FFP. Direct King negative. Thrombocytopenia likely DIC from cholecystitis. Await CBC result today. 09/11/16: Platelets increased to 67K today. 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 HIT negative. Will continue to monitor CBC. 09/10/16: Platelets slightly improved today to 61K. Evidence of hemolysis in labs. Coags OK. Peripheral smear pending, HIT pending. Assessment 46 y/o female with history of multiple sclerosis; hematology consulted to evaluate thrombocytopenia. Attending Statement c/o persistent leg swelling. Renal bx path is pending. No CBC today. The exam, history, and the medical decision-making described in the above note were completed with the assistance of the mid-level provider. I reviewed and agree with the findings presented. I attest that I had a [id number] encounter with the patient on the same day, and personally performed and documented my assessment and findings in the medical record. Nisa Harrington September 18, 2016 12:37 Augusto Mensah MD September 18, 2016 22:31
[2016-09-18 16:00] VITALS: BP 137/73; PULSE 73; RESP 17; TEMP 98.4; O2SAT 97
[2016-09-18 17:34] LABS: METANEPHRINE 24 COLLECTION DUR 24 h (())
--- NOTE | 2016-09-18 17:57 | HHI.NPPN ---
Subjective History of Present Illness The patient is a 46 yo [place] female who was sent to [facility] ED on 09/05/16 by her PCP for AMS. Says that prior to her admission, she had not been feeling well reporting multiple falls, weight loss, and fatigue. Her situation is complicated by MS which she was dx in 2007 and says she has been on the same medication since then (follows with Dr. Boo)---Ampyra & Rebif. Since her admission, she was diagnosed with biliary structure and is s/p cholecystectomy . As her liver enzymes have been elevated, she also had liver biopsy. Her platelets have been dropping and she has had some vaginal bleeding and nose bleeds. Hematology on board and believes that she has a DIC from her recent cholecystitis. She is unaware of any hx of renal decline. Admitting SCr at 2.20 and is 1.90 at time of consult. Labs prior to that in 2012 showed normal renal functions. PMHx otherwise of HTN, but not on medications for some time as it was controlled. Admits that she was a heavy EtOH user, but quit in August. Also quit smoking in August. Denies any NSAID use, not diabetic, no hx of obstructive uropathy. Interval History Pt feeling better today Indicated that she believes edema is improving. Review of Systems Cardiovascular Cardiac: Edema Objective Data Data 09/17/16 09/18/16 19:00 07:00 Intake Total 360 ml 480 ml Output Total 1200 ml 1100 ml Balance -840 ml -620 ml Intake Oral 360 ml 480 ml Output Urine Total 1200 ml 1100 ml # Bowel Movements 0 0 Vital Signs Date Time Temp Pulse Resp B/P Pulse Ox O2 Delivery O2 Flow Rate FiO2 09/18/16 16:00 98.4 73 17 137/73 97 09/18/16 12:00 97.8 73 18 126/73 100 09/18/16 08:00 97.3 71 16 128/79 99 09/18/16 04:00 98.5 70 18 124/69 99 124/69 09/18/16 00:00 97.8 73 20 125/70 99 09/17/16 20:00 97.6 74 18 122/75 98 09/17/16 20:00 70 -: 09/17/16 1126 09/18/16 0454 Medication Review Current Medications Medications (Trade) Dose Ordered Sig/Gonzalez Route Start Time Stop Time Status Last Admin (NS Flush) 2 ml UNSCH PRN IV FLUSH 09/04/16 19:45 09/15/16 11:16 (NS Flush) 2 ml BID IV FLUSH 09/04/16 21:00 09/18/16 08:20 (Narcan Inj) 0.4 mg UNSCH PRN IV 09/04/16 19:45 (Morphine Inj) 2 mg Q3H PRN IV PUSH 09/04/16 23:15 09/11/16 21:52 (Tylenol) 650 mg Q4H PRN PO 09/05/16 07:45 (Zofran Inj) 4 mg Q6H PRN IV 09/05/16 07:45 (Colace) 100 mg BID PRN PO 09/05/16 07:45 09/11/16 21:53 (Tums Chew) 1,000 mg TID PRN CHEW 09/05/16 07:45 (Neurontin) 300 mg BID PO 09/05/16 09:00 09/18/16 08:12 (Ditropan) 5 mg DAILY PO 09/05/16 09:00 09/18/16 08:13 Miscellaneous Information Patient in critical care unit? Ass... Q361D .XX 09/06/16 20:00 09/06/16 20:00 Patient Own Medication PT OWN MED: AMP... BID PO 09/06/16 22:30 09/08/16 07:45 (Vitamin B12) 1,000 mcg DAILY PO 09/09/16 09:00 09/18/16 08:13 (Apresoline) 100 mg Q8HR PO 09/12/16 14:00 09/18/16 14:01 (Bumex Inj) 1 mg DAILY IV PUSH 09/12/16 19:45 09/18/16 08:20 (Lopressor) 12.5 mg Q12HR PO 09/13/16 10:00 09/18/16 08:12 (Catapres) 0.1 mg Q8HR PO 09/13/16 14:00 09/18/16 14:01 (Vitamin D3) 2,000 units DAILY PO 09/14/16 09:00 09/18/16 08:13 (Midamor) 10 mg DAILY PO 09/14/16 17:45 09/18/16 08:14 (Slow-Mag Dr) 128 mg DAILY PO 09/14/16 17:45 09/18/16 08:14 Physical Exam General Appearance: No Acute Distress, Comfortable Pulmonary Resp Exam: Clear Bilaterally, Breath Sounds Equal Cardiology CV Exam: Regular, Normal Sinus Rhythm Gastrointestinal/Abdomen GI Exam: Soft, Non-Tender Integumentary Skin Exam: Clear, Warm Extremeties Extremities Exam: Moderate Edema (1-2+ pitting edema BLE up to knees.), Pitting Edema Neurologic Neuro Exam: Alert, Awake, Oriented Psychiatric Psych Exam: Appropriate Responses Assessment/Plan Discussed Condition With: Patient Problem List: (1) CKD (chronic kidney disease) stage 4, GFR 15-29 ml/min Plan: Patient appears to have chronic kidney disease suggested by renal ultrasound showing increased echogenicity. Cannot exclude a component of acute kidney disease however. Proteinuria is minimal and not nephrotic. SPEP was within normal range. MICHAEL is negative. Renal function is relatively stable at this point in time but etiology of patient's renal dysfunction uncertain. Await results of kidney biopsy. Hopefully preliminary report will be available in about 48 hours. OK to be discharged from renal standpoint with f/u in office in 2 weeks. Will call with bx results once available for further instructions. Should be discharged on Bumex 1mg po QD along with Amiloride 10mg po QD Medications should be adjusted for the patient's renal insufficiency. Avoid nephrotoxic medications including NSAIDs and iodinated contrast dyes. Avoid gadolinium when eGFR <30. (2) Edema Plan: As above (3) Severe concentric left ventricular hypertrophy Plan: Probably related to uncontrolled hypertension. Also mention of mild to moderate pericardial effusion on echocardiogram. As well as ascites. We'll defer to primary care physician regarding whether or not cardiology opinion would be beneficial. (4) Hypertension Plan: BP controlled on current regimen. Should be continued on the same at discharge (5) Elevated liver enzymes Plan: Reviewed liver biopsy report which shows suspicion for alcoholic or drug related hepatitis (6) MS (multiple sclerosis) Plan: Medications on hold at the present. Defer to neurology Rosalee Morgan September 18, 2016 17:57
[2016-09-18 20:00] VITALS: BP 140/77; PULSE 74; RESP 18; TEMP 98.6; O2SAT 96
[2016-09-19] VITALS: BP 128/71; PULSE 73; RESP 18; TEMP 98.6; O2SAT 98
[2016-09-19] MEDS: MORPHINE SULFATE 4 MG/ML INJ IV PUSH PRN ×3 (02:42→11:04)
[2016-09-19 06:14] VITALS: BP 142/78; PULSE 72; RESP 18; O2SAT 98
[2016-09-19] MEDS: cloNIDine HCL 0.1 MG TAB PO SCH (06:27)
[2016-09-19] MEDS: hydrALAZINE HCL 50 MG TAB PO SCH (06:28)
[2016-09-19 08:00] VITALS: BP 151/84; PULSE 69; RESP 17; TEMP 98.7; O2SAT 98
--- NOTE | 2016-09-19 08:20 | HHI.PR ---
Subjective Remarks This is a pleasant 46 y/o Female with Multiple sclerosis, tobacco dependence Alcohol abuse, sent to ER by PCP due to Altered mental status, unintentional weight loss, recurrent falls, has Hypertension, Overactive bladder, admitted on 09/05/16, ECG showed Left Ventricular Hypertrophy, Acute Kidney Injury, elevated Liver Enzymes, dehydrated, Neurology consulted for MS. as per Neurology specialist recommended to hold Ampyra and Rebif this medicines may be a factor for her Generalized weakness, also probable related to MS. elevated Liver Enzymes as per GI specialist probable secondary to Alcohol abuse, recommended HIDA scan, MRCP, was transferred by General Surgery to this facility for ERCP. 09/13: Consulted by Nephrology specialist and Renal Ultrasound with increased Echogenicity for CKD but no clear why the patient had this decline in renal function, questioned about medicine Rebif, but will study MICHAEL, Urine protein to Creatinine ratio, Echocardiogram, IV fluids stopped due to edema, started on Bumex IV and monitor renal function. probable edema secondary to medicines, Amlodipine, Hydralazine, Gabapentin, seen by GI specialist with diagnosis of elevated LFTs MICHAEL negative ASMA neg, MA neg, AMA neg. Hep panel neg. s/p lap leydi, liver bx--> mild portal hepatitis with early bridging fibrosis, morphologic features suspicious for ETOH, and again Rebif as possible cause for Hepatitis stopped, has Thrombocytopenia followed by floor care specialist. status post 2 units of FFP, Direct King negative, likely DIC from Cholecystitis, Direct antiglobulin test negative. Haptoglobin is low due to liver disease and Hemolysis. 09/14: already GI specialist Signed off and Hematology but awaiting final by Nephrology specialist for discharge. 09/15: will have a Kidney biopsy next week. replaced electrolytes, Potassium 3.2 and Magnesium 1.5 Continue edema 3+ on bilateral legs. 09/16: worsened Renal function 09/17: Status post Kidney Biopsy, continue swollen legs 3+. 09/18: Stable seen in her room, no complaint, walking, continue with swollen legs , no nausea, vomit or diarrhea, status post Kidney Biopsy performed yesterday. wants to go home. 09/19: Patient in her bedroom, stable has CKD IV GFR 15-29 ml/min appears to have CKD suggested by renal ultrasound, increased echogenicity, Cannot exclude a component of Acute kidney disease however , Proteinuria is minimal and not nephrotic, SPEP was within normal range, MICHAEL is negative. Okay to discharge from Nephrology standpoint and follow with nephrology specialist in two weeks, Bumex 1 mg daily and Amiloride 10 mg daily. Stable in her bedroom , no nausea, vomit or diarrhea. okay to discharge and follow with Primary Care physician and Nephrology in two weeks. Objective Vital Signs Date Time Temp Pulse Resp B/P Pulse Ox O2 Delivery O2 Flow Rate FiO2 09/19/16 06:14 72 18 142/78 98 09/19/16 03:08 18 09/19/16 00:00 98.6 73 18 128/71 98 09/18/16 20:00 98.6 74 18 140/77 96 09/18/16 16:00 98.4 73 17 137/73 97 09/18/16 12:00 97.8 73 18 126/73 100 I/O 09/18/16 09/18/16 09/18/16 09/19/16 09/19/16 09/19/16 07:00 15:00 23:00 07:00 15:00 23:00 Intake Total 240 ml 360 ml 120 ml 240 ml 0 ml Output Total 600 ml 525 ml 175 ml 500 ml Balance -360 ml -165 ml -55 ml -260 ml 0 ml Intake Oral 240 ml 360 ml 120 ml 240 ml IV Total 0 ml 0 ml Output Urine Total 600 ml 525 ml 175 ml 500 ml # Bowel Movements 0 0 0 0 Result Diagram: 09/17/16 1126 09/18/16 0454 Imaging Last Impressions Renal Biopsy CT 09/17/16 0747 Signed Impressions: Service Date/Time: Saturday, September 17, 2016 08:46 - CONCLUSION: Uncomplicated CT guided biopsy. Jhonathan Tijerina MD Renal Ultrasound 09/12/16 0000 Signed Impressions: Service Date/Time: September 10:44 - CONCLUSION: Negative exam. Patient does not appear to have a vascular etiology for current clinical symptoms.. Torin Pearce MD Lower Extremity Ultrasound 09/09/16 0000 Signed Impressions: Service Date/Time: Friday, September 09, 2016 19:27 - CONCLUSION: Possible left knee Pollard's cyst. This could be confirmed with MRI if clinically indicated. No evidence of lower extremity DVT. Lamine Blackmon MD Cholangiogram 5/7/17 0000 Signed Impressions: Service Date/Time: Thursday, September 08, 2016 09:23 - CONCLUSION: No evidence of common duct stone. Redd Camacho MD Hepatobiliary Scan Nuclear Medicine 09/06/16 Signed Impressions: Service Date/Time: Tuesday, September 06, 2016 13:50 - CONCLUSION: 1. There is no evidence of common bile duct obstruction. There is normal clearance of tracer from the liver. 2. The gallbladder is never identified. In the appropriate clinical setting this can suggest cholecystitis. Delayed imaging may be of benefit to increase specificity. Hernan Grant MD Cholangiopancreatography MRI 09/06/16 Signed Impressions: Service Date/Time: Tuesday, September 06, 2016 08:50 - CONCLUSION: Nonvisualization of the duct confluence and proximal common hepatic duct. Lamine Blackmon MD ADDENDUM: COMPARISON: BILIARY SCAN (HIDA), September 06, 2016, 13:50. In light of normal appearance and drainage of the biliary tree on the HIDA scan, MRCP appearance is felt probably artifactual. Lamine Blackmon MD Thoracic Spine MRI 09/05/16 Signed Impressions: Service Date/Time: September 14:50 - CONCLUSION: 1. Long segment but very small, age-indeterminate syrinx of the thoracic spine. The thoracic cord also appears slightly atrophic. 2. Mild degenerative changes as above. 3. No foraminal or spinal stenosis. 4. Small right and tiny left pleural effusions are incidentally noted. Lamine Zuñiga MD Lumbar Spine MRI 09/05/16 Signed Impressions: Service Date/Time: September 14:50 - CONCLUSION: 1. Mild degenerative changes at L3/L4, L4/L5 and L5/S1. Please see above. 2. Small, age indeterminate right paracentral disc protrusion at L5/S1. This contacts the transiting right S1 nerve root within the lateral recess but without evidence of impingement. 3. Mild bilateral foraminal encroachment at L4/L5 without definite exiting nerve root impingement. 4. There are left larger than right biforaminal annular fissures at the L4/L5 disc. 5. Apparent mild facet synovitis on the left at L5/S1. Lamine Zuñiga MD Chest X-Ray 5/4/17 0000 Signed Impressions: Service Date/Time: September 07:52 - CONCLUSION: Mild to moderate cardiomegaly with no evidence of pulmonary edema. Redd Camacho MD Head CT 09/04/16 1702 Signed Impressions: Service Date/Time: Sunday, September 04, 2016 18:47 - CONCLUSION: Unremarkable noncontrast CT. Redd Camacho MD Abdomen/Pelvis CT 09/04/16 0000 Signed Impressions: Service Date/Time: Sunday, September 04, 2016 18:50 - CONCLUSION: 1. The study was performed without intravenous or oral contrast limiting the sensitivity. 2. No evidence of biliary obstruction. 3. The gallbladder is abnormal in appearance with wall thickening or surrounding fluid. There are no calcified gallstones identified. 4. Cystic mass in the left adnexa measuring 4.1 x 3 cm most consistent with an ovarian cyst. 5. Small right pleural effusion. 6. Nonspecific, nonobstructive bowel gas pattern which may represent an ileus or gastroenteritis. 7. Air-fluid level in the bladder likely secondary to recent instrumentation. Redd Camacho MD Procedures status post Laparoscopic Cholecystectomy with intraoperative cholangiogram with intraoperative use of fluoroscopy Joseph-cut Liver biopsy x 2 with Post operative diagnosis of Cholecystitis with previous choledocholithiasis with fatty changes by Doctor Redd Jurado Kidney Biopsy 09/17/16 Other Results Laboratory Tests Test 09/13/16 09/14/16 09/15/16 09/15/16 04:41 03:00 05:07 22:00 Total Protein 6.0 GM/DL Albumin/Globulin Ratio 1.44 [id number] 0.19 GM/DL Otoiu-9-[id number] 0.60 GM/DL Beta Globulins 0.64 GM/DL Gamma Globulins 1.03 GM/DL Electrophoresis Pathologist Comment 25-Hydroxy Vitamin D Total 25.0 ng/ML Renin 49 ng/mL/h Aldosterone 19.0 ng/dL Free [place] Light Chains 30.31 mg/L Free Lambda Light Chains 22.45 mg/L Free [place]/Lambda Light Chain 1.35 Ratio Urine Immunofixation Lactate Dehydrogenase 532 U/L Urine Collection Duration 24 h Urine Total Volume 1650 mL Urine Total Volume 24 Hours 1650 mL Urine Epinephrine 0.8 mcg/24 h Urine Norepinephrine 15 mcg/24 h Urine Metanephrines 24 Hour 91 mcg/24 h Urine Normetanephrine Level 261 mcg/24 h Urine Total Metanephrines 24 352 mcg/24 h Hour Urine Metanephrine Comment Urine Dopamine 53 mcg/24 h Test 09/16/16 09/16/16 09/16/16 09/17/16 04:30 08:30 13:50 04:52 Urine Eosinophils NONE SEEN /HPF Urine Random Creatinine 52.8 MG/DL Urine Random Potassium 40 MEQ/L Magnesium Level 2.1 MG/DL Prothrombin Time 10.8 SEC Prothromb Time International 1.0 RATIO Ratio Activated Partial 26.1 SEC Thromboplast Time Phosphorus Level 3.3 MG/DL Albumin 2.3 GM/DL Test 09/17/16 09/18/16 11:26 04:54 White Blood Count 5.4 TH/MM3 Red Blood Count 2.99 MIL/MM3 Hemoglobin 9.8 GM/DL Hematocrit 30.5 % Mean Corpuscular Volume 102.1 FL Mean Corpuscular Hemoglobin 32.9 PG Mean Corpuscular Hemoglobin 32.2 % Concent Red Cell Distribution Width 17.5 % Platelet Count 148 TH/MM3 Mean Platelet Volume 9.1 FL Neutrophils (%) (Auto) 72.6 % Lymphocytes (%) (Auto) 17.4 % Monocytes (%) (Auto) 7.8 % Eosinophils (%) (Auto) 1.4 % Basophils (%) (Auto) 0.8 % Neutrophils # (Auto) 3.9 TH/MM3 Lymphocytes # (Auto) 0.9 TH/MM3 Monocytes # (Auto) 0.4 TH/MM3 Eosinophils # (Auto) 0.1 TH/MM3 Basophils # (Auto) 0.0 TH/MM3 CBC Comment DIFF FINAL Differential Comment Sodium Level 137 MEQ/L Potassium Level 3.8 MEQ/L Chloride Level 99 MEQ/L Carbon Dioxide Level 29.4 MEQ/L Anion Gap 9 MEQ/L Blood Urea Nitrogen 38 MG/DL Creatinine 2.08 MG/DL Estimat Glomerular Filtration 26 ML/MIN Rate Random Glucose 90 MG/DL Calcium Level 8.1 MG/DL Objective Remarks GENERAL: No acute distress. SKIN: ecchymosis on both arms. HEAD: Atraumatic. Normocephalic. No temporal or scalp tenderness. EYES: Pupils equal round and reactive. ENT: Nose without bleeding. NECK: Trachea midline. No JVD or lymphadenopathy. Supple. CARDIOVASCULAR: Regular rate and rhythm without murmurs, gallops, or rubs. RESPIRATORY: Clear to auscultation. Breath sounds equal bilaterally. No wheezes , rales, or rhonchi. GASTROINTESTINAL: Abdomen soft, mild tenderness, clean surgical wounds. MUSCULOSKELETAL: Extremities without clubbing, Edema 3+ NEUROLOGICAL: Awake and alert. No focal deficits. Medications and IVs Current Medications Medications (Trade) Dose Ordered Sig/Gonzalez Route Start Time Stop Time Status Last Admin (NS Flush) 2 ml UNSCH PRN IV FLUSH 09/04/16 19:45 09/15/16 11:16 (NS Flush) 2 ml BID IV FLUSH 09/04/16 21:00 09/18/16 21:00 (Narcan Inj) 0.4 mg UNSCH PRN IV 09/04/16 19:45 (Morphine Inj) 2 mg Q3H PRN IV PUSH 09/04/16 23:15 09/19/16 07:17 (Tylenol) 650 mg Q4H PRN PO 09/05/16 07:45 (Zofran Inj) 4 mg Q6H PRN IV 09/05/16 07:45 (Colace) 100 mg BID PRN PO 09/05/16 07:45 09/11/16 21:53 (Tums Chew) 1,000 mg TID PRN CHEW 09/05/16 07:45 (Neurontin) 300 mg BID PO 09/05/16 09:00 09/18/16 21:00 (Ditropan) 5 mg DAILY PO 09/05/16 09:00 09/18/16 08:13 Miscellaneous Information Patient in critical care unit? Ass... [id number] .[id number] 09/06/16 20:00 09/06/16 20:00 Patient Own Medication PT OWN MED: AMP... BID PO 09/06/16 22:30 09/08/16 07:45 (Vitamin B12) 1,000 mcg DAILY PO 09/09/16 09:00 09/18/16 08:13 (Apresoline) 100 mg Q8HR PO 09/12/16 14:00 09/19/16 06:28 (Bumex Inj) 1 mg DAILY IV PUSH 09/12/16 19:45 09/18/16 08:20 (Lopressor) 12.5 mg Q12HR PO 09/13/16 10:00 09/18/16 22:07 (Catapres) 0.1 mg Q8HR PO 09/13/16 14:00 09/19/16 06:27 (Vitamin D3) 2,000 units DAILY PO 09/14/16 09:00 09/18/16 08:13 (Midamor) 10 mg DAILY PO 09/14/16 17:45 09/18/16 08:14 (Slow-Mag Dr) 128 mg DAILY PO 09/14/16 17:45 09/18/16 08:14 A/P Assessment and Plan 1. Accelerated Hypertension, continue Beta Blockers, Ditropan 5 mg daily, Clonidine 0.1 mg every eight hours and follow closely blood pressure. she has Severe LVH probable related to chronic uncontrolled Hypertension. 2. Electrolyte derangement replaced 3. Acute Kidney Injury Nephrology following, Renal Ultrasound with increased Echogenicity for CKD but no clear why the patient had this decline in renal function, questioned about medicine Rebif , but will study MICHAEL, Urine protein to Creatinine ratio, IV fluids stopped due to edema, started on Bumex IV and monitor renal function. probable edema secondary to medicines, Amlodipine, Hydralazine, Gabapentin, Stable Creatinine level, Status post Kidney Biopsy Seen by Nephrology specialist she has CKD IV GFR 15-29 ml/min appears to have CKD suggested by renal ultrasound, increased echogenicity, Cannot exclude a component of Acute kidney disease however, Proteinuria is minimal and not nephrotic, SPEP was within normal range, MICHAEL is negative. Okay to discharge from Nephrology standpoint and follow with nephrology specialist in two weeks, Bumex 1 mg daily and Amiloride 10 mg daily. Stable in her bedroom, no nausea, vomit or diarrhea. okay to discharge and follow with Primary Care physician and Nephrology in two weeks. 4. Elevated Liver enzymes with tender RUQ, CT indicated gallbladder abnormality of thickened wall or fluid present, hepatitis profile and workup for autoimmune hepatitis. after evaluation by GI specialist today reviewed MRCP/CT and HIDA scan. Status post Laparoscopic Cholecystectomy with intraoperative cholangiogram with intraoperative use of fluoroscopy Joseph-cut Liver biopsy x 2 with Post operative diagnosis of Cholecystitis with previous choledocholithiasis with fatty changes seen by GI specialist with diagnosis of elevated LFTs MICHAEL negative ASMA neg, MA neg, AMA neg. Hep panel neg. 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 cleared for discharge by GI specialist 5. Multiple Sclerosis on hold Rebif and Ampyra. 6. Macrocytic anemia with normal values of B12 and Folate 7. Acute metabolic and Hypertensive Encephalopathy CT brain no acute findings. Improved. 8. Thrombocytopenia followed by floor care specialist. status post 2 units of FFP, Direct King negative, likely DIC from Cholecystitis, Direct antiglobulin test negative. Haptoglobin is low due to liver disease and Hemolysis. Improving Thrombocytopenia cleared by floor care specialist. DVT prophylaxis with SCDs. Encourage ambulation Awaiting Kidney Biopsy that will be followed as outpatient by Nephrology specialist. the patient is walking in the room without difficulty will discharge on PT and Skilled nurse. Discharge Planning Discharge Home today on C for PT and Skilled nurse. Silas Cummings MD September 19, 2016 08:20
[2016-09-19] MEDS ORDERED: MAGN64 PO (08:35)
[2016-09-19] MEDS ORDERED: AMILORIDE PO (08:35)
[2016-09-19] MEDS ORDERED: VITA100018 PO (08:35)
[2016-09-19] MEDS ORDERED: CLON.1 PO (08:35)
[2016-09-19] MEDS ORDERED: METO25TA3 PO (08:35)
[2016-09-19] MEDS ORDERED: VITA10002 PO (08:35)
[2016-09-19] MEDS ORDERED: BUME1TAB26 PO (08:35)
[2016-09-19] MEDS ORDERED: HYDR50TA15 PO (08:35)
[2016-09-19] MEDS ORDERED: HYDR-3583 PO (08:35)
--- NOTE | 2016-09-19 08:38 | HHI.FF ---
Face to Face Verification Diagnosis: (1) Swelling of lower extremity (2) Spontaneous bruising (3) Hypertension (4) MS (multiple sclerosis) (5) CKD (chronic kidney disease) stage 4, GFR 15-29 ml/min (6) Severe concentric left ventricular hypertrophy Physical Therapy Order: Evaluate and Treat, Improve ambulation, Strength and gait training Home Health Nursing Order: Medical education Signs/symptoms of disease process Medication education-adverse effect Nursing assessment with vital signs I have seen patient Kenisha Ayon on 09/19/16. My clinical findings support the need for the requested home health care services because: Deconditioned w/ increased weakness I certify that my clinical findings support that this patient is homebound because: Unsafe to leave home unassisted Silas Cummings MD September 19, 2016 08:38
[2016-09-19] MEDS: CYANOCOBALAMIN 1,000 MCG TAB PO SCH (08:39)
[2016-09-19] MEDS: MAGNESIUM CHLORIDE 64 MG TAB PO SCH (08:39)
[2016-09-19] MEDS: OXYBUTYNIN CHLORIDE 5 MG TAB PO SCH (08:39)
[2016-09-19] MEDS: METOPROLOL TARTRATE 25 MG TAB PO SCH (08:40)
[2016-09-19] MEDS: CHOLECALCIFEROL (VIT D3) 1000 UNIT TAB PO SCH (08:40)
[2016-09-19] MEDS: GABAPENTIN 300 MG CAP PO SCH (08:40)
[2016-09-19] MEDS: aMILoride HCL 5 MG TAB PO SCH (08:41)
--- NOTE | 2016-09-19 08:41 | HHI.DS ---
Discharge Summary Admission Date September 04, 2016 at 19:46 Discharge Date: September 19, 2016 Admitting Diagnosis HEPATITIS, DEHYDRATION (1) Hypertension ICD Code: I10 Diagnosis: Principal (2) Acute kidney injury (nontraumatic) ICD Code: N17.9 Diagnosis: Principal (3) Elevated liver enzymes ICD Code: R74.8 Diagnosis: Principal (4) Dehydration ICD Code: E86.0 Diagnosis: Principal (5) MS (multiple sclerosis) ICD Code: G35 Diagnosis: Principal (6) Hypokalemia ICD Code: E87.6 Diagnosis: Principal Procedures status post Laparoscopic Cholecystectomy with intraoperative cholangiogram with intraoperative use of fluoroscopy Joseph-cut Liver biopsy x 2 with Post operative diagnosis of Cholecystitis with previous choledocholithiasis with fatty changes by Doctor Redd Jurado Kidney Biopsy 09/17/16 Brief History - From Admission Ms. Ayon is 46 yo, with history inclusive of multiple sclerosis, smoking 1/2 ppd (though pt reported having stopped smoking within past 2 weeks) , and alcohol use in which she reported near daily use of beer "but I stopped a couple of weeks ago." Ms. Ayon presented to [facility] ED on 09/04/16 as a result of being sent in by her PCP Dr. Singh for confusion. Per the medical record, pt has experienced weakness, confusion, and approximately 18 pound weight loss ( unintentional). Pt reported during the past "two weeks I have been falling a lot." She denied striking her head. Pt noted she has an appetite but continues to lose weight despite eating. Ms. Ayon denied fever, chills, and vomiting, yet endorsed nausea. She denied recent change in medication regimen. She did endorse having been treated for hypertension by her previous PCP, "but I don't take blood pressure medication now." She denied recent worsening of her MS. She stated she has left leg weakness that is unchanged. No other issues noted or reported by pt. CBC/BMP: 09/17/16 1126 09/18/16 0454 Significant Findings Laboratory Tests Test 09/17/16 09/17/16 09/17/16 09/18/16 04:52 10:03 11:26 04:54 Red Blood Count 2.46 MIL/MM3 2.90 MIL/MM3 2.99 MIL/MM3 (4.00-5.30) (4.00-5.30) (4.00-5.30) Hemoglobin 8.6 GM/DL 9.9 GM/DL 9.8 GM/DL (11.6-15.3) (11.6-15.3) (11.6-15.3) Hematocrit 25.0 % 29.6 % 30.5 % (35.0-46.0) (35.0-46.0) (35.0-46.0) Mean Corpuscular Volume 101.5 FL 102.2 FL 102.1 FL (80.0-100.0) (80.0-100.0) (80.0-100.0) Mean Corpuscular Hemoglobin 34.9 PG 34.2 PG (27.0-34.0) (27.0-34.0) Red Cell Distribution Width 17.6 % 17.8 % 17.5 % (11.6-17.2) (11.6-17.2) (11.6-17.2) Platelet Count 131 TH/MM3 148 TH/MM3 (150-450) (150-450) Blood Urea Nitrogen 34 MG/DL (7-18) 38 MG/DL (7-18) Creatinine 2.08 MG/DL 2.08 MG/DL (0.50-1.00) (0.50-1.00) Estimat Glomerular Filtration 26 ML/MIN (>89) 26 ML/MIN (>89) Rate Calcium Level 7.8 MG/DL 8.1 MG/DL (8.5-10.1) (8.5-10.1) Albumin 2.3 GM/DL (3.4-5.0) White Blood Count 3.8 TH/MM3 (4.0-11.0) Neutrophils (%) (Auto) 72.4 % 72.6 % (16.0-70.0) (16.0-70.0) Lymphocytes # (Auto) 0.6 TH/MM3 0.9 TH/MM3 (1.0-4.8) (1.0-4.8) Imaging Last Impressions Renal Biopsy CT 09/17/16 0747 Signed Impressions: Service Date/Time: Saturday, September 17, 2016 08:46 - CONCLUSION: Uncomplicated CT guided biopsy. Jhonathan Tijerina MD Renal Ultrasound 09/12/16 0000 Signed Impressions: Service Date/Time: September 10:44 - CONCLUSION: Negative exam. Patient does not appear to have a vascular etiology for current clinical symptoms.. Torin Pearce MD Lower Extremity Ultrasound 09/09/16 Signed Impressions: Service Date/Time: Friday, September 09, 2016 19:27 - CONCLUSION: Possible left knee Pollard's cyst. This could be confirmed with MRI if clinically indicated. No evidence of lower extremity DVT. Lamine Blackmon MD Cholangiogram 09/08/16 Signed Impressions: Service Date/Time: Thursday, September 08, 2016 09:23 - CONCLUSION: No evidence of common duct stone. Redd Camacho MD Hepatobiliary Scan Nuclear Medicine 09/06/16 Signed Impressions: Service Date/Time: Tuesday, September 06, 2016 13:50 - CONCLUSION: 1. There is no evidence of common bile duct obstruction. There is normal clearance of tracer from the liver. 2. The gallbladder is never identified. In the appropriate clinical setting this can suggest cholecystitis. Delayed imaging may be of benefit to increase specificity. Hernan Grant MD Cholangiopancreatography MRI 09/06/16 Signed Impressions: Service Date/Time: Tuesday, September 06, 2016 08:50 - CONCLUSION: Nonvisualization of the duct confluence and proximal common hepatic duct. Lamine Blackmon MD ADDENDUM: COMPARISON: BILIARY SCAN (HIDA), September 06, 2016, 13:50. In light of normal appearance and drainage of the biliary tree on the HIDA scan, MRCP appearance is felt probably artifactual. Lamine Blackmon MD Thoracic Spine MRI 09/05/16 Signed Impressions: Service Date/Time: September 14:50 - CONCLUSION: 1. Long segment but very small, age-indeterminate syrinx of the thoracic spine. The thoracic cord also appears slightly atrophic. 2. Mild degenerative changes as above. 3. No foraminal or spinal stenosis. 4. Small right and tiny left pleural effusions are incidentally noted. Lamine Zuñiga MD Lumbar Spine MRI 09/05/16 0000 Signed Impressions: Service Date/Time: September 14:50 - CONCLUSION: 1. Mild degenerative changes at L3/L4, L4/L5 and L5/S1. Please see above. 2. Small, age indeterminate right paracentral disc protrusion at L5/S1. This contacts the transiting right S1 nerve root within the lateral recess but without evidence of impingement. 3. Mild bilateral foraminal encroachment at L4/L5 without definite exiting nerve root impingement. 4. There are left larger than right biforaminal annular fissures at the L4/L5 disc. 5. Apparent mild facet synovitis on the left at L5/S1. Lamine Zuñiga MD Chest X-Ray 09/05/16 0000 Signed Impressions: Service Date/Time: September 07:52 - CONCLUSION: Mild to moderate cardiomegaly with no evidence of pulmonary edema. Redd Camacho MD Head CT 09/04/16 1702 Signed Impressions: Service Date/Time: Sunday, September 04, 2016 18:47 - CONCLUSION: Unremarkable noncontrast CT. Redd Camacho MD Abdomen/Pelvis CT 09/04/16 0000 Signed Impressions: Service Date/Time: Sunday, September 04, 2016 18:50 - CONCLUSION: 1. The study was performed without intravenous or oral contrast limiting the sensitivity. 2. No evidence of biliary obstruction. 3. The gallbladder is abnormal in appearance with wall thickening or surrounding fluid. There are no calcified gallstones identified. 4. Cystic mass in the left adnexa measuring 4.1 x 3 cm most consistent with an ovarian cyst. 5. Small right pleural effusion. 6. Nonspecific, nonobstructive bowel gas pattern which may represent an ileus or gastroenteritis. 7. Air-fluid level in the bladder likely secondary to recent instrumentation. Redd Camacho MD PE at Discharge GENERAL: No acute distress. SKIN: ecchymosis on both arms. HEAD: Atraumatic. Normocephalic. No temporal or scalp tenderness. EYES: Pupils equal round and reactive. ENT: Nose without bleeding. NECK: Trachea midline. No JVD or lymphadenopathy. Supple. CARDIOVASCULAR: Regular rate and rhythm without murmurs, gallops, or rubs. RESPIRATORY: Clear to auscultation. Breath sounds equal bilaterally. No wheezes , rales, or rhonchi. GASTROINTESTINAL: Abdomen soft, mild tenderness, clean surgical wounds. MUSCULOSKELETAL: Extremities without clubbing, Edema 3+ NEUROLOGICAL: Awake and alert. No focal deficits. Hospital Course This is a pleasant 46 y/o Female with Multiple sclerosis, tobacco dependence Alcohol abuse, sent to ER by PCP due to Altered mental status, unintentional weight loss, recurrent falls, has Hypertension, Overactive bladder, admitted on 09/05/16, ECG showed Left Ventricular Hypertrophy, Acute Kidney Injury, elevated Liver Enzymes, dehydrated, Neurology consulted for MS. as per Neurology specialist recommended to hold Ampyra and Rebif this medicines may be a factor for her Generalized weakness, also probable related to MS. elevated Liver Enzymes as per GI specialist probable secondary to Alcohol abuse, recommended HIDA scan, MRCP, was transferred by General Surgery to this facility for ERCP. 09/13: Consulted by Nephrology specialist and Renal Ultrasound with increased Echogenicity for CKD but no clear why the patient had this decline in renal function, questioned about medicine Rebif, but will study MICHAEL, Urine protein to Creatinine ratio, Echocardiogram, IV fluids stopped due to edema, started on Bumex IV and monitor renal function. probable edema secondary to medicines, Amlodipine, Hydralazine, Gabapentin, seen by GI specialist with diagnosis of elevated LFTs MICHAEL negative ASMA neg, MA neg, AMA neg. Hep panel neg. 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 status post 2 units of FFP, Direct King negative, likely DIC from Cholecystitis, Direct antiglobulin test negative. Haptoglobin is low due to liver disease and Hemolysis. 09/14: already GI specialist Signed off and Hematology but awaiting final by Nephrology specialist for discharge. 09/15: will have a Kidney biopsy next week. replaced electrolytes, Potassium 3.2 and Magnesium 1.5 Continue edema 3+ on bilateral legs. 09/16: worsened Renal function 09/17: Status post Kidney Biopsy, continue swollen legs 3+. 09/18: Stable seen in her room, no complaint, walking, continue with swollen legs , no nausea, vomit or diarrhea, status post Kidney Biopsy performed yesterday. wants to go home. 09/19: Patient in her bedroom, stable has CKD IV GFR 15-29 ml/min appears to have CKD suggested by renal ultrasound, increased echogenicity, Cannot exclude a component of Acute kidney disease however , Proteinuria is minimal and not nephrotic, SPEP was within normal range, MICHAEL is negative. Okay to discharge from Nephrology standpoint and follow with nephrology specialist in two weeks, Bumex 1 mg daily and Amiloride 10 mg daily. Stable in her bedroom , no nausea, vomit or diarrhea. okay to discharge and follow with Primary Care physician and Nephrology in two weeks. Assessment and Plan 1. Accelerated Hypertension, continue Beta Blockers, Ditropan 5 mg daily, Clonidine 0.1 mg every eight hours and follow closely blood pressure. she has Severe LVH probable related to chronic uncontrolled Hypertension. 2. Electrolyte derangement replaced 3. Acute Kidney Injury Nephrology following, Renal Ultrasound with increased Echogenicity for CKD but no clear why the patient had this decline in renal function, questioned about medicine Rebif , but will study MICHAEL, Urine protein to Creatinine ratio, IV fluids stopped due to edema, started on Bumex IV and monitor renal function. probable edema secondary to medicines, Amlodipine, Hydralazine, Gabapentin, Stable Creatinine level, Status post Kidney Biopsy Seen by Nephrology specialist she has CKD IV GFR 15-29 ml/min appears to have CKD suggested by renal ultrasound, increased echogenicity, Cannot exclude a component of Acute kidney disease however, Proteinuria is minimal and not nephrotic, SPEP was within normal range, MICHAEL is negative. Okay to discharge from Nephrology standpoint and follow with nephrology specialist in two weeks, Bumex 1 mg daily and Amiloride 10 mg daily. Stable in her bedroom, no nausea, vomit or diarrhea. okay to discharge and follow with Primary Care physician and Nephrology in two weeks. 4. Elevated Liver enzymes with tender RUQ, CT indicated gallbladder abnormality of thickened wall or fluid present, hepatitis profile and workup for autoimmune hepatitis. after evaluation by GI specialist today reviewed MRCP/CT and HIDA scan. Status post Laparoscopic Cholecystectomy with intraoperative cholangiogram with intraoperative use of fluoroscopy Joseph-cut Liver biopsy x 2 with Post operative diagnosis of Cholecystitis with previous choledocholithiasis with fatty changes seen by GI specialist with diagnosis of elevated LFTs MICHAEL negative ASMA neg, MA neg, AMA neg. Hep panel neg. 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 cleared for discharge by GI specialist 5. Multiple Sclerosis on hold Rebif and Ampyra. 6. Macrocytic anemia with normal values of B12 and Folate 7. Acute metabolic and Hypertensive Encephalopathy CT brain no acute findings. Improved. 8. Thrombocytopenia followed by corporate law specialist. status post 2 units of FFP, Direct King negative, likely DIC from Cholecystitis, Direct antiglobulin test negative. Haptoglobin is low due to liver disease and Hemolysis. Improving Thrombocytopenia cleared by corporate law specialist. DVT prophylaxis with SCDs. Encourage ambulation Awaiting Kidney Biopsy that will be followed as outpatient by Nephrology specialist. the patient is walking in the room without difficulty will discharge on PT and Skilled nurse. Discharge Planning Discharge Home today on [facility] for PT and Skilled nurse. Pt Condition on Discharge: Good Discharge Disposition: Disch w/ Home Health Serv Discharge Time: > 30 minutes Discharge Instructions DIET: Follow Instructions for: Heart Healthy Diet, Renal Failure Diet Activities you can perform: Regular-No Restrictions Other Activity Instructions: follow Physical therapy recommendations. Silas Cummings MD September 19, 2016 08:41
[2016-09-19] MEDS: DALFAMPRIDINE 10 MG PO SCH (08:42)
[2016-09-19] MEDS: SODIUM CHLORIDE 0.9% FLUSH 10 ML FLUSH IV FLUSH SCH (08:42)
[2016-09-19] MEDS: BUMETANIDE INJ 1 MG/4 ML VIAL IV PUSH SCH (08:42)
[2016-09-19 12:06] LABS: HEMATOCRIT 29.9 % (35.0-46.0); MEAN CELL VOLUME 102.6 FL (80.0-100.0); MEAN CORPUSCULAR HEMOGLOBIN 33.2 PG (27.0-34.0); MEAN CORPUSCULAR HGB CONC 32.4 % (32.0-36.0); PLATELET COUNT 183 TH/MM3 (150-450); RED BLOOD COUNT 2.92 MIL/MM3 (4.00-5.30); RED CELL DISTRIBUTION WIDTH 17.7 % (11.6-17.2); REVIEW FLAG FINAL; WHITE BLOOD COUNT 7.5 TH/MM3 (4.0-11.0)
== END 2016-09-19 12:46 | disposition home health service (06) | DRG 673 ==
LOC: PHED 16:31 → PHEDA 19:46 → PH3A 09-05 00:22 → PHICU 09-06 10:52 → HIMN 09-06 19:10 → N07B 09-07 18:19
PROVIDERS: ADMIT Internal Medicine; ATTEND Internal Medicine
PROC: 0FT44ZZ Resection of Gallbladder, Percutaneous Endoscopic Approach (ICD-10-PCS; 2016-09-08)
PROC: BF101ZZ Fluoroscopy of Bile Ducts using Low Osmolar Contrast (ICD-10-PCS; 2016-09-08)
PROC: 0FB14ZX Excision of Right Lobe Liver, Percutaneous Endoscopic Approach, Diagnostic (ICD-10-PCS; principal; 2016-09-08 08:27)
PROC: 30233K1 Transfusion of Nonautologous Frozen Plasma into Peripheral Vein, Percutaneous Approach (ICD-10-PCS; 2016-09-12)
DX: N17.9 Acute kidney failure, unspecified (principal); G93.41 Metabolic encephalopathy; D65 Disseminated intravascular coagulation [defibrination syndrome]; K76.89 Other specified diseases of liver; I67.4 Hypertensive encephalopathy; K70.0 Alcoholic fatty liver; M62.82 Rhabdomyolysis; I16.9 Hypertensive crisis, unspecified; N39.0 Urinary tract infection, site not specified; E83.42 Hypomagnesemia; G35 Multiple sclerosis; K81.1 Chronic cholecystitis; E86.0 Dehydration; K70.11 Alcoholic hepatitis with ascites; I13.10 Hypertensive heart and chronic kidney disease without heart failure, with stage 1 through stage 4 chronic kidney disease, or unspecified chronic kidney disease; N18.4 Chronic kidney disease, stage 4 (severe); E87.6 Hypokalemia; D53.9 Nutritional anemia, unspecified; B96.20 Unspecified Escherichia coli [E. coli] as the cause of diseases classified elsewhere; N32.81 Overactive bladder; D63.8 Anemia in other chronic diseases classified elsewhere; E55.9 Vitamin D deficiency, unspecified; R04.0 Epistaxis; R60.0 Localized edema; I16.0 Hypertensive urgency; N93.9 Abnormal uterine and vaginal bleeding, unspecified; R63.4 Abnormal weight loss; R29.6 Repeated falls; F10.20 Alcohol dependence, uncomplicated; F17.210 Nicotine dependence, cigarettes, uncomplicated; Z80.1 Family history of malignant neoplasm of trachea, bronchus and lung; Z80.0 Family history of malignant neoplasm of digestive organs; Z88.0 Allergy status to penicillin
CPT/HCPCS: 32405; 36430; 50200; 70450; 71010; 72146; 72148; 74176; 74181; 74300; 76377; 76775; 77012; 78226; 80048; 80053; 80069; 80074; 80076; 80307; 81001; 82088; 82103; 82140; 82306; 82384; 82390; 82550; 82552; 82570; 82607; 82728; 82746; 82784; 83010; 83516; 83520; 83540; 83550; 83615; 83690; 83735; 83835; 83883; 84132; 84133; 84157; 84165; 84244; 84443; 84702; 85007; 85025; 85027; 85044; 85060; 85384; 85610; 85730; 86022; 86038; 86160; 86256; 86335; 86880; 86927; 87077; 87086; 87186; 87205; 87641; 88304; 88305; 88307; 88313; 88346; 88348; 88350; 93005; 93306; 93970; 93975; 96360; A9537; J0131; J0360; J0744; J1940; J2250; J2270; J2405; J2710; J3010; J3475; J3480; J7030; J7050; P9017; Q9967

== ENCOUNTER 2016-09-30 16:45 | Emergency (ER) | payer MEDICARE, OTHER ==
[~2016-09-30] VITALS: Ht 160 cm; Wt 54.0 kg
[~2016-09-30 16:45] MED LIST changes: +AMILORIDE PO; -AMPY10TA PO; -BACL10TA PO; +BUME1TAB26 PO; +CIPR250T52 PO; +CLON.1 PO; +HYDR25TA35 PO; +HYDR50TA15 PO; -INTE44IN SQ; +MAGN64 PO; +METO25TA3 PO; +VITA100018 PO; +VITA10002 PO
[2016-09-30 16:47] VITALS: BP 157/74; PULSE 82; RESP 24; TEMP 98.8; O2SAT 97
[2016-09-30 17:05] VITALS: BP 165/80; PULSE 80; RESP 20; TEMP 99.2; O2SAT 98
[2016-09-30] MEDS ORDERED: SODIUM CHLORIDE 0.9% FLUSH 10 ML FLUSH IV FLUSH PRN (17:15)
[2016-09-30 17:25] VITALS: O2SAT 98
--- NOTE | 2016-09-30 17:35 | PD ---
HPI Chief Complaint: Abdominal Pain Time Seen by Provider: 17:16 Travel History International Travel<30 days: No Contact w/Intl Traveler<30days: No Traveled to known affect area: No History of Present Illness HPI 46-year-old female presents to the emergency department for evaluation of worsening abdominal pain. Patient was discharged on September 19, 2016. She had cholecystectomy, liver biopsy, and renal biopsy on the emergency department. She states she was discharged with ciprofloxacin, but recently finished. Patient states that she has not drank any alcohol in 2 months, but was drinking daily prior to that. Patient has history of hypertension, multiple sclerosis. Patient denies any chest pain or shortness of breath. She denies any vomiting. No constipation or diarrhea. No blood in her stool. Patient states that she saw her neurologist, Dr. Boo, recently. She has an appointment upcoming with Dr. Nunes, nephrology. Patient had acute kidney injury and elevated liver enzymes while in the hospital during her last admission. Patient also had thrombocytopenia and had 2 units FFP infused. PFSH Past Medical History Cardiovascular Problems: Yes High Cholesterol: No Diabetes: No Diminished Hearing: No Genitourinary: No Hypertension: Yes Musculoskeletal: Yes (MUTILPLE SCLEROSIS) Neurologic: Yes (MS) Psychiatric: No Respiratory: No Tetanus Vaccination: Unknown Influenza Vaccination: No ?: Not LMP: 08/30/16 Past Surgical History Cholecystectomy: Yes Social History Alcohol Use: No Tobacco Use: Yes (CIGARETTES, 1/2 PPD) Substance Use: No Allergies-Medications (Allergen,Severity, Reaction): Coded Allergies: Penicillin (Verified Allergy, Intermediate, HIVES, 09/04/16) Reported Meds & Prescriptions Reported Meds & Active Scripts Active Metoprolol Tartrate 25 Mg Tab 12.5 Mg PO Q12HR Mag64 (Magnesium Chloride) 64 Mg Tab 128 Mg PO DAILY Vitamin B-12 (Cyanocobalamin) 1,000 Mcg Tab 1,000 Mcg PO DAILY Catapres (Clonidine) 0.1 Mg Tab 0.1 Mg PO Q8HR Hydrocodone-Acetaminophen 10-325 mg Tab 1 Tab PO DAILY PRN Do not take this medicine if you will drive a car or use a machine, only use it when you are resting at home. Reported Hydralazine HCl 50 Mg Tablet 100 Mg PO TID Hydralazine HCl 25 Mg Tablet 50 Mg PO TID Rebif Inj (Interferon Beta 1a) 22 Mcg/0.5 Ml Syr Unknown Dose SQ 3 X WEEKLY Vitamin D3 (Cholecalciferol) 1,000 Unit Tab 1,000 Units PO DAILY Neurontin (Gabapentin) 300 Mg Cap 300 Mg PO BID Amiloride (Amiloride HCl) 5 Mg Tab 10 Mg PO DAILY Bumetanide 1 Mg Tab 1 Mg PO DAILY Ditropan (Oxybutynin Chloride) 5 Mg Tab 2.5 Mg PO DAILY Review of Systems Except as stated in HPI: all other systems reviewed are Neg Physical Exam Narrative GENERAL: Well-nourished, well-developed female patient, afebrile. SKIN: Focused skin assessment warm/dry. HEAD: Normocephalic. Atraumatic. EYES: No scleral icterus. No injection or drainage. NECK: Supple, trachea midline. No JVD or lymphadenopathy. CARDIOVASCULAR: Regular rate and rhythm without murmurs, gallops, or rubs. RESPIRATORY: Breath sounds equal bilaterally. No accessory muscle use. Lungs sounds are clear to auscultation. GASTROINTESTINAL: Abdomen soft and nondistended. Patient has diffuse tenderness to palpation, worse in the right upper quadrant. MUSCULOSKELETAL: No cyanosis, or edema. BACK: Nontender without obvious deformity. No CVA tenderness. Data Data Last Documented VS Vital Signs Date Time Temp Pulse Resp B/P Pulse Ox O2 Delivery O2 Flow Rate FiO2 09/30/16 17:25 98 Room Air 09/30/16 17:05 99.2 80 20 165/80 Orders Complete Blood Count With Diff (09/30/16 17:06) Comprehensive Metabolic Panel (09/30/16 17:06) Lipase (09/30/16 17:06) Urinalysis - C+S If Indicated (09/30/16 17:06) Iv Access Insert/Monitor (09/30/16 17:06) Ecg Monitoring (09/30/16 17:06) Oximetry (09/30/16 17:06) Sodium Chloride 0.9% Flush (Ns Flush) (09/30/16 17:15) Ed Urine Pregnancytest Poc (09/30/16 17:06) Ct Abd/Pel W/O Iv Contrast (09/30/16 ) Labs Laboratory Tests Test 09/30/16 17:20 White Blood Count 5.3 TH/MM3 Red Blood Count 2.81 MIL/MM3 Hemoglobin 9.4 GM/DL Hematocrit 27.8 % Mean Corpuscular Volume 98.8 FL Mean Corpuscular Hemoglobin 33.2 PG Mean Corpuscular Hemoglobin 33.7 % Concent Red Cell Distribution Width 16.6 % Platelet Count 207 TH/MM3 Mean Platelet Volume 8.4 FL Neutrophils (%) (Auto) 57.7 % Lymphocytes (%) (Auto) 21.9 % Monocytes (%) (Auto) 8.8 % Eosinophils (%) (Auto) 10.3 % Basophils (%) (Auto) 1.3 % Neutrophils # (Auto) 3.0 TH/MM3 Lymphocytes # (Auto) 1.2 TH/MM3 Monocytes # (Auto) 0.5 TH/MM3 Eosinophils # (Auto) 0.5 TH/MM3 Basophils # (Auto) 0.1 TH/MM3 CBC Comment DIFF FINAL Differential Comment Urine Color YELLOW Urine Turbidity CLEAR Urine pH 6.5 Urine Specific [place] 1.012 Urine Protein 30 mg/dL Urine Glucose (UA) NEG mg/dL Urine Ketones NEG mg/dL Urine Occult Blood NEG Urine Nitrite NEG Urine Bilirubin NEG Urine Urobilinogen LESS THAN 2.0 MG/DL Urine Leukocyte Esterase NEG Urine RBC 2 /hpf Urine WBC LESS THAN 1 /hpf Urine Squamous Epithelial <1 /hpf Cells Urine Hyaline Casts 1 /lpf Microscopic Urinalysis Comment CULT NOT INDICATED Sodium Level 138 MEQ/L Potassium Level 3.8 MEQ/L Chloride Level 98 MEQ/L Carbon Dioxide Level 32.6 MEQ/L Anion Gap 7 MEQ/L Blood Urea Nitrogen 28 MG/DL Creatinine 2.04 MG/DL Estimat Glomerular Filtration 26 ML/MIN Rate Random Glucose 134 MG/DL Calcium Level 8.5 MG/DL Total Bilirubin 0.5 MG/DL Aspartate Amino Transf 30 U/L (AST/SGOT) Alanine Aminotransferase 33 U/L (ALT/SGPT) Alkaline Phosphatase 103 U/L Total Protein 6.4 GM/DL Albumin 3.1 GM/DL Lipase 182 U/L [facility] Medical Decision Making Medical Screen Exam Complete: Yes Emergency Medical Condition: Yes Medical Record Reviewed: Yes Interpretation(s) CT abdomen/pelvis - CONCLUSION: 1. Stable cardiomegaly and mild to moderate-sized pericardial effusion. 2. Minimal patchiness within left lower lobe consistent with atelectasis and/or mild infiltrate. Clinical correlation is recommended. 3. No acute intra-abdominal process. 4. Mild degenerative changes and scoliosis of the lumbar spine. Differential Diagnosis postoperative pain vs. postoperative infection vs. pancreatitis vs. diverticulitis vs. appendicitis Narrative Course 46 year old female presents to the emergency department for evaluation of worsening abdominal pain. Patient was recently discharged on September 19. CBC, CMP , lipase, UA, UPT are ordered and pending. CT abdomen/pelvis are ordered and pending. CBC shows anemia hemoglobin 9.4, this is improved since previous admission. CMP shows BUN 28, creatinine 2.04, which is stable from previous admission. Lipase is 182. UA is negative for acute infection. UPT is negative. CT abdomen/pelvis shows 1. Stable cardiomegaly and mild to moderate-sized pericardial effusion; 2. Minimal patchiness within left lower lobe consistent with atelectasis and/or mild infiltrate. Clinical correlation is recommended; 3. No acute intra-abdominal process; 4. Mild degenerative changes and scoliosis of the lumbar spine. Patient has no symptoms of pneumonia. Patient has mild-moderate pericardial effusion seen on previous CT the beginning of September. She is going to follow up with her physicians. She is to return for any acute, worsening of symptoms. She verbalizes agreement and understanding. The patient was discharged in stable condition with instructions, including return instructions and follow up instructions. Diagnosis Primary Impression: Abdominal pain Qualified Code: R10.84 - Generalized abdominal pain Referrals: Redd Jurado MD, J. Peter MD Primary Care Physician Patient Instructions: Abdominal Pain (ED), General Instructions Additional Instructions: Follow-up with Dr. Jurado, your surgeon, Dr. Nunes, your certified nuclear medicine technologist, and your primary care physician. Return to the emergency department for any acute worsening of symptoms. Med/Other Pt SpecificInfo: No Change to Meds Disposition: 01 DISCHARGE HOME Condition: Stable Jumana Santos DANIEL September 30, 2016 17:35
[2016-09-30] MEDS ORDERED: BUME1TAB PO (17:40)
[2016-09-30] MEDS ORDERED: NEUR300C PO (17:40)
[2016-09-30] MEDS ORDERED: AMIL5 PO (17:40)
[2016-09-30] MEDS ORDERED: VITA100018 PO (17:41)
[2016-09-30 17:42] LABS: BASOPHIL # 0.1 TH/MM3 (0-0.2); BASOPHIL % 1.3 % (0.0-2.0); EOSINOPHIL # 0.5 TH/MM3 (0-0.4); EOSINOPHIL % 10.3 % (0.0-4.0); HEMATOCRIT 27.8 % (35.0-46.0); HEMO FLAGS DIFF FINAL; LYMPH % 21.9 % (9.0-44.0); LYMPHOCYTE # 1.2 TH/MM3 (1.0-4.8); MEAN CELL VOLUME 98.8 FL (80.0-100.0); MEAN CORPUSCULAR HEMOGLOBIN 33.2 PG (27.0-34.0); MEAN CORPUSCULAR HGB CONC 33.7 % (32.0-36.0); MONO % 8.8 % (0.0-8.0); NEUT % 57.7 % (16.0-70.0); PLATELET COUNT 207 TH/MM3 (150-450); RED BLOOD COUNT 2.81 MIL/MM3 (4.00-5.30); RED CELL DISTRIBUTION WIDTH 16.6 % (11.6-17.2); WHITE BLOOD COUNT 5.3 TH/MM3 (4.0-11.0)
[2016-09-30] MEDS ORDERED: REBI22IN SQ (17:43)
[2016-09-30 17:46] LABS: BLOOD, URINE NEG (NEG); COMMENT (UR) CULT NOT INDICATED; CULTURE IF INDICATED CULT NOT INDICATED; GLUCOSE,URINE NEG (NEG); HYALINE CAST, URINE 1 /lpf (RARE); KETONE, URINE NEG (NEG); NITRITE,URINE NEG (NEG); PH, URINE 6.5 (5.0-8.5); SQUAMOUS EPITHELIAL CELL URINE <1 /hpf (0-5); URINE COLOR YELLOW (YELLW/STRAW)
[2016-09-30] MEDS ORDERED: HYDR-3799 PO (17:48)
[2016-09-30] MEDS ORDERED: HYDR-3800 PO (17:48)
[2016-09-30 18:02] LABS: ALT (GPT) 33 U/L (10-53); ANION GAP 7 MEQ/L (5-15); AST (GOT) 30 U/L (15-37); BICARBONATE 32.6 MEQ/L (21.0-32.0); BLOOD UREA NITROGEN 28 MG/DL (7-18); CHLORIDE 98 MEQ/L (98-107); GLOMERULAR FILTRATION RATE 26 ML/MIN (>89); POTASSIUM 3.8 MEQ/L (3.5-5.1); SODIUM (NA) 138 MEQ/L (136-145)
[2016-09-30 18:04] LABS: ALKALINE PHOSPHATASE 103 U/L (45-117); TOTAL BILIRUBIN ADULT 0.5 MG/DL (0.2-1.0)
--- NOTE | 2016-09-30 19:27 | RADRPT ---
EXAM DATE/TIME: 09/30/2016 18:58 [facility] COMPARISON: CT ABDOMEN & PELVIS W/O CONTRAST, September 04, 2016, 18:50. INDICATIONS : Right upper quadrant pain. ORAL CONTRAST: No oral contrast ingested. RADIATION DOSE: 4.54 CTDIvol (mGy) MEDICAL HISTORY : Cardiovascular disease. Hypertension. SURGICAL HISTORY : Cholecystectomy. ENCOUNTER: Initial ACUITY: 1 day PAIN SCALE: 8/10 LOCATION: Right upper quadrant TECHNIQUE: Volumetric scanning of the abdomen and pelvis was performed. Using automated exposure control and ad justment of the mA and/or kV according to patient size, radiation dose was kept as low as reasonably achievable to obtain optimal diagnostic quality images. FINDINGS: LOWER LUNGS: The heart remains enlarged. Small to moderate-sized pericardial effusion is stable. Focal patchy dens ity is noted within the left lower lobe consistent with atelectasis and/or mild infiltrate. LIVER: Homogeneous density without lesion. There is no dilation of the biliary tree. No calcified gallston es. Status post cholecystectomy. SPLEEN: Normal size without lesion. PANCREAS: Within normal limits. KIDNEYS: Normal in size and shape. There is no mass, stone, or hydronephrosis. ADRENAL GLANDS: Within normal limits. VASCULAR: There is no aortic aneurysm. BOWEL/MESENTERY: The stomach, small bowel, and colon demonstrate no acute abnormality. There is no free intraperitone al air or fluid. ABDOMINAL WALL: Within normal limits. RETROPERITONEUM: There is no lymphadenopathy. BLADDER: No wall thickening or mass. REPRODUCTIVE: Within normal limits. INGUINAL: There is no lymphadenopathy or hernia. MUSCULOSKELETAL: Mild degenerative changes and scoliosis of the lumbar spine are noted. CONCLUSION: 1. Stable cardiomegaly and mild to moderate-sized pericardial effusion. 2. Minimal patchiness within left lower lobe consistent with atelectasis and/or mild infiltrate. Clin ical correlation is recommended. 3. No acute intra-abdominal process. 4. Mild degenerative changes and scoliosis of the lumbar spine. Carlos Alberto Graham MD on September 30, 2016 at 19:21 Board Certified Radiologist. This report was verified electronically.
[2016-09-30 20:28] VITALS: BP 135/77
== END 2016-09-30 20:27 | disposition home or self-care (01) ==
LOC: NEPD 16:45
DX: R10.84 Generalized abdominal pain (principal); I31.3 Pericardial effusion (noninflammatory); I10 Essential (primary) hypertension; F17.210 Nicotine dependence, cigarettes, uncomplicated
CPT/HCPCS: 74176; 80053; 81001; 83690; 84703; 85025; 99284